=== PATIENT | female | born 1950 | race Caucasian/White ===

== ENCOUNTER 2016-06-26 16:57 | Inpatient (IN) | payer OTHER ==
[2016-06-26 17:00] VITALS: BMI 35.9
--- NOTE | 2016-06-26 17:59 | PDOC ---
History of Present Illness <Dwayne Du - Last Filed: 06/26/16 17:58> - General History Source: Patient Exam Limitations: No Limitations - History of Present Illness Initial Comments: 06/26/16 18:20 The patient is a 66 year old female, with a significant past medical history of NIDDM, hypertension, hyperlipidemia, hypothyroidism, and benign brain tumors(X6) , who presents to the emergency department complaining of chest pain and weakness for 1 day. The patient reports experiencing nonradiating chest pain and associated weakness yesterday, which improved during the evening. She denies any associated shortness of breath, diaphoresis, or palpitations. Today, the patient reports feeling generally weak when she woke up. She states she had a difficult time getting ready and had to put in a lot of effort in order to bring herself by bus to the ED. The patient states her blood glucose levels were at 205 this morning. She reports taking 50 mg of insulin, but not her metformin( because she was running low). The patient report similar chest pain in the April, which lasted 3 days, but resolved on its own. The patient denies ever having a stress test. The patient denies any fever, chills, cough, headache, or dizziness. The patient denies any nausea, vomiting, diarrhea, constipation, or changes in urination patterns. The patient denies any recent travel or sick contacts. Allergies: Phenytoin sodium(rash), Phenytoin sodium extended, and Vancomycin Past Surgical History: None reported. Social History: Former smoker(Quit 15 years ago). Denies alcohol or drug use PCP: Dr. Harvey <Berna Fountain - Last Filed: 06/26/16 18:36> <Argelia Joseph - Last Filed: 06/27/16 23:22> - General Chief Complaint: Weakness Stated Complaint: WEAKNESS Time Seen by Provider: 06/26/16 17:58 Past History - Past Medical History Anemia: No Asthma: No Cancer: No Cardiac Disorders: No CVA: No COPD: No CHF: No Dementia: No Diabetes: Yes (NIDDM) GI Disorders: No Disorders: No HTN: Yes Hypercholesterolemia: Yes Liver Disease: No Seizures: No Thyroid Disease: Yes (hypothyroidism) - Surgical History Abdominal Surgery: No Appendectomy: No Cardiac Surgery: No Cholecystectomy: No Lung Surgery: No Neurologic Surgery: Yes (BENIGN BRAIN TUMORS X 6 @ [facility]) Orthopedic Surgery: No - Immunization History Td Vaccination: Yes Immunization Up to Date: Yes - Psycho/Social/Smoking Cessation Hx Anxiety: No Suicidal Ideation: No Smoking Status: Yes Smoking History: Never smoked Have you smoked in the past 12 months: No Number of Cigarettes Smoked Daily: 0 If you are a former smoker, when did you quit?: 15 years ago Information on smoking cessation initiated: No Hx Alcohol Use: No Drug/Substance Use Hx: No Substance Use Type: None Hx Substance Use Treatment: No <Dwayne Du - Last Filed: 06/26/16 17:58> <Berna Fountain - Last Filed: 06/26/16 18:36> <Argelia Joseph - Last Filed: 06/27/16 23:22> - Past Medical History Allergies/Adverse Reactions: Allergies Allergy/AdvReac Type Severity Reaction Status Date / Time phenytoin sodium Allergy Rash Verified 06/26/16 16:58 [From Dilantin] phenytoin sodium extended Allergy Rash Verified 06/26/16 16:58 [From Dilantin] vancomycin Allergy Verified 06/26/16 16:58 Home Medications: Ambulatory Orders Gabapentin 100 mg PO BID 04/11/15 Omeprazole 20 mg PO DAILY #30 capsule. 09/09/15 Levothyroxine [Synthroid -] 125 mcg PO BID 10/20/15 Potassium Chloride [Klor-Con] 20 meq PO DAILY 10/20/15 Insulin (Novolog) [Novolog -] 10 units SQ BID 12/04/15 Insulin Glargine,Hum.rec.anlog [Lantus (nf)] 50 units SQ BID 12/04/15 Furosemide [Lasix -] 40 mg PO DAILY #30 tablet 12/06/15 Hydralazine HCl [Apresoline -] 25 mg PO BID #30 tablet 12/06/15 Simvastatin [Zocor -] 40 mg PO HS 06/26/16 Review of Systems - Review of Systems Able to Perform ROS?: Yes Comments:: 06/26/16 18:15 GENERAL/CONSTITUTIONAL: Yes: +Weakness. No fever or chills. HEAD, EYES, EARS, NOSE AND THROAT: No change in vision. No ear pain or discharge. No sore throat. CARDIOVASCULAR: Yes: +Chest pain. No shortness of breath. RESPIRATORY: No cough, wheezing, or hemoptysis. GASTROINTESTINAL: No nausea, vomiting, diarrhea or constipation. GENITOURINARY: No dysuria, frequency, or change in urination. MUSCULOSKELETAL: No joint or muscle swelling or pain. No neck or back pain. SKIN: No rash NEUROLOGIC: No headache, vertigo, loss of consciousness, or change in strength/ sensation. ENDOCRINE: No increased thirst. No abnormal weight change. HEMATOLOGIC/LYMPHATIC: No anemia, easy bleeding, or history of blood clots. ALLERGIC/IMMUNOLOGIC: No hives or skin allergy. <Bianca Fountainommarla - Last Filed: 06/26/16 18:36> *Physical Exam - Vital Signs Last Vital Signs Temp Pulse Resp BP Pulse Ox 86 17 159/95 97 06/26/16 16:58 06/26/16 16:58 06/26/16 16:58 06/26/16 16:58 <Dwayne Du - Last Filed: 06/26/16 17:58> - Vital Signs Last Vital Signs Temp Pulse Resp BP Pulse Ox 86 17 159/95 97 06/26/16 16:58 06/26/16 16:58 06/26/16 16:58 06/26/16 16:58 - Physical Exam Comments: 06/26/16 18:14 GENERAL: Awake, alert, and fully oriented, in no acute distress HEAD: No signs of trauma EYES: PERRLA, EOMI, sclera anicteric, conjunctiva clear ENT: Auricles normal inspection, hearing grossly normal, nares patent, oropharynx clear without exudates. Moist mucosa NECK: Normal ROM, supple, no lymphadenopathy, JVD, or masses LUNGS: Breath sounds equal, clear to auscultation bilaterally. No wheezes, and no crackles HEART: Regular rate and rhythm, normal S1 and S2, no murmurs, rubs or gallops ABDOMEN: Soft, nontender, normoactive bowel sounds. No guarding, no rebound. No masses EXTREMITIES: Normal range of motion, no edema. No clubbing or cyanosis. No cords, erythema, or tenderness NEUROLOGICAL: Cranial nerves II through XII grossly intact. Normal speech, normal gait SKIN: Warm, Dry, normal turgor, no rashes or lesions noted. <Bianca Fountainommarla - Last Filed: 06/26/16 18:36> - Vital Signs Last Vital Signs Temp Pulse Resp BP Pulse Ox 86 17 159/95 97 06/26/16 16:58 06/26/16 16:58 06/26/16 16:58 06/26/16 16:58 <Argelia Joseph - Last Filed: 06/27/16 23:22> ED Treatment Course - LABORATORY CBC & Chemistry Diagram: 06/27/16 05:28 06/27/16 05:28 - ADDITIONAL ORDERS Additional order review: Laboratory Results 06/26/16 06/26/16 06/26/16 22:50 21:40 18:45 INR Sodium 141 Potassium 5.7 H Chloride 111 H Carbon Dioxide 22 Anion Gap 8 BUN 53 H Creatinine 1.8 H Creat Clearance w eGFR 27.98 Random Glucose 247 H Calcium 8.7 Magnesium Total Bilirubin 0.3 AST 87 H D ALT 150 H Alkaline Phosphatase 270 H Creatine Kinase 86 Troponin I < 0.02 B-Natriuretic Peptide Total Protein 7.1 Albumin 3.3 L Urine Color Colorless Urine Appearance Clear Urine pH 5.0 Ur Specific [place] 1.005 Urine Protein 2+ H Urine Glucose (UA) 3+ H Urine Ketones Negative Urine Blood 1+ H Urine Nitrite Negative Urine Bilirubin Negative Urine Urobilinogen Negative Ur Leukocyte Esterase Negative Blood Type A POSITIVE Antibody Screen Negative 06/26/16 06/26/16 06/26/16 18:45 18:45 18:45 INR 0.94 Sodium 139 Potassium 6.2 H* D Chloride 110 H Carbon Dioxide 21 D Anion Gap 8 BUN 55 H D Creatinine 1.9 H D Creat Clearance w eGFR 26.29 Random Glucose 288 H D Calcium 8.7 Magnesium 2.4 Total Bilirubin 0.3 AST 131 H D ALT 172 H D Alkaline Phosphatase 310 H D Creatine Kinase 92 Troponin I < 0.02 B-Natriuretic Peptide 572.05 H Total Protein 7.9 D Albumin 3.6 D Urine Color Urine Appearance Urine pH Ur Specific [place] Urine Protein Urine Glucose (UA) Urine Ketones Urine Blood Urine Nitrite Urine Bilirubin Urine Urobilinogen Ur Leukocyte Esterase Blood Type Antibody Screen 06/26/16 18:45 RBC 3.83 MCV 90.2 MCHC 33.6 RDW 13.9 MPV 10.3 Neutrophils % 68.8 D Lymphocytes % 18.9 D Monocytes % 7.2 Eosinophils % 4.4 Basophils % 0.7 - RADIOLOGY Radiology Studies Ordered: Category Date Time Status ABDOMEN US -LIMITED [US] Stat Ultrasound 06/26/16 22:27 Taken - Medications Given in the ED: ED Medications Discontinued Medications Generic Name Dose Route Start Last Admin Trade Name Ankit PRN Reason Stop Dose Admin Dextrose 50 ml 06/26/16 19:51 06/26/16 20:27 D50w (Vial) - IVPUSH 06/26/16 19:52 50 ml NOW ONE Administration Insulin Human Regular 10 units 06/26/16 19:52 06/26/16 20:28 Novolin R Vial *For Ivpush Or Iv Drip Only* SQ 06/26/16 19:53 10 unit ONCE ONE Administration Sodium Polystyrene Sulfonate 30 gm 06/26/16 19:51 06/26/16 20:28 Kayexalate - PO 06/26/16 19:52 30 gm ONCE ONE Administration <Argelia Joseph - Last Filed: 06/27/16 23:22> Medical Decision Making - Medical Decision Making 06/27/16 00:49 Pt was signed out to me; she comes with DM and complains of CP and generalized weakness; head CT is normal. Pt has hyperkalemia and she has elevated liver enzymes. Sono of the abdomen reveals no CBD stones or dilatation. She has only fatty liver on sonogram. Pt will be admitted to her PMD for CP, hyperkalemia and weakness. She will be admitted to telemetry unit. 06/27/16 23:19 Pt began feeling unweel in the middle of the night. SHe had received IVF with sodium bicarb for her elevated K+. Pt had rales bilaterally, so I started her on BiPAP, gave her 2 SL nitro tabs, and we treated her with lasix 80mg and placed a rios catheter. 300+ml Urine came out immediately. Repeat CMP is improving. Repeat BNP slightly elevated. Pt is stable. She is still admitted to PMD. <Argelia Joseph - Last Filed: 06/27/16 23:22> *DC/Admit/Observation/Transfer - Attestations Physician Attestion: 06/26/16 17:59 I, Dr. Dwayne Du, attest that this document has been prepared under my direction and personally reviewed by me in its entirety. I further attest, that it accurately reflects all work, treatment, procedures and medical decision -making performed by me. <Dwayne Du - Last Filed: 06/26/16 17:58> - Attestations Scribe Attestion: 06/26/16 18:15 Documentation prepared by Berna Fountain, acting as medical services assistant for Dwayne Du DO. <Berna Fountain - Last Filed: 06/26/16 18:36> - Discharge Dispostion Admit: Yes <Argelia Joseph - Last Filed: 06/27/16 23:22> Diagnosis at time of Disposition: Renal insufficiency, Weakness, Hyperkalemia - Discharge Dispostion Condition at time of disposition: Guarded - Referrals
[2016-06-26 19:07] LABS: BASOPHIL 0.7 % (0-2.0); EOSINOPHIL 4.4 % (0-4.5); MCH 30.3 pg (25.7-33.7); MCHC 33.6 g/dl (32.0-36.0); MEAN CELL VOLUME 90.2 fl (80-96); MEAN PLT VOLUME 10.3 fl (7.5-11.1); NEUTROPHILS 68.8 % (42.8-82.8); PLATELET COUNT 191 K/MM3 (134-434); RDW 13.9 % (11.6-15.6); WHITE BLOOD COUNT 6.2 K/mm3 (4.0-10.0)
[2016-06-26 19:19] LABS: INR 0.94 (0.82-1.09); PROTHROMBIN TIME (PATIENT) 10.3 SEC (9.98-11.88)
[2016-06-26 19:33] LABS: ALBUMIN 3.6 g/dl (3.4-5.0); ANION GAP 8 (8-16); CALCIUM 8.7 mg/dL (8.5-10.1); CO2 21 mmol/L (21-32); COCKROFT - GAULT 48.6965; CREATININE 1.9 mg/dL (0.55-1.02); GLUCOSE,RANDOM 288 mg/dL (74-106); MAGNESIUM 2.4 mg/dL (1.8-2.4); SGOT/AST 131 U/L (15-37); SGPT/ALT 172 U/L (12-78)
[2016-06-26 19:37] LABS: ALK PHOS 310 U/L (45-117); BILIRUBIN,TOTAL 0.3 mg/dL (0.2-1.0); TOT PROT 7.9 g/dl (6.4-8.2); TROPONIN I < 0.02 ng/ml (0.00-0.05)
[2016-06-26] MEDS ORDERED: DEXTROSE 50%-WATER - 25 GM/50 ML VIAL IVPUSH ONE (19:51)
[2016-06-26] MEDS ORDERED: SODIUM POLYSTYRENE SULFONATE 15 GM/60 ML BOTTLE PO ONE (19:51)
[2016-06-26] MEDS ORDERED: INSULIN REGULAR HUMAN 100 UNITS/ML *VIAL SQ ONE (19:52)
[2016-06-26 20:07] LABS: PLATELET COMMENT2 FEW LARGE PLTS; PLATELET ESTIMATE ADEQUATE (NORMAL)
[2016-06-26] MEDS ORDERED: DEXTROSE 50%-WATER 50 ML DISP.SYRIN ONE (20:14)
[2016-06-26] MEDS ORDERED: SODIUM POLYSTYRENE SULFONATE 15 GM/60 ML BOTTLE ONE (20:15)
[2016-06-26] MEDS ORDERED: INSULIN REGULAR HUMAN 100 UNITS/ML *VIAL ONE (20:15)
[2016-06-26 22:01] LABS: URINE APPEARANCE CLEAR; URINE BILIRUBIN NEGATIVE (NEGATIVE); URINE COLOR COLORLESS; URINE GLUCOSE (UA) 3+ (NEGATIVE); URINE KETONE NEGATIVE (NEGATIVE); URINE LEUK ESTERASE NEGATIVE (NEGATIVE); URINE NITRITE NEGATIVE (NEGATIVE); URINE UROBILINOGEN NEGATIVE E.U./dl (0.2-1.0)
[2016-06-26 22:09] LABS: URINE BLOOD 1+ (NEGATIVE); URINE PROTEIN 2+ (NEGATIVE)
[2016-06-26 23:37] LABS: ALBUMIN 3.3 g/dl (3.4-5.0); ANION GAP 8 (8-16); BILIRUBIN,TOTAL 0.3 mg/dL (0.2-1.0); CALCIUM 8.7 mg/dL (8.5-10.1); CO2 22 mmol/L (21-32); COCKROFT - GAULT 51.3995; CREATININE 1.8 mg/dL (0.55-1.02); GLUCOSE,RANDOM 247 mg/dL (74-106); SGOT/AST 87 U/L (15-37); SGPT/ALT 150 U/L (12-78); TOT PROT 7.1 g/dl (6.4-8.2)
[2016-06-26 23:40] LABS: ALK PHOS 270 U/L (45-117); TROPONIN I < 0.02 ng/ml (0.00-0.05)
[2016-06-26] MEDS ORDERED: SODIUM BICARBONATE 8.4% 50 MEQ/50 ML VIAL IVPB ONE (23:59)
[2016-06-27] MEDS ORDERED: ALBUTEROL SO4 0.083% IH SOL 2.5 MG/3 ML VIAL.NEB. NEB ONE ×2 (00:01→03:34)
[2016-06-27] MEDS ORDERED: SODIUM BICARBONATE 8.4% 50 MEQ/50 ML VIAL ONE (01:10)
[2016-06-27 01:39] LABS: URINE MUCUS RARE; URINE RBC 1 /hpf (0-3); URINE WBC 2 /hpf (3-5)
[2016-06-27] MEDS ORDERED: FUROSEMIDE 40 MG/4 ML INJECTABLE VIAL ONE (04:14)
[2016-06-27] MEDS ORDERED: FUROSEMIDE 40 MG/4 ML INJECTABLE VIAL IVPUSH ONE (04:28)
[2016-06-27] MEDS ORDERED: NITROGLYCERIN SUBLINGUAL 1/150 0.4 MG TAB SL ONE (04:28)
[2016-06-27 05:42] LABS: BASOPHIL 0.7 % (0-2.0); EOSINOPHIL 4.9 % (0-4.5); MCH 31.1 pg (25.7-33.7); MCHC 34.2 g/dl (32.0-36.0); MEAN CELL VOLUME 90.8 fl (80-96); MEAN PLT VOLUME 9.9 fl (7.5-11.1); NEUTROPHILS 51.5 % (42.8-82.8); PLATELET COUNT 152 K/MM3 (134-434); RDW 13.7 % (11.6-15.6); WHITE BLOOD COUNT 4.4 K/mm3 (4.0-10.0)
[2016-06-27 06:19] LABS: ALBUMIN 2.9 g/dl (3.4-5.0); ANION GAP 9 (8-16); BILIRUBIN,TOTAL 0.3 mg/dL (0.2-1.0); CALCIUM 8.2 mg/dL (8.5-10.1); CHOLESTEROL 139 mg/dL (50-200); CO2 21 mmol/L (21-32); COCKROFT - GAULT 57.8255; CREATININE 1.6 mg/dL (0.55-1.02); GLUCOSE,RANDOM 184 mg/dL (74-106); LDL CHOLESTEROL (ONLY SJRH) 61 mg/dL (5-100); SGOT/AST 69 U/L (15-37); SGPT/ALT 131 U/L (12-78); TOT PROT 6.4 g/dl (6.4-8.2)
[2016-06-27 06:20] LABS: ALK PHOS 240 U/L (45-117); TROPONIN I < 0.02 ng/ml (0.00-0.05)
[2016-06-27] MEDS: INSULIN DETEMIR 100 UNITS/ML MDV SQ SCH ×2 (08:00→17:09)
--- NOTE | 2016-06-27 09:58 | HP ---
Admitting History and Physical - Admission History of Present Illness: 66 year old female, with a significant past medical history of NIDDM, hypertension, hyperlipidemia, hypothyroidism, and benign brain tumors(X6), who presents to the emergency department complaining of chest pain and weakness for 1 day. The patient reports experiencing non radiating chest pain and associated weakness yesterday, which improved during the evening. She denies any associated shortness of breath, diaphoresis, or palpitations. Today, the patient reports feeling generally weak when she woke up. She states she had a difficult time getting ready and had to put in a lot of effort in order to bring herself by bus to the ED. The patient report similar chest pain in the April, which lasted 3 days, but resolved on its own. The patient denies ever having a stress test. The patient denies any fever, chills, cough, headache, or dizziness. 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: Peripheral Neuropathy, Other (brain tumor) Cardiovascular: Yes: CHF, Hyperlipdemia Renal/: Yes: Renal Inusuff Endocrine: Yes: Diabetes Mellitus (poor controll) - Smoking History Smoking history: Never smoked Have you smoked in the past 12 months: No Aproximately how many cigarettes per day: 0 If you are a former smoker, when did you quit?: 15 years ago - Alcohol/Substance Use Hx Alcohol Use: No - Social History ADL: Independent History of Recent Travel: No Home Medications - Allergies Allergies/Adverse Reactions: Allergies Allergy/AdvReac Type Severity Reaction Status Date / Time phenytoin sodium Allergy Rash Verified 06/26/16 16:58 [From Dilantin] phenytoin sodium extended Allergy Rash Verified 06/26/16 16:58 [From Dilantin] vancomycin Allergy Verified 06/26/16 16:58 - Home Medications Home Medications: Ambulatory Orders Gabapentin 100 mg PO BID 04/11/15 Omeprazole 20 mg PO DAILY #30 capsule. 09/09/15 Levothyroxine [Synthroid -] 125 mcg PO BID 10/20/15 Potassium Chloride [Klor-Con] 20 meq PO DAILY 10/20/15 Insulin (Novolog) [Novolog -] 10 units SQ BID 12/04/15 Insulin Glargine,Hum.rec.anlog [Lantus (nf)] 50 units SQ BID 12/04/15 Furosemide [Lasix -] 40 mg PO DAILY #30 tablet 12/06/15 Hydralazine HCl [Apresoline -] 25 mg PO BID #30 tablet 12/06/15 Simvastatin [Zocor -] 40 mg PO HS 06/26/16 Review of Systems - Review of Systems Cardiovascular: reports: Chest Pain, Edema Respiratory: reports: SOB, SOB on Exertion Gastrointestinal: reports: Abdominal Pain (epigastic) Musculoskeletal: reports: No Symptoms Neurological: reports: No Symptoms Physical Examination Vital Signs: Vital Signs Temperature 97.9 F 06/27/16 07:06 Pulse Rate 72 06/27/16 09:06 Respiratory Rate 20 06/27/16 07:06 Blood Pressure 116/59 06/27/16 07:06 O2 Sat by Pulse Oximetry (%) 100 06/27/16 09:06 Neck: Yes: Supple Cardiovascular: Yes: Regular Rate and Rhythm Respiratory: Yes: CTA Bilaterally, Diminished Gastrointestinal: Yes: Normal Bowel Sounds, Soft Extremities: Yes: Erythema Edema: Yes Edema: LLE: 2+, RLE: 2+ Labs: CBC, BMP 06/27/16 05:28 06/27/16 05:28 Problem List - Problems (1) Chest pain Assessment/Plan: CE NEGATIVE F/U EKG CARDIO AND PULM DUPLEX OF LE CTA ONCE RENAL FUNCTION IMPROVES AC IF HGB STABLE Code(s): R07.9 - CHEST PAIN, UNSPECIFIED (2) Elevated liver enzymes Assessment/Plan: MONITOR GI Code(s): R74.8 - ABNORMAL LEVELS OF OTHER SERUM ENZYMES (3) Hyperkalemia Assessment/Plan: IMPROVING MONITOR Code(s): E87.5 - HYPERKALEMIA (4) Renal insufficiency Code(s): N28.9 - DISORDER OF KIDNEY AND URETER, UNSPECIFIED (5) Cellulitis Assessment/Plan: IV ABX Code(s): L03.90 - CELLULITIS, UNSPECIFIED Qualifiers: Qualified Code(s): L03.90 - Cellulitis, unspecified (6) Diabetes mellitus, insulin dependent (IDDM), uncontrolled Assessment/Plan: BGM INSULIN ENDO Code(s): E10.65 - TYPE 1 DIABETES MELLITUS WITH HYPERGLYCEMIA Qualifiers: Qualified Code(s): E10.620 - 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; E10.65 - Type 1 diabetes mellitus with hyperglycemia
[2016-06-27] MEDS ORDERED: LEVOTHYROXINE NA 125 MCG TABLET (FP) PO SCH (10:00)
[2016-06-27 10:47] LABS: URINE APPEARANCE CLEAR; URINE BILIRUBIN NEGATIVE (NEGATIVE); URINE COLOR COLORLESS; URINE GLUCOSE (UA) NEGATIVE (NEGATIVE); URINE KETONE NEGATIVE (NEGATIVE); URINE LEUK ESTERASE NEGATIVE (NEGATIVE); URINE NITRITE NEGATIVE (NEGATIVE); URINE UROBILINOGEN NEGATIVE E.U./dl (0.2-1.0)
[2016-06-27 10:53] LABS: URINE BLOOD 1+ (NEGATIVE); URINE PROTEIN 2+ (NEGATIVE)
[2016-06-27 10:54] LABS: URINE BACTERIA FEW /hpf (NONE SEEN); URINE HYALINE CAST 1 /lpf; URINE MUCUS RARE; URINE RBC <1 /hpf (0-3); URINE WBC 1 /hpf (3-5)
[2016-06-27] MEDS: GABAPENTIN 100 MG CAPSULE (FP) PO SCH ×2 (12:08→21:56)
[2016-06-27] MEDS: PANTOPRAZOLE 20 MG TABLET (FP) PO SCH (12:08)
[2016-06-27] MEDS: hydrALAZINE HCL 25 MG TABLET (FP) PO SCH ×2 (12:08→21:56)
[2016-06-27] MEDS ORDERED: PANTOPRAZOLE 40 MG TABLET (FP) ONE (12:11)
[2016-06-27] MEDS: CEFTRIAXONE 100 ML IVPB SCH (12:11)
[2016-06-27] MEDS ORDERED: GABAPENTIN 100 MG CAPSULE (FP) ONE (12:12)
[2016-06-27] MEDS ORDERED: hydrALAZINE HCL 25 MG TABLET (FP) ONE (12:12)
--- NOTE | 2016-06-27 12:12 | CON.CARD ---
Consult Consult Specialty:: Cardiology Referred by:: Dr Harvey Reason for Consultation:: chest pain - History of Present Illness Chief Complaint: chest pain, sob History of Present Illness: She is a 66 year old woman with a history of NIDDM, hypertension, hyperlipidemia , hypothyroidism, and benign brain tumors(X6), who presents to the emergency department complaining of chest pain and weakness for 2 days, edema and orthopnea with sob. Found with unremarkable ECG but noted with fluid overload, worsening renal function and weakness. No palps dizziness or syncope. Exercise tolerance at baseline is poor. Echo 01/22/15 normal EF moderate MR. 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 history of brain tumors (benign) - Alcohol/Substance Use Hx Alcohol Use: No - Smoking History Smoking history: Never smoked Have you smoked in the past 12 months: No Aproximately how many cigarettes per day: 0 If you are a former smoker, when did you quit?: 15 years ago - Social History Usual Living Arrangement: Alone ADL: Independent History of Recent Travel: No Home Medications - Allergies Allergies/Adverse Reactions: Allergies Allergy/AdvReac Type Severity Reaction Status Date / Time phenytoin sodium Allergy Rash Verified 06/26/16 16:58 [From Dilantin] phenytoin sodium extended Allergy Rash Verified 06/26/16 16:58 [From Dilantin] vancomycin Allergy Verified 06/26/16 16:58 - Home Medications Home Medications: Ambulatory Orders Gabapentin 100 mg PO BID 04/11/15 Omeprazole 20 mg PO DAILY #30 capsule. 09/09/15 Levothyroxine [Synthroid -] 125 mcg PO BID 10/20/15 Potassium Chloride [Klor-Con] 20 meq PO DAILY 10/20/15 Insulin (Novolog) [Novolog -] 10 units SQ BID 12/04/15 Insulin Glargine,Hum.rec.anlog [Lantus (nf)] 50 units SQ BID 12/04/15 Furosemide [Lasix -] 40 mg PO DAILY #30 tablet 12/06/15 Hydralazine HCl [Apresoline -] 25 mg PO BID #30 tablet 12/06/15 Simvastatin [Zocor -] 40 mg PO HS 06/26/16 Review of Systems - Review of Systems Constitutional: reports: No Symptoms Eyes: reports: No Symptoms HENT: reports: No Symptoms Neck: reports: No Symptoms Gastrointestinal: reports: No Symptoms Vital Signs: Vital Signs Temperature 97.9 F 06/27/16 07:06 Pulse Rate 72 06/27/16 09:06 Respiratory Rate 20 06/27/16 07:06 Blood Pressure 116/59 06/27/16 07:06 O2 Sat by Pulse Oximetry (%) 98 06/27/16 11:18 Constitutional: Yes: Anxious, Obese Eyes: Yes: WNL HENT: Yes: WNL Neck: Yes: WNL, Supple, Trachea Midline Respiratory: Yes: Rales (bibasilar crackles.) Gastrointestinal: Yes: WNL Renal/: Yes: WNL Heart Sounds: Yes: S1, S2 Murmur: Yes: Systolic Murmur, Grade 2 Musculoskeletal: Yes: Muscle Weakness Edema: Yes Edema: LLE: 2+, RLE: 2+ Integumentary: Yes: Erythema, Venous Stasis Changes - Other Data Labs, Other Data: CBC, BMP 06/27/16 05:28 06/27/16 05:28 INR, PTT INR 0.94 (0.82-1.09) 06/26/16 18:45 Troponin, BNP 06/27/16 06/27/16 05:28 05:28 Troponin I < 0.02 B-Natriuretic Peptide 646.99 H Troponin, BNP 06/27/16 06/27/16 05:28 05:28 Troponin I < 0.02 B-Natriuretic Peptide 646.99 H Normal ECG. Echo: Report Reviewed Imaging - Results Chest X-ray: Report Reviewed (mild chf) Problem List - Problems (1) Chest pain Assessment/Plan: Her chest pain is atypical for angina pectoris, ECG and Wilfrido x 1 negative. However, she has multiple risk factors for CAD. Would repeat echo, get persantine nuclear stress test if CTA cannot be obtained due to renal function. Baby asa if OK with neuro. Code(s): R07.9 - CHEST PAIN, UNSPECIFIED Qualifiers: Chest pain type: precordial pain Qualified Code(s): R07.2 - Precordial pain (2) HTN (hypertension) Assessment/Plan: Controlled on current medications. Code(s): I10 - ESSENTIAL (PRIMARY) HYPERTENSION Qualifiers: Hypertension type: essential hypertension Qualified Code(s): I10 - Essential (primary) hypertension (3) CHF exacerbation Assessment/Plan: gentle diuresis. Echo to assess lv function. renal evaluation. daily weights. I/O. repeat bnp when clinically improved. Code(s): I50.9 - HEART FAILURE, UNSPECIFIED Qualifiers: Congestive heart failure type: diastolic Qualified Code(s): I50.33 - Acute on chronic diastolic (congestive) heart failure
[2016-06-27] MEDS ORDERED: HEMOQUE TEST 1 EACH EACH ONE (12:13)
[2016-06-27] MEDS ORDERED: CEFTRIAXONE 100 ML IVPB ONE (12:17)
[2016-06-27 13:56] LABS: ARTERIAL BLD GAS O2 SATURATION 96.2 % (90-98.9); ARTERIAL BLOOD GAS PO2 82.8 mmHg (80-100)
[2016-06-27 13:58] LABS: ALLENS TEST POSITIVE; ART PUNCT SITE RIGHT RADIAL; ARTERIAL BLOOD GAS HCO3 20.6 meq/L (22-26); PT. ON O2? YES; TYPE OF O2 NASAL
--- NOTE | 2016-06-27 13:58 | CON.PULM ---
Consult Consult Specialty:: PULMONARY Referred by:: Dr. Harvey Reason for Consultation:: shortness of breath - History of Present Illness Chief Complaint: shortness of breath History of Present Illness: 66yo female with h/o HTN, DM, hyperlipidemia, hypothyroidism who presents with worsening shortness of breath and chest pain x 1 day. Denies any cough or wheezing. No fevers, chills or sweats. No nausea, vomiting or abdominal pain. Denies any pulmonary history, no history of asthma or COPD. She is a remote smoker. CXR showing congestive changes and RLL effusion. Given lasix in the ER with some improvement in her symptoms. 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 history of brain tumors (benign) - Alcohol/Substance Use Hx Alcohol Use: No - Smoking History Smoking history: Never smoked Have you smoked in the past 12 months: No Aproximately how many cigarettes per day: 0 If you are a former smoker, when did you quit?: 15 years ago - Social History Usual Living Arrangement: Alone ADL: Independent History of Recent Travel: No Home Medications - Allergies Allergies/Adverse Reactions: Allergies Allergy/AdvReac Type Severity Reaction Status Date / Time phenytoin sodium Allergy Rash Verified 06/26/16 16:58 [From Dilantin] phenytoin sodium extended Allergy Rash Verified 06/26/16 16:58 [From Dilantin] vancomycin Allergy Verified 06/26/16 16:58 - Home Medications Home Medications: Ambulatory Orders Gabapentin 100 mg PO BID 04/11/15 Omeprazole 20 mg PO DAILY #30 capsule. 09/09/15 Levothyroxine [Synthroid -] 125 mcg PO BID 10/20/15 Potassium Chloride [Klor-Con] 20 meq PO DAILY 10/20/15 Insulin (Novolog) [Novolog -] 10 units SQ BID 12/04/15 Insulin Glargine,Hum.rec.anlog [Lantus (nf)] 50 units SQ BID 12/04/15 Furosemide [Lasix -] 40 mg PO DAILY #30 tablet 12/06/15 Hydralazine HCl [Apresoline -] 25 mg PO BID #30 tablet 12/06/15 Simvastatin [Zocor -] 40 mg PO HS 06/26/16 Review of Systems - Review of Systems Constitutional: reports: Weakness. denies: Chills, Fever Eyes: denies: Recent Change in Vision HENT: denies: Nasal Congestion, Throat Pain Neck: denies: Stiffness, Tenderness Cardiovascular: reports: Chest Pain, Edema, Shortness of Breath. denies: Palpitations Respiratory: reports: SOB, SOB on Exertion. denies: Cough, Hemoptysis, Wheezing Gastrointestinal: denies: Abdominal Pain, Nausea, Vomiting Genitourinary: denies: Dysuria, Hematuria Neurological: denies: Dizziness, Headache Physical Exam Vital Sings: Vital Signs Temperature 97.9 F 06/27/16 07:06 Pulse Rate 72 06/27/16 09:06 Respiratory Rate 20 06/27/16 07:06 Blood Pressure 116/59 06/27/16 07:06 O2 Sat by Pulse Oximetry (%) 98 06/27/16 11:18 Constitutional: Yes: Anxious Eyes: Yes: Conjunctiva Clear, EOM Intact HENT: Yes: Atraumatic, Normocephalic Neck: Yes: Supple, Trachea Midline Cardiovascular: Yes: Regular Rate and Rhythm Respiratory: Yes: Regular, Diminished, Rales (bibasilar rales) ...Clubbing: No Gastrointestinal: Yes: Normal Bowel Sounds, Soft. No: Tenderness Extremities: Yes: Erythema Edema: Yes Neurological: Yes: Alert, Oriented Labs: CBC, BMP 06/27/16 05:28 06/27/16 05:28 Imaging - Results Chest X-ray: Report Reviewed, Image Reviewed (pulmonary vascular congestion, right effusion) Problem List - Problems (1) CHF exacerbation Code(s): I50.9 - HEART FAILURE, UNSPECIFIED Qualifiers: Congestive heart failure type: diastolic Qualified Code(s): I50.33 - Acute on chronic diastolic (congestive) heart failure (2) Chest pain Code(s): R07.9 - CHEST PAIN, UNSPECIFIED Qualifiers: Chest pain type: precordial pain Qualified Code(s): R07.2 - Precordial pain (3) Elevated liver enzymes Code(s): R74.8 - ABNORMAL LEVELS OF OTHER SERUM ENZYMES (4) Hyperkalemia Code(s): E87.5 - HYPERKALEMIA (5) Diabetes mellitus, insulin dependent (IDDM), uncontrolled Code(s): E10.65 - TYPE 1 DIABETES MELLITUS WITH HYPERGLYCEMIA Qualifiers: Diabetes mellitus complication status: with skin complications Diabetes mellitus complication detail: with dermatitis Qualified Code(s): E10.620 - 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; E10.65 - Type 1 diabetes mellitus with hyperglycemia (6) HTN (hypertension) Code(s): I10 - ESSENTIAL (PRIMARY) HYPERTENSION Qualifiers: Hypertension type: essential hypertension Qualified Code(s): I10 - Essential (primary) hypertension (7) Hypothyroid Code(s): E03.9 - HYPOTHYROIDISM, UNSPECIFIED Assessment/Plan Acute on Chronic CHF Pleural Effusion from above Chest Pain Hyperkalemia Elevated LFTs - ?congestive hepatopathy CKD HTN DM - agree with IV lasix - monitor urine output, creatinine - daily weights, I/Os - echocardiogram - trend LFTs - O2 to keep SpO2 >90% - BiPAP as needed to assist in work of breathing - monitor lytes - less likely pneumonia, can d/c antibiotics if remains afebrile and normal WBC - DVT prophylaxis Thank you for this consult Jeronimo Dorado MD
[2016-06-27] MEDS: ASPIRIN COATED 81 MG TABLET.EC PO SCH (14:29)
[2016-06-27 14:49] LABS: FERRITIN 77.506 ng/ml (6.9-282.5)
[2016-06-27] MEDS ORDERED: ALPRAZolam 0.25 MG TABLET PO PRN (15:05)
[2016-06-27] MEDS: INSULIN SLIDING SCALE (NOVOLOG) 1 VIAL SQ SCH ×2 (17:10→22:28)
--- NOTE | 2016-06-27 18:11 | EKG ---
Test Reason : Blood Pressure : / mmHG Vent. Rate : 071 BPM Atrial Rate : 071 BPM P-R Int : 000 ms QRS Dur : 104 ms QT Int : 432 ms P-R-T Axes : 048 060 031 degrees QTc Int : 469 ms SINUS RHYTHM WITH 1ST DEGREE A-V BLOCK OTHERWISE NORMAL ECG WHEN COMPARED WITH ECG OF 05-DEC-2015 04:51, PA INTERVAL HAS DECREASED BASELINE ARTIFACT Confirmed by JUSTINA VÁSQUEZ, DAMIR ([id number]) on 06/27/2016 6:10:45 PM Referred By: Confirmed By:DAMIR HORN MD
[2016-06-27] MEDS: ALPRAZolam 0.25 MG TABLET PO PRN (21:56)
[2016-06-28] MEDS: LEVOTHYROXINE NA 125 MCG TABLET (FP) PO SCH (06:26)
[2016-06-28] MEDS: INSULIN SLIDING SCALE (NOVOLOG) 1 VIAL SQ SCH ×2 (06:26→18:17)
[2016-06-28] MEDS: INSULIN DETEMIR 100 UNITS/ML MDV SQ SCH ×2 (06:26→18:18)
--- NOTE | 2016-06-28 09:41 | PN ---
Progress Note, Physician History of Present Illness: SITTING UP EATING DENIES ANY CP THIS AM - Current Medication List Current Medications: Active Medications Alprazolam (Xanax -) 0.5 mg PO Q6H PRN Last Admin: 06/27/16 21:56 Dose: 0.5 mg Aspirin (Ecotrin -) 162 mg PO DAILY [facility] Last Admin: 06/27/16 14:29 Dose: 162 mg Gabapentin (Neurontin -) 100 mg PO BID [facility] Last Admin: 06/27/16 21:56 Dose: 100 mg Hydralazine HCl (Apresoline -) 25 mg PO BID [facility] Last Admin: 06/27/16 21:56 Dose: 25 mg Ceftriaxone Sodium (Rocephin 2gm Ivpb (Pre-Docked)) 100 mls @ 200 mls/hr IVPB DAILY [facility] Last Admin: 06/27/16 12:11 Dose: 200 mls/hr Insulin Aspart (Novolog Vial Sliding Scale -) 1 vial SQ ACHS [facility] PRN Reason: Protocol Last Admin: 06/28/16 06:26 Dose: Not Given Insulin Detemir (Levemir Vial) 50 units SQ BIDAC [facility] Last Admin: 06/28/16 06:26 Dose: 50 units Levothyroxine Sodium (Synthroid -) 125 mcg PO DAILY@0700 [facility] Last Admin: 06/28/16 06:26 Dose: 125 mcg Pantoprazole Sodium (Protonix -) 20 mg PO DAILY [facility] Last Admin: 06/27/16 12:08 Dose: 20 mg - Objective Vital Signs: Vital Signs Temperature 95.5 F L 06/28/16 06:00 Pulse Rate 82 06/28/16 06:00 Respiratory Rate 20 06/28/16 06:00 Blood Pressure 135/63 06/28/16 06:00 O2 Sat by Pulse Oximetry (%) 95 06/27/16 21:00 Cardiovascular: Yes: Regular Rate and Rhythm Respiratory: Yes: Regular, CTA Bilaterally Gastrointestinal: Yes: Normal Bowel Sounds, Soft. No: Tenderness Extremities: Yes: Erythema Edema: Yes Labs: CBC, BMP 06/27/16 05:28 06/27/16 05:28 INR, PTT INR 0.94 (0.82-1.09) 06/26/16 18:45 Problem List - Problems (1) Chest pain Assessment/Plan: RESOLVED CE NEGATIVE F/U EKG CARDIO AND PULM DUPLEX OF LE CTA ONCE RENAL FUNCTION IMPROVES AC IF HGB STABLE Code(s): R07.9 - CHEST PAIN, UNSPECIFIED Qualifiers: Chest pain type: precordial pain Qualified Code(s): R07.2 - Precordial pain (2) Elevated liver enzymes Assessment/Plan: RPT PENDING MONITOR GI Code(s): R74.8 - ABNORMAL LEVELS OF OTHER SERUM ENZYMES (3) Hyperkalemia Assessment/Plan: IMPROVING MONITOR Code(s): E87.5 - HYPERKALEMIA (4) Renal insufficiency Assessment/Plan: MONITOR IVF Code(s): N28.9 - DISORDER OF KIDNEY AND URETER, UNSPECIFIED (5) Cellulitis Assessment/Plan: IV ABX Code(s): L03.90 - CELLULITIS, UNSPECIFIED Qualifiers: Site of cellulitis: unspecified site Qualified Code(s): L03.90 - Cellulitis, unspecified (6) Diabetes mellitus, insulin dependent (IDDM), uncontrolled Assessment/Plan: BGM INSULIN ENDO Code(s): E10.65 - TYPE 1 DIABETES MELLITUS WITH HYPERGLYCEMIA Qualifiers: Diabetes mellitus complication status: with skin complications Diabetes mellitus complication detail: with dermatitis Qualified Code(s): E10.620 - 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; E10.65 - Type 1 diabetes mellitus with hyperglycemia (7) Hypothermia Assessment/Plan: R/O SEPSIS TSH CULTURES IV ABX ID Code(s): T68.XXXA - HYPOTHERMIA, INITIAL ENCOUNTER
[2016-06-28 10:11] LABS: EOSINOPHIL 5.8 % (0-4.5); MCHC 33.1 g/dl (32.0-36.0); MEAN CELL VOLUME 90.5 fl (80-96); MEAN PLT VOLUME 9.9 fl (7.5-11.1); NEUTROPHILS 63.3 % (42.8-82.8); PLATELET COUNT 172 K/MM3 (134-434); RDW 13.6 % (11.6-15.6); WHITE BLOOD COUNT 4.5 K/mm3 (4.0-10.0)
--- NOTE | 2016-06-28 10:16 | PN ---
Progress Note, Physician Chief Complaint: ID Full note dictated - Current Medication List Current Medications: Active Medications Alprazolam (Xanax -) 0.5 mg PO Q6H PRN Last Admin: 06/27/16 21:56 Dose: 0.5 mg Aspirin (Ecotrin -) 162 mg PO DAILY [facility] Last Admin: 06/27/16 14:29 Dose: 162 mg Gabapentin (Neurontin -) 100 mg PO BID [facility] Last Admin: 06/27/16 21:56 Dose: 100 mg Hydralazine HCl (Apresoline -) 25 mg PO BID [facility] Last Admin: 06/27/16 21:56 Dose: 25 mg Ceftriaxone Sodium (Rocephin 2gm Ivpb (Pre-Docked)) 100 mls @ 200 mls/hr IVPB DAILY [facility] Last Admin: 06/27/16 12:11 Dose: 200 mls/hr Insulin Aspart (Novolog Vial Sliding Scale -) 1 vial SQ ACHS [facility] PRN Reason: Protocol Last Admin: 06/28/16 06:26 Dose: Not Given Insulin Detemir (Levemir Vial) 50 units SQ BIDAC [facility] Last Admin: 06/28/16 06:26 Dose: 50 units Levothyroxine Sodium (Synthroid -) 125 mcg PO DAILY@0700 [facility] Last Admin: 06/28/16 06:26 Dose: 125 mcg Pantoprazole Sodium (Protonix -) 20 mg PO DAILY [facility] Last Admin: 06/27/16 12:08 Dose: 20 mg - Objective Vital Signs: Vital Signs Temperature 95.5 F L 06/28/16 06:00 Pulse Rate 82 06/28/16 06:00 Respiratory Rate 20 06/28/16 06:00 Blood Pressure 135/63 06/28/16 06:00 O2 Sat by Pulse Oximetry (%) 95 06/27/16 21:00 Extremities: Yes: Erythema Edema: Yes Labs: INR, PTT INR 0.94 (0.82-1.09) 06/26/16 18:45 Problem List - Problems (1) Cellulitis and abscess of leg Code(s): L02.419 - CUTANEOUS ABSCESS OF LIMB, UNSPECIFIED L03.119 - CELLULITIS OF UNSPECIFIED PART OF LIMB (2) Chest pain Code(s): R07.9 - CHEST PAIN, UNSPECIFIED Qualifiers: Chest pain type: precordial pain Qualified Code(s): R07.2 - Precordial pain Assessment/Plan Microbiology Laboratory Tests 06/27/16 05:28 WBC 4.4 Hgb 10.1 L D Hct 29.5 L Plt Count 152 D Assessment Chronic dermatitis of both LE less likely cellulitis Plan Stop antibiotic Lisseth VÁSQUEZ
[2016-06-28 10:30] LABS: ANION GAP 8 (8-16); BILIRUBIN,TOTAL 0.2 mg/dL (0.2-1.0); CALCIUM 8.5 mg/dL (8.5-10.1); CO2 23 mmol/L (21-32); CREATININE 1.5 mg/dL (0.55-1.02); GLUCOSE,RANDOM 152 mg/dL (74-106); SGOT/AST 44 U/L (15-37); SGPT/ALT 115 U/L (12-78); TOT PROT 6.7 g/dl (6.4-8.2)
[2016-06-28 10:32] LABS: ALK PHOS 237 U/L (45-117); TROPONIN I < 0.02 ng/ml (0.00-0.05)
[2016-06-28] MEDS: CEFTRIAXONE 100 ML IVPB SCH (10:50)
[2016-06-28 10:52] LABS: THYROID STIMULATING HORMONE 1.09 uIU/ml (0.358-3.74)
[2016-06-28] MEDS: GABAPENTIN 100 MG CAPSULE (FP) PO SCH ×2 (11:01→21:44)
[2016-06-28] MEDS: PANTOPRAZOLE 20 MG TABLET (FP) PO SCH (11:01)
[2016-06-28] MEDS: hydrALAZINE HCL 25 MG TABLET (FP) PO SCH ×2 (11:01→21:44)
[2016-06-28] MEDS: ASPIRIN COATED 81 MG TABLET.EC PO SCH (11:03)
--- NOTE | 2016-06-28 11:39 | PN ---
Progress Note, Physician Chief Complaint: no further chest pain or sob. lying flat. tele negative. History of Present Illness: She is a 66 year old woman with a history of NIDDM, hypertension, hyperlipidemia , hypothyroidism, and benign brain tumors(X6), who presents to the emergency department complaining of chest pain and weakness for 2 days, edema and orthopnea with sob. Found with unremarkable ECG but noted with fluid overload, worsening renal function and weakness. No palps dizziness or syncope. Exercise tolerance at baseline is poor. Echo 01/22/15 normal EF moderate MR. - Current Medication List Current Medications: Active Medications Alprazolam (Xanax -) 0.5 mg PO Q6H PRN Last Admin: 06/27/16 21:56 Dose: 0.5 mg Aspirin (Ecotrin -) 162 mg PO DAILY [facility] Last Admin: 06/28/16 11:03 Dose: 162 mg Gabapentin (Neurontin -) 100 mg PO BID [facility] Last Admin: 06/28/16 11:01 Dose: 100 mg Hydralazine HCl (Apresoline -) 25 mg PO BID [facility] Last Admin: 06/28/16 11:01 Dose: 25 mg Insulin Aspart (Novolog Vial Sliding Scale -) 1 vial SQ ACHS [facility] PRN Reason: Protocol Last Admin: 06/28/16 06:26 Dose: Not Given Insulin Detemir (Levemir Vial) 50 units SQ BIDAC [facility] Last Admin: 06/28/16 06:26 Dose: 50 units Levothyroxine Sodium (Synthroid -) 125 mcg PO DAILY@0700 [facility] Last Admin: 06/28/16 06:26 Dose: 125 mcg Pantoprazole Sodium (Protonix -) 20 mg PO DAILY [facility] Last Admin: 06/28/16 11:01 Dose: 20 mg - Objective Vital Signs: Vital Signs Temperature 95.5 F L 06/28/16 06:00 Pulse Rate 82 06/28/16 06:00 Respiratory Rate 20 06/28/16 06:00 Blood Pressure 135/63 06/28/16 06:00 O2 Sat by Pulse Oximetry (%) 95 06/27/16 21:00 Constitutional: Yes: No Distress, Calm Eyes: Yes: WNL HENT: Yes: WNL Neck: Yes: WNL Cardiovascular: Yes: Regular Rate and Rhythm, S1, S2 Respiratory: Yes: WNL Gastrointestinal: Yes: WNL Edema: Yes Edema: LLE: 2+, RLE: 2+ Peripheral Pulses WNL: Yes Integumentary: Yes: Erythema (lower legs) Labs: CBC, BMP 06/28/16 09:50 06/28/16 09:50 INR, PTT INR 0.94 (0.82-1.09) 06/26/16 18:45 Problem List - Problems (1) Chest pain Assessment/Plan: Her chest pain is atypical for angina pectoris, ECG and Wilfrido x 1 negative. However, she has multiple risk factors for CAD. Would repeat echo, get persantine nuclear stress test if CTA cannot be obtained due to renal function. Baby asa if OK with neuro. Code(s): R07.9 - CHEST PAIN, UNSPECIFIED Qualifiers: Chest pain type: precordial pain Qualified Code(s): R07.2 - Precordial pain (2) HTN (hypertension) Assessment/Plan: Controlled on current medications. Code(s): I10 - ESSENTIAL (PRIMARY) HYPERTENSION Qualifiers: Hypertension type: essential hypertension Qualified Code(s): I10 - Essential (primary) hypertension (3) CHF exacerbation Assessment/Plan: gentle diuresis. Echo to assess lv function. renal evaluation. daily weights. I/O. repeat bnp when clinically improved. Code(s): I50.9 - HEART FAILURE, UNSPECIFIED Qualifiers: Congestive heart failure type: diastolic Qualified Code(s): I50.33 - Acute on chronic diastolic (congestive) heart failure
--- NOTE | 2016-06-28 11:56 | CONS ---
DATE OF CONSULTATION: DATE OF DICTATION: 06/28/2016 This is a 66-year-old female with multiple comorbidities brought to the emergency room for evaluation of chest pain and weakness, shortness of breath, and peripheral edema with orthopnea. She has a history of noninsulin-dependent diabetes, hypertension, hyperlipidemia, hypothyroidism. She was seen initially by Cardiology and felt to have atypical chest pain with recommendations for Persantine nuclear stress test. I am asked to see her now for lower extremity cellulitis, for which she is on ceftriaxone. She has no fever nor has she been febrile and has a normal white count. She notes a history of a chronic lower extremity dermatitis, noting that only boric acid cream to the legs makes this better. She denies any pain in the lower extremities. PAST MEDICAL HISTORY: As noted above. CURRENT MEDICATIONS: Ceftriaxone, hydralazine, Neurontin, aspirin, Protonix, Synthroid. ALLERGIES: DILANTIN and VANCOMYCIN. SOCIAL HISTORY: Former smoker, quit 15 years ago. No history of alcohol use. FAMILY HISTORY: Reviewed and noncontributory. REVIEW OF SYSTEMS: Respiratory: Shortness of breath, currently improved. Cardiac: No chest pain, palpitations, syncope. Gastrointestinal: No abdominal pain, nausea, vomiting, diarrhea. Genitourinary: No dysuria, hematuria. PHYSICAL EXAMINATION: General: A heavyset woman, alert, in no acute distress. Vital Signs: Weight 262 pounds, temperature 95.5, pulse 82, blood pressure 135/63, respirations 20. Neck: Supple. Lungs: Diminished breath sounds. Heart: S1, S2, regular rhythm without murmur. Abdomen: Soft, nontender, positive bowel sounds. No guarding or rebound. Extremities: Two to 3+ edema of both lower legs with confluent erythema extending up both legs with symmetrical demarcated border in both lower extremities. The legs were nontender to touch with a nodular skin appearance to them. White count 4.4 with hemoglobin 10.1, platelets 152, normal differential count. BUN 49, creatinine 1.6, glucose 184. Chest x-ray shows bilateral pleural effusions. ASSESSMENT: A 66-year-old female with multiple comorbidities admitted for chest pain and exacerbation of congestive heart failure, a lower extremity erythema consistent with history of chronic dermatitis, not febrile, normal white count, no evidence of cellulitis. At this point, no indication for antibiotics. We will discontinue ceftriaxone. CADEN SCHMITZ M.D. [id number]
--- NOTE | 2016-06-28 13:43 | PN ---
Progress Note (short form) - Note Progress Note: PULMONARY States breathing is improving. No chest pain. No fevers or chills. Last Vital Signs Temp Pulse Resp BP Pulse Ox 95.5 F L 82 20 135/63 95 06/28/16 06:00 06/28/16 06:00 06/28/16 06:00 06/28/16 06:00 06/27/16 21:00 Intake & Output 06/25/16 06/26/16 06/27/16 06/28/16 23:59 23:59 23:59 23:59 Intake Total 380 800 Output Total 700 Balance 380 100 Weight 240 lb 240 lb 262 lb 12.8 oz Gen: less tachypneic Heart: RRR Lung: scattered basilar rhonchi Abd: soft, nontender Ext: + edema, +erythema CBC, BMP 06/28/16 09:50 06/28/16 09:50 Active Medications Alprazolam (Xanax -) 0.5 mg PO Q6H PRN Last Admin: 06/27/16 21:56 Dose: 0.5 mg Aspirin (Ecotrin -) 162 mg PO DAILY [facility] Last Admin: 06/28/16 11:03 Dose: 162 mg Gabapentin (Neurontin -) 100 mg PO BID [facility] Last Admin: 06/28/16 11:01 Dose: 100 mg Hydralazine HCl (Apresoline -) 25 mg PO BID [facility] Last Admin: 06/28/16 11:01 Dose: 25 mg Insulin Aspart (Novolog Vial Sliding Scale -) [address] [facility] PRN Reason: Protocol Last Admin: 06/28/16 06:26 Dose: Not Given Insulin Detemir (Levemir Vial) 50 units SQ BIDAC [facility] Last Admin: 06/28/16 06:26 Dose: 50 units Levothyroxine Sodium (Synthroid -) 125 mcg PO DAILY@0700 [facility] Last Admin: 06/28/16 06:26 Dose: 125 mcg Pantoprazole Sodium (Protonix -) 20 mg PO DAILY [facility] Last Admin: 06/28/16 11:01 Dose: 20 mg A/P Acute on Chronic CHF Pleural Effusion from above Chest Pain Hyperkalemia Elevated LFTs - ?congestive hepatopathy CKD HTN DM - continue lasix - monitor urine output, creatinine - daily weights, I/Os - echocardiogram - trend LFTs - O2 to keep SpO2 >90% - BiPAP as needed to assist in work of breathing - monitor lytes - agree with monitoring off antibiotics - DVT prophylaxis Problem List - Problems (1) CHF exacerbation Code(s): I50.9 - HEART FAILURE, UNSPECIFIED Qualifiers: Qualified Code(s): I50.33 - Acute on chronic diastolic (congestive) heart failure (2) Chest pain Code(s): R07.9 - CHEST PAIN, UNSPECIFIED Qualifiers: Qualified Code(s): R07.2 - Precordial pain (3) Elevated liver enzymes Code(s): R74.8 - ABNORMAL LEVELS OF OTHER SERUM ENZYMES (4) Hyperkalemia Code(s): E87.5 - HYPERKALEMIA (5) Diabetes mellitus, insulin dependent (IDDM), uncontrolled Code(s): E10.65 - TYPE 1 DIABETES MELLITUS WITH HYPERGLYCEMIA Qualifiers: Qualified Code(s): 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
--- NOTE | 2016-06-28 13:44 | CON.GI ---
Consult Consult Specialty:: G Referred by:: Dr Harvey Reason for Consultation:: Increased LFTs - History of Present Illness Chief Complaint: CP History of Present Illness: 66 F with h/o HTN, DM, HLD, Hypothyroid, brain tumors x 6 (benign with craniotomy and frontal lobe resection) admitted with CP and SOB. I am called for evaluation of increased LFT's. She denies ETOH and hasnt started any new meds. ACS ruled out - History Source History Provided By: Patient, Medical Record Limitations to Obtaining History: No Limitations - Past Medical History OPERATIONS INSPECTOR: Yes: Peripheral Neuropathy, Other (brain tumor) Cardio/Vascular: Yes: CHF, HTN, Hyperlipdemia Renal/: Yes: Renal Inusuff Endocrine: Yes: Diabetes Mellitus (poor controll) Additional Medical History: venous stasis with recurrent cellulitis. history of brain tumors (benign) - Alcohol/Substance Use Hx Alcohol Use: No - Smoking History Smoking history: Never smoked Have you smoked in the past 12 months: No Aproximately how many cigarettes per day: 0 If you are a former smoker, when did you quit?: 15 years ago - Social History Usual Living Arrangement: Alone ADL: Independent History of Recent Travel: No Home Medications - Allergies Allergies/Adverse Reactions: Allergies Allergy/AdvReac Type Severity Reaction Status Date / Time phenytoin sodium Allergy Rash Verified 06/26/16 16:58 [From Dilantin] phenytoin sodium extended Allergy Rash Verified 06/26/16 16:58 [From Dilantin] vancomycin Allergy Verified 06/26/16 16:58 - Home Medications Home Medications: Ambulatory Orders Gabapentin 100 mg PO BID 04/11/15 Omeprazole 20 mg PO DAILY #30 capsule. 09/09/15 Levothyroxine [Synthroid -] 125 mcg PO BID 10/20/15 Potassium Chloride [Klor-Con] 20 meq PO DAILY 10/20/15 Insulin (Novolog) [Novolog -] 10 units SQ BID 12/04/15 Insulin Glargine,Hum.rec.anlog [Lantus (nf)] 50 units SQ BID 12/04/15 Furosemide [Lasix -] 40 mg PO DAILY #30 tablet 12/06/15 Hydralazine HCl [Apresoline -] 25 mg PO BID #30 tablet 12/06/15 Simvastatin [Zocor -] 40 mg PO HS 06/26/16 Physical Exam-GI Vital Signs: Vital Signs Temperature 95.5 F L 06/28/16 06:00 Pulse Rate 82 06/28/16 06:00 Respiratory Rate 20 06/28/16 06:00 Blood Pressure 135/63 06/28/16 06:00 O2 Sat by Pulse Oximetry (%) 95 06/27/16 21:00 Constitutional: Yes: Obese Neck: Yes: Supple Cardiovascular: Yes: Regular Rate and Rhythm Respiratory: Yes: CTA Bilaterally Gastrointestinal Inspection: Yes: Distention ((obesity)) ...Auscultate: Yes: Normoactive Bowel Sounds ...Palpate: Yes: Soft. No: Tenderness Labs: CBC, BMP 06/28/16 09:50 06/28/16 09:50 INR, PTT INR 0.94 (0.82-1.09) 06/26/16 18:45 Hepatic Panel Total Bilirubin 0.2 mg/dL (0.2-1.0) D 06/28/16 09:50 AST 44 U/L (15-37) H D 06/28/16 09:50 ALT 115 U/L (12-78) H 06/28/16 09:50 Alkaline Phosphatase 237 U/L (45-117) H 06/28/16 09:50 Albumin 3.0 g/dl (3.4-5.0) L 06/28/16 09:50 Imaging - Results Ultrasound: Report Reviewed (Normal) Assessment/Plan 66 F with above history now admitted with CP. Increased LFT's might be related to fatty liver in this poorly controlled diabetic. Will get fibrosure to assess degree of hepatic fibrosis. LFT pattern suggests PBC. Will do complete chronic disease eval as opt Avoid hepatotoxic meds
--- NOTE | 2016-06-28 14:27 | EKG ---
Test Reason : Blood Pressure : / mmHG Vent. Rate : 086 BPM Atrial Rate : 086 BPM P-R Int : 000 ms QRS Dur : 106 ms QT Int : 412 ms P-R-T Axes : 056 066 034 degrees QTc Int : 493 ms NORMAL SINUS RHYTHM PROLONGED QT ABNORMAL ECG WHEN COMPARED WITH ECG OF 05-DEC-2015 04:51, NO SIGNIFICANT CHANGE WAS FOUND CLINICAL CORRELATION IS RECOMMENDED Confirmed by JUSTINA VÁSQUEZ, DAMIR ([id number]) on 06/28/2016 2:27:35 PM Referred By: Confirmed By:DAMIR HORN MD
--- NOTE | 2016-06-28 14:28 | EKG ---
Test Reason : Blood Pressure : / mmHG Vent. Rate : 088 BPM Atrial Rate : 088 BPM P-R Int : 214 ms QRS Dur : 100 ms QT Int : 412 ms P-R-T Axes : 051 062 021 degrees QTc Int : 498 ms SINUS RHYTHM WITH 1ST DEGREE A-V BLOCK PROLONGED QT ABNORMAL ECG NO PREVIOUS ECGS AVAILABLE BASELINE ARTIFACT Confirmed by JUSTINA VÁSQUEZ, DAMIR ([id number]) on 06/28/2016 2:28:42 PM Referred By: Cornelius PHILIP Confirmed By:DAMIR HORN MD
[2016-06-28] MEDS: ALPRAZolam 0.25 MG TABLET PO PRN (15:50)
[2016-06-28] MEDS: BACITRACIN 15 GM TUBE TOPICAL OINTMENT TP SCH (21:44)
[2016-06-29] MEDS: ALPRAZolam 0.25 MG TABLET PO PRN ×2 (01:52→22:23)
[2016-06-29 06:06] LABS: SERUM IRON 77 ug/dL (27-139); TOTAL IRON BINDING CAPACITY 326 ug/dL (250-450); UIBC 249 ug/dL (118-369)
[2016-06-29] MEDS: INSULIN SLIDING SCALE (NOVOLOG) 1 VIAL SQ SCH ×6 (06:09→22:12)
[2016-06-29] MEDS: INSULIN DETEMIR 100 UNITS/ML MDV SQ SCH ×2 (06:11→18:17)
[2016-06-29] MEDS: LEVOTHYROXINE NA 125 MCG TABLET (FP) PO SCH (06:12)
[2016-06-29 08:00] LABS: BASOPHIL 0.9 % (0-2.0); EOSINOPHIL 6.4 % (0-4.5); MCH 30.2 pg (25.7-33.7); MCHC 33.1 g/dl (32.0-36.0); MEAN CELL VOLUME 91.2 fl (80-96); NEUTROPHILS 57.8 % (42.8-82.8); PLATELET COUNT 153 K/MM3 (134-434); RDW 13.9 % (11.6-15.6); WHITE BLOOD COUNT 4.5 K/mm3 (4.0-10.0)
[2016-06-29 08:55] LABS: ALBUMIN 2.9 g/dl (3.4-5.0); BILIRUBIN,TOTAL 0.2 mg/dL (0.2-1.0); CALCIUM 8.6 mg/dL (8.5-10.1); COCKROFT - GAULT 60.214; CREATININE 1.7 mg/dL (0.55-1.02); TOT PROT 6.3 g/dl (6.4-8.2)
--- NOTE | 2016-06-29 08:55 | PN ---
Progress Note, Physician History of Present Illness: SITTING UP EATING C/O WEAKNESS DENIES ANY CP THIS AM - Current Medication List Current Medications: Active Medications Alprazolam (Xanax -) 0.5 mg PO Q6H PRN Last Admin: 06/29/16 01:52 Dose: 0.5 mg Aspirin (Ecotrin -) 162 mg PO DAILY [facility] Last Admin: 06/28/16 11:03 Dose: 162 mg Bacitracin (Bacitracin -) 1 applic TP BID [facility] Last Admin: 06/28/16 21:44 Dose: 1 applic Gabapentin (Neurontin -) 100 mg PO BID [facility] Last Admin: 06/28/16 21:44 Dose: 100 mg Hydralazine HCl (Apresoline -) 25 mg PO BID [facility] Last Admin: 06/28/16 21:44 Dose: 25 mg Insulin Aspart (Novolog Vial Sliding Scale -) 1 vial SQ ACHS [facility] PRN Reason: Protocol Last Admin: 06/29/16 06:11 Dose: Not Given Insulin [facility] ([facility]) [facility] Last Admin: 06/29/16 06:11 Dose: Not Given Levothyroxine Sodium (Synthroid -) 125 mcg PO DAILY@0700 [facility] Last Admin: 06/29/16 06:12 Dose: 125 mcg Pantoprazole Sodium (Protonix -) 20 mg PO DAILY [facility] Last Admin: 06/28/16 11:01 Dose: 20 mg - Objective Vital Signs: Vital Signs Temperature 97.4 F L 06/29/16 06:00 Pulse Rate 87 06/29/16 06:00 Respiratory Rate 20 06/29/16 06:00 Blood Pressure 137/64 06/29/16 06:00 O2 Sat by Pulse Oximetry (%) 96 06/28/16 21:00 Cardiovascular: Yes: Regular Rate and Rhythm Respiratory: Yes: Rales (AT THE BASES -MORE LT) Gastrointestinal: Yes: Normal Bowel Sounds, Soft Labs: CBC, BMP 06/29/16 06:28 INR, PTT INR 0.94 (0.82-1.09) 06/26/16 18:45 Problem List - Problems (1) Chest pain Assessment/Plan: RESOLVED CE NEGATIVE F/U EKG CARDIO AND PULM DUPLEX OF LE CTA ONCE RENAL FUNCTION IMPROVES AC IF HGB STABLE Code(s): R07.9 - CHEST PAIN, UNSPECIFIED Qualifiers: Chest pain type: precordial pain Qualified Code(s): R07.2 - Precordial pain (2) Elevated liver enzymes Assessment/Plan: RPT PENDING MONITOR GI NOTED Code(s): R74.8 - ABNORMAL LEVELS OF OTHER SERUM ENZYMES (3) Hyperkalemia Assessment/Plan: IMPROVING MONITOR Code(s): E87.5 - HYPERKALEMIA (4) Renal insufficiency Assessment/Plan: MONITOR IVF Code(s): N28.9 - DISORDER OF KIDNEY AND URETER, UNSPECIFIED (5) Cellulitis Assessment/Plan: IV ABX PER ID--OFF NOW Code(s): L03.90 - CELLULITIS, UNSPECIFIED Qualifiers: Site of cellulitis: unspecified site Qualified Code(s): L03.90 - Cellulitis, unspecified (6) Diabetes mellitus, insulin dependent (IDDM), uncontrolled Assessment/Plan: BGM INSULIN ENDO Code(s): E10.65 - TYPE 1 DIABETES MELLITUS WITH HYPERGLYCEMIA Qualifiers: Diabetes mellitus complication status: with skin complications Diabetes mellitus complication detail: with dermatitis Qualified Code(s): E10.620 - 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
[2016-06-29] MEDS ORDERED: SODIUM POLYSTYRENE SULFONATE 15 GM/60 ML BOTTLE PO ONE (10:20)
--- NOTE | 2016-06-29 11:18 | PN ---
Progress Note, Physician Chief Complaint: no further chest pain or sob. lying flat. tele negative. History of Present Illness: She is a 66 year old woman with a history of NIDDM, hypertension, hyperlipidemia , hypothyroidism, and benign brain tumors(X6), who presents to the emergency department complaining of chest pain and weakness for 2 days, edema and orthopnea with sob. Found with unremarkable ECG but noted with fluid overload, worsening renal function and weakness. No palps dizziness or syncope. Exercise tolerance at baseline is poor. Echo 01/22/15 normal EF moderate MR. - Current Medication List Current Medications: Active Medications Alprazolam (Xanax -) 0.5 mg PO Q6H PRN Last Admin: 06/29/16 01:52 Dose: 0.5 mg Aspirin (Ecotrin -) 162 mg PO DAILY [facility] Last Admin: 06/28/16 11:03 Dose: 162 mg Bacitracin (Bacitracin -) 1 applic TP BID [facility] Last Admin: 06/28/16 21:44 Dose: 1 applic Gabapentin (Neurontin -) 100 mg PO BID [facility] Last Admin: 06/28/16 21:44 Dose: 100 mg Hydralazine HCl (Apresoline -) 25 mg PO BID [facility] Last Admin: 06/28/16 21:44 Dose: 25 mg Insulin Aspart (Novolog Vial Sliding Scale -) 1 vial SQ ACHS [facility] PRN Reason: Protocol Last Admin: 06/29/16 06:11 Dose: Not Given Insulin Detemir (Levemir Vial) 50 units SQ BIDAC [facility] Last Admin: 06/29/16 06:11 Dose: Not Given Levothyroxine Sodium (Synthroid -) 125 mcg PO DAILY@0700 [facility] Last Admin: 06/29/16 06:12 Dose: 125 mcg Pantoprazole Sodium (Protonix -) 20 mg PO DAILY [facility] Last Admin: 06/28/16 11:01 Dose: 20 mg - Objective Vital Signs: Vital Signs Temperature 97.4 F L 06/29/16 06:00 Pulse Rate 87 06/29/16 06:00 Respiratory Rate 20 06/29/16 06:00 Blood Pressure 137/64 06/29/16 06:00 O2 Sat by Pulse Oximetry (%) 96 06/28/16 21:00 Constitutional: Yes: Well Nourished, No Distress Eyes: Yes: WNL HENT: Yes: WNL Neck: Yes: WNL Cardiovascular: Yes: Regular Rate and Rhythm Respiratory: Yes: WNL Gastrointestinal: Yes: WNL Extremities: Yes: Erythema Edema: Yes Edema: LLE: 1+, RLE: 1+ Peripheral Pulses WNL: Yes Integumentary: Yes: Erythema, Venous Stasis Changes Labs: CBC, BMP 06/29/16 06:28 06/29/16 06:28 INR, PTT INR 0.94 (0.82-1.09) 06/26/16 18:45 Problem List - Problems (1) Chest pain Assessment/Plan: Her chest pain is atypical for angina pectoris, ECG and Wilfrido x 1 negative. However, she has multiple risk factors for CAD. Would repeat echo, get persantine nuclear stress test if CTA cannot be obtained due to renal function. Baby asa if OK with neuro. Code(s): R07.9 - CHEST PAIN, UNSPECIFIED Qualifiers: Chest pain type: precordial pain Qualified Code(s): R07.2 - Precordial pain (2) HTN (hypertension) Assessment/Plan: Controlled on current medications. Code(s): I10 - ESSENTIAL (PRIMARY) HYPERTENSION Qualifiers: Hypertension type: essential hypertension Qualified Code(s): I10 - Essential (primary) hypertension (3) CHF exacerbation Assessment/Plan: still needs gentle diuresis. CT scan c/w chf. Echo to assess lv function. daily weights. I/O. repeat bnp when clinically improved. Would restart lasix for diuresis 40 mg IV bid. Code(s): I50.9 - HEART FAILURE, UNSPECIFIED Qualifiers: Congestive heart failure type: diastolic Qualified Code(s): I50.33 - Acute on chronic diastolic (congestive) heart failure
[2016-06-29] MEDS: ASPIRIN COATED 81 MG TABLET.EC PO SCH (12:07)
[2016-06-29] MEDS: PANTOPRAZOLE 20 MG TABLET (FP) PO SCH (12:08)
[2016-06-29] MEDS: BACITRACIN 15 GM TUBE TOPICAL OINTMENT TP SCH ×2 (12:08→22:12)
[2016-06-29] MEDS: GABAPENTIN 100 MG CAPSULE (FP) PO SCH ×2 (12:08→22:12)
[2016-06-29] MEDS: hydrALAZINE HCL 25 MG TABLET (FP) PO SCH ×2 (12:08→22:11)
--- NOTE | 2016-06-29 12:42 | PN ---
Progress Note, Physician History of Present Illness: pulmonary alert,feeling better,less dyspneic - Current Medication List Current Medications: Active Medications Alprazolam (Xanax -) 0.5 mg PO Q6H PRN Last Admin: 06/29/16 01:52 Dose: 0.5 mg Aspirin (Ecotrin -) 162 mg PO DAILY [facility] Last Admin: 06/29/16 12:07 Dose: 162 mg Bacitracin (Bacitracin -) 1 applic TP BID [facility] Last Admin: 06/29/16 12:08 Dose: 1 applic Gabapentin (Neurontin -) 100 mg PO BID [facility] Last Admin: 06/29/16 12:08 Dose: 100 mg Hydralazine HCl (Apresoline -) 25 mg PO BID [facility] Last Admin: 06/29/16 12:08 Dose: 25 mg Insulin Aspart (Novolog Vial Sliding Scale -) 1 vial SQ ACHS [facility] PRN Reason: Protocol Last Admin: 06/29/16 12:08 Dose: Not Given Insulin Detemir (Levemir Vial) 50 units SQ BIDAC [facility] Last Admin: 06/29/16 06:11 Dose: Not Given Levothyroxine Sodium (Synthroid -) 125 mcg PO DAILY@0700 [facility] Last Admin: 06/29/16 06:12 Dose: 125 mcg Pantoprazole Sodium (Protonix -) 20 mg PO DAILY [facility] Last Admin: 06/29/16 12:08 Dose: 20 mg - Objective Vital Signs: Vital Signs Temperature 97.4 F L 06/29/16 06:00 Pulse Rate 87 06/29/16 06:00 Respiratory Rate 20 06/29/16 06:00 Blood Pressure 137/64 06/29/16 06:00 O2 Sat by Pulse Oximetry (%) 96 06/28/16 21:00 Constitutional: Yes: Well Nourished, Calm Eyes: Yes: WNL HENT: Yes: WNL Neck: Yes: WNL Cardiovascular: Yes: Regular Rate and Rhythm, S1, S2 Respiratory: Yes: Diminished Gastrointestinal: Yes: Normal Bowel Sounds, Soft Extremities: Yes: WNL, Erythema Edema: Yes Labs: CBC, BMP 06/29/16 06:28 06/29/16 06:28 INR, PTT INR 0.94 (0.82-1.09) 06/26/16 18:45 - ....Imaging Cat Scan: Report Reviewed, Image Reviewed (bilateral effusions,congestion) Assessment/Plan A/P Acute on Chronic CHF Pleural Effusion from above Chest Pain Hyperkalemia Elevated LFTs - ?congestive hepatopathy CKD HTN DM - lasix - monitor urine output, creatinine - daily weights, I/Os - trend LFTs - O2 to keep SpO2 >90% - BiPAP as needed to assist in work of breathing - monitor lytes - DVT prophylaxis - f/u chest x-ray Problem List - Problems (1) CHF exacerbation Code(s): I50.9 - HEART FAILURE, UNSPECIFIED Qualifiers: Qualified Code(s): I50.33 - Acute on chronic diastolic (congestive) heart failure (2) Chest pain Code(s): R07.9 - CHEST PAIN, UNSPECIFIED Qualifiers: Qualified Code(s): R07.2 - Precordial pain (3) Elevated liver enzymes Code(s): R74.8 - ABNORMAL LEVELS OF OTHER SERUM ENZYMES (4) Hyperkalemia Code(s): E87.5 - HYPERKALEMIA (5) Diabetes mellitus, insulin dependent (IDDM), uncontrolled Code(s): E10.65 - TYPE 1 DIABETES MELLITUS WITH HYPERGLYCEMIA Qualifiers: Qualified Code(s): 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
[2016-06-29] MEDS ORDERED: FUROSEMIDE 40 MG/4 ML INJECTABLE VIAL ONE (14:35)
[2016-06-29] MEDS ORDERED: FUROSEMIDE 40 MG/4 ML INJECTABLE VIAL IVPUSH ONE (15:00)
[2016-06-29] MEDS ORDERED: INSULIN (NOVOLOG) ASPART 100 UNITS/ML 10ML VIAL ONE (18:20)
--- NOTE | 2016-06-29 23:49 | CONSULT ---
Consult Consult Specialty:: endocrine Referred by:: january molina Reason for Consultation:: iddm uncontrolled - History of Present Illness Chief Complaint: legs swelling and difficulty controlling blood sugars History of Present Illness: 66 year old female, with a significant past medical history of NIDDM, hypertension, hyperlipidemia, hypothyroidism, and benign brain tumors(X6), who presents to the emergency department complaining of chest pain and weakness for 1 day. 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 history of brain tumors (benign) - Alcohol/Substance Use Hx Alcohol Use: No - Smoking History Smoking history: Never smoked Have you smoked in the past 12 months: No Aproximately how many cigarettes per day: 0 If you are a former smoker, when did you quit?: 15 years ago - Social History Usual Living Arrangement: Alone ADL: Independent History of Recent Travel: No Home Medications - Allergies Allergies/Adverse Reactions: Allergies Allergy/AdvReac Type Severity Reaction Status Date / Time phenytoin sodium Allergy Rash Verified 06/26/16 16:58 [From Dilantin] phenytoin sodium extended Allergy Rash Verified 06/26/16 16:58 [From Dilantin] vancomycin Allergy Verified 06/26/16 16:58 - Home Medications Home Medications: Ambulatory Orders Gabapentin 100 mg PO BID 04/11/15 Omeprazole 20 mg PO DAILY #30 capsule. 09/09/15 Levothyroxine [Synthroid -] 125 mcg PO BID 10/20/15 Potassium Chloride [Klor-Con] 20 meq PO DAILY 10/20/15 Insulin (Novolog) [Novolog -] 10 units SQ BID 12/04/15 Insulin Glargine,Hum.rec.anlog [Lantus (nf)] 50 units SQ BID 12/04/15 Furosemide [Lasix -] 40 mg PO DAILY #30 tablet 12/06/15 Hydralazine HCl [Apresoline -] 25 mg PO BID #30 tablet 12/06/15 Simvastatin [Zocor -] 40 mg PO HS 06/26/16 Review of Systems - Review of Systems Constitutional: reports: Lethargy Eyes: reports: No Symptoms HENT: reports: No Symptoms Neck: reports: No Symptoms Cardiovascular: reports: Shortness of Breath Respiratory: reports: Exercise Intolerance, SOB, SOB on Exertion Gastrointestinal: reports: Nausea Genitourinary: reports: No Symptoms Musculoskeletal: reports: Decreased ROM, Joint Pain, Joint Swelling, Muscle Pain , Muscle Weakness Integumentary: reports: Blister, Change in Color, Lesions, Pruritis, Rash Neurological: reports: Weakness Endocrine: reports: Increased Thirst Physical Exam Vital Signs: Vital Signs Temperature 97.1 F L 06/29/16 15:16 Pulse Rate 84 06/29/16 15:16 Respiratory Rate 20 06/29/16 15:16 Blood Pressure 112/79 06/29/16 15:16 O2 Sat by Pulse Oximetry (%) 95 06/29/16 09:00 Constitutional: Yes: Anxious Eyes: Yes: EOM Intact HENT: Yes: Normocephalic Neck: Yes: WNL Cardiovascular: Yes: Regular Rate and Rhythm Respiratory: Yes: SOB, SOB on Exertion Gastrointestinal: Yes: Normal Bowel Sounds ...Rectal Exam: Yes: Deferred Musculoskeletal: Yes: Joint Stiffness, Joint Swelling, Muscle Pain, Muscle Weakness Extremities: Yes: Erythema Edema: Yes Edema: LLE: 3+, RLE: 3+ Integumentary: Yes: Erythema, Onychomycosis, Venous Stasis Changes Wound/Incision: Yes: Draining Labs: CBC, BMP 06/29/16 06:28 06/29/16 06:28 Problem List - Problems (1) Blood bacterial culture positive Code(s): R78.81 - BACTEREMIA (2) CHF exacerbation Code(s): I50.9 - HEART FAILURE, UNSPECIFIED Qualifiers: Congestive heart failure type: diastolic Qualified Code(s): I50.33 - Acute on chronic diastolic (congestive) heart failure (3) Hyperlipidemia associated with type 2 diabetes mellitus Code(s): E11.69 - TYPE 2 DIABETES MELLITUS WITH OTHER SPECIFIED COMPLICATION E78.5 - HYPERLIPIDEMIA, UNSPECIFIED Assessment/Plan Current Active Problems Blood bacterial culture positive (Acute) CHF exacerbation (Acute) Cellulitis and abscess of leg (Acute) Chest pain (Acute) Elevated liver enzymes (Acute) Hyperkalemia (Acute) Hyperlipidemia associated with type 2 diabetes mellitus (Acute) Hypothermia (Acute) Near syncope (Acute) Rash (Acute) Renal insufficiency (Acute) Syncope (Acute) Urticaria (Acute) Weakness (Acute) iddm insulin ressistant hyperglycemia morbid obesity Abnormal Lab Results 06/29/16 06/29/16 06:28 06:28 RBC 3.11 L Hgb 9.4 L Hct 28.4 L Monocytes % 13.2 H Eosinophils % 6.4 H Potassium 5.5 H Chloride 108 H Anion Gap 7 L BUN 57 H Creatinine 1.7 H Random Glucose 137 H AST 53 H D ALT 114 H Alkaline Phosphatase 249 H Total Protein 6.3 L Albumin 2.9 L Laboratory Results - last 24 hr 06/27/16 06/29/16 06/29/16 05:28 05:32 06:28 WBC 4.5 RBC 3.11 L Hgb 9.4 L Hct 28.4 L MCV 91.2 MCHC 33.1 RDW 13.9 Plt Count 153 MPV 10.0 Neutrophils % 57.8 Lymphocytes % 21.7 Monocytes % 13.2 H Eosinophils % 6.4 H Basophils % 0.9 Sodium Potassium Chloride Carbon Dioxide Anion Gap BUN Creatinine Creat Clearance w eGFR POC Glucometer 149 Random Glucose Calcium Iron 77 TIBC 326 Iron Saturation 24 Total Bilirubin AST ALT Alkaline Phosphatase Total Protein Albumin Stool Occult Blood 06/29/16 06/29/16 06/29/16 06:28 11:50 15:45 WBC RBC Hgb Hct MCV MCHC RDW Plt Count MPV Neutrophils % Lymphocytes % Monocytes % Eosinophils % Basophils % Sodium 139 Potassium 5.5 H Chloride 108 H Carbon Dioxide 24 Anion Gap 7 L BUN 57 H Creatinine 1.7 H Creat Clearance w eGFR 29.89 POC Glucometer 177 Random Glucose 137 H Calcium 8.6 Iron TIBC Iron Saturation Total Bilirubin 0.2 AST 53 H D ALT 114 H Alkaline Phosphatase 249 H Total Protein 6.3 L Albumin 2.9 L Stool Occult Blood Negative 06/29/16 06/29/16 18:07 22:07 WBC RBC Hgb Hct MCV MCHC RDW Plt Count MPV Neutrophils % Lymphocytes % Monocytes % Eosinophils % Basophils % Sodium Potassium Chloride Carbon Dioxide Anion Gap BUN Creatinine Creat Clearance w eGFR POC Glucometer 213 186 Random Glucose Calcium Iron TIBC Iron Saturation Total Bilirubin AST ALT Alkaline Phosphatase Total Protein Albumin Stool Occult Blood plan: levemir 50 units bid novolog scale as ordered wound care Current Medications Generic Name Dose Route Start Last Admin Trade Name Ankit PRN Reason Stop Dose Admin Alprazolam 0.5 mg 06/27/16 18:57 06/29/16 22:23 Xanax - PO 0.5 mg Q6H PRN Administration Aspirin 162 mg 06/27/16 10:00 06/29/16 12:07 Ecotrin - PO 162 mg DAILY [facility] Administration Bacitracin 1 applic 06/28/16 22:00 06/29/16 22:12 Bacitracin - TP 1 applic BID [facility] Administration Gabapentin 100 mg 06/27/16 10:00 06/29/16 22:12 Neurontin - PO 100 mg BID [facility] Administration Hydralazine HCl 25 mg 06/27/16 10:00 06/29/16 22:11 Apresoline - PO 25 mg BID [facility] Administration Insulin Aspart 1 vial 06/29/16 23:52 Novolog Vial Sliding Scale - SQ ACHS [facility] Protocol Insulin Detemir 50 units 06/27/16 07:00 06/29/16 18:17 Levemir Vial SQ 50 units BIDAC [facility] Administration Levothyroxine Sodium 125 mcg 06/28/16 07:00 06/29/16 06:12 Synthroid - PO 125 mcg DAILY@0700 [facility] Administration Pantoprazole Sodium 20 mg 06/27/16 10:00 06/29/16 12:08 Protonix - PO 20 mg DAILY [facility] Administration Laboratory Tests 06/28/16 09:50 TSH 1.09 D continue same dose synthroid 125mcg euthyroid clinicaly
--- NOTE | 2016-06-30 00:03 | CONSULT ---
Consult - text type - Consultation Consultation Note: NEUROLOGY CONSULTATION is greatly appreciated: This 66 yo RH woman lives alone with a home health aide ([facility]). S/P 6 craniotomies between 1968 and 2002 for recurrent benign tumors of the same type. 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 PMH sig for HTN, DM, Hypothyroidism and GERD. On Synthroid (125 ug), hydralazine , insulin, protonix, xanax and gabapentin (100 BID). Now admitted with progressive weakness. CK=95IU; TSH=1.09; Cr/BUN=1.5/56; Alk ptlc=458; AST=44; DAU=321. CT of head (reviewed): S/P B/L SALES PROMOTION DIRECTOR shunts in occipital horns of the lateral ventricles. Bifrontal post-op changes (L>R). Hypothermia noted. SUSANNA: Obese. Multiple craniotomies. No eye brows. Periorbital edema. B/L lymphedema/celulitis. Thick skin. Body temp is cold (approx 94 F) NEURO: Bradyphrenic. Slow to respond. Appears apathetic but is awake, alert, well-oriented and cooperative. Speech sparse but fluent. CN II-XII: Normal Motor: No drift or tremor. Normal strength. Areflexic in legs. Coord: No FTN dystaxia Sensory: Decreased vibration in the feet to calves. Gait: Slow. Shuffling. Slightly wide based. IMP: Mild B/L cerebral dysfunction predominantly involving frontal regions. Recurrent brain tumors. ? Ataxia telangectasia? Lethargy, weakness, fatigue and hypothermia...? Hypothalamic dysfunction. ?Clinical hypothyroidism. Suggest: MRI of brain: Att: midbrain and hypothalamus. Full thyroid battery. Consider endocrinology consultation. R/O system infection. Consider parenteral antibiotics for cellulitis. Thank you very much, Santi Keita MD
[2016-06-30] MEDS: LEVOTHYROXINE NA 125 MCG TABLET (FP) PO SCH (06:22)
[2016-06-30] MEDS: INSULIN SLIDING SCALE (NOVOLOG) 1 VIAL SQ SCH ×4 (06:22→22:08)
[2016-06-30] MEDS: INSULIN DETEMIR 100 UNITS/ML MDV SQ SCH ×2 (06:23→22:08)
[2016-06-30] MEDS: ALPRAZolam 0.25 MG TABLET PO PRN ×2 (07:40→23:35)
[2016-06-30 07:41] LABS: ALBUMIN 2.8 g/dl (3.4-5.0); BILIRUBIN,TOTAL 0.2 mg/dL (0.2-1.0); CALCIUM 8.2 mg/dL (8.5-10.1); COCKROFT - GAULT 65.5435; CREATININE 1.5 mg/dL (0.55-1.02); THYROXINE (T4) 8.2 ug/dl (4.8-13.9); TOT PROT 6.2 g/dl (6.4-8.2)
--- NOTE | 2016-06-30 08:19 | PN ---
Progress Note, Physician History of Present Illness: SITTING UP EATING C/O WEAKNESS DENIES ANY CP THIS AM - Current Medication List Current Medications: Active Medications Alprazolam (Xanax -) 0.5 mg PO Q6H PRN Last Admin: 06/30/16 07:40 Dose: 0.5 mg Aspirin (Ecotrin -) 162 mg PO DAILY [facility] Last Admin: 06/29/16 12:07 Dose: 162 mg Bacitracin (Bacitracin -) 1 applic TP BID [facility] Last Admin: 06/29/16 22:12 Dose: 1 applic Gabapentin (Neurontin -) 100 mg PO BID [facility] Last Admin: 06/29/16 22:12 Dose: 100 mg Hydralazine HCl (Apresoline -) 25 mg PO BID [facility] Last Admin: 06/29/16 22:11 Dose: 25 mg Insulin Aspart (Novolog Vial Sliding Scale -) 1 vial SQ ACHS [facility] PRN Reason: Protocol Last Admin: 06/30/16 06:22 Dose: Not Given Insulin Detemir (Levemir Vial) 50 units SQ BIDAC [facility] Last Admin: 06/30/16 06:23 Dose: Not Given Levothyroxine Sodium (Synthroid -) 125 mcg PO DAILY@0700 [facility] Last Admin: 06/30/16 06:22 Dose: 125 mcg Pantoprazole Sodium (Protonix -) 20 mg PO DAILY [facility] Last Admin: 06/29/16 12:08 Dose: 20 mg - Objective Vital Signs: Vital Signs Temperature 95.3 F L 06/29/16 23:00 Pulse Rate 77 06/30/16 06:00 Respiratory Rate 20 06/30/16 06:00 Blood Pressure 141/71 06/30/16 06:00 O2 Sat by Pulse Oximetry (%) 96 06/29/16 21:00 Cardiovascular: Yes: Regular Rate and Rhythm Respiratory: Yes: Diminished, Rales Gastrointestinal: Yes: Normal Bowel Sounds, Soft Edema: Yes Labs: CBC, BMP 06/30/16 06:00 INR, PTT INR 0.94 (0.82-1.09) 06/26/16 18:45 Problem List - Problems (1) Chest pain Assessment/Plan: RESOLVED CE NEGATIVE F/U EKG CARDIO AND PULM DUPLEX OF LE CTA ONCE RENAL FUNCTION IMPROVES AC IF HGB STABLE Code(s): R07.9 - CHEST PAIN, UNSPECIFIED Qualifiers: Chest pain type: precordial pain Qualified Code(s): R07.2 - Precordial pain (2) Elevated liver enzymes Assessment/Plan: RPT PENDING MONITOR GI NOTED Code(s): R74.8 - ABNORMAL LEVELS OF OTHER SERUM ENZYMES (3) Hyperkalemia Assessment/Plan: IMPROVING MONITOR Code(s): E87.5 - HYPERKALEMIA (4) Renal insufficiency Assessment/Plan: MONITOR IVF Code(s): N28.9 - DISORDER OF KIDNEY AND URETER, UNSPECIFIED (5) Cellulitis Assessment/Plan: IV ABX PER ID--OFF NOW Code(s): L03.90 - CELLULITIS, UNSPECIFIED Qualifiers: Site of cellulitis: unspecified site Qualified Code(s): L03.90 - Cellulitis, unspecified (6) Diabetes mellitus, insulin dependent (IDDM), uncontrolled Assessment/Plan: BGM INSULIN---levemir qd ENDO Code(s): E10.65 - TYPE 1 DIABETES MELLITUS WITH HYPERGLYCEMIA Qualifiers: Diabetes mellitus complication status: with skin complications Diabetes mellitus complication detail: with dermatitis Qualified Code(s): E10.620 - 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
[2016-06-30] MEDS: PANTOPRAZOLE 20 MG TABLET (FP) PO SCH (09:30)
[2016-06-30] MEDS: GABAPENTIN 100 MG CAPSULE (FP) PO SCH ×2 (09:30→22:09)
[2016-06-30] MEDS: hydrALAZINE HCL 25 MG TABLET (FP) PO SCH ×2 (09:31→22:09)
[2016-06-30] MEDS: ASPIRIN COATED 81 MG TABLET.EC PO SCH (09:31)
[2016-06-30 09:32] LABS: C-REACTIVE PROTEIN 1.6 MG/DL (0.00-0.3)
[2016-06-30] MEDS: BACITRACIN 15 GM TUBE TOPICAL OINTMENT TP SCH ×2 (09:33→22:09)
--- NOTE | 2016-06-30 12:17 | PN ---
Progress Note, Physician History of Present Illness: PULMONARY ALERT,NAD,COMFORTABLE,-RESP DISTRESS - Current Medication List Current Medications: Active Medications Alprazolam (Xanax -) 0.5 mg PO Q6H PRN Last Admin: 06/30/16 07:40 Dose: 0.5 mg Aspirin (Ecotrin -) 162 mg PO DAILY [facility] Last Admin: 06/30/16 09:31 Dose: 162 mg Bacitracin (Bacitracin -) 1 applic TP BID [facility] Last Admin: 06/30/16 09:33 Dose: 1 applic Furosemide (Lasix Injection -) 40 mg IVPUSH BID@0600,1400 [facility]PL[facility] Gabapentin (Neurontin -) 100 mg PO BID [facility] Last Admin: 06/30/16 09:30 Dose: 100 mg Heparin Sodium (Porcine) (Heparin -) 5,000 unit SQ BID [facility] Hydralazine HCl (Apresoline -) 25 mg PO BID [facility] Last Admin: 06/30/16 09:31 Dose: 25 mg Insulin Aspart (Novolog Vial Sliding Scale -) 1 vial SQ ACHS [facility] PRN Reason: Protocol Last Admin: 06/30/16 06:22 Dose: Not Given Insulin Detemir (Levemir Vial) 50 units SQ HS [facility]PL[facility] Levothyroxine Sodium (Synthroid -) 125 mcg PO DAILY@0700 [facility] Last Admin: 06/30/16 06:22 Dose: 125 mcg Pantoprazole Sodium (Protonix -) 20 mg PO DAILY [facility] Last Admin: 06/30/16 09:30 Dose: 20 mg - Objective Vital Signs: Vital Signs Temperature 92.2 F L 06/30/16 10:00 Pulse Rate 68 06/30/16 10:00 Respiratory Rate 20 06/30/16 10:00 Blood Pressure 140/66 06/30/16 10:00 O2 Sat by Pulse Oximetry (%) 93 L 06/30/16 09:00 Constitutional: Yes: Well Nourished, Calm Eyes: Yes: WNL HENT: Yes: WNL Neck: Yes: WNL Cardiovascular: Yes: Regular Rate and Rhythm, S1, S2 Respiratory: Yes: Diminished Gastrointestinal: Yes: Normal Bowel Sounds, Soft Extremities: Yes: Erythema Edema: Yes Labs: CBC, BMP 06/30/16 06:00 INR, PTT INR 0.94 (0.82-1.09) 06/26/16 18:45 Assessment/Plan A/P Acute on Chronic CHF Pleural Effusion from above Chest Pain Hyperkalemia Elevated LFTs - ?congestive hepatopathy CKD HTN DM HYPOTHERMIA - lasix - monitor urine output, creatinine - daily weights, I/Os - trend LFTs - O2 to keep SpO2 >90% - BiPAP PRN - monitor lytes - DVT prophylaxis DR PATEL Problem List - Problems (1) CHF exacerbation Code(s): I50.9 - HEART FAILURE, UNSPECIFIED Qualifiers: Qualified Code(s): I50.33 - Acute on chronic diastolic (congestive) heart failure (2) Chest pain Code(s): R07.9 - CHEST PAIN, UNSPECIFIED Qualifiers: Qualified Code(s): R07.2 - Precordial pain (3) Elevated liver enzymes Code(s): R74.8 - ABNORMAL LEVELS OF OTHER SERUM ENZYMES (4) Hyperkalemia Code(s): E87.5 - HYPERKALEMIA (5) Diabetes mellitus, insulin dependent (IDDM), uncontrolled Code(s): E10.65 - TYPE 1 DIABETES MELLITUS WITH HYPERGLYCEMIA Qualifiers: Qualified Code(s): 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
[2016-06-30] MEDS: HEPARIN NA (PORCINE) 5,000 UNITS/ML 1ML VIAL SQ SCH ×2 (12:24→22:09)
--- NOTE | 2016-06-30 12:28 | PN ---
Progress Note, Physician Chief Complaint: no further chest pain or sob. lying flat. tele negative. History of Present Illness: She is a 66 year old woman with a history of NIDDM, hypertension, hyperlipidemia , hypothyroidism, and benign brain tumors(X6), who presents to the emergency department complaining of chest pain and weakness for 2 days, edema and orthopnea with sob. Found with unremarkable ECG but noted with fluid overload, worsening renal function and weakness. No palps dizziness or syncope. Exercise tolerance at baseline is poor. Echo 01/22/15 normal EF moderate MR. - Current Medication List Current Medications: Active Medications Alprazolam (Xanax -) 0.5 mg PO Q6H PRN Last Admin: 06/30/16 07:40 Dose: 0.5 mg Aspirin (Ecotrin -) 162 mg PO DAILY [facility] Last Admin: 06/30/16 09:31 Dose: 162 mg Bacitracin (Bacitracin -) 1 applic TP BID [facility] Last Admin: 06/30/16 09:33 Dose: 1 applic Furosemide (Lasix Injection -) 40 mg IVPUSH BID@0600,1400 [facility] Gabapentin (Neurontin -) 100 mg PO BID [facility] Last Admin: 06/30/16 09:30 Dose: 100 mg Heparin Sodium (Porcine) (Heparin -) 5,000 unit SQ BID [facility] Hydralazine HCl (Apresoline -) 25 mg PO BID [facility] Last Admin: 06/30/16 09:31 Dose: 25 mg Insulin Aspart (Novolog Vial Sliding Scale -) 1 vial SQ ACHS [facility] PRN Reason: Protocol Last Admin: 06/30/16 06:22 Dose: Not Given Insulin Detemir (Levemir Vial) 50 units SQ HS [facility] Levothyroxine Sodium (Synthroid -) 125 mcg PO DAILY@0700 [facility] Last Admin: 06/30/16 06:22 Dose: 125 mcg Pantoprazole Sodium (Protonix -) 20 mg PO DAILY [facility] Last Admin: 06/30/16 09:30 Dose: 20 mg - Objective Vital Signs: Vital Signs Temperature 92.2 F L 06/30/16 10:00 Pulse Rate 68 06/30/16 10:00 Respiratory Rate 20 06/30/16 10:00 Blood Pressure 140/66 06/30/16 10:00 O2 Sat by Pulse Oximetry (%) 93 L 06/30/16 09:00 Constitutional: Yes: Well Nourished Eyes: Yes: WNL HENT: Yes: WNL Neck: Yes: WNL Cardiovascular: Yes: Regular Rate and Rhythm Respiratory: Yes: Diminished, Dullness (bases) Gastrointestinal: Yes: WNL Extremities: Yes: WNL Edema: Yes Edema: LLE: 1+, RLE: 1+ Peripheral Pulses WNL: Yes Integumentary: Yes: Erythema Labs: CBC, BMP 06/30/16 06:00 INR, PTT INR 0.94 (0.82-1.09) 06/26/16 18:45 Problem List - Problems (1) Chest pain Assessment/Plan: Her chest pain is atypical for angina pectoris, ECG and Wilfrido x 1 negative. However, she has multiple risk factors for CAD. Would repeat echo, get persantine nuclear stress test if CTA cannot be obtained due to renal function. Baby asa if OK with neuro. Code(s): R07.9 - CHEST PAIN, UNSPECIFIED Qualifiers: Chest pain type: precordial pain Qualified Code(s): R07.2 - Precordial pain (2) HTN (hypertension) Assessment/Plan: Controlled on current medications. Code(s): I10 - ESSENTIAL (PRIMARY) HYPERTENSION Qualifiers: Hypertension type: essential hypertension Qualified Code(s): I10 - Essential (primary) hypertension (3) CHF exacerbation Assessment/Plan: still needs gentle diuresis. CT scan c/w chf. Echo to assess lv function. daily weights. I/O. repeat bnp when clinically improved. Would restart lasix for diuresis 40 mg IV bid. Code(s): I50.9 - HEART FAILURE, UNSPECIFIED Qualifiers: Congestive heart failure type: diastolic Qualified Code(s): I50.33 - Acute on chronic diastolic (congestive) heart failure
[2016-06-30] MEDS: FUROSEMIDE 40 MG/4 ML INJECTABLE VIAL IVPUSH SCH (14:29)
[2016-06-30 14:58] LABS: BASOPHIL 0.3 % (0-2.0); EOSINOPHIL 7.1 % (0-4.5); MCH 30.5 pg (25.7-33.7); MCHC 33.5 g/dl (32.0-36.0); MEAN CELL VOLUME 90.9 fl (80-96); MEAN PLT VOLUME 10.8 fl (7.5-11.1); NEUTROPHILS 50.6 % (42.8-82.8); PLATELET COUNT 146 K/MM3 (134-434); WHITE BLOOD COUNT 3.5 K/mm3 (4.0-10.0)
--- NOTE | 2016-06-30 17:13 | CONS ---
PHYSICAL MEDICINE REHABILITATION CONSULTATION DATE OF CONSULTATION: 06/30/2016 REQUESTING PHYSICIAN: Zoraida Harvey MD HISTORY OF PRESENT ILLNESS: Patient is a 66-year-old woman with past medical history of benign brain tumor status post bilateral [employer] shunts and multiple craniotomies, who was admitted with progressive weakness and chest pain. Patient presented to the emergency room on June 26, 2016, undergoing CT of the head which demonstrated no definite acute intracranial pathology, multiple chronic findings including bilateral parieto-occipital [employer] shunt tubes, no acute infarction. Patient also had swelling in the lower extremities and underwent vascular studies on June 27, which demonstrated no evidence of deep venous thrombosis. Ultrasound of the abdomen showed no acute cholecystitis, no biliary tract dilatation. Blood work showed normal WBC, 6.2; hemoglobin 11.6; platelet count 191. INR normal on admission, 0.94. Chemistry demonstrated hyperkalemia, initial potassium 6.2; sodium normal, 139; elevated BUN, 55; creatinine 1.9; magnesium level normal at 2.4. Elevated LFTs; AST 131, ALT 172, alkaline phosphatase was 310. She had slight elevation of BNP, 572. Hemoglobin A1c on June 27 was elevated at 9.6. Last chemistry done this morning: Normalization of potassium to 5.0; persistent elevation BUN 58, creatinine 1.5. Her AST, ALT, and alkaline phosphatase all improved but are still elevated. C-reactive protein is slightly elevated at 1.6. Albumin low at 2.8. Last CBC done yesterday. She has a pending blood work today, showed 4.5 WBCs, hemoglobin 9.4, which is lower, and platelet count 153. Sedimentation rate done this morning is elevated at 81. Patient was seen by Neurology. MRI of the brain was ordered. Patient's cardiac workup was negative. Undergoing GI evaluation. Hyperkalemia again has resolved. Renal insufficiency is on IV fluid. Patient herself is very fatigued but has no complaints of any pain or shortness of breath. Other tests included a chest CT which demonstrated cardiomegaly, congestive change, moderate bilateral pleural effusion but no pulmonary embolism or pneumonia. PAST MEDICAL AND SURGICAL HISTORY: As above, benign brain tumor status post multiple craniotomies as well as [employer] shunt, history of hypertension, diabetes, hypothyroidism, gastroesophageal reflux disease. SOCIAL HISTORY: Per the patient, lives in an apartment with 3 flights of stairs to enter. Premorbidly, she states she was completely independent, ambulatory without assistive device, although per neurology note, she has home health aide. Current function: Unavailable. REVIEW OF SYSTEMS: She denies any headache, any lightheadedness, any dizziness, any blurry vision, double vision that is new, any nausea/vomiting, difficulty swallowing, difficulty chewing, any chest pain, shortness of breath, dyspnea on exertion. She does complain of left more than right lower extremity swelling, discoloration which she states is chronic in the lower extremities. No numbness, tingling. No joint arthralgias. No neck or back pain. No bowel, bladder change. No fever or chills. PHYSICAL EXAMINATION: General: An obese woman seen lying in bed. She is lethargic but opens her eyes, answers questions, and seems to respond appropriately. HEENT: She is normocephalic and atraumatic. Extraocular muscles appear intact. No obvious facial weakness. Neck: Supple. Extremities: She has +3 edema in the left lower extremity with blistering and dysvascular changes, erythema. Also, +2 edema in the right lower extremity with less blistering but mild erythema and dysvascular changes. No isolated calf tenderness. No other skin rash noted. Neuromuscular: She is awake, alert. She knew she was in [facility], knew the month was June, but thought it was the beginning of June. Cranial nerves 2-12 appear grossly intact. She follows commands and speaks slowly in a thick accent, but again, reacts appropriately. She has good motor power throughout her upper extremities, mild weakness in the hip girdle at 4/5 with good knee flexion and extension, good dorsiflexion and plantar flexion strength. Normal sensation to light touch. Toes equivocal, neither upgoing nor downgoing. Depressed reflex. OVERALL IMPRESSION: 1. Deficits in mobility, activities of daily living, multifactorial. 2. Deconditioning. 3. Shortness of breath, possible congestive changes noted on computerized tomography of the chest. 4. Elevated liver enzymes, improving. Gastrointestinal workup in progress. 5. Renal insufficiency, possibly chronic versus acute on chronic. 6. Hyperkalemia, resolved. 7. Possible cellulitis, status post IV antibiotics. 8. History of uncontrolled diabetes. 9. Weakness. 10. History of benign brain tumors status post multiple craniotomies as well as bilateral ventriculoperitoneal shunts. 11. History of hypothyroidism. 12. History of gastroesophageal reflux disease. 13. Obesity. 14. Hypertension. 15. Elevated risk for deep venous thrombosis due to immobility. 16. Edema of the left lower more than right lower extremity, probable chronic venous insufficiency. PLAN/SUGGESTION: 1. Physical therapy at the bedside to include bed mobility, transfers, gait training if appropriate, aid training, reconditioning. 2. Out of bed to chair once her mental status allows. 3. Cardiopulmonary precaution. 4. Consider DVT prophylaxis. 5. Edema control, elevation of lower extremities. Consider BAYLEE stockings if she can be fitted. 6. Avoid sacral and heel pressure. Monitor for erythema or breakdown. 7. Bowel regimen. 8. Prognosis appears fair to good. Estimated length of stay depends on medical care and disposition will depend on the hours the aide is available as well as her response to treatment. May require short-term rehab in [place] [facility]. Thank you for this referral. VIVIAN ROSAS M.D. [id number]
[2016-06-30] MEDS ORDERED: INSULIN (NOVOLOG) ASPART 100 UNITS/ML 10ML VIAL ONE (22:00)
[2016-07-01] MEDS ORDERED: INSULIN DETEMIR 100 UNITS/ML MDV SQ ONE (00:16)
--- NOTE | 2016-07-01 00:31 | PN ---
Progress Note, Physician Chief Complaint: lying in bed comfortable History of Present Illness: iddm uncontrolled morbid obesity,htn,hypothyroidism,insulin resistance. - Current Medication List Current Medications: Active Medications Alprazolam (Xanax -) 0.5 mg PO Q6H PRN Last Admin: 06/30/16 23:35 Dose: 0.5 mg Aspirin (Ecotrin -) 162 mg PO DAILY [facility] Last Admin: 06/30/16 09:31 Dose: 162 mg Bacitracin (Bacitracin -) 1 applic TP BID [facility] Last Admin: 06/30/16 22:09 Dose: 1 applic Furosemide (Lasix Injection -) 40 mg IVPUSH BID@0600,1400 [facility] Last Admin: 06/30/16 14:29 Dose: 40 mg Gabapentin (Neurontin -) 100 mg PO BID [facility] Last Admin: 06/30/16 22:09 Dose: 100 mg Heparin Sodium (Porcine) (Heparin -) 5,000 unit SQ BID [facility] Last Admin: 06/30/16 22:09 Dose: 5,000 unit Hydralazine HCl (Apresoline -) 25 mg PO BID [facility] Last Admin: 06/30/16 22:09 Dose: 25 mg Insulin Aspart (Novolog Vial Sliding Scale -) 1 vial SQ ACHS [facility] PRN Reason: Protocol Last Admin: 06/30/16 22:08 Dose: 5 units Insulin Detemir (Levemir Vial) 50 units SQ HS [facility] Last Admin: 06/30/16 22:08 Dose: 50 units Levothyroxine Sodium (Synthroid -) 125 mcg PO DAILY@0700 [facility] Last Admin: 06/30/16 06:22 Dose: 125 mcg Pantoprazole Sodium (Protonix -) 20 mg PO DAILY [facility] Last Admin: 06/30/16 09:30 Dose: 20 mg - Objective Vital Signs: Vital Signs Temperature 93.5 F L 06/30/16 15:19 Pulse Rate 69 06/30/16 15:19 Respiratory Rate 20 06/30/16 15:19 Blood Pressure 146/76 06/30/16 15:19 O2 Sat by Pulse Oximetry (%) 93 L 06/30/16 09:00 Constitutional: Yes: Well Nourished, Calm Eyes: Yes: EOM Intact HENT: Yes: Normocephalic Neck: Yes: Trachea Midline Cardiovascular: Yes: Regular Rate and Rhythm Respiratory: Yes: CTA Bilaterally Gastrointestinal: Yes: Normal Bowel Sounds ...Rectal Exam: Yes: Deferred Genitourinary: Yes: WNL Musculoskeletal: Yes: Back Pain Extremities: Yes: Delayed Capillary Refill, Erythema Edema: LLE: 3+, RLE: 3+ Labs: CBC, BMP 06/30/16 06:00 06/30/16 06:00 INR, PTT INR 0.94 (0.82-1.09) 06/26/16 18:45 Problem List - Problems (1) Blood bacterial culture positive Code(s): R78.81 - BACTEREMIA (2) CHF exacerbation Code(s): I50.9 - HEART FAILURE, UNSPECIFIED Qualifiers: Congestive heart failure type: diastolic Qualified Code(s): I50.33 - Acute on chronic diastolic (congestive) heart failure (3) Hyperlipidemia associated with type 2 diabetes mellitus Code(s): E11.69 - TYPE 2 DIABETES MELLITUS WITH OTHER SPECIFIED COMPLICATION E78.5 - HYPERLIPIDEMIA, UNSPECIFIED Assessment/Plan Current Active Problems Blood bacterial culture positive (Acute) CHF (congestive heart failure) (Acute) CHF exacerbation (Acute) Cellulitis and abscess of leg (Acute) Chest pain (Acute) Elevated liver enzymes (Acute) Hyperkalemia (Acute) Hyperlipidemia associated with type 2 diabetes mellitus (Acute) Hypothermia (Acute) Near syncope (Acute) Rash (Acute) Renal insufficiency (Acute) Syncope (Acute) Urticaria (Acute) Weakness (Acute) Abnormal Lab Results 06/30/16 06/30/16 06/30/16 06:00 06:00 06:00 WBC 3.5 L RBC 3.14 L Hgb 9.6 L Hct 28.6 L Monocytes % 12.7 H Eosinophils % 7.1 H ESR 81 H Chloride 110 H Anion Gap 5 L BUN 58 H Creatinine 1.5 H Calcium 8.2 L AST 55 H ALT 116 H Alkaline Phosphatase 234 H C-Reactive Protein 1.6 H D Total Protein 6.2 L Albumin 2.8 L plan: Current Medications Generic Name Dose Route Start Last Admin Trade Name Freq PRN Reason Stop Dose Admin Alprazolam 0.5 mg 06/27/16 18:57 06/30/16 23:35 Xanax - PO 0.5 mg Q6H PRN Administration Aspirin 162 mg 06/27/16 10:00 06/30/16 09:31 Ecotrin - PO 162 mg DAILY [facility] Administration Bacitracin 1 applic 06/28/16 22:00 06/30/16 22:09 Bacitracin - TP 1 applic BID [facility] Administration Furosemide 40 mg 06/30/16 14:00 06/30/16 14:29 Lasix Injection - IVPUSH 40 mg BID@0600,1400 [facility] Administration Gabapentin 100 mg 06/27/16 10:00 06/30/16 22:09 Neurontin - PO 100 mg BID [facility] Administration Heparin Sodium (Porcine) 5,000 unit 06/30/16 11:00 06/30/16 22:09 Heparin - SQ 5,000 unit BID [facility] Administration Hydralazine HCl 25 mg 06/27/16 10:00 06/30/16 22:09 Apresoline - PO 25 mg BID [facility] Administration Insulin Aspart 1 vial 06/29/16 23:52 06/30/16 22:08 Novolog Vial Sliding Scale - SQ 5 units ACHS [facility] Administration Protocol Insulin Detemir 50 units 06/30/16 22:00 06/30/16 22:08 Levemir Vial SQ 50 units HS [facility] Administration Levothyroxine Sodium 125 mcg 06/28/16 07:00 06/30/16 06:22 Synthroid - PO 125 mcg DAILY@0700 [facility] Administration Pantoprazole Sodium 20 mg 06/27/16 10:00 06/30/16 09:30 Protonix - PO 20 mg DAILY [facility] Administration
[2016-07-01] MEDS: INSULIN SLIDING SCALE (NOVOLOG) 1 VIAL SQ SCH ×4 (06:31→22:03)
[2016-07-01] MEDS: FUROSEMIDE 40 MG/4 ML INJECTABLE VIAL IVPUSH SCH ×2 (06:31→14:15)
[2016-07-01] MEDS: LEVOTHYROXINE NA 125 MCG TABLET (FP) PO SCH (06:31)
[2016-07-01] MEDS: PANTOPRAZOLE 20 MG TABLET (FP) PO SCH (09:28)
[2016-07-01] MEDS: ASPIRIN COATED 81 MG TABLET.EC PO SCH (09:28)
[2016-07-01] MEDS: GABAPENTIN 100 MG CAPSULE (FP) PO SCH ×2 (09:28→22:02)
--- NOTE | 2016-07-01 09:28 | PN ---
Progress Note, Physician - Current Medication List Current Medications: Active Medications Alprazolam (Xanax -) 0.5 mg PO Q6H PRN Last Admin: 06/30/16 23:35 Dose: 0.5 mg Aspirin (Ecotrin -) 162 mg PO DAILY [facility] Last Admin: 06/30/16 09:31 Dose: 162 mg Bacitracin (Bacitracin -) 1 applic TP BID [facility] Last Admin: 06/30/16 22:09 Dose: 1 applic Furosemide (Lasix Injection -) 40 mg IVPUSH BID@0600,1400 [facility] Last Admin: 07/01/16 06:31 Dose: 40 mg Gabapentin (Neurontin -) 100 mg PO BID [facility] Last Admin: 06/30/16 22:09 Dose: 100 mg Heparin Sodium (Porcine) (Heparin -) 5,000 unit SQ BID [facility] Last Admin: 06/30/16 22:09 Dose: 5,000 unit Hydralazine HCl (Apresoline -) 25 mg PO BID [facility] Last Admin: 06/30/16 22:09 Dose: 25 mg Insulin Aspart (Novolog Vial Sliding Scale -) 1 vial SQ ACHS [facility] PRN Reason: Protocol Last Admin: 07/01/16 06:31 Dose: 2 units Insulin Detemir (Levemir Vial) 50 units SQ HS [facility] Last Admin: 06/30/16 22:08 Dose: 50 units Levothyroxine Sodium (Synthroid -) 125 mcg PO DAILY@0700 [facility] Last Admin: 07/01/16 06:31 Dose: 125 mcg Pantoprazole Sodium (Protonix -) 20 mg PO DAILY [facility] Last Admin: 06/30/16 09:30 Dose: 20 mg - Objective Vital Signs: Vital Signs Temperature 92.2 F L 07/01/16 07:12 Pulse Rate 78 07/01/16 07:12 Respiratory Rate 22 07/01/16 07:12 Blood Pressure 154/74 07/01/16 07:12 O2 Sat by Pulse Oximetry (%) 95 06/30/16 21:00 Labs: CBC, BMP 06/30/16 06:00 06/30/16 06:00 INR, PTT INR 0.94 (0.82-1.09) 06/26/16 18:45 Problem List - Problems (1) Chest pain Code(s): R07.9 - CHEST PAIN, UNSPECIFIED Qualifiers: Chest pain type: precordial pain Qualified Code(s): R07.2 - Precordial pain (2) Elevated liver enzymes Code(s): R74.8 - ABNORMAL LEVELS OF OTHER SERUM ENZYMES (3) Hyperkalemia Code(s): E87.5 - HYPERKALEMIA (4) Renal insufficiency Code(s): N28.9 - DISORDER OF KIDNEY AND URETER, UNSPECIFIED (5) Cellulitis Code(s): L03.90 - CELLULITIS, UNSPECIFIED Qualifiers: Site of cellulitis: unspecified site Qualified Code(s): L03.90 - Cellulitis, unspecified (6) Diabetes mellitus, insulin dependent (IDDM), uncontrolled Code(s): E10.65 - TYPE 1 DIABETES MELLITUS WITH HYPERGLYCEMIA Qualifiers: Diabetes mellitus complication status: with skin complications Diabetes mellitus complication detail: with dermatitis Qualified Code(s): E10.620 - 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
[2016-07-01] MEDS: HEPARIN NA (PORCINE) 5,000 UNITS/ML 1ML VIAL SQ SCH ×2 (09:29→22:02)
[2016-07-01] MEDS: hydrALAZINE HCL 25 MG TABLET (FP) PO SCH ×2 (09:36→22:02)
--- NOTE | 2016-07-01 09:46 | PN ---
Progress Note (short form) - Note Progress Note: d/w Dr Harvey persistent hypothermia she is awake and lert sitting up at side of bed eating breakfast Vital Signs Period Temp Pulse Resp BP Sys/[place] Pulse Ox Last 24 Hr 92.0 F-93.5 F 68-80 20-22 139-156/66-76 95 no thrush cor-rrr lungs decreased bs at bases abd firm, nt ext ++edema venous stasis both legs no skin breakdown noted CBC, BMP 06/30/16 06:00 06/30/16 06:00 Laboratory Tests 06/30/16 06/30/16 06:00 06:00 ESR 81 H AST 55 H ALT 116 H Alkaline Phosphatase 234 H C-Reactive Protein 1.6 H D echo moderate pulmonary HTN chest ct- cardiomegaly, effusions, congestion head ct -bilateral frontal encephalomelacia, +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 06/27/16 15:00 Blood - Peripheral Venous Blood Culture - Preliminary NO GROWTH OBTAINED AFTER 72 HOURS, INCUBATION TO CONTINUE FOR 2 DAYS. 06/27/16 10:28 Urine - Urine Clean Catch Urine Culture - Final NO GROWTH OBTAINED a/p persistent hypothermia-cultures are negative check cortisol level, thyroid studies agree with endocrine and neurology w/u-history of multiple surgeries in the past repeat blood cultures chronic venous stasis unchanged per patient abnl LFTS 20 pound weight gain since last admission in December d/w Dr Harvey
[2016-07-01] MEDS: BACITRACIN 15 GM TUBE TOPICAL OINTMENT TP SCH ×2 (09:47→22:05)
[2016-07-01 09:54] LABS: BASOPHIL 1.3 % (0-2.0); EOSINOPHIL 7.8 % (0-4.5); MCH 30.6 pg (25.7-33.7); MCHC 33.5 g/dl (32.0-36.0); MEAN CELL VOLUME 91.3 fl (80-96); MEAN PLT VOLUME 10.6 fl (7.5-11.1); NEUTROPHILS 55.3 % (42.8-82.8); PLATELET COUNT 158 K/MM3 (134-434); RDW 13.9 % (11.6-15.6); WHITE BLOOD COUNT 3.3 K/mm3 (4.0-10.0)
[2016-07-01 10:05] LABS: ALBUMIN 3.1 g/dl (3.4-5.0); BILIRUBIN,TOTAL 0.2 mg/dL (0.2-1.0); CALCIUM 8.5 mg/dL (8.5-10.1); COCKROFT - GAULT 63.988; CREATININE 1.6 mg/dL (0.55-1.02); TOT PROT 6.8 g/dl (6.4-8.2)
--- NOTE | 2016-07-01 10:11 | PN ---
Progress Note, Physician - Current Medication List Current Medications: Active Medications Alprazolam (Xanax -) 0.5 mg PO Q6H PRN Last Admin: 06/30/16 23:35 Dose: 0.5 mg Aspirin (Ecotrin -) 162 mg PO DAILY [facility] Last Admin: 07/01/16 09:28 Dose: 162 mg Bacitracin (Bacitracin -) 1 applic TP BID [facility] Last Admin: 07/01/16 09:47 Dose: 1 applic Furosemide (Lasix Injection -) 40 mg IVPUSH BID@0600,1400 [facility] Last Admin: 07/01/16 06:31 Dose: 40 mg Gabapentin (Neurontin -) 100 mg PO BID [facility] Last Admin: 07/01/16 09:28 Dose: 100 mg Heparin Sodium (Porcine) (Heparin -) 5,000 unit SQ BID [facility] Last Admin: 07/01/16 09:29 Dose: 5,000 unit Hydralazine HCl (Apresoline -) 25 mg PO BID [facility] Last Admin: 07/01/16 09:36 Dose: 25 mg Insulin Aspart (Novolog Vial Sliding Scale -) 1 vial SQ ACHS [facility] PRN Reason: Protocol Last Admin: 07/01/16 06:31 Dose: 2 units Insulin Detemir (Levemir Vial) 50 units SQ HS [facility] Last Admin: 06/30/16 22:08 Dose: 50 units Levothyroxine Sodium (Synthroid -) 125 mcg PO DAILY@0700 [facility] Last Admin: 07/01/16 06:31 Dose: 125 mcg Pantoprazole Sodium (Protonix -) 20 mg PO DAILY [facility] Last Admin: 07/01/16 09:28 Dose: 20 mg - Objective Vital Signs: Vital Signs Temperature 91.8 F L 07/01/16 09:25 Pulse Rate 71 07/01/16 09:25 Respiratory Rate 20 07/01/16 09:25 Blood Pressure 152/75 07/01/16 09:25 O2 Sat by Pulse Oximetry (%) 95 06/30/16 21:00 Cardiovascular: Yes: Regular Rate and Rhythm Respiratory: Yes: Diminished Gastrointestinal: Yes: Normal Bowel Sounds, Soft Extremities: Yes: Erythema Edema: Yes Labs: CBC, BMP 07/01/16 07:00 07/01/16 07:00 INR, PTT INR 0.94 (0.82-1.09) 06/26/16 18:45 Problem List - Problems (1) Chest pain Code(s): R07.9 - CHEST PAIN, UNSPECIFIED Qualifiers: Chest pain type: precordial pain Qualified Code(s): R07.2 - Precordial pain (2) Elevated liver enzymes Assessment/Plan: RPT PENDING MONITOR GI NOTED Code(s): R74.8 - ABNORMAL LEVELS OF OTHER SERUM ENZYMES (3) Hyperkalemia Assessment/Plan: IMPROVING MONITOR Code(s): E87.5 - HYPERKALEMIA (4) Renal insufficiency Assessment/Plan: MONITOR IVF Code(s): N28.9 - DISORDER OF KIDNEY AND URETER, UNSPECIFIED (5) Cellulitis Assessment/Plan: IV ABX PER ID--OFF NOW Code(s): L03.90 - CELLULITIS, UNSPECIFIED Qualifiers: Site of cellulitis: unspecified site Qualified Code(s): L03.90 - Cellulitis, unspecified (6) Diabetes mellitus, insulin dependent (IDDM), uncontrolled Assessment/Plan: BGM INSULIN---levemir qd ENDO Code(s): E10.65 - TYPE 1 DIABETES MELLITUS WITH HYPERGLYCEMIA Qualifiers: Diabetes mellitus complication status: with skin complications Diabetes mellitus complication detail: with dermatitis Qualified Code(s): E10.620 - 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; E10.65 - Type 1 diabetes mellitus with hyperglycemia (7) Hypothermia Assessment/Plan: CULTURES NEGATIVE-- R/O HYPOTHALAMIC ETIOLOGY TSH NL OFF IV ABX OFF PER ID CT OF CHEST NOTED W FAILURE NEURO ON CASE CHECK CORTISOL LEVEL Code(s): T68.XXXA - HYPOTHERMIA, INITIAL ENCOUNTER (8) Weakness Assessment/Plan: ABOVE Code(s): R53.1 - WEAKNESS (9) CHF (congestive heart failure) Assessment/Plan: iv lasix monitor lytes Code(s): I50.9 - HEART FAILURE, UNSPECIFIED
--- NOTE | 2016-07-01 10:58 | PN ---
Progress Note, Physician Chief Complaint: no further chest pain or sob. lying flat. tele negative. History of Present Illness: She is a 66 year old woman with a history of NIDDM, hypertension, hyperlipidemia , hypothyroidism, and benign brain tumors(X6), who presents to the emergency department complaining of chest pain and weakness for 2 days, edema and orthopnea with sob. Found with unremarkable ECG but noted with fluid overload, worsening renal function and weakness. No palps dizziness or syncope. Exercise tolerance at baseline is poor. Echo 01/22/15 normal EF moderate MR. - Current Medication List Current Medications: Active Medications Alprazolam (Xanax -) 0.5 mg PO Q6H PRN Last Admin: 06/30/16 23:35 Dose: 0.5 mg Aspirin (Ecotrin -) 162 mg PO DAILY [facility] Last Admin: 07/01/16 09:28 Dose: 162 mg Bacitracin (Bacitracin -) 1 applic TP BID [facility] Last Admin: 07/01/16 09:47 Dose: 1 applic Furosemide (Lasix Injection -) 40 mg IVPUSH BID@0600,1400 [facility] Last Admin: 07/01/16 06:31 Dose: 40 mg Gabapentin (Neurontin -) 100 mg PO BID [facility] Last Admin: 07/01/16 09:28 Dose: 100 mg Heparin Sodium (Porcine) (Heparin -) 5,000 unit SQ BID [facility] Last Admin: 07/01/16 09:29 Dose: 5,000 unit Hydralazine HCl (Apresoline -) 25 mg PO BID [facility] Last Admin: 07/01/16 09:36 Dose: 25 mg Insulin Aspart (Novolog Vial Sliding Scale -) 1 vial SQ ACHS [facility] PRN Reason: Protocol Last Admin: 07/01/16 06:31 Dose: 2 units Insulin Detemir (Levemir Vial) 50 units SQ HS [facility] Last Admin: 06/30/16 22:08 Dose: 50 units Levothyroxine Sodium (Synthroid -) 125 mcg PO DAILY@0700 [facility] Last Admin: 07/01/16 06:31 Dose: 125 mcg Pantoprazole Sodium (Protonix -) 20 mg PO DAILY [facility] Last Admin: 07/01/16 09:28 Dose: 20 mg - Objective Vital Signs: Vital Signs Temperature 91.8 F L 07/01/16 09:25 Pulse Rate 71 04/19/17 09:25 Respiratory Rate 20 07/01/16 09:25 Blood Pressure 152/75 07/01/16 09:25 O2 Sat by Pulse Oximetry (%) 95 06/30/16 21:00 Constitutional: Yes: Well Nourished Eyes: Yes: WNL HENT: Yes: WNL Neck: Yes: WNL Cardiovascular: Yes: Regular Rate and Rhythm Respiratory: Yes: WNL Gastrointestinal: Yes: WNL Extremities: Yes: WNL Edema: Yes Edema: LLE: 1+, RLE: 1+ Peripheral Pulses WNL: Yes Integumentary: Yes: Erythema Labs: CBC, BMP 07/01/16 07:00 07/01/16 07:00 INR, PTT INR 0.94 (0.82-1.09) 06/26/16 18:45 Problem List - Problems (1) Chest pain Assessment/Plan: Her chest pain is atypical for angina pectoris, ECG and Wilfrido x 1 negative. However, she has multiple risk factors for CAD. Would repeat echo, get persantine nuclear stress test if CTA cannot be obtained due to renal function. Baby asa if OK with neuro. Code(s): R07.9 - CHEST PAIN, UNSPECIFIED Qualifiers: Chest pain type: precordial pain Qualified Code(s): R07.2 - Precordial pain (2) HTN (hypertension) Assessment/Plan: Controlled on current medications. Code(s): I10 - ESSENTIAL (PRIMARY) HYPERTENSION Qualifiers: Hypertension type: essential hypertension Qualified Code(s): I10 - Essential (primary) hypertension (3) CHF exacerbation Assessment/Plan: still needs gentle diuresis. CT scan c/w chf. Echo shows mild RV dysfunction, due to lung disease and pulm htn. daily weights. I/O. repeat bnp is mildly decreased. Would continue lasix for diuresis 40 mg IV bid. Code(s): I50.9 - HEART FAILURE, UNSPECIFIED Qualifiers: Congestive heart failure type: diastolic Qualified Code(s): I50.33 - Acute on chronic diastolic (congestive) heart failure
--- NOTE | 2016-07-01 14:46 | PN ---
Progress Note, Physician History of Present Illness: pulmonary alert,feeling better,-resp distress,siting up in bed,hypothermic - Current Medication List Current Medications: Active Medications Alprazolam (Xanax -) 0.5 mg PO Q6H PRN Last Admin: 06/30/16 23:35 Dose: 0.5 mg Aspirin (Ecotrin -) 162 mg PO DAILY [facility] Last Admin: 07/01/16 09:28 Dose: 162 mg Bacitracin (Bacitracin -) 1 applic TP BID [facility] Last Admin: 07/01/16 09:47 Dose: 1 applic Furosemide (Lasix Injection -) 40 mg IVPUSH BID@0600,1400 [facility] Last Admin: 07/01/16 14:15 Dose: 40 mg Gabapentin (Neurontin -) 100 mg PO BID [facility] Last Admin: 07/01/16 09:28 Dose: 100 mg Heparin Sodium (Porcine) (Heparin -) 5,000 unit SQ BID [facility] Last Admin: 07/01/16 09:29 Dose: 5,000 unit Hydralazine HCl (Apresoline -) 25 mg PO BID [facility] Last Admin: 07/01/16 09:36 Dose: 25 mg Insulin Aspart (Novolog Vial Sliding Scale -) 1 vial SQ ACHS [facility] PRN Reason: Protocol Last Admin: 07/01/16 12:12 Dose: 4 units Insulin Detemir (Levemir Vial) 50 units SQ HS [facility] Last Admin: 06/30/16 22:08 Dose: 50 units Levothyroxine Sodium (Synthroid -) 125 mcg PO DAILY@0700 [facility] Last Admin: 07/01/16 06:31 Dose: 125 mcg Pantoprazole Sodium (Protonix -) 20 mg PO DAILY [facility] Last Admin: 07/01/16 09:28 Dose: 20 mg - Objective Vital Signs: Vital Signs Temperature 91.8 F L 07/01/16 09:25 Pulse Rate 78 07/01/16 12:05 Respiratory Rate 20 07/01/16 09:25 Blood Pressure 152/75 07/01/16 09:25 O2 Sat by Pulse Oximetry (%) 92 L 07/01/16 12:05 Constitutional: Yes: Well Nourished, Calm Eyes: Yes: WNL HENT: Yes: WNL Neck: Yes: WNL Cardiovascular: Yes: Regular Rate and Rhythm, S1, S2 Respiratory: Yes: Diminished Gastrointestinal: Yes: Normal Bowel Sounds, Soft Extremities: Yes: Erythema Edema: Yes Labs: CBC, BMP 07/01/16 07:00 07/01/16 07:00 INR, PTT INR 0.94 (0.82-1.09) 06/26/16 18:45 Assessment/Plan A/P Acute on Chronic CHF Pleural Effusion from above Chest Pain Hyperkalemia Elevated LFTs CKD HTN DM HYPOTHERMIA - lasix - monitor urine output, creatinine - daily weights, I/Os - trend LFTs - O2 to keep SpO2 >90% - BiPAP PRN - monitor lytes - DVT prophylaxis DR PATEL Problem List - Problems (1) CHF exacerbation Code(s): I50.9 - HEART FAILURE, UNSPECIFIED Qualifiers: Qualified Code(s): I50.33 - Acute on chronic diastolic (congestive) heart failure (2) Chest pain Code(s): R07.9 - CHEST PAIN, UNSPECIFIED Qualifiers: Qualified Code(s): R07.2 - Precordial pain (3) Elevated liver enzymes Code(s): R74.8 - ABNORMAL LEVELS OF OTHER SERUM ENZYMES (4) Hyperkalemia Code(s): E87.5 - HYPERKALEMIA (5) Diabetes mellitus, insulin dependent (IDDM), uncontrolled Code(s): E10.65 - TYPE 1 DIABETES MELLITUS WITH HYPERGLYCEMIA Qualifiers: Qualified Code(s): 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
--- NOTE | 2016-07-01 15:10 | PN ---
Progress Note, Physician Chief Complaint: Chest pain History of Present Illness: This is a - Current Medication List Current Medications: Active Medications Alprazolam (Xanax -) 0.5 mg PO Q6H PRN Last Admin: 06/30/16 23:35 Dose: 0.5 mg Aspirin (Ecotrin -) 162 mg PO DAILY [facility] Last Admin: 07/01/16 09:28 Dose: 162 mg Bacitracin (Bacitracin -) 1 applic TP BID [facility] Last Admin: 07/01/16 09:47 Dose: 1 applic Furosemide (Lasix Injection -) 40 mg IVPUSH BID@0600,1400 [facility] Last Admin: 07/01/16 14:15 Dose: 40 mg Gabapentin (Neurontin -) 100 mg PO BID [facility] Last Admin: 07/01/16 09:28 Dose: 100 mg Heparin Sodium (Porcine) (Heparin -) 5,000 unit SQ BID [facility] Last Admin: 07/01/16 09:29 Dose: 5,000 unit Hydralazine HCl (Apresoline -) 25 mg PO BID [facility] Last Admin: 07/01/16 09:36 Dose: 25 mg Insulin Aspart (Novolog Vial Sliding Scale -) 1 vial SQ [facility] PRN Reason: Protocol Last Admin: 07/01/16 12:12 Dose: 4 units Insulin Detemir (Levemir Vial) 50 units SQ HS [facility] Last Admin: 06/30/16 22:08 Dose: 50 units Levothyroxine Sodium (Synthroid -) 125 mcg PO DAILY@0700 [facility] Last Admin: 07/01/16 06:31 Dose: 125 mcg Pantoprazole Sodium (Protonix -) 20 mg PO DAILY [facility] Last Admin: 07/01/16 09:28 Dose: 20 mg - Objective Vital Signs: Vital Signs Temperature 91.8 F L 07/01/16 09:25 Pulse Rate 78 07/01/16 12:05 Respiratory Rate 20 07/01/16 09:25 Blood Pressure 152/75 07/01/16 09:25 O2 Sat by Pulse Oximetry (%) 92 L 07/01/16 12:05 Constitutional: Yes: Well Nourished Cardiovascular: Yes: Murmur (2) Edema: No Labs: CBC, BMP 07/01/16 07:00 07/01/16 07:00 INR, PTT INR 0.94 (0.82-1.09) 06/26/16 18:45 - ....Imaging EKG: Report Reviewed (NSR) Problem List - Problems (1) HTN (hypertension) Assessment/Plan: Well control Code(s): I10 - ESSENTIAL (PRIMARY) HYPERTENSION Qualifiers: Hypertension type: essential hypertension Qualified Code(s): I10 - Essential (primary) hypertension (2) Chest pain Assessment/Plan: Substernal Code(s): R07.9 - CHEST PAIN, UNSPECIFIED Qualifiers: Chest pain type: precordial pain Qualified Code(s): R07.2 - Precordial pain (3) Elevated liver enzymes Assessment/Plan: Following Code(s): R74.8 - ABNORMAL LEVELS OF OTHER SERUM ENZYMES (4) Hyperkalemia Assessment/Plan: [employer] Code(s): E87.5 - HYPERKALEMIA Assessment/Plan Chest pain: rest
[2016-07-01] MEDS ORDERED: INSULIN (NOVOLOG) ASPART 100 UNITS/ML 10ML VIAL ONE (21:54)
[2016-07-01] MEDS: INSULIN DETEMIR 100 UNITS/ML MDV SQ SCH (22:03)
[2016-07-02] MEDS: FUROSEMIDE 40 MG/4 ML INJECTABLE VIAL IVPUSH SCH ×2 (05:32→14:35)
[2016-07-02] MEDS: ALPRAZolam 0.25 MG TABLET PO PRN ×2 (05:32→23:12)
[2016-07-02 06:06] LABS: FREE T3 1.7 pg/mL (2.0-4.4)
[2016-07-02] MEDS: INSULIN SLIDING SCALE (NOVOLOG) 1 VIAL SQ SCH ×4 (06:10→23:15)
[2016-07-02] MEDS: LEVOTHYROXINE NA 125 MCG TABLET (FP) PO SCH (06:10)
--- NOTE | 2016-07-02 08:42 | PN ---
Progress Note, Physician - Current Medication List Current Medications: Active Medications Alprazolam (Xanax -) 0.5 mg PO Q6H PRN Last Admin: 07/02/16 05:32 Dose: 0.5 mg Aspirin (Ecotrin -) 162 mg PO DAILY [facility] Last Admin: 07/01/16 09:28 Dose: 162 mg Bacitracin (Bacitracin -) 1 applic TP BID [facility] Last Admin: 07/01/16 22:05 Dose: 1 applic Furosemide (Lasix Injection -) 40 mg IVPUSH BID@0600,1400 [facility] Last Admin: 07/02/16 05:32 Dose: 40 mg Gabapentin (Neurontin -) 100 mg PO BID [facility] Last Admin: 07/01/16 22:02 Dose: 100 mg Heparin Sodium (Porcine) (Heparin -) 5,000 unit SQ BID [facility] Last Admin: 07/01/16 22:02 Dose: 5,000 unit Hydralazine HCl (Apresoline -) 25 mg PO BID [facility] Last Admin: 07/01/16 22:02 Dose: 25 mg Insulin Aspart (Novolog Vial Sliding Scale -) 1 vial SQ ACHS [facility] PRN Reason: Protocol Last Admin: 07/02/16 06:10 Dose: Not Given Insulin Detemir (Levemir Vial) 50 units SQ HS [facility] Last Admin: 07/01/16 22:03 Dose: 50 units Levothyroxine Sodium (Synthroid -) 125 mcg PO DAILY@0700 [facility] Last Admin: 07/02/16 06:10 Dose: 125 mcg Pantoprazole Sodium (Protonix -) 20 mg PO DAILY [facility] Last Admin: 07/01/16 09:28 Dose: 20 mg - Objective Vital Signs: Vital Signs Temperature 93.3 F L 07/02/16 06:00 Pulse Rate 81 07/02/16 06:00 Respiratory Rate 20 07/02/16 06:00 Blood Pressure 143/81 07/02/16 06:00 O2 Sat by Pulse Oximetry (%) 97 07/01/16 20:27 Cardiovascular: Yes: Regular Rate and Rhythm Respiratory: Yes: Regular, CTA Bilaterally Gastrointestinal: Yes: Normal Bowel Sounds, Soft Edema: No Labs: CBC, BMP 07/01/16 07:00 07/01/16 07:00 INR, PTT INR 0.94 (0.82-1.09) 04/14/17 18:45 Problem List - Problems (1) Chest pain Assessment/Plan: RESOLVED CE NEGATIVE F/U EKG CARDIO AND PULM DUPLEX OF LE CTA ONCE RENAL FUNCTION IMPROVES AC IF HGB STABLE Code(s): R07.9 - CHEST PAIN, UNSPECIFIED Qualifiers: Chest pain type: precordial pain Qualified Code(s): R07.2 - Precordial pain (2) Elevated liver enzymes Assessment/Plan: RPT PENDING MONITOR GI NOTED Code(s): R74.8 - ABNORMAL LEVELS OF OTHER SERUM ENZYMES (3) Hyperkalemia Assessment/Plan: IMPROVING MONITOR Code(s): E87.5 - HYPERKALEMIA (4) Renal insufficiency Assessment/Plan: MONITOR IVF Code(s): N28.9 - DISORDER OF KIDNEY AND URETER, UNSPECIFIED (5) Cellulitis Assessment/Plan: IV ABX PER ID--OFF NOW Code(s): L03.90 - CELLULITIS, UNSPECIFIED Qualifiers: Site of cellulitis: unspecified site Qualified Code(s): L03.90 - Cellulitis, unspecified (6) Diabetes mellitus, insulin dependent (IDDM), uncontrolled Assessment/Plan: BGM INSULIN---levemir qd ENDO Code(s): E10.65 - TYPE 1 DIABETES MELLITUS WITH HYPERGLYCEMIA Qualifiers: Diabetes mellitus complication status: with skin complications Diabetes mellitus complication detail: with dermatitis Qualified Code(s): 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
[2016-07-02 08:58] LABS: BASOPHIL 1.7 % (0-2.0); EOSINOPHIL 6.2 % (0-4.5); MCH 30.3 pg (25.7-33.7); MCHC 33.4 g/dl (32.0-36.0); MEAN CELL VOLUME 90.7 fl (80-96); MEAN PLT VOLUME 9.9 fl (7.5-11.1); PLATELET COUNT 165 K/MM3 (134-434)
[2016-07-02 09:24] LABS: BILIRUBIN,TOTAL 0.3 mg/dL (0.2-1.0); CALCIUM 8.5 mg/dL (8.5-10.1); COCKROFT - GAULT 67.7535; CREATININE 1.5 mg/dL (0.55-1.02); TOT PROT 6.7 g/dl (6.4-8.2)
--- NOTE | 2016-07-02 10:05 | PN ---
Progress Note, Physician Chief Complaint: no further chest pain or sob. tele negative. History of Present Illness: She is a 66 year old woman with a history of NIDDM, hypertension, hyperlipidemia , hypothyroidism, and benign brain tumors(X6), who presents to the emergency department complaining of chest pain and weakness for 2 days, edema and orthopnea with sob. Found with unremarkable ECG but noted with fluid overload, worsening renal function and weakness. No palps dizziness or syncope. Exercise tolerance at baseline is poor. Echo 01/22/15 normal EF moderate MR. - Current Medication List Current Medications: Active Medications Alprazolam (Xanax -) 0.5 mg PO Q6H PRN Last Admin: 07/02/16 05:32 Dose: 0.5 mg Aspirin (Ecotrin -) 162 mg PO DAILY [facility] Last Admin: 07/01/16 09:28 Dose: 162 mg Bacitracin (Bacitracin -) 1 applic TP BID [facility] Last Admin: 07/01/16 22:05 Dose: 1 applic Furosemide (Lasix Injection -) 40 mg IVPUSH BID@0600,1400 [facility] Last Admin: 07/02/16 05:32 Dose: 40 mg Gabapentin (Neurontin -) 100 mg PO BID [facility] Last Admin: 07/01/16 22:02 Dose: 100 mg Heparin Sodium (Porcine) (Heparin -) 5,000 unit SQ BID [facility] Last Admin: 07/01/16 22:02 Dose: 5,000 unit Hydralazine HCl (Apresoline -) 25 mg PO BID [facility] Last Admin: 07/01/16 22:02 Dose: 25 mg Insulin Aspart (Novolog Vial Sliding Scale -) 1 vial SQ ACHS [facility] PRN Reason: Protocol Last Admin: 07/02/16 06:10 Dose: Not Given Insulin Detemir (Levemir Vial) 50 units SQ HS [facility] Last Admin: 07/01/16 22:03 Dose: 50 units Levothyroxine Sodium (Synthroid -) 125 mcg PO DAILY@0700 [facility] Last Admin: 07/02/16 06:10 Dose: 125 mcg Pantoprazole Sodium (Protonix -) 20 mg PO DAILY [facility] Last Admin: 07/01/16 09:28 Dose: 20 mg - Objective Vital Signs: Vital Signs Temperature 93.3 F L 07/02/16 06:00 Pulse Rate 81 07/02/16 06:00 Respiratory Rate 20 07/02/16 06:00 Blood Pressure 143/81 07/02/16 06:00 O2 Sat by Pulse Oximetry (%) 97 07/01/16 20:27 Constitutional: Yes: Well Nourished, No Distress Eyes: Yes: WNL HENT: Yes: WNL Neck: Yes: WNL Cardiovascular: Yes: Regular Rate and Rhythm Respiratory: Yes: CTA Bilaterally Gastrointestinal: Yes: Normal Bowel Sounds Extremities: Yes: Erythema Edema: LLE: 1+, RLE: 1+ Peripheral Pulses WNL: Yes Integumentary: Yes: Erythema, Venous Stasis Changes Labs: CBC, BMP 07/02/16 08:30 07/02/16 08:30 INR, PTT INR 0.94 (0.82-1.09) 06/26/16 18:45 Problem List - Problems (1) Chest pain Assessment/Plan: Her chest pain is atypical for angina pectoris, ECG and Wilfrido x 1 negative. However, she has multiple risk factors for CAD. Would get persantine nuclear stress test if CTA cannot be obtained due to renal function. This can be done as an outpatient given her infectious issues and renal disease. Code(s): R07.9 - CHEST PAIN, UNSPECIFIED Qualifiers: Chest pain type: precordial pain Qualified Code(s): R07.2 - Precordial pain (2) HTN (hypertension) Assessment/Plan: Controlled on current medications. Code(s): I10 - ESSENTIAL (PRIMARY) HYPERTENSION Qualifiers: Hypertension type: essential hypertension Qualified Code(s): I10 - Essential (primary) hypertension (3) CHF exacerbation Assessment/Plan: Elevated LFTs are likely due to congestive hepatopathy. still needs gentle diuresis. CT scan c/w chf. Echo shows mild RV dysfunction, due to lung disease and pulm htn. daily weights. I/O. repeat bnp is mildly decreased. Would continue lasix for diuresis 40 mg IV bid. Code(s): I50.9 - HEART FAILURE, UNSPECIFIED Qualifiers: Congestive heart failure type: diastolic Qualified Code(s): I50.33 - Acute on chronic diastolic (congestive) heart failure
[2016-07-02] MEDS: hydrALAZINE HCL 25 MG TABLET (FP) PO SCH ×2 (10:10→23:06)
[2016-07-02] MEDS: PANTOPRAZOLE 20 MG TABLET (FP) PO SCH (10:11)
[2016-07-02] MEDS: GABAPENTIN 100 MG CAPSULE (FP) PO SCH ×2 (10:11→23:08)
[2016-07-02] MEDS: ASPIRIN COATED 81 MG TABLET.EC PO SCH (10:11)
[2016-07-02] MEDS: HEPARIN NA (PORCINE) 5,000 UNITS/ML 1ML VIAL SQ SCH ×2 (10:12→23:06)
[2016-07-02] MEDS: BACITRACIN 15 GM TUBE TOPICAL OINTMENT TP SCH ×2 (10:12→23:10)
--- NOTE | 2016-07-02 11:15 | PN ---
Progress Note (short form) - Note Progress Note: Overall feels better. No CP or SOB. No acute events overnight. Intake & Output 06/29/16 06/30/16 07/01/16 07/02/16 23:59 23:59 23:59 23:59 Intake Total 800 100 490 120 Output Total 1000 Balance -200 100 490 120 Weight 265 lb 8 oz 255 lb 265 lb 9 oz 263 lb 9.6 oz Last Vital Signs Temp Pulse Resp BP Pulse Ox 91.7 F L 69 18 141/69 97 07/02/16 09:00 07/02/16 09:00 07/02/16 09:00 07/02/16 09:00 07/01/16 20:27 Active Medications Alprazolam (Xanax -) 0.5 mg PO Q6H PRN Last Admin: 07/02/16 05:32 Dose: 0.5 mg Aspirin (Ecotrin -) 162 mg PO DAILY [facility] Last Admin: 07/02/16 10:11 Dose: 162 mg Bacitracin (Bacitracin -) 1 applic TP BID [facility] Last Admin: 07/02/16 10:12 Dose: 1 applic Furosemide (Lasix Injection -) 40 mg IVPUSH BID@0600,1400 [facility] Last Admin: 07/02/16 05:32 Dose: 40 mg Gabapentin (Neurontin -) 100 mg PO BID [facility] Last Admin: 07/02/16 10:11 Dose: 100 mg Heparin Sodium (Porcine) (Heparin -) 5,000 unit SQ BID [facility] Last Admin: 07/02/16 10:12 Dose: 5,000 unit Hydralazine HCl (Apresoline -) 25 mg PO BID [facility] Last Admin: 07/02/16 10:10 Dose: 25 mg Insulin Aspart (Novolog Vial Sliding Scale -) 1 vial SQ ACHS [facility] PRN Reason: Protocol Last Admin: 07/02/16 06:10 Dose: Not Given Insulin Detemir (Levemir Vial) 50 units SQ HS [facility] Last Admin: 07/01/16 22:03 Dose: 50 units Levothyroxine Sodium (Synthroid -) 125 mcg PO DAILY@0700 [facility] Last Admin: 07/02/16 06:10 Dose: 125 mcg Pantoprazole Sodium (Protonix -) 20 mg PO DAILY [facility] Last Admin: 07/02/16 10:11 Dose: 20 mg Constitutional: Yes: NAD Eyes: Yes: WNL HENT: Yes: WNL Neck: Yes: WNL Cardiovascular: Yes: Regular Rate and Rhythm, S1, S2 Respiratory: Yes: Diminished Gastrointestinal: Yes: Normal Bowel Sounds, Soft Extremities: Yes: Erythema Edema: Yes Labs: Laboratory Results - last 24 hr 07/01/16 07/01/16 07/01/16 07:00 12:09 16:33 WBC RBC Hgb Hct MCV MCHC RDW Plt Count MPV Neutrophils % Lymphocytes % Monocytes % Eosinophils % Basophils % Sodium Potassium Chloride Carbon Dioxide Anion Gap BUN Creatinine Creat Clearance w eGFR POC Glucometer 238 220 Random Glucose Calcium Total Bilirubin AST ALT Alkaline Phosphatase Total Protein Albumin Free T3 1.7 L 07/01/16 07/02/16 07/02/16 21:45 05:29 08:30 WBC 4.0 RBC 3.30 L Hgb 10.0 L Hct 29.9 L MCV 90.7 MCHC 33.4 RDW 14.0 Plt Count 165 MPV 9.9 Neutrophils % 62.0 Lymphocytes % 21.2 D Monocytes % 8.9 Eosinophils % 6.2 H Basophils % 1.7 Sodium Potassium Chloride Carbon Dioxide Anion Gap BUN Creatinine Creat Clearance w eGFR POC Glucometer 208 116 Random Glucose Calcium Total Bilirubin AST ALT Alkaline Phosphatase Total Protein Albumin Free T3 07/02/16 08:30 WBC RBC Hgb Hct MCV MCHC RDW Plt Count MPV Neutrophils % Lymphocytes % Monocytes % Eosinophils % Basophils % Sodium 140 Potassium 5.2 H Chloride 109 H Carbon Dioxide 25 Anion Gap 6 L BUN 60 H Creatinine 1.5 H Creat Clearance w eGFR 34.53 POC Glucometer Random Glucose 95 D Calcium 8.5 Total Bilirubin 0.3 D AST 89 H D ALT 153 H Alkaline Phosphatase 288 H Total Protein 6.7 Albumin 3.0 L Free T3 Problem List - Problems (1) CHF exacerbation Code(s): I50.9 - HEART FAILURE, UNSPECIFIED Qualifiers: Qualified Code(s): I50.33 - Acute on chronic diastolic (congestive) heart failure (2) Chest pain Code(s): R07.9 - CHEST PAIN, UNSPECIFIED Qualifiers: Qualified Code(s): R07.2 - Precordial pain (3) Elevated liver enzymes Code(s): R74.8 - ABNORMAL LEVELS OF OTHER SERUM ENZYMES (4) Hyperkalemia Code(s): E87.5 - HYPERKALEMIA (5) Diabetes mellitus, insulin dependent (IDDM), uncontrolled Code(s): E10.65 - TYPE 1 DIABETES MELLITUS WITH HYPERGLYCEMIA Qualifiers: Qualified Code(s): 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
[2016-07-02] MEDS ORDERED: INSULIN (NOVOLOG) ASPART 100 UNITS/ML 10ML VIAL ONE ×2 (12:10→16:57)
--- NOTE | 2016-07-02 15:25 | PN ---
Progress Note (short form) - Note Progress Note: remains alert, eating crackers persistent hypothermia Vital Signs Period Temp Pulse Resp BP Sys/[place] Pulse Ox Last 24 Hr 91 F-93.3 F 64-81 18-20 135-148/64-81 96-97 cor-rrr lungs clear abd soft,nt ext +edema +venous stasis CBC, BMP 07/02/16 08:30 07/02/16 08:30 Laboratory Tests 06/30/16 06/30/16 06:00 06:00 ESR 81 H AST 55 H ALT 116 H Alkaline Phosphatase 234 H C-Reactive Protein 1.6 H D echo moderate pulmonary HTN chest ct- cardiomegaly, effusions, congestion head ct -bilateral frontal encephalomelacia, +wall washer shunts UA negative Microbiology 06/27/16 15:00 Blood - Peripheral Venous Blood Culture - Preliminary NO GROWTH OBTAINED AFTER 72 HOURS, INCUBATION TO CONTINUE FOR 2 DAYS. 06/27/16 15:00 Blood - Peripheral Venous Blood Culture - Preliminary NO GROWTH OBTAINED AFTER 72 HOURS, INCUBATION TO CONTINUE FOR 2 DAYS. 06/27/16 10:28 Urine - Urine Clean Catch Urine Culture - Final NO GROWTH OBTAINED a/p persistent hypothermia-cultures are negative check cortisol level, thyroid studies, consider MRI of head agree with endocrine and neurology w/u-history of multiple surgeries in the past repeat blood cultures sent chronic venous stasis unchanged per patient abnl LFTS 20 pound weight gain since last admission in December
--- NOTE | 2016-07-02 16:41 | PN ---
GI Progress Note Subjective: repeat LFTS still elevated, denies nausea, no vomiting, no abdominal pain, patient still with episodes of hypothermia - Objective Vital Signs: Vital Signs Temperature 91.2 F L 07/02/16 14:29 Pulse Rate 77 07/02/16 14:29 Respiratory Rate 20 07/02/16 14:29 Blood Pressure 136/65 07/02/16 14:29 O2 Sat by Pulse Oximetry (%) 96 07/02/16 10:30 Constitutional: Well Nourished Eyes: Yes: Conjunctiva Clear HENT: Yes: Atraumatic Neck: Yes: Supple Cardiovascular: Yes: Regular Rate and Rhythm Respiratory: Yes: CTA Bilaterally ...Palpate: Yes: Soft. No: Firm/Rigid, Guarding, Hepatomegaly, Mass, Pulsatile Mass, Splenomegaly, Tenderness Labs: CBC, BMP 07/02/16 08:30 07/02/16 08:30 INR, PTT INR 0.94 (0.82-1.09) 06/26/16 18:45 Problem List - Problems (1) Elevated liver enzymes Assessment/Plan: r/o secondary to drug toxicity R> considewre to discontinue gabapentin JEM, anti smooth muscle antibody Code(s): R74.8 - ABNORMAL LEVELS OF OTHER SERUM ENZYMES
--- NOTE | 2016-07-02 18:21 | CONSULT ---
Consult - text type - Consultation Consultation Note: She is a 66 year old woman with a history of NIDDM, hypertension, hyperlipidemia , hypothyroidism, and benign brain tumors, who presents to the emergency department complaining of chest pain and weakness for 2 days, edema and orthopnea with sob. Found with unremarkable ECG but noted with fluid overload, worsening renal function and weakness. No palps dizziness or syncope. 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 history of brain tumors (benign) - Alcohol/Substance Use Hx Alcohol Use: No - Smoking History Smoking history: Never smoked - Social History Usual Living Arrangement: Alone - Allergies Allergies/Adverse Reactions: Allergies Allergy/AdvReac Type Severity Reaction Status Date / Time phenytoin sodium Allergy Rash Verified 06/26/16 16:58 [From Dilantin] phenytoin sodium extended Allergy Rash Verified 06/26/16 16:58 [From Dilantin] vancomycin Allergy Verified 06/26/16 16:58 - Home Medications Home Medications: Ambulatory Orders Gabapentin 100 mg PO BID 04/11/15 Omeprazole 20 mg PO DAILY #30 capsule. 09/09/15 Levothyroxine [Synthroid -] 125 mcg PO BID 10/20/15 Potassium Chloride [Klor-Con] 20 meq PO DAILY 10/20/15 Insulin (Novolog) [Novolog -] 10 units SQ BID 12/04/15 Insulin Glargine,Hum.rec.anlog [Lantus (nf)] 50 units SQ BID 12/04/15 Furosemide [Lasix -] 40 mg PO DAILY #30 tablet 12/06/15 Hydralazine HCl [Apresoline -] 25 mg PO BID #30 tablet 12/06/15 Simvastatin [Zocor -] 40 mg PO HS 06/26/16 Active Medications Generic Name Dose Route Start Last Admin Trade Name Freq PRN Reason Stop Dose Admin Alprazolam 0.5 mg 06/27/16 18:57 07/02/16 05:32 Xanax - PO 0.5 mg Q6H PRN Administration Aspirin 162 mg 06/27/16 10:00 07/02/16 10:11 Ecotrin - PO 162 mg DAILY [facility] Administration Bacitracin 1 applic 06/28/16 22:00 07/02/16 10:12 Bacitracin - TP 1 applic BID [facility] Administration Furosemide 40 mg 06/30/16 14:00 07/02/16 14:35 Lasix Injection - IVPUSH 40 mg BID@0600,1400 [facility] Administration Gabapentin 100 mg 06/27/16 10:00 07/02/16 10:11 Neurontin - PO 100 mg BID [facility] Administration Heparin Sodium (Porcine) 5,000 unit 06/30/16 11:00 07/02/16 10:12 Heparin - SQ 5,000 unit BID [facility] Administration Hydralazine HCl 25 mg 06/27/16 10:00 07/02/16 10:10 Apresoline - PO 25 mg BID [facility] Administration Insulin Aspart 1 vial 06/29/16 23:52 07/02/16 16:59 Novolog Vial Sliding Scale - SQ 5 units ACHS [facility] Administration Protocol Insulin Detemir 50 units 06/30/16 22:00 07/01/16 22:03 Levemir Vial SQ 50 units HS [facility] Administration Levothyroxine Sodium 125 mcg 06/28/16 07:00 07/02/16 06:10 Synthroid - PO 125 mcg DAILY@0700 [facility] Administration Pantoprazole Sodium 20 mg 06/27/16 10:00 07/02/16 10:11 Protonix - PO 20 mg DAILY [facility] Administration Vital Signs: Vital Signs Last Vital Signs Temp Pulse Resp BP Pulse Ox 96.5 F L 94 H 20 134/61 96 07/02/16 17:47 07/02/16 17:47 07/02/16 17:47 07/02/16 17:47 07/02/16 10:30 Cor: RSR, No murmurs, No gallops Lungs: Clear to P&A Abd: Soft, Normal bowel sounds, No organomegaly Ext: statis dermatitis Abnormal Lab Results 07/01/16 07/02/16 07/02/16 07:00 08:30 08:30 RBC 3.30 L Hgb 10.0 L Hct 29.9 L Eosinophils % 6.2 H Potassium 5.2 H Chloride 109 H Anion Gap 6 L BUN 60 H Creatinine 1.5 H AST 89 H D ALT 153 H Alkaline Phosphatase 288 H Albumin 3.0 L Free T3 1.7 L - Problems 66 y/o patient with HTN, DM< CHF, CKD, hypothyroid comes in with fatigue, lethargy, SOB, hypothermia anemia--normocytic iron studies, TSH,--nl fT3 low check B12/protein studies suspect anemia of chronic disease hypothermia--neuro/endocrine/ID w/u ongoing brain tumor -- benign per patient had previous surgeries and RT ---last [id number] Repeating MRI brain per neuro team
[2016-07-02] MEDS: INSULIN DETEMIR 100 UNITS/ML MDV SQ SCH (23:07)
--- NOTE | 2016-07-02 23:34 | PN ---
Progress Note, Physician Chief Complaint: sitting in chair comfortable History of Present Illness: 66 y female pmh iddm,diabetic neuropathy,hypothyroidism,recurrent cellulitis both le.s has hypothermia,history broin neoplasm,has low freet3 - Current Medication List Current Medications: Active Medications Alprazolam (Xanax -) 0.5 mg PO Q6H PRN Last Admin: 07/02/16 23:12 Dose: 0.5 mg Aspirin (Ecotrin -) 162 mg PO DAILY [facility] Last Admin: 07/02/16 10:11 Dose: 162 mg Bacitracin (Bacitracin -) 1 applic TP BID [facility] Last Admin: 07/02/16 23:10 Dose: 1 applic Furosemide (Lasix Injection -) 40 mg IVPUSH BID@0600,1400 [facility] Last Admin: 07/02/16 14:35 Dose: 40 mg Gabapentin (Neurontin -) 100 mg PO BID [facility] Last Admin: 07/02/16 23:08 Dose: 100 mg Heparin Sodium (Porcine) (Heparin -) 5,000 unit SQ BID [facility] Last Admin: 07/02/16 23:06 Dose: 5,000 unit Hydralazine HCl (Apresoline -) 25 mg PO BID [facility] Last Admin: 07/02/16 23:06 Dose: 25 mg Insulin Aspart (Novolog Vial Sliding Scale -) 1 vial SQ ACHS [facility] PRN Reason: Protocol Last Admin: 07/02/16 23:15 Dose: 2 units Insulin Detemir (Levemir Vial) 50 units SQ HS [facility] Last Admin: 07/02/16 23:07 Dose: 50 units Levothyroxine Sodium (Synthroid -) 125 mcg PO DAILY@0700 [facility] Last Admin: 07/02/16 06:10 Dose: 125 mcg Pantoprazole Sodium (Protonix -) 20 mg PO DAILY [facility] Last Admin: 07/02/16 10:11 Dose: 20 mg - Objective Vital Signs: Vital Signs Temperature 96.5 F L 07/02/16 17:47 Pulse Rate 63 07/02/16 23:03 Respiratory Rate 20 07/02/16 23:03 Blood Pressure 137/66 07/02/16 23:03 O2 Sat by Pulse Oximetry (%) 96 07/02/16 10:30 Constitutional: Yes: Well Nourished, Calm Eyes: Yes: WNL HENT: Yes: WNL Neck: Yes: Thyromegaly Respiratory: Yes: WNL Gastrointestinal: Yes: WNL ...Rectal Exam: Yes: Deferred Genitourinary: Yes: WNL Extremities: Yes: Cool, Delayed Capillary Refill Edema: Yes Edema: LLE: 3+, RLE: 3+ Integumentary: Yes: Erythema Neurological: Yes: Alert Labs: CBC, BMP 07/02/16 08:30 07/02/16 08:30 INR, PTT INR 0.94 (0.82-1.09) 06/26/16 18:45 Problem List - Problems (1) Blood bacterial culture positive Code(s): R78.81 - BACTEREMIA (2) CHF exacerbation Code(s): I50.9 - HEART FAILURE, UNSPECIFIED Qualifiers: Congestive heart failure type: diastolic Qualified Code(s): I50.33 - Acute on chronic diastolic (congestive) heart failure (3) Hyperlipidemia associated with type 2 diabetes mellitus Code(s): E11.69 - TYPE 2 DIABETES MELLITUS WITH OTHER SPECIFIED COMPLICATION E78.5 - HYPERLIPIDEMIA, UNSPECIFIED Assessment/Plan Current Active Problems Blood bacterial culture positive (Acute) CHF (congestive heart failure) (Acute) CHF exacerbation (Acute) Cellulitis and abscess of leg (Acute) Chest pain (Acute) Elevated liver enzymes (Acute) Hyperkalemia (Acute) Hyperlipidemia associated with type 2 diabetes mellitus (Acute) Hypothermia (Acute) Leukopenia (Acute) Near syncope (Acute) Rash (Acute) Renal insufficiency (Acute) Syncope (Acute) Urticaria (Acute) Weakness (Acute) Abnormal Lab Results 07/01/16 07/02/16 07/02/16 07:00 08:30 08:30 RBC 3.30 L Hgb 10.0 L Hct 29.9 L Eosinophils % 6.2 H Potassium 5.2 H Chloride 109 H Anion Gap 6 L BUN 60 H Creatinine 1.5 H AST 89 H D ALT 153 H Alkaline Phosphatase 288 H Albumin 3.0 L Free T3 1.7 L hypothyroidism: low free t3 suggest add cytomel 15mcg daily for conversion t4-t3 maybe decreased
[2016-07-03] MEDS: LEVOTHYROXINE NA 125 MCG TABLET (FP) PO SCH (06:12)
[2016-07-03] MEDS: FUROSEMIDE 40 MG/4 ML INJECTABLE VIAL IVPUSH SCH ×2 (06:12→15:12)
[2016-07-03] MEDS: INSULIN SLIDING SCALE (NOVOLOG) 1 VIAL SQ SCH ×4 (06:16→21:19)
--- NOTE | 2016-07-03 07:28 | PN ---
Progress Note, Physician - Current Medication List Current Medications: Active Medications Alprazolam (Xanax -) 0.5 mg PO Q6H PRN Last Admin: 07/02/16 23:12 Dose: 0.5 mg Aspirin (Ecotrin -) 162 mg PO DAILY [facility] Last Admin: 07/02/16 10:11 Dose: 162 mg Bacitracin (Bacitracin -) 1 applic TP BID [facility] Last Admin: 07/02/16 23:10 Dose: 1 applic Furosemide (Lasix Injection -) 40 mg IVPUSH BID@0600,1400 [facility] Last Admin: 07/03/16 06:12 Dose: 40 mg Gabapentin (Neurontin -) 100 mg PO BID [facility] Last Admin: 07/02/16 23:08 Dose: 100 mg Heparin Sodium (Porcine) (Heparin -) 5,000 unit SQ BID [facility] Last Admin: 07/02/16 23:06 Dose: 5,000 unit Hydralazine HCl (Apresoline -) 25 mg PO BID [facility] Last Admin: 07/02/16 23:06 Dose: 25 mg Insulin Aspart (Novolog Vial Sliding Scale -) 1 vial SQ ACHS [facility] PRN Reason: Protocol Last Admin: 07/03/16 06:16 Dose: 2 units Insulin Detemir (Levemir Vial) 50 units SQ HS [facility] Last Admin: 07/02/16 23:07 Dose: 50 units Levothyroxine Sodium (Synthroid -) 125 mcg PO DAILY@0700 [facility] Last Admin: 07/03/16 06:12 Dose: 125 mcg Liothyronine Sodium (Cytomel -) 25 mcg PO DAILY [facility] Pantoprazole Sodium (Protonix -) 20 mg PO DAILY [facility] Last Admin: 07/02/16 10:11 Dose: 20 mg - Objective Vital Signs: Vital Signs Temperature 91.0 F L 07/03/16 02:00 Pulse Rate 68 07/03/16 06:00 Respiratory Rate 20 07/03/16 06:00 Blood Pressure 144/75 07/03/16 06:00 O2 Sat by Pulse Oximetry (%) 97 07/02/16 21:00 Constitutional: Yes: Calm Neck: Yes: WNL Cardiovascular: Yes: WNL Respiratory: Yes: Rhonchi Gastrointestinal: Yes: WNL Edema: Yes Integumentary: Yes: Erythema Labs: CBC, BMP 07/02/16 08:30 07/02/16 08:30 INR, PTT INR 0.94 (0.82-1.09) 06/26/16 18:45 Assessment/Plan (1) Chest pain Assessment/Plan: RESOLVED CE NEGATIVE F/U EKG CARDIO AND PULM DUPLEX OF LE CTA ONCE RENAL FUNCTION IMPROVES AC IF HGB STABLE Code(s): R07.9 - CHEST PAIN, UNSPECIFIED Qualifiers: Chest pain type: precordial pain Qualified Code(s): R07.2 - Precordial pain (2) Elevated liver enzymes Assessment/Plan: RPT PENDING MONITOR GI NOTED Code(s): R74.8 - ABNORMAL LEVELS OF OTHER SERUM ENZYMES (3) Hyperkalemia Assessment/Plan: IMPROVING MONITOR Code(s): E87.5 - HYPERKALEMIA (4) Renal insufficiency Assessment/Plan: MONITOR IVF Code(s): N28.9 - DISORDER OF KIDNEY AND URETER, UNSPECIFIED (5) Cellulitis Assessment/Plan: IV ABX PER ID--OFF NOW Code(s): L03.90 - CELLULITIS, UNSPECIFIED Qualifiers: Site of cellulitis: unspecified site Qualified Code(s): L03.90 - Cellulitis, unspecified (6) Diabetes mellitus, insulin dependent (IDDM), uncontrolled Assessment/Plan: BGM INSULIN---levemir qd ENDO Code(s): E10.65 - TYPE 1 DIABETES MELLITUS WITH HYPERGLYCEMIA Qualifiers: Diabetes mellitus complication status: with skin complications Diabetes mellitus complication detail: with dermatitis Qualified Code(s): 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
[2016-07-03] MEDS: HEPARIN NA (PORCINE) 5,000 UNITS/ML 1ML VIAL SQ SCH ×2 (09:51→21:19)
[2016-07-03] MEDS: ASPIRIN COATED 81 MG TABLET.EC PO SCH (09:52)
[2016-07-03] MEDS: hydrALAZINE HCL 25 MG TABLET (FP) PO SCH ×2 (09:52→21:21)
[2016-07-03] MEDS: GABAPENTIN 100 MG CAPSULE (FP) PO SCH ×2 (09:52→21:20)
[2016-07-03] MEDS: LIOTHYRONINE SODIUM 25 MCG TABLET PO SCH (09:53)
[2016-07-03] MEDS: PANTOPRAZOLE 20 MG TABLET (FP) PO SCH (09:53)
[2016-07-03] MEDS: BACITRACIN 15 GM TUBE TOPICAL OINTMENT TP SCH ×2 (09:54→21:21)
--- NOTE | 2016-07-03 10:05 | PN ---
Progress Note, Physician Chief Complaint: no further chest pain or sob. still with hypothermia. History of Present Illness: She is a 66 year old woman with a history of NIDDM, hypertension, hyperlipidemia , hypothyroidism, and benign brain tumors(X6), who presents to the emergency department complaining of chest pain and weakness for 2 days, edema and orthopnea with sob. Found with unremarkable ECG but noted with fluid overload, worsening renal function and weakness. No palps dizziness or syncope. Exercise tolerance at baseline is poor. Echo 01/22/15 normal EF moderate MR. - Current Medication List Current Medications: Active Medications Alprazolam (Xanax -) 0.5 mg PO Q6H PRN Last Admin: 07/02/16 23:12 Dose: 0.5 mg Aspirin (Ecotrin -) 162 mg PO DAILY [facility] Last Admin: 07/03/16 09:52 Dose: 162 mg Bacitracin (Bacitracin -) 1 applic TP BID [facility] Last Admin: 07/03/16 09:54 Dose: 1 applic Furosemide (Lasix Injection -) 40 mg IVPUSH BID@0600,1400 [facility] Last Admin: 07/03/16 06:12 Dose: 40 mg Gabapentin (Neurontin -) 100 mg PO BID [facility] Last Admin: 07/03/16 09:52 Dose: 100 mg Heparin Sodium (Porcine) (Heparin -) 5,000 unit SQ BID [facility] Last Admin: 07/03/16 09:51 Dose: 5,000 unit Hydralazine HCl (Apresoline -) 25 mg PO BID [facility] Last Admin: 07/03/16 09:52 Dose: 25 mg Insulin Aspart (Novolog Vial Sliding Scale -) 1 vial SQ ACHS [facility] PRN Reason: Protocol Last Admin: 07/03/16 06:16 Dose: 2 units Insulin Detemir (Levemir Vial) 50 units SQ HS [facility] Last Admin: 07/02/16 23:07 Dose: 50 units Levothyroxine Sodium (Synthroid -) 125 mcg PO DAILY@0700 [facility] Last Admin: 07/03/16 06:12 Dose: 125 mcg Liothyronine Sodium (Cytomel -) 25 mcg PO DAILY [facility] Last Admin: 07/03/16 09:53 Dose: 25 mcg Pantoprazole Sodium (Protonix -) 20 mg PO DAILY [facility] Last Admin: 07/03/16 09:53 Dose: 20 mg - Objective Vital Signs: Vital Signs Temperature 91.0 F L 07/03/16 02:00 Pulse Rate 68 07/03/16 06:00 Respiratory Rate 20 07/03/16 06:00 Blood Pressure 144/75 07/03/16 06:00 O2 Sat by Pulse Oximetry (%) 97 07/02/16 21:00 Constitutional: Yes: No Distress Eyes: Yes: WNL HENT: Yes: WNL Neck: Yes: WNL Cardiovascular: Yes: Regular Rate and Rhythm Respiratory: Yes: CTA Bilaterally Gastrointestinal: Yes: Normal Bowel Sounds Musculoskeletal: Yes: WNL Extremities: Yes: Erythema Edema: Yes Edema: LLE: 1+, RLE: 1+ Peripheral Pulses WNL: Yes Labs: CBC, BMP 07/02/16 08:30 INR, PTT INR 0.94 (0.82-1.09) 06/26/16 18:45 Problem List - Problems (1) Chest pain Assessment/Plan: Her chest pain is atypical for angina pectoris, ECG and Wilfrido x 1 negative. However, she has multiple risk factors for CAD. Would get persantine nuclear stress test if CTA cannot be obtained due to renal function. This can be done as an outpatient given her infectious issues and renal disease. Code(s): R07.9 - CHEST PAIN, UNSPECIFIED Qualifiers: Chest pain type: precordial pain Qualified Code(s): R07.2 - Precordial pain (2) HTN (hypertension) Assessment/Plan: Controlled on current medications. Code(s): I10 - ESSENTIAL (PRIMARY) HYPERTENSION Qualifiers: Hypertension type: essential hypertension Qualified Code(s): I10 - Essential (primary) hypertension (3) CHF exacerbation Assessment/Plan: Elevated LFTs are likely due to congestive hepatopathy. still needs gentle diuresis. CT scan c/w chf. Echo shows mild RV dysfunction, due to lung disease and pulm htn. daily weights. I/O. repeat bnp is mildly decreased. Would continue lasix for diuresis 40 mg IV bid. Add spironolactone 25 mg bid. Code(s): I50.9 - HEART FAILURE, UNSPECIFIED Qualifiers: Congestive heart failure type: diastolic Qualified Code(s): I50.33 - Acute on chronic diastolic (congestive) heart failure
[2016-07-03] MEDS ORDERED: INSULIN (NOVOLOG) ASPART 100 UNITS/ML 10ML VIAL ONE ×2 (11:45→16:42)
--- NOTE | 2016-07-03 12:10 | RAPID ---
Physical Examination Vital Signs: Vital Signs Temperature 91.0 F L 07/03/16 02:00 Pulse Rate 68 07/03/16 06:00 Respiratory Rate 20 07/03/16 06:00 Blood Pressure 144/75 07/03/16 06:00 O2 Sat by Pulse Oximetry (%) 97 07/02/16 21:00 Constitutional: Yes: Obese HENT: Yes: Atraumatic Cardiovascular: Yes: Regular Rate and Rhythm, S1, S2 Respiratory: Yes: Regular, CTA Bilaterally Gastrointestinal: Yes: Normal Bowel Sounds, Soft, Abdomen, Obese Edema: LLE: 3+, RLE: 3+ Peripheral Pulses WNL: Yes Peripheral Pulses: Left Radial: 2+, Right Radial: 2+, Left Doralis Pedis: 1+, Right Dorsalis Pedis: 1+ Integumentary: Yes: Erythema (b/l lower ext), Venous Stasis Changes Neurological: Yes: Lethargy Psychiatric: Yes: Alert Labs: CBC, BMP 07/02/16 08:30 Rapid Response - Rapid Response Assessment: Nurse walked in the Room patient was sitting in chair unresponsive to verbal and tactile stimuli. rapid response was called. Vital signs was within normal limit. O2 sat was 96% on room air, No respiratory distress. She was sinus rhythm 60 in the monitor. Pt was looking straight ahead, no movement. Patient started responding after 5 minutes but remained very slow. Impression Seizure CVA Plan CT head ABG CBC CMP Mg Phos Cardiac Profile prolactin F/u neurology Dr Harvey was called was made aware of the situation. He will follow up all labs and imaging and continue care of the patient
[2016-07-03 12:23] LABS: ARTERIAL BLD GAS O2 SATURATION 92.3 % (90-98.9); ARTERIAL BLOOD GAS BASE EXCESS -1.8 meq/l (-2-2); ARTERIAL BLOOD GAS HCO3 25.5 meq/L (22-26); ARTERIAL BLOOD GAS PO2 68.4 mmHg (80-100)
[2016-07-03 12:25] LABS: ALLENS TEST POSITIVE; ART PUNCT SITE RIGHT RADIAL; LPM/O2% 2; PT. ON O2? YES; TYPE OF O2 N/C
[2016-07-03 12:26] LABS: ARTERIAL BLOOD GAS pH 7.26 (7.35-7.45)
[2016-07-03 12:40] LABS: MCH 30.7 pg (25.7-33.7); MCHC 33.8 g/dl (32.0-36.0); MEAN CELL VOLUME 90.9 fl (80-96); MEAN PLT VOLUME 9.6 fl (7.5-11.1); PLATELET COUNT 144 K/MM3 (134-434); WHITE BLOOD COUNT 2.9 K/mm3 (4.0-10.0)
[2016-07-03 13:10] LABS: MAGNESIUM 2.4 mg/dL (1.8-2.4); PHOSPHOROUS 4.6 mg/dL (2.5-4.9)
[2016-07-03 13:11] LABS: TROPONIN I < 0.02 ng/ml (0.00-0.05)
--- NOTE | 2016-07-03 14:24 | PN ---
Progress Note (short form) - Note Progress Note: PAtient seen and examined Feels Ok. No complaints Last Vital Signs Temp Pulse Resp BP Pulse Ox 91.0 F L 62 18 149/71 98 07/03/16 02:00 07/03/16 11:55 07/03/16 11:55 07/03/16 11:55 07/03/16 10:00 Cor: RSR, No murmurs, No gallops Lungs: Clear to P&A Abd: Soft, Normal bowel sounds, No organomegaly Ext:No significant edema Abnormal Lab Results 07/03/16 07/03/16 07/03/16 06:22 12:03 12:25 WBC 2.9 L RBC 3.29 L Hgb 10.1 L Hct 29.9 L ABG pH 7.26 L ABG pCO2 at Pt Temp 58.9 H D ABG pO2 at Pt Temp 68.4 L ABG O2 Content 13.5 L Vitamin B12 1413 H Active Medications Generic Name Dose Route Start Last Admin Trade Name Freq PRN Reason Stop Dose Admin Aspirin 162 mg 06/27/16 10:00 07/03/16 09:52 Ecotrin - PO 162 mg DAILY [facility] Administration Bacitracin 1 applic 06/28/16 22:00 07/03/16 09:54 Bacitracin - TP 1 applic BID [facility] Administration Furosemide 40 mg 06/30/16 14:00 07/03/16 06:12 Lasix Injection - IVPUSH 40 mg BID@0600,1400 [facility] Administration Gabapentin 100 mg 06/27/16 10:00 07/03/16 09:52 Neurontin - PO 100 mg BID [facility] Administration Heparin Sodium (Porcine) 5,000 unit 06/30/16 11:00 07/03/16 09:51 Heparin - SQ 5,000 unit BID [facility] Administration Hydralazine HCl 25 mg 06/27/16 10:00 07/03/16 09:52 Apresoline - PO 25 mg BID [facility] Administration Insulin Aspart 1 vial 06/29/16 23:52 07/03/16 11:52 Novolog Vial Sliding Scale - SQ 2 units ACHS [facility] Administration Protocol Insulin Detemir 50 units 06/30/16 22:00 07/02/16 23:07 Levemir Vial SQ 50 units HS [facility] Administration Levothyroxine Sodium 125 mcg 06/28/16 07:00 07/03/16 06:12 Synthroid - PO 125 mcg DAILY@0700 [facility] Administration Liothyronine Sodium 25 mcg 07/03/16 10:00 07/03/16 09:53 Cytomel - PO 25 mcg DAILY [facility] Administration Pantoprazole Sodium 20 mg 06/27/16 10:00 07/03/16 09:53 Protonix - PO 20 mg DAILY [facility] Administration Spironolactone 25 mg 07/03/16 22:00 Aldactone - PO BID [facility] A/P 66 y/o patient with
--- NOTE | 2016-07-03 14:31 | PN ---
Progress Note, Physician History of Present Illness: pulmonary events noted s/p rapid response pt found unresponsive in chair. pt started on bipap secondary to acute hypercapneic respiratory failure. pt remains hypothermic on warming blanket. - Current Medication List Current Medications: Active Medications Aspirin (Ecotrin -) 162 mg PO DAILY [facility] Last Admin: 07/03/16 09:52 Dose: 162 mg Bacitracin (Bacitracin -) 1 applic TP BID [facility] Last Admin: 07/03/16 09:54 Dose: 1 applic Furosemide (Lasix Injection -) 40 mg IVPUSH BID@0600,1400 [facility] Last Admin: 07/03/16 06:12 Dose: 40 mg Gabapentin (Neurontin -) 100 mg PO BID [facility] Last Admin: 07/03/16 09:52 Dose: 100 mg Heparin Sodium (Porcine) (Heparin -) 5,000 unit SQ BID [facility] Last Admin: 07/03/16 09:51 Dose: 5,000 unit Hydralazine HCl (Apresoline -) 25 mg PO BID [facility] Last Admin: 07/03/16 09:52 Dose: 25 mg Insulin Aspart (Novolog Vial Sliding Scale -) 1 vial SQ [facility] PRN Reason: Protocol Last Admin: 07/03/16 11:52 Dose: 2 units Insulin Detemir (Levemir Vial) 50 units SQ HS [facility] Last Admin: 07/02/16 23:07 Dose: 50 units Levothyroxine Sodium (Synthroid -) 125 mcg PO DAILY@0700 [facility] Last Admin: 07/03/16 06:12 Dose: 125 mcg Liothyronine Sodium (Cytomel -) 25 mcg PO DAILY [facility] Last Admin: 07/03/16 09:53 Dose: 25 mcg Pantoprazole Sodium (Protonix -) 20 mg PO DAILY [facility] Last Admin: 07/03/16 09:53 Dose: 20 mg Spironolactone (Aldactone -) 25 mg PO BID [facility] - Objective Vital Signs: Vital Signs Temperature 91.0 F L 07/03/16 02:00 Pulse Rate 62 07/03/16 11:55 Respiratory Rate 18 07/03/16 11:55 Blood Pressure 149/71 07/03/16 11:55 O2 Sat by Pulse Oximetry (%) 98 07/03/16 10:00 Constitutional: Yes: Well Nourished, Other (drowsy) Eyes: Yes: WNL HENT: Yes: WNL Neck: Yes: WNL Cardiovascular: Yes: Regular Rate and Rhythm, S1, S2 Respiratory: Yes: Diminished Gastrointestinal: Yes: Normal Bowel Sounds, Soft Extremities: Yes: Erythema Edema: Yes Labs: CBC, BMP 07/03/16 12:25 07/02/16 08:30 INR, PTT INR 0.94 (0.82-1.09) 06/26/16 18:45 Assessment/Plan A/P Acute hypercapneic respiratiry failure Acute on Chronic CHF Pleural Effusion from above Chest Pain Hyperkalemia Elevated LFTs CKD HTN DM HYPOTHERMIA - bipap - lasix - monitor urine output, creatinine - daily weights, I/Os - trend LFTs - O2 to keep SpO2 >90% - BiPAP PRN - monitor lytes - DVT prophylaxis -warming blanket - f/u abg - chest x-ray DR PATEL Problem List - Problems (1) CHF exacerbation Code(s): I50.9 - HEART FAILURE, UNSPECIFIED Qualifiers: Qualified Code(s): I50.33 - Acute on chronic diastolic (congestive) heart failure (2) Chest pain Code(s): R07.9 - CHEST PAIN, UNSPECIFIED Qualifiers: Qualified Code(s): R07.2 - Precordial pain (3) Elevated liver enzymes Code(s): R74.8 - ABNORMAL LEVELS OF OTHER SERUM ENZYMES (4) Hyperkalemia Code(s): E87.5 - HYPERKALEMIA (5) Diabetes mellitus, insulin dependent (IDDM), uncontrolled Code(s): E10.65 - TYPE 1 DIABETES MELLITUS WITH HYPERGLYCEMIA Qualifiers: Qualified Code(s): 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
--- NOTE | 2016-07-03 14:33 | PN ---
Progress Note (short form) - Note Progress Note: PAtient seen and examined Feels Ok. No complaints Last Vital Signs Temp Pulse Resp BP Pulse Ox 91.0 F L 62 18 149/71 98 07/03/16 02:00 07/03/16 11:55 07/03/16 11:55 07/03/16 11:55 07/03/16 10:00 Cor: RSR, No murmurs, No gallops Lungs: Clear to P&A Abd: Soft, Normal bowel sounds, No organomegaly Ext:No significant edema Abnormal Lab Results 07/03/16 07/03/16 07/03/16 06:22 12:03 12:25 WBC 2.9 L RBC 3.29 L Hgb 10.1 L Hct 29.9 L ABG pH 7.26 L ABG pCO2 at Pt Temp 58.9 H D ABG pO2 at Pt Temp 68.4 L ABG O2 Content 13.5 L Vitamin B12 1413 H Active Medications Generic Name Dose Route Start Last Admin Trade Name Freq PRN Reason Stop Dose Admin Aspirin 162 mg 06/27/16 10:00 07/03/16 09:52 Ecotrin - PO 162 mg DAILY [facility] Administration Bacitracin 1 applic 06/28/16 22:00 07/03/16 09:54 Bacitracin - TP 1 applic BID [facility] Administration Furosemide 40 mg 06/30/16 14:00 07/03/16 06:12 Lasix Injection - IVPUSH 40 mg BID@0600,1400 [facility] Administration Gabapentin 100 mg 06/27/16 10:00 07/03/16 09:52 Neurontin - PO 100 mg BID [facility] Administration Heparin Sodium (Porcine) 5,000 unit 06/30/16 11:00 07/03/16 09:51 Heparin - SQ 5,000 unit BID [facility] Administration Hydralazine HCl 25 mg 06/27/16 10:00 07/03/16 09:52 Apresoline - PO 25 mg BID [facility] Administration Insulin Aspart 1 vial 06/29/16 23:52 07/03/16 11:52 Novolog Vial Sliding Scale - SQ 2 units ACHS [facility] Administration Protocol Insulin Detemir 50 units 06/30/16 22:00 07/02/16 23:07 Levemir Vial SQ 50 units HS [facility] Administration Levothyroxine Sodium 125 mcg 06/28/16 07:00 07/03/16 06:12 Synthroid - PO 125 mcg DAILY@0700 [facility] Administration Liothyronine Sodium 25 mcg 07/03/16 10:00 07/03/16 09:53 Cytomel - PO 25 mcg DAILY [facility] Administration Pantoprazole Sodium 20 mg 06/27/16 10:00 07/03/16 09:53 Protonix - PO 20 mg DAILY [facility] Administration Spironolactone 25 mg 07/03/16 22:00 Aldactone - PO BID [facility] A/P 66 y/o patient with HTN, DM< CHF, CKD, hypothyroid comes in with fatigue, lethargy, SOB, hypothermia anemia--normocytic iron studies, TSH,--nl fT3 low check B12/protein studies suspect anemia of chronic disease mild leukopenia hypothermia--? central, ?hypothalamic TSH--nl, ft3 low cortisol pending brain tumor -- benign per patient had previous surgeries and RT ---last treted 2002 CT head -- b/l [employer] shunts, b/l frontal and lateral ventricular atrophy awaiting MRI clearence cellulitis? check cultures
--- NOTE | 2016-07-03 15:21 | PN ---
Progress Note (short form) - Note Progress Note: episode of lethargy this am hypercapneic respiratory failure- now on bipap awake and alert on BIPAP Vital Signs Period Temp Pulse Resp BP Sys/Walton Pulse Ox Last 24 Hr 91.0 F-96.5 F 62-94 18-22 127-149/61-75 97-98 cor-rrr lungs decreased bs at bases abd soft,nt ext _edema +venous stasis CBC, BMP 07/03/16 12:25 07/02/16 08:30 echo moderate pulmonary HTN chest ct- cardiomegaly, effusions, congestion head ct -bilateral frontal encephalomelacia, +evp global product leadership shunts UA negative repeat cxray- pending Microbiology 07/02/16 07:10 Blood - Peripheral Venous Blood Culture - Preliminary NO GROWTH OBTAINED AFTER 24 HOURS, INCUBATION TO CONTINUE FOR 4 DAYS. 07/02/16 07:20 Blood - Peripheral Venous Blood Culture - Preliminary NO GROWTH OBTAINED AFTER 24 HOURS, INCUBATION TO CONTINUE FOR 4 DAYS. 06/27/16 15:00 Blood - Peripheral Venous Blood Culture - Final NO GROWTH AFTER 5 DAYS INCUBATION 06/27/16 15:00 Blood - Peripheral Venous Blood Culture - Final NO GROWTH AFTER 5 DAYS INCUBATION 06/27/16 10:28 Urine - Urine Clean Catch Urine Culture - Final NO GROWTH OBTAINED a/p persistent hypothermia-cultures are negative check cortisol level, thyroid studies, consider MRI of head agree with endocrine and neurology w/u-history of multiple surgeries in the past repeat blood cultures sent chronic venous stasis unchanged per patient abnl LFTS 20 pound weight gain since last admission in December suspect source of hypothermia is endocrine will add a trial of antibiotics to see if there is a component of acute cellulitis
[2016-07-03] MEDS: cefTRIAXone 2 GM/100 ML BAG (PRE-DOCKED) IVPB SCH (16:48)
[2016-07-03] MEDS: INSULIN DETEMIR 100 UNITS/ML MDV SQ SCH (21:18)
[2016-07-03] MEDS: SPIRONOLACTONE 25 MG TABLET (FP) PO SCH (21:20)
[2016-07-04] MEDS: FUROSEMIDE 40 MG/4 ML INJECTABLE VIAL IVPUSH SCH ×2 (05:48→14:47)
[2016-07-04] MEDS: LEVOTHYROXINE NA 125 MCG TABLET (FP) PO SCH (05:59)
[2016-07-04] MEDS: INSULIN SLIDING SCALE (NOVOLOG) 1 VIAL SQ SCH ×4 (05:59→22:15)
[2016-07-04 07:35] LABS: BASOPHIL 1.4 % (0-2.0); EOSINOPHIL 6.3 % (0-4.5); MCH 30.5 pg (25.7-33.7); MCHC 33.6 g/dl (32.0-36.0); MEAN CELL VOLUME 90.7 fl (80-96); NEUTROPHILS 54.8 % (42.8-82.8); PLATELET COUNT 152 K/MM3 (134-434); RDW 14.1 % (11.6-15.6); WHITE BLOOD COUNT 3.3 K/mm3 (4.0-10.0)
[2016-07-04 08:10] LABS: ALBUMIN 3.2 g/dl (3.4-5.0); BILIRUBIN,TOTAL 0.1 mg/dL (0.2-1.0); CALCIUM 9.2 mg/dL (8.5-10.1)
[2016-07-04 08:14] LABS: COCKROFT - GAULT 56.236; CREATININE 1.6 mg/dL (0.55-1.02); TOT PROT 6.8 g/dl (6.4-8.2)
[2016-07-04] MEDS ORDERED: PT OWN MED DRAWER 7, Y5N ONE (09:41)
[2016-07-04] MEDS: GABAPENTIN 100 MG CAPSULE (FP) PO SCH ×2 (09:51→22:14)
[2016-07-04] MEDS: SPIRONOLACTONE 25 MG TABLET (FP) PO SCH ×2 (09:51→22:18)
[2016-07-04] MEDS: ASPIRIN COATED 81 MG TABLET.EC PO SCH (09:52)
[2016-07-04] MEDS: HEPARIN NA (PORCINE) 5,000 UNITS/ML 1ML VIAL SQ SCH ×2 (09:52→22:14)
[2016-07-04] MEDS: PANTOPRAZOLE 20 MG TABLET (FP) PO SCH (09:52)
[2016-07-04] MEDS: hydrALAZINE HCL 25 MG TABLET (FP) PO SCH ×2 (09:53→22:18)
[2016-07-04] MEDS: BACITRACIN 15 GM TUBE TOPICAL OINTMENT TP SCH ×2 (09:53→22:18)
[2016-07-04] MEDS: cefTRIAXone 2 GM/100 ML BAG (PRE-DOCKED) IVPB SCH (09:54)
[2016-07-04] MEDS: LIOTHYRONINE SODIUM 25 MCG TABLET PO SCH (09:54)
--- NOTE | 2016-07-04 09:58 | PN ---
Progress Note, Physician - Current Medication List Current Medications: Active Medications Aspirin (Ecotrin -) 162 mg PO DAILY [facility] Last Admin: 07/04/16 09:52 Dose: 162 mg Bacitracin (Bacitracin -) 1 applic TP BID [facility] Last Admin: 07/04/16 09:53 Dose: 1 applic Ceftriaxone Sodium (Rocephin 2gm Ivpb (Pre-Docked)) 2 gm IVPB DAILY [facility] PRN Reason: Protocol Last Admin: 07/04/16 09:54 Dose: 2 gm Furosemide (Lasix Injection -) 40 mg IVPUSH BID@0600,1400 [facility] Last Admin: 07/04/16 05:48 Dose: 40 mg Gabapentin (Neurontin -) 100 mg PO BID [facility] Last Admin: 07/04/16 09:51 Dose: 100 mg Heparin Sodium (Porcine) (Heparin -) 5,000 unit SQ BID [facility] Last Admin: 07/04/16 09:52 Dose: 5,000 unit Hydralazine HCl (Apresoline -) 25 mg PO BID [facility] Last Admin: 07/04/16 09:53 Dose: 25 mg Insulin Aspart (Novolog Vial Sliding Scale -) 1 vial SQ ACHS [facility] PRN Reason: Protocol Last Admin: 07/04/16 05:59 Dose: Not Given Insulin Detemir (Levemir Vial) 50 units SQ HS [facility] Last Admin: 07/03/16 21:18 Dose: 50 units Levothyroxine Sodium (Synthroid -) 125 mcg PO DAILY@0700 [facility] Last Admin: 07/04/16 05:59 Dose: 125 mcg Liothyronine Sodium (Cytomel -) 25 mcg PO DAILY [facility] Last Admin: 07/04/16 09:54 Dose: 25 mcg Pantoprazole Sodium (Protonix -) 20 mg PO DAILY [facility] Last Admin: 07/04/16 09:52 Dose: 20 mg Spironolactone (Aldactone -) 25 mg PO BID [facility] Last Admin: 07/04/16 09:51 Dose: 25 mg - Objective Vital Signs: Vital Signs Temperature 94.2 F L 07/03/16 22:00 Pulse Rate 73 07/04/16 06:00 Respiratory Rate 22 07/04/16 06:00 Blood Pressure 138/70 07/04/16 06:00 O2 Sat by Pulse Oximetry (%) 95 07/03/16 21:00 Constitutional: Yes: Calm Neck: Yes: WNL Cardiovascular: Yes: WNL Respiratory: Yes: WNL Gastrointestinal: Yes: WNL Edema: Yes Integumentary: Yes: Erythema Labs: CBC, BMP 07/04/16 06:45 07/04/16 06:45 INR, PTT INR 0.94 (0.82-1.09) 06/26/16 18:45 Problem List - Problems (1) CHF (congestive heart failure) Code(s): I50.9 - HEART FAILURE, UNSPECIFIED (2) CHF exacerbation Code(s): I50.9 - HEART FAILURE, UNSPECIFIED Qualifiers: Congestive heart failure type: diastolic Qualified Code(s): I50.33 - Acute on chronic diastolic (congestive) heart failure (3) Cellulitis and abscess of leg Code(s): L02.419 - CUTANEOUS ABSCESS OF LIMB, UNSPECIFIED L03.119 - CELLULITIS OF UNSPECIFIED PART OF LIMB (4) Diabetes mellitus, insulin dependent (IDDM), uncontrolled Code(s): E10.65 - TYPE 1 DIABETES MELLITUS WITH HYPERGLYCEMIA Qualifiers: Diabetes mellitus complication status: with skin complications Diabetes mellitus complication detail: with dermatitis Qualified Code(s): E10.620 - 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; E10.65 - Type 1 diabetes mellitus with hyperglycemia (5) Edema Code(s): R60.9 - EDEMA, UNSPECIFIED (6) HTN (hypertension) Code(s): I10 - ESSENTIAL (PRIMARY) HYPERTENSION Qualifiers: Hypertension type: essential hypertension Qualified Code(s): I10 - Essential (primary) hypertension Assessment/Plan (1) Chest pain Assessment/Plan: RESOLVED CE NEGATIVE CARDIO AND PULM Code(s): R07.9 - CHEST PAIN, UNSPECIFIED Qualifiers: Chest pain type: precordial pain Qualified Code(s): R07.2 - Precordial pain (2) Elevated liver enzymes Assessment/Plan: RPT PENDING MONITOR GI NOTED Code(s): R74.8 - ABNORMAL LEVELS OF OTHER SERUM ENZYMES (3) Hyperkalemia Assessment/Plan: IMPROVING MONITOR Code(s): E87.5 - HYPERKALEMIA (4) Renal insufficiency Assessment/Plan: MONITOR IVF Code(s): N28.9 - DISORDER OF KIDNEY AND URETER, UNSPECIFIED (5) Cellulitis Assessment/Plan: IV ABX PER ID--OFF NOW Code(s): L03.90 - CELLULITIS, UNSPECIFIED Qualifiers: Site of cellulitis: unspecified site Qualified Code(s): L03.90 - Cellulitis, unspecified (6) Diabetes mellitus, insulin dependent (IDDM), uncontrolled Assessment/Plan: BGM INSULIN---levemir qd ENDO Code(s): E10.65 - TYPE 1 DIABETES MELLITUS WITH HYPERGLYCEMIA Qualifiers: Diabetes mellitus complication status: with skin complications Diabetes mellitus complication detail: with dermatitis Qualified Code(s): 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
--- NOTE | 2016-07-04 11:16 | PN ---
Progress Note, Physician History of Present Illness: pulmonary drowsy on nasal o2,-resp distress - Current Medication List Current Medications: Active Medications Aspirin (Ecotrin -) 162 mg PO DAILY [facility] Last Admin: 07/04/16 09:52 Dose: 162 mg Bacitracin (Bacitracin -) 1 applic TP BID [facility] Last Admin: 07/04/16 09:53 Dose: 1 applic Ceftriaxone Sodium (Rocephin 2gm Ivpb (Pre-Docked)) 2 gm IVPB DAILY [facility] PRN Reason: Protocol Last Admin: 07/04/16 09:54 Dose: 2 gm Furosemide (Lasix Injection -) 40 mg IVPUSH BID@0600,1400 [facility] Last Admin: 07/04/16 05:48 Dose: 40 mg Gabapentin (Neurontin -) 100 mg PO BID [facility] Last Admin: 07/04/16 09:51 Dose: 100 mg Heparin Sodium (Porcine) (Heparin -) 5,000 unit SQ BID [facility] Last Admin: 07/04/16 09:52 Dose: 5,000 unit Hydralazine HCl (Apresoline -) 25 mg PO BID [facility] Last Admin: 07/04/16 09:53 Dose: 25 mg Insulin Aspart (Novolog Vial Sliding Scale -) 1 vial SQ ACHS [facility] PRN Reason: Protocol Last Admin: 07/04/16 05:59 Dose: Not Given Insulin Detemir (Levemir Vial) 50 units SQ HS [facility] Last Admin: 07/03/16 21:18 Dose: 50 units Levothyroxine Sodium (Synthroid -) 125 mcg PO DAILY@0700 [facility] Last Admin: 07/04/16 05:59 Dose: 125 mcg Liothyronine Sodium (Cytomel -) 25 mcg PO DAILY [facility] Last Admin: 07/04/16 09:54 Dose: 25 mcg Pantoprazole Sodium (Protonix -) 20 mg PO DAILY [facility] Last Admin: 07/04/16 09:52 Dose: 20 mg Spironolactone (Aldactone -) 25 mg PO BID [facility] Last Admin: 07/04/16 09:51 Dose: 25 mg - Objective Vital Signs: Vital Signs Temperature 94.2 F L 07/03/16 22:00 Pulse Rate 73 07/04/16 06:00 Respiratory Rate 22 07/04/16 06:00 Blood Pressure 138/70 07/04/16 06:00 O2 Sat by Pulse Oximetry (%) 95 07/03/16 21:00 Constitutional: Yes: Well Nourished, Other (drowsy) Eyes: Yes: WNL HENT: Yes: WNL Neck: Yes: WNL Cardiovascular: Yes: Regular Rate and Rhythm, S1, S2 Respiratory: Yes: Diminished (poor inspiratory effort) Gastrointestinal: Yes: Normal Bowel Sounds, Soft Extremities: Yes: Erythema Edema: Yes Labs: CBC, BMP 07/04/16 06:45 07/04/16 06:45 INR, PTT INR 0.94 (0.82-1.09) 06/26/16 18:45 - ....Imaging Chest X-ray: Report Reviewed, Image Reviewed (bilateral pulmonary vascular congestion,hasmukh pleural effusions) Assessment/Plan A/P Acute hypercapneic respiratory failure Acute on Chronic CHF Pleural Effusion from above Chest Pain Hyperkalemia Elevated LFTs CKD HTN DM HYPOTHERMIA - bipap - lasix - monitor urine output, creatinine - daily weights, I/Os - trend LFTs - O2 to keep SpO2 >90% - BiPAP PRN - monitor lytes - DVT prophylaxis -warming blanket - f/u abg today - chest x-ray DR PATEL Problem List - Problems (1) CHF exacerbation Code(s): I50.9 - HEART FAILURE, UNSPECIFIED Qualifiers: Qualified Code(s): I50.33 - Acute on chronic diastolic (congestive) heart failure (2) Chest pain Code(s): R07.9 - CHEST PAIN, UNSPECIFIED Qualifiers: Qualified Code(s): R07.2 - Precordial pain (3) Elevated liver enzymes Code(s): R74.8 - ABNORMAL LEVELS OF OTHER SERUM ENZYMES (4) Hyperkalemia Code(s): E87.5 - HYPERKALEMIA (5) Diabetes mellitus, insulin dependent (IDDM), uncontrolled Code(s): E10.65 - TYPE 1 DIABETES MELLITUS WITH HYPERGLYCEMIA Qualifiers: Qualified Code(s): 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
[2016-07-04] MEDS ORDERED: INSULIN (NOVOLOG) ASPART 100 UNITS/ML 10ML VIAL ONE (12:39)
[2016-07-04 14:53] LABS: ALLENS TEST POSITIVE; ARTERIAL BLD GAS O2 SATURATION 95.5 % (90-98.9); ARTERIAL BLOOD GAS BASE EXCESS 1.4 meq/l (-2-2); ARTERIAL BLOOD GAS HCO3 24.9 meq/L (22-26); ARTERIAL BLOOD GAS PO2 78.4 mmHg (80-100); ARTERIAL BLOOD GAS pH 7.29 (7.35-7.45)
[2016-07-04 14:54] LABS: ART PUNCT SITE LEFT RADIAL; LPM/O2% 2LPM; PT. ON O2? YES; TYPE OF O2 N/C
--- NOTE | 2016-07-04 16:28 | PN ---
Progress Note (short form) - Note Progress Note: more alert today no complaints ate all her meals Vital Signs Period Temp Pulse Resp BP Sys/Walton Pulse Ox Last 24 Hr 91.0 F-94.5 F 69-81 20-22 131-148/54-72 93-97 cor-rrr lulngs decreased bs at bases abd soft,nt ext erythema unchanged, edema unchanged CBC, BMP 07/04/16 06:45 07/04/16 06:45 echo moderate pulmonary HTN chest ct- cardiomegaly, effusions, congestion head ct -bilateral frontal encephalomelacia, +evp general counsel shunts UA negative repeat cxray- pending Microbiology 07/02/16 07:10 Blood - Peripheral Venous Blood Culture - Preliminary NO GROWTH OBTAINED AFTER 24 HOURS, INCUBATION TO CONTINUE FOR 4 DAYS. 07/02/16 07:20 Blood - Peripheral Venous Blood Culture - Preliminary NO GROWTH OBTAINED AFTER 24 HOURS, INCUBATION TO CONTINUE FOR 4 DAYS. 06/27/16 15:00 Blood - Peripheral Venous Blood Culture - Final NO GROWTH AFTER 5 DAYS INCUBATION 06/27/16 15:00 Blood - Peripheral Venous Blood Culture - Final NO GROWTH AFTER 5 DAYS INCUBATION 06/27/16 10:28 Urine - Urine Clean Catch Urine Culture - Final NO GROWTH OBTAINED a/p hypercapnea persistent hypothermia-cultures are negative check cortisol level, thyroid studies, consider MRI of head agree with endocrine and neurology w/u-history of multiple surgeries in the past repeat blood cultures sent chronic venous stasis unchanged per patient abnl LFTS 20 pound weight gain since last admission in December suspect source of hypothermia is endocrine will add a trial of antibiotics to see if there is a component of acute cellulitis suggest neurology f/u day #2 ceftriaxone
--- NOTE | 2016-07-04 17:55 | PN ---
Progress Note, Physician Chief Complaint: Resting comfortably No new complaints History of Present Illness: This is a 66 year old woman with a history of NIDDM, hypertension, hyperlipidemia, hypothyroidism, and benign brain tumors(X6), who presents to the emergency department complaining of chest pain and weakness for 2 days, edema and orthopnea with sob. Found with unremarkable ECG but noted with fluid overload, worsening renal function and weakness. No palps dizziness or syncope. Exercise tolerance at baseline is poor. Echo 01/22/15 normal EF moderate MR. - Current Medication List Current Medications: Active Medications Aspirin (Ecotrin -) 162 mg PO DAILY [facility] Last Admin: 07/04/16 09:52 Dose: 162 mg Bacitracin (Bacitracin -) 1 applic TP BID [facility] Last Admin: 07/04/16 09:53 Dose: 1 applic Ceftriaxone Sodium (Rocephin 2gm Ivpb (Pre-Docked)) 2 gm IVPB DAILY [facility] PRN Reason: Protocol Last Admin: 07/04/16 09:54 Dose: 2 gm Furosemide (Lasix Injection -) 40 mg IVPUSH BID@0600,1400 [facility] Last Admin: 07/04/16 14:47 Dose: 40 mg Gabapentin (Neurontin -) 100 mg PO BID [facility] Last Admin: 07/04/16 09:51 Dose: 100 mg Heparin Sodium (Porcine) (Heparin -) 5,000 unit SQ BID [facility] Last Admin: 07/04/16 09:52 Dose: 5,000 unit Hydralazine HCl (Apresoline -) 25 mg PO BID [facility] Last Admin: 07/04/16 09:53 Dose: 25 mg Insulin Aspart (Novolog Vial Sliding Scale -) 1 vial SQ ACHS [facility] PRN Reason: Protocol Last Admin: 07/04/16 16:50 Dose: 5 units Insulin Detemir (Levemir Vial) 50 units SQ HS [facility] Last Admin: 07/03/16 21:18 Dose: 50 units Levothyroxine Sodium (Synthroid -) 125 mcg PO DAILY@0700 [facility] Last Admin: 07/04/16 05:59 Dose: 125 mcg Liothyronine Sodium (Cytomel -) 25 mcg PO DAILY [facility] Last Admin: 07/04/16 09:54 Dose: 25 mcg Pantoprazole Sodium (Protonix -) 20 mg PO DAILY [facility] Last Admin: 07/04/16 09:52 Dose: 20 mg Spironolactone (Aldactone -) 25 mg PO BID [facility] Last Admin: 07/04/16 09:51 Dose: 25 mg - Objective Vital Signs: Vital Signs Temperature 91.0 F L 07/04/16 14:00 Pulse Rate 70 07/04/16 14:00 Respiratory Rate 20 07/04/16 14:00 Blood Pressure 132/54 07/04/16 14:00 O2 Sat by Pulse Oximetry (%) 97 07/04/16 09:00 Constitutional: Yes: Well Nourished Cardiovascular: Yes: Regular Rate and Rhythm, S1, S2 (No murmurs) Respiratory: Yes: CTA Bilaterally Edema: Yes Edema: LLE: 1+, RLE: 1+ Labs: CBC, BMP 07/04/16 06:45 07/04/16 06:45 INR, PTT INR 0.94 (0.82-1.09) 06/26/16 18:45 Problem List - Problems (1) HTN (hypertension) Code(s): I10 - ESSENTIAL (PRIMARY) HYPERTENSION Qualifiers: Hypertension type: essential hypertension Qualified Code(s): I10 - Essential (primary) hypertension (2) Chest pain Code(s): R07.9 - CHEST PAIN, UNSPECIFIED Qualifiers: Chest pain type: precordial pain Qualified Code(s): R07.2 - Precordial pain (3) Elevated liver enzymes Code(s): R74.8 - ABNORMAL LEVELS OF OTHER SERUM ENZYMES (4) Hyperkalemia Code(s): E87.5 - HYPERKALEMIA Assessment/Plan [facility] *LIVE* Problem List - Problems (1) Chest pain Assessment/Plan: Her chest pain is atypical for angina pectoris, ECG and Wilfrido negative. However, she has multiple risk factors for CAD. Would get persantine nuclear stress test if CTA cannot be obtained due to renal function. This can be done as an outpatient given her infectious issues and renal disease. (2) HTN (hypertension) Assessment/Plan: Controlled on current medications. (3) CHF exacerbation Assessment/Plan: Acute on chronic diastolic CHF Continue Ladix 40 mg IVSS BID Daily I's/O's/Wt's/Lytes Would STOP spironolactone given potassium of 5.5
[2016-07-04] MEDS ORDERED: INSULIN DETEMIR 100 UNITS/ML MDV SQ ONE (22:17)
[2016-07-04] MEDS: INSULIN DETEMIR 100 UNITS/ML MDV SQ SCH (22:18)
[2016-07-05] MEDS: FUROSEMIDE 40 MG/4 ML INJECTABLE VIAL IVPUSH SCH ×2 (05:42→13:20)
[2016-07-05] MEDS: INSULIN SLIDING SCALE (NOVOLOG) 1 VIAL SQ SCH ×4 (06:33→21:14)
[2016-07-05] MEDS: LEVOTHYROXINE NA 125 MCG TABLET (FP) PO SCH (06:33)
[2016-07-05 08:05] LABS: BASOPHIL 1.3 % (0-2.0); EOSINOPHIL 4.6 % (0-4.5); MCH 30.5 pg (25.7-33.7); MCHC 33.8 g/dl (32.0-36.0); MEAN CELL VOLUME 90.4 fl (80-96); MEAN PLT VOLUME 9.8 fl (7.5-11.1); NEUTROPHILS 54.5 % (42.8-82.8); PLATELET COUNT 144 K/MM3 (134-434); RDW 14.3 % (11.6-15.6)
[2016-07-05 08:06] LABS: HEMATOCRIT 31.5 % (34.0-46.6)
[2016-07-05 08:23] LABS: ALBUMIN 2.8 g/dl (3.4-5.0); CALCIUM 8.6 mg/dL (8.5-10.1)
[2016-07-05 08:26] LABS: BILIRUBIN,TOTAL 0.1 mg/dL (0.2-1.0); COCKROFT - GAULT 59.5; CREATININE 1.7 mg/dL (0.55-1.02); TOT PROT 6.4 g/dl (6.4-8.2)
--- NOTE | 2016-07-05 08:55 | PN ---
Progress Note (short form) - Note Progress Note: alert eating breakfast NAD Vital Signs Period Temp Pulse Resp BP Sys/Walton Pulse Ox Last 24 Hr 91.0 F-94.5 F 69-82 18-20 119-152/54-78 97-98 cor-rrr lungs decreased bs at bases abd soft,nt ext +edema less erythema but she is in bed and legs are elevatedc CBC, BMP 07/05/16 06:10 07/05/16 06:10 echo moderate pulmonary HTN chest ct- cardiomegaly, effusions, congestion head ct -bilateral frontal encephalomelacia, +vp sales shunts UA negative repeat cxray- bibasilar effusions Microbiology 07/02/16 07:10 Blood - Peripheral Venous Blood Culture - Preliminary NO GROWTH OBTAINED AFTER 72 HOURS, INCUBATION TO CONTINUE FOR 2 DAYS. 07/02/16 07:20 Blood - Peripheral Venous Blood Culture - Preliminary NO GROWTH OBTAINED AFTER 72 HOURS, INCUBATION TO CONTINUE FOR 2 DAYS. a/p hypercapnea chf persistent hypothermia-cultures are negative check cortisol level, thyroid studies, consider MRI of head agree with endocrine and neurology w/u-history of multiple surgeries in the past repeat blood cultures negative chronic venous stasis unchanged per patient abnl LFTS 20 pound weight gain since last admission in December suspect source of hypothermia is endocrine will add a trial of antibiotics to see if there is a component of acute cellulitis suggest neurology f/u day #3 ceftriaxone leukopenia improved
[2016-07-05] MEDS ORDERED: PT OWN MED DRAWER 7, Y5N ONE (09:05)
[2016-07-05] MEDS: GABAPENTIN 100 MG CAPSULE (FP) PO SCH (09:09)
[2016-07-05] MEDS: LIOTHYRONINE SODIUM 25 MCG TABLET PO SCH (09:09)
[2016-07-05] MEDS: ASPIRIN COATED 81 MG TABLET.EC PO SCH (09:09)
[2016-07-05] MEDS: SPIRONOLACTONE 25 MG TABLET (FP) PO SCH (09:09)
[2016-07-05] MEDS: PANTOPRAZOLE 20 MG TABLET (FP) PO SCH (09:09)
[2016-07-05] MEDS: hydrALAZINE HCL 25 MG TABLET (FP) PO SCH ×2 (09:10→21:13)
[2016-07-05] MEDS: cefTRIAXone 2 GM/100 ML BAG (PRE-DOCKED) IVPB SCH (09:11)
[2016-07-05] MEDS: HEPARIN NA (PORCINE) 5,000 UNITS/ML 1ML VIAL SQ SCH ×2 (09:11→21:13)
[2016-07-05] MEDS: BACITRACIN 15 GM TUBE TOPICAL OINTMENT TP SCH ×2 (09:15→21:15)
--- NOTE | 2016-07-05 11:27 | PN ---
Progress Note, Physician History of Present Illness: pulmonary awake,alert,oob-chair,-sob,hypothermic t91 - Current Medication List Current Medications: Active Medications Aspirin (Ecotrin -) 162 mg PO DAILY [facility] Last Admin: 07/05/16 09:09 Dose: 162 mg Bacitracin (Bacitracin -) 1 applic TP BID [facility] Last Admin: 07/05/16 09:15 Dose: 1 applic Ceftriaxone Sodium (Rocephin 2gm Ivpb (Pre-Docked)) 2 gm IVPB DAILY [facility] PRN Reason: Protocol Last Admin: 07/05/16 09:11 Dose: 2 gm Furosemide (Lasix Injection -) 40 mg IVPUSH BID@0600,1400 [facility] Last Admin: 07/05/16 05:42 Dose: 40 mg Gabapentin (Neurontin -) 100 mg PO BID [facility] Last Admin: 07/05/16 09:09 Dose: 100 mg Heparin Sodium (Porcine) (Heparin -) 5,000 unit SQ BID [facility] Last Admin: 07/05/16 09:11 Dose: 5,000 unit Hydralazine HCl (Apresoline -) 25 mg PO BID [facility] Last Admin: 07/05/16 09:10 Dose: 25 mg Insulin Aspart (Novolog Vial Sliding Scale -) 1 vial SQ ACHS [facility] PRN Reason: Protocol Last Admin: 07/05/16 06:33 Dose: Not Given Insulin Detemir (Levemir Vial) 50 units SQ HS [facility] Last Admin: 07/04/16 22:18 Dose: 50 units Levothyroxine Sodium (Synthroid -) 125 mcg PO DAILY@0700 [facility] Last Admin: 07/05/16 06:33 Dose: 125 mcg Liothyronine Sodium (Cytomel -) 25 mcg PO DAILY [facility] Last Admin: 07/05/16 09:09 Dose: 25 mcg Pantoprazole Sodium (Protonix -) 20 mg PO DAILY [facility] Last Admin: 07/05/16 09:09 Dose: 20 mg Spironolactone (Aldactone -) 25 mg PO BID [facility] Last Admin: 07/05/16 09:09 Dose: 25 mg - Objective Vital Signs: Vital Signs Temperature 91.0 F L 07/04/16 14:00 Pulse Rate 84 07/05/16 10:00 Respiratory Rate 20 07/05/16 10:00 Blood Pressure 148/78 07/05/16 10:00 O2 Sat by Pulse Oximetry (%) 96 07/05/16 09:00 Constitutional: Yes: Well Nourished, Calm Eyes: Yes: WNL HENT: Yes: WNL Neck: Yes: WNL Cardiovascular: Yes: Regular Rate and Rhythm, S1, S2 Respiratory: Yes: Diminished Gastrointestinal: Yes: Normal Bowel Sounds, Soft Extremities: Yes: Erythema Edema: Yes Labs: CBC, BMP 07/05/16 06:10 07/05/16 06:10 INR, PTT INR 0.94 (0.82-1.09) 06/26/16 18:45 Laboratory Tests 07/04/16 14:50 ABG pH 7.29 L ABG pCO2 at Pt Temp 52.5 H ABG pO2 at Pt Temp 78.4 L ABG HCO3 24.9 ABG O2 Sat (Measured) 95.5 Oxygen Flow Rate 2lpm Assessment/Plan A/P Acute hypercapneic respiratory failure Acute on Chronic CHF Pleural Effusion Chest Pain Hyperkalemia Elevated LFTs CKD HTN DM HYPOTHERMIA Hyperkalemic - bipap - lasix - monitor urine output, creatinine - daily weights, I/Os - trend LFTs - O2 to keep SpO2 >90% - BiPAP PRN - monitor lytes - DVT prophylaxis -warming blanket - f/u abg today - kayexalate DR PATEL Problem List - Problems (1) CHF exacerbation Code(s): I50.9 - HEART FAILURE, UNSPECIFIED Qualifiers: Qualified Code(s): I50.33 - Acute on chronic diastolic (congestive) heart failure (2) Chest pain Code(s): R07.9 - CHEST PAIN, UNSPECIFIED Qualifiers: Qualified Code(s): R07.2 - Precordial pain (3) Elevated liver enzymes Code(s): R74.8 - ABNORMAL LEVELS OF OTHER SERUM ENZYMES (4) Hyperkalemia Code(s): E87.5 - HYPERKALEMIA (5) Diabetes mellitus, insulin dependent (IDDM), uncontrolled Code(s): E10.65 - TYPE 1 DIABETES MELLITUS WITH HYPERGLYCEMIA Qualifiers: Qualified Code(s): 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
[2016-07-05] MEDS ORDERED: SODIUM POLYSTYRENE SULFONATE 15 GM/60 ML BOTTLE PO ONE ×2 (11:45→15:45)
[2016-07-05] MEDS ORDERED: INSULIN (NOVOLOG) ASPART 100 UNITS/ML 10ML VIAL ONE ×3 (11:50→21:12)
[2016-07-05 12:16] LABS: ARTERIAL BLOOD GAS BASE EXCESS -2.3 meq/l (-2-2); ARTERIAL BLOOD GAS HCO3 23.4 meq/L (22-26); ARTERIAL BLOOD GAS PO2 89.3 mmHg (80-100); ARTERIAL BLOOD GAS pH 7.32 (7.35-7.45)
[2016-07-05 12:17] LABS: ALLENS TEST POSITIVE; ART PUNCT SITE RIGHT RADIAL; LPM/O2% 3LPM; PT. ON O2? YES; TYPE OF O2 N/C
--- NOTE | 2016-07-05 13:50 | PN ---
Progress Note, Physician - Current Medication List Current Medications: Active Medications Aspirin (Ecotrin -) 162 mg PO DAILY [facility] Last Admin: 07/05/16 09:09 Dose: 162 mg Bacitracin (Bacitracin -) 1 applic TP BID [facility] Last Admin: 07/05/16 09:15 Dose: 1 applic Ceftriaxone Sodium (Rocephin 2gm Ivpb (Pre-Docked)) 2 gm IVPB DAILY [facility] PRN Reason: Protocol Last Admin: 07/05/16 09:11 Dose: 2 gm Furosemide (Lasix Injection -) 40 mg IVPUSH BID@0600,1400 [facility] Last Admin: 07/05/16 13:20 Dose: 40 mg Gabapentin (Neurontin -) 100 mg PO BID [facility] Last Admin: 07/05/16 09:09 Dose: 100 mg Heparin Sodium (Porcine) (Heparin -) 5,000 unit SQ BID [facility] Last Admin: 07/05/16 09:11 Dose: 5,000 unit Hydralazine HCl (Apresoline -) 25 mg PO BID [facility] Last Admin: 07/05/16 09:10 Dose: 25 mg Insulin Aspart (Novolog Vial Sliding Scale -) 1 vial SQ ACHS [facility] PRN Reason: Protocol Last Admin: 07/05/16 12:07 Dose: 5 units Insulin Detemir (Levemir Vial) 50 units SQ HS [facility] Last Admin: 07/04/16 22:18 Dose: 50 units Levothyroxine Sodium (Synthroid -) 125 mcg PO DAILY@0700 [facility] Last Admin: 07/05/16 06:33 Dose: 125 mcg Liothyronine Sodium (Cytomel -) 25 mcg PO DAILY [facility] Last Admin: 07/05/16 09:09 Dose: 25 mcg Pantoprazole Sodium (Protonix -) 20 mg PO DAILY [facility] Last Admin: 07/05/16 09:09 Dose: 20 mg Spironolactone (Aldactone -) 25 mg PO BID [facility] Last Admin: 07/05/16 09:09 Dose: 25 mg - Objective Vital Signs: Vital Signs Temperature 91.0 F L 07/04/16 14:00 Pulse Rate 84 07/05/16 10:00 Respiratory Rate 20 07/05/16 10:00 Blood Pressure 148/78 07/05/16 10:00 O2 Sat by Pulse Oximetry (%) 96 07/05/16 09:00 Constitutional: Yes: Calm HENT: Yes: WNL Neck: Yes: WNL Cardiovascular: Yes: WNL Respiratory: Yes: WNL Gastrointestinal: Yes: WNL Edema: Yes Integumentary: Yes: Erythema Labs: CBC, BMP 07/05/16 06:10 07/05/16 06:10 INR, PTT INR 0.94 (0.82-1.09) 06/26/16 18:45 Problem List - Problems (1) CHF (congestive heart failure) Code(s): I50.9 - HEART FAILURE, UNSPECIFIED (2) Cellulitis and abscess of leg Code(s): L02.419 - CUTANEOUS ABSCESS OF LIMB, UNSPECIFIED L03.119 - CELLULITIS OF UNSPECIFIED PART OF LIMB (3) Elevated liver enzymes Code(s): R74.8 - ABNORMAL LEVELS OF OTHER SERUM ENZYMES (4) Hyperkalemia Code(s): E87.5 - HYPERKALEMIA (5) Leukopenia Code(s): D72.819 - DECREASED WHITE BLOOD CELL COUNT, UNSPECIFIED (6) Renal insufficiency Code(s): N28.9 - DISORDER OF KIDNEY AND URETER, UNSPECIFIED (7) Weakness Code(s): R53.1 - WEAKNESS (8) Diabetes mellitus, insulin dependent (IDDM), uncontrolled Code(s): E10.65 - TYPE 1 DIABETES MELLITUS WITH HYPERGLYCEMIA Qualifiers: Diabetes mellitus complication status: with skin complications Diabetes mellitus complication detail: with dermatitis Qualified Code(s): E10.620 - 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; E10.65 - Type 1 diabetes mellitus with hyperglycemia (9) HTN (hypertension) Code(s): I10 - ESSENTIAL (PRIMARY) HYPERTENSION Qualifiers: Hypertension type: essential hypertension Qualified Code(s): I10 - Essential (primary) hypertension Assessment/Plan (1) Chest pain Assessment/Plan: RESOLVED ATYPICAL CE NEGATIVE CARDIO AND PULM Code(s): R07.9 - CHEST PAIN, UNSPECIFIED Qualifiers: Chest pain type: precordial pain Qualified Code(s): R07.2 - Precordial pain (2) Elevated liver enzymes Assessment/Plan: 2/2 Rx? GABAPENTIN STOPPED MONITOR GI NOTED Code(s): R74.8 - ABNORMAL LEVELS OF OTHER SERUM ENZYMES (3) Hyperkalemia Assessment/Plan: NOT IMPROVING MONITOR RENAL CONSULTED SPIRONOLACTONE STOPPPED Code(s): E87.5 - HYPERKALEMIA (4) Renal insufficiency Assessment/Plan: MONITOR RENAL Code(s): N28.9 - DISORDER OF KIDNEY AND URETER, UNSPECIFIED (5) Cellulitis Assessment/Plan: IV ABX PER ID CULTURES NEG SO FAR Code(s): L03.90 - CELLULITIS, UNSPECIFIED Qualifiers: Site of cellulitis: unspecified site Qualified Code(s): L03.90 - Cellulitis, unspecified (6) Diabetes mellitus, insulin dependent (IDDM), uncontrolled Assessment/Plan: BGM INSULIN ENDO ON CASE Code(s): E10.65 - TYPE 1 DIABETES MELLITUS WITH HYPERGLYCEMIA Qualifiers: Diabetes mellitus complication status: with skin complications Diabetes mellitus complication detail: with dermatitis Qualified Code(s): E10.620 - 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; E10.65 - Type 1 diabetes mellitus with hyperglycemia (7) Hypothermia Assessment/Plan: CULTURES NEGATIVE-- R/O HYPOTHALAMIC ETIOLOGY TSH NL NEURO & ENDO ON CASE CHECK CORTISOL LEVEL -> OK PRL INCREASED Code(s): T68.XXXA - HYPOTHERMIA, INITIAL ENCOUNTER (8) Weakness Assessment/Plan: ABOVE PT Code(s): R53.1 - WEAKNESS (9) CHF (congestive heart failure) Assessment/Plan: iv lasix monitor lytes Code(s): I50.9 - HEART FAILURE, UNSPECIFIED (10) Leukopenia Assessment/Plan: HEM CONSULT APPRECIATED RESOLVED Code(s): D72.819 - DECREASED WHITE BLOOD CELL COUNT, UNSPECIFIED [employer] FM
--- NOTE | 2016-07-05 14:57 | PN ---
Progress Note, Physician Chief Complaint: Resting comfortably No new complaints History of Present Illness: This is a 66 year old woman with a history of NIDDM, hypertension, hyperlipidemia, hypothyroidism, and benign brain tumors(X6), who presents to the emergency department complaining of chest pain and weakness for 2 days, edema and orthopnea with sob. Found with unremarkable ECG but noted with fluid overload, worsening renal function and weakness. No palps dizziness or syncope. Exercise tolerance at baseline is poor. Echo 01/22/15 normal EF moderate MR. - Current Medication List Current Medications: Active Medications Aspirin (Ecotrin -) 162 mg PO DAILY [facility] Last Admin: 07/05/16 09:09 Dose: 162 mg Bacitracin (Bacitracin -) 1 applic TP BID [facility] Last Admin: 07/05/16 09:15 Dose: 1 applic Ceftriaxone Sodium (Rocephin 2gm Ivpb (Pre-Docked)) 2 gm IVPB DAILY [facility] PRN Reason: Protocol Last Admin: 07/05/16 09:11 Dose: 2 gm Furosemide (Lasix Injection -) 40 mg IVPUSH BID@0600,1400 [facility] Last Admin: 07/05/16 13:20 Dose: 40 mg Heparin Sodium (Porcine) (Heparin -) 5,000 unit SQ BID [facility] Last Admin: 07/05/16 09:11 Dose: 5,000 unit Hydralazine HCl (Apresoline -) 25 mg PO BID [facility] Last Admin: 07/05/16 09:10 Dose: 25 mg Insulin Aspart (Novolog Vial Sliding Scale -) 1 vial SQ ACHS [facility] PRN Reason: Protocol Last Admin: 07/05/16 12:07 Dose: 5 units Insulin Detemir (Levemir Vial) 50 units SQ HS [facility] Last Admin: 07/04/16 22:18 Dose: 50 units Levothyroxine Sodium (Synthroid -) 125 mcg PO DAILY@0700 [facility] Last Admin: 07/05/16 06:33 Dose: 125 mcg Liothyronine Sodium (Cytomel -) 25 mcg PO DAILY [facility] Last Admin: 07/05/16 09:09 Dose: 25 mcg Pantoprazole Sodium (Protonix -) 20 mg PO DAILY [facility] Last Admin: 07/05/16 09:09 Dose: 20 mg - Objective Vital Signs: Vital Signs Temperature 91.0 F L 07/04/16 14:00 Pulse Rate 76 07/05/16 14:37 Respiratory Rate 20 07/05/16 14:37 Blood Pressure 130/59 07/05/16 14:37 O2 Sat by Pulse Oximetry (%) 96 07/05/16 09:00 Additional Findings/Remarks: Constitutional: Yes: Well Nourished Cardiovascular: Yes: Regular Rate and Rhythm, S1, S2 (No murmurs) Respiratory: Yes: CTA Bilaterally Edema: Yes Edema: LLE: 1+, RLE: 1+ Labs: CBC, BMP 07/05/16 06:10 07/05/16 06:10 INR, PTT INR 0.94 (0.82-1.09) 06/26/16 18:45 Problem List - Problems (1) HTN (hypertension) Code(s): I10 - ESSENTIAL (PRIMARY) HYPERTENSION Qualifiers: Hypertension type: essential hypertension Qualified Code(s): I10 - Essential (primary) hypertension (2) Chest pain Code(s): R07.9 - CHEST PAIN, UNSPECIFIED Qualifiers: Chest pain type: precordial pain Qualified Code(s): R07.2 - Precordial pain (3) Elevated liver enzymes Code(s): R74.8 - ABNORMAL LEVELS OF OTHER SERUM ENZYMES (4) Hyperkalemia Code(s): E87.5 - HYPERKALEMIA Assessment/Plan [facility] *LIVE* Problem List - Problems (1) Chest pain Assessment/Plan: Her chest pain is atypical for angina pectoris, ECG and Wilfrido negative. However, she has multiple risk factors for CAD. Would get persantine nuclear stress test if CTA cannot be obtained due to renal function. This can be done as an outpatient given her infectious issues and renal disease. (2) HTN (hypertension) Assessment/Plan: Controlled on current medications. (3) CHF exacerbation Assessment/Plan: Acute on chronic diastolic CHF Continue Lasix 40 mg IVSS BID Daily I's/O's/Wt's/Lytes Would STOP spironolactone given potassium of 6.0
--- NOTE | 2016-07-05 15:11 | CONSULT ---
Consult Consult Specialty:: Nephrology ( Drs. Meier/ Stephen) Reason for Consultation:: Persistent Hyperkalemia - History of Present Illness Chief Complaint: The patient was admitted with history of chest pain and not feeling well. History of Present Illness: This is a 66 y/o female with multiple co-morbid medical conditions, with DM2 for > 20 years, Hypertension, Hyperlipidemia, Hypothyroidism, benign brain lesions, seizure disorders. The patient also has Peripheral vascular disease, chronic lower extremity edema , and cellulitis. 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 history of brain tumors (benign) - Alcohol/Substance Use Hx Alcohol Use: No - Smoking History Smoking history: Never smoked Have you smoked in the past 12 months: No Aproximately how many cigarettes per day: 0 If you are a former smoker, when did you quit?: 15 years ago - Social History Usual Living Arrangement: Alone ADL: Independent History of Recent Travel: No Home Medications - Allergies Allergies/Adverse Reactions: Allergies Allergy/AdvReac Type Severity Reaction Status Date / Time phenytoin sodium Allergy Rash Verified 06/26/16 16:58 [From Dilantin] phenytoin sodium extended Allergy Rash Verified 06/26/16 16:58 [From Dilantin] vancomycin Allergy Verified 06/26/16 16:58 - Home Medications Home Medications: Ambulatory Orders Gabapentin 100 mg PO BID 04/11/15 Omeprazole 20 mg PO DAILY #30 capsule. 09/09/15 Levothyroxine [Synthroid -] 125 mcg PO BID 10/20/15 Potassium Chloride [Klor-Con] 20 meq PO DAILY 10/20/15 Insulin (Novolog) [Novolog -] 10 units SQ BID 12/04/15 Insulin Glargine,Hum.rec.anlog [Lantus (nf)] 50 units SQ BID 12/04/15 Furosemide [Lasix -] 40 mg PO DAILY #30 tablet 12/06/15 Hydralazine HCl [Apresoline -] 25 mg PO BID #30 tablet 12/06/15 Simvastatin [Zocor -] 40 mg PO HS 06/26/16 Review of Systems - Review of Systems Constitutional: reports: Malaise HENT: reports: No Symptoms Neck: reports: No Symptoms Cardiovascular: reports: No Symptoms Respiratory: reports: No Symptoms Gastrointestinal: reports: Bloating Genitourinary: reports: No Symptoms. denies: Burning, Dysuria, Frequency Musculoskeletal: reports: No Symptoms Integumentary: reports: Change in Color (Lower extremities) Hematology/Lymphatic: reports: No Symptoms Physical Exam Vital Signs: Vital Signs Temperature 91.0 F L 07/04/16 14:00 Pulse Rate 76 07/05/16 14:37 Respiratory Rate 20 07/05/16 14:37 Blood Pressure 130/59 07/05/16 14:37 O2 Sat by Pulse Oximetry (%) 96 07/05/16 09:00 Constitutional: Yes: Well Nourished, Anxious Eyes: Yes: Conjunctiva Clear HENT: Yes: Atraumatic Neck: Yes: Supple Cardiovascular: Yes: Regular Rate and Rhythm, S1, S2 Respiratory: Yes: Regular, Diminished Gastrointestinal: Yes: Normal Bowel Sounds, Soft, Abdomen, Obese Renal/: Yes: WNL Extremities: Yes: Erythema Edema: Yes Edema: LLE: 2+, RLE: 2+ Integumentary: Yes: Venous Stasis Changes (LE) Neurological: Yes: Alert, Oriented Labs: CBC, BMP 07/05/16 06:10 07/05/16 06:10 Problem List - Problems (1) Cellulitis and abscess of leg Code(s): L02.419 - CUTANEOUS ABSCESS OF LIMB, UNSPECIFIED L03.119 - CELLULITIS OF UNSPECIFIED PART OF LIMB (2) Hyperkalemia Code(s): E87.5 - HYPERKALEMIA (3) Hyperlipidemia associated with type 2 diabetes mellitus Code(s): E11.69 - TYPE 2 DIABETES MELLITUS WITH OTHER SPECIFIED COMPLICATION E78.5 - HYPERLIPIDEMIA, UNSPECIFIED (4) Renal insufficiency Code(s): N28.9 - DISORDER OF KIDNEY AND URETER, UNSPECIFIED (5) Weakness Code(s): R53.1 - WEAKNESS (6) Cellulitis Code(s): L03.90 - CELLULITIS, UNSPECIFIED Qualifiers: Site of cellulitis: unspecified site Qualified Code(s): L03.90 - Cellulitis, unspecified (7) Diabetes mellitus, insulin dependent (IDDM), uncontrolled Code(s): E10.65 - TYPE 1 DIABETES MELLITUS WITH HYPERGLYCEMIA Qualifiers: Diabetes mellitus complication status: with skin complications Diabetes mellitus complication detail: with dermatitis Qualified Code(s): E10.620 - 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; E10.65 - Type 1 diabetes mellitus with hyperglycemia (8) Edema Code(s): R60.9 - EDEMA, UNSPECIFIED (9) HTN (hypertension) Code(s): I10 - ESSENTIAL (PRIMARY) HYPERTENSION Qualifiers: Hypertension type: essential hypertension Qualified Code(s): I10 - Essential (primary) hypertension (10) Hypothyroid Code(s): E03.9 - HYPOTHYROIDISM, UNSPECIFIED (11) Venous stasis Code(s): I87.8 - OTHER SPECIFIED DISORDERS OF VEINS Assessment/Plan This is 66 y/o female admitted with feeling weak and some chest pain. Of note is persistent Hyperkalemia and elevated Serum Cr and BUN. The Hyperkalemia is multifactorial, including effects of medications ( KCL, Spironolactone, which are now discontinued, and also possible acute tubular dysfuction resulting in defective K secretion ( The presence of persistent eosinophilia (improving) might indicate an underlying Allegic reaction with ? Interstitial nephritis. The Azotemia seems to be Acute on Chronic. The BHUPINDER possibly Hemodynamic, but also need to r/o other factors such as AIN. 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 PLAN: Kayexelate. Basic w/u as ordered. Renal imaging Dietary K restriction Will follow with you. Thanks again. CLARE MEIER MD
--- NOTE | 2016-07-05 15:37 | PN ---
Progress Note (short form) - Note Progress Note: comfortable no complaint, Current Active Problems Blood bacterial culture positive (Acute) CHF (congestive heart failure) (Acute) CHF exacerbation (Acute) Cellulitis and abscess of leg (Acute) Chest pain (Acute) Elevated liver enzymes (Acute) Hyperkalemia (Acute) Hyperlipidemia associated with type 2 diabetes mellitus (Acute) Hypothermia (Acute) Leukopenia (Acute) Near syncope (Acute) Rash (Acute) Renal insufficiency (Acute) Syncope (Acute) Urticaria (Acute) Weakness (Acute) hypothermia,likely hypothalamic source \ iddm ckd hyperkalemia adrenal axis intact Abnormal Lab Results 07/03/16 07/05/16 07/05/16 06:22 06:10 06:10 RBC 3.09 L Hgb 9.4 L Hct 31.5 L 27.9 L Monocytes % 12.2 H Eosinophils % 4.6 H ABG pH ABG pCO2 at Pt Temp ABG O2 Content ABG Base Excess Potassium 6.0 H Chloride 111 H Anion Gap 6 L BUN 76 H Creatinine 1.7 H Random Glucose 108 H Total Bilirubin 0.1 L AST 74 H ALT 155 H Alkaline Phosphatase 261 H Albumin 2.8 L 07/05/16 12:15 RBC Hgb Hct Monocytes % Eosinophils % ABG pH 7.32 L ABG pCO2 at Pt Temp 47.2 H ABG O2 Content 13.6 L ABG Base Excess -2.3 L Potassium Chloride Anion Gap BUN Creatinine Random Glucose Total Bilirubin AST ALT Alkaline Phosphatase Albumin Laboratory Results - last 24 hr 07/01/16 07/03/16 07/03/16 20:40 06:22 06:22 WBC RBC Hgb Hct 31.5 L MCV MCHC RDW Plt Count MPV Neutrophils % Lymphocytes % Monocytes % Eosinophils % Basophils % Puncture Site ABG pH ABG pCO2 at Pt Temp ABG pO2 at Pt Temp ABG HCO3 ABG O2 Sat (Measured) ABG O2 Content ABG Base Excess Berto Test O2 Delivery Device Oxygen Flow Rate PEEP Sodium Potassium Chloride Carbon Dioxide Anion Gap BUN Creatinine Creat Clearance w eGFR POC Glucometer Random Glucose Calcium Total Bilirubin AST ALT Alkaline Phosphatase Total Protein Albumin Folate 1582 Folate Hemolysate 498.2 ACTH 13.5 JEM Screen Negative 07/04/16 07/04/16 07/05/16 16:46 21:49 05:14 WBC RBC Hgb Hct MCV MCHC RDW Plt Count MPV Neutrophils % Lymphocytes % Monocytes % Eosinophils % Basophils % Puncture Site ABG pH ABG pCO2 at Pt Temp ABG pO2 at Pt Temp ABG HCO3 ABG O2 Sat (Measured) ABG O2 Content ABG Base Excess Berto Test O2 Delivery Device Oxygen Flow Rate PEEP Sodium Potassium Chloride Carbon Dioxide Anion Gap BUN Creatinine Creat Clearance w eGFR POC Glucometer 267 232 126 Random Glucose Calcium Total Bilirubin AST ALT Alkaline Phosphatase Total Protein Albumin Folate Folate Hemolysate ACTH JEM Screen 07/05/16 07/05/16 07/05/16 06:10 06:10 11:05 WBC 4.0 RBC 3.09 L Hgb 9.4 L Hct 27.9 L MCV 90.4 MCHC 33.8 RDW 14.3 Plt Count 144 MPV 9.8 Neutrophils % 54.5 Lymphocytes % 27.4 Monocytes % 12.2 H Eosinophils % 4.6 H Basophils % 1.3 Puncture Site ABG pH ABG pCO2 at Pt Temp ABG pO2 at Pt Temp ABG HCO3 ABG O2 Sat (Measured) ABG O2 Content ABG Base Excess Berto Test O2 Delivery Device Oxygen Flow Rate PEEP Sodium 143 Potassium 6.0 H Chloride 111 H Carbon Dioxide 26 Anion Gap 6 L BUN 76 H Creatinine 1.7 H Creat Clearance w eGFR 29.89 POC Glucometer 251 Random Glucose 108 H Calcium 8.6 Total Bilirubin 0.1 L AST 74 H ALT 155 H Alkaline Phosphatase 261 H Total Protein 6.4 Albumin 2.8 L Folate Folate Hemolysate ACTH JEM Screen 07/05/16 12:15 WBC RBC Hgb Hct MCV MCHC RDW Plt Count MPV Neutrophils % Lymphocytes % Monocytes % Eosinophils % Basophils % Puncture Site Right radial ABG pH 7.32 L ABG pCO2 at Pt Temp 47.2 H ABG pO2 at Pt Temp 89.3 ABG HCO3 23.4 ABG O2 Sat (Measured) 97.0 ABG O2 Content 13.6 L ABG Base Excess -2.3 L Berto Test Positive O2 Delivery Device N/c Oxygen Flow Rate 3lpm PEEP 0.0 Sodium Potassium Chloride Carbon Dioxide Anion Gap BUN Creatinine Creat Clearance w eGFR POC Glucometer Random Glucose Calcium Total Bilirubin AST ALT Alkaline Phosphatase Total Protein Albumin Folate Folate Hemolysate ACTH JEM Screen Laboratory Tests 06/28/16 06/30/16 06/30/16 09:50 12:20 16:23 POC Glucometer 137 245 TSH 1.09 D Free T3 Cortisol AM Sample ACTH 06/30/16 07/01/16 07/01/16 21:48 07:00 20:40 POC Glucometer 257 TSH Free T3 1.7 L Cortisol AM Sample ACTH 13.5 07/02/16 06:30 POC Glucometer TSH Free T3 Cortisol AM Sample 13.1 ACTH plan: cytomel 25mcg daily repeat free t4 and total t3 Problem List - Problems (1) Blood bacterial culture positive Code(s): R78.81 - BACTEREMIA (2) CHF exacerbation Code(s): I50.9 - HEART FAILURE, UNSPECIFIED Qualifiers: Congestive heart failure type: diastolic Qualified Code(s): I50.33 - Acute on chronic diastolic (congestive) heart failure (3) Hyperlipidemia associated with type 2 diabetes mellitus Code(s): E11.69 - TYPE 2 DIABETES MELLITUS WITH OTHER SPECIFIED COMPLICATION E78.5 - HYPERLIPIDEMIA, UNSPECIFIED
[2016-07-05] MEDS ORDERED: INSULIN DETEMIR 100 UNITS/ML MDV SQ ONE (21:11)
[2016-07-05] MEDS: INSULIN DETEMIR 100 UNITS/ML MDV SQ SCH (21:13)
[2016-07-06] MEDS: FUROSEMIDE 40 MG/4 ML INJECTABLE VIAL IVPUSH SCH ×2 (05:51→15:25)
[2016-07-06] MEDS: LEVOTHYROXINE NA 125 MCG TABLET (FP) PO SCH (06:02)
[2016-07-06] MEDS: INSULIN SLIDING SCALE (NOVOLOG) 1 VIAL SQ SCH ×4 (06:14→23:01)
[2016-07-06 07:52] LABS: MCHC 33.9 g/dl (32.0-36.0); MEAN CELL VOLUME 91.3 fl (80-96); PLATELET COUNT 122 K/MM3 (134-434); RDW 14.2 % (11.6-15.6); WHITE BLOOD COUNT 3.9 K/mm3 (4.0-10.0)
[2016-07-06 08:10] LABS: ALBUMIN 2.9 g/dl (3.4-5.0); BILIRUBIN,TOTAL 0.2 mg/dL (0.2-1.0); CALCIUM 9.1 mg/dL (8.5-10.1); CREATININE 1.7 mg/dL (0.55-1.02); TOT PROT 6.3 g/dl (6.4-8.2)
--- NOTE | 2016-07-06 09:41 | PN ---
Progress Note (short form) - Note Progress Note: Renal Follow up for BHUPINDER on CKD and Hyperkalemia Pt seen and examined at the bedside no acute complaints no sob, chest pain, N/V/D Legs remain swollen, no tenderness Vital Signs Temperature 91.0 F L 07/04/16 14:00 Pulse Rate 74 07/06/16 06:00 Respiratory Rate 20 07/06/16 06:00 Blood Pressure 142/76 07/06/16 06:00 O2 Sat by Pulse Oximetry (%) 98 07/05/16 17:44 Intake & Output 07/03/16 07/04/16 07/05/16 07/06/16 23:59 23:59 23:59 23:59 Intake Total 1290 800 600 200 Balance 1290 800 600 200 Weight 233 lb 6.4 oz 262 lb 6 oz 255 lb 12.8 oz Gen: NAD, awake and alert on NC CVS: RRR, No M/R Lungs: Dec BS at lung bases (anterior exam) Abd: Obese NT/ND Ext: 2+ edema, + erythemia, no warmth CBC, BMP 07/06/16 06:15 07/06/16 06:15 Laboratory Tests 06/27/16 07/03/16 07/06/16 10:28 06:22 06:15 Calcium 9.1 AST 67 H ALT 145 H Alkaline Phosphatase 251 H Total Protein 6.3 L Albumin 2.9 L Urine Protein 2+ H Urine Blood 1+ H Urine Total Protein Pending Urine PEP Interpret Pending Current Medications Aspirin (Ecotrin -) 162 mg PO DAILY [facility] Last Admin: 07/05/16 09:09 Dose: 162 mg Bacitracin (Bacitracin -) 1 applic TP BID [facility] Last Admin: 07/05/16 21:15 Dose: 1 applic Ceftriaxone Sodium (Rocephin 2gm Ivpb (Pre-Docked)) 2 gm IVPB DAILY [facility] PRN Reason: Protocol Last Admin: 07/05/16 09:11 Dose: 2 gm Furosemide (Lasix Injection -) 40 mg IVPUSH BID@0600,1400 [facility] Last Admin: 07/06/16 05:51 Dose: 40 mg Heparin Sodium (Porcine) (Heparin -) 5,000 unit SQ BID [facility] Last Admin: 07/05/16 21:13 Dose: 5,000 unit Hydralazine HCl (Apresoline -) 25 mg PO BID [facility] Last Admin: 07/05/16 21:13 Dose: 25 mg Insulin Aspart (Novolog Vial Sliding Scale -) 1 vial SQ ACHS [facility] PRN Reason: Protocol Last Admin: 07/06/16 06:14 Dose: Not Given Insulin Detemir (Levemir Vial) 50 units SQ HS [facility] Last Admin: 07/05/16 21:13 Dose: 50 units Levothyroxine Sodium (Synthroid -) 125 mcg PO DAILY@0700 [facility] Last Admin: 07/06/16 06:02 Dose: 125 mcg Liothyronine Sodium (Cytomel -) 25 mcg PO DAILY [facility] Last Admin: 07/05/16 09:09 Dose: 25 mcg Pantoprazole Sodium (Protonix -) 20 mg PO DAILY [facility] Last Admin: 07/05/16 09:09 Dose: 20 mg a/P 66 year old woman with PMhx of [place]igin Brain Tumors, NIDDM, Hypertension, Hypothyrodism who presented to the ED with complaints of chest pain and SOB with elevated Serum Cr and persistent hyperkalemia. #Acute on Chronic Renal Inuffiency (CKD 3) Renal function appears stable at this time Urine studies to quantify proteinuria pending agree with continue IV lasix Hold GADIEL/ARB and Aldactone at this time because of high potassium Trend BUN/Cr Check Urine Eiosinoprhils because r/o AIN #Hyperkalemia Improved today off Aldactone Low K diet Trend K daily no GADIEL/ARB at this time Thank you Vladimir Mitchell DO
[2016-07-06] MEDS ORDERED: PT OWN MED DRAWER 7, Y5N ONE ×2 (10:28→11:36)
[2016-07-06] MEDS: LIOTHYRONINE SODIUM 25 MCG TABLET PO SCH (10:35)
[2016-07-06] MEDS: ASPIRIN COATED 81 MG TABLET.EC PO SCH (10:35)
[2016-07-06] MEDS: hydrALAZINE HCL 25 MG TABLET (FP) PO SCH ×2 (10:35→23:01)
[2016-07-06] MEDS: BACITRACIN 15 GM TUBE TOPICAL OINTMENT TP SCH ×2 (10:35→23:02)
[2016-07-06] MEDS: HEPARIN NA (PORCINE) 5,000 UNITS/ML 1ML VIAL SQ SCH ×2 (10:36→23:00)
[2016-07-06] MEDS: cefTRIAXone 2 GM/100 ML BAG (PRE-DOCKED) IVPB SCH (10:36)
[2016-07-06] MEDS: PANTOPRAZOLE 20 MG TABLET (FP) PO SCH (10:36)
--- NOTE | 2016-07-06 10:43 | PN ---
Progress Note, Physician Chief Complaint: patient in bed no complaints stil hypothermia - Current Medication List Current Medications: Active Medications Aspirin (Ecotrin -) 162 mg PO DAILY [facility] Last Admin: 07/06/16 10:35 Dose: 162 mg Bacitracin (Bacitracin -) 1 applic TP BID [facility] Last Admin: 07/06/16 10:35 Dose: 1 applic Ceftriaxone Sodium (Rocephin 2gm Ivpb (Pre-Docked)) 2 gm IVPB DAILY [facility] PRN Reason: Protocol Last Admin: 07/06/16 10:36 Dose: 2 gm Furosemide (Lasix Injection -) 40 mg IVPUSH BID@0600,1400 [facility] Last Admin: 07/06/16 05:51 Dose: 40 mg Heparin Sodium (Porcine) (Heparin -) 5,000 unit SQ BID [facility] Last Admin: 07/06/16 10:36 Dose: 5,000 unit Hydralazine HCl (Apresoline -) 25 mg PO BID [facility] Last Admin: 07/06/16 10:35 Dose: 25 mg Insulin Aspart (Novolog Vial Sliding Scale -) 1 vial SQ ACHS [facility] PRN Reason: Protocol Last Admin: 07/06/16 06:14 Dose: Not Given Insulin Detemir (Levemir Vial) 50 units SQ HS [facility] Last Admin: 07/05/16 21:13 Dose: 50 units Levothyroxine Sodium (Synthroid -) 125 mcg PO DAILY@0700 [facility] Last Admin: 07/06/16 06:02 Dose: 125 mcg Liothyronine Sodium (Cytomel -) 25 mcg PO DAILY [facility] Last Admin: 07/06/16 10:35 Dose: 25 mcg Pantoprazole Sodium (Protonix -) 20 mg PO DAILY [facility] Last Admin: 07/06/16 10:36 Dose: 20 mg - Objective Vital Signs: Vital Signs Temperature 94.1 F L 07/06/16 10:00 Pulse Rate 77 07/06/16 10:00 Respiratory Rate 20 07/06/16 10:00 Blood Pressure 128/60 07/06/16 10:00 O2 Sat by Pulse Oximetry (%) 98 07/05/16 17:44 Constitutional: Yes: Calm, Obese Cardiovascular: Yes: Regular Rate and Rhythm, S1, S2 Respiratory: Yes: CTA Bilaterally Gastrointestinal: Yes: Soft, Abdomen, Obese Extremities: Yes: Erythema Edema: Yes Neurological: Yes: Alert, Oriented Labs: CBC, BMP 07/06/16 06:15 07/06/16 06:15 INR, PTT INR 0.94 (0.82-1.09) 06/26/16 18:45 Problem List - Problems (1) Hypothermia Assessment/Plan: seen by laith hypothylamic source cytomel started by laith on tele as she is hypothermic once hypothermia improves then will move to med surg floor iv abx cultures negative wbc 3.9 Code(s): T68.XXXA - HYPOTHERMIA, INITIAL ENCOUNTER (2) CHF (congestive heart failure) Assessment/Plan: iv lasix hydralazine Code(s): I50.9 - HEART FAILURE, UNSPECIFIED (3) Hyperkalemia Assessment/Plan: improving off aldactone Code(s): E87.5 - HYPERKALEMIA (4) Hypothyroid Assessment/Plan: syntroid Code(s): E03.9 - HYPOTHYROIDISM, UNSPECIFIED (5) Elevated liver enzymes Assessment/Plan: liver sono Code(s): R74.8 - ABNORMAL LEVELS OF OTHER SERUM ENZYMES
[2016-07-06 10:56] LABS: PLATELET ESTIMATE DECREASED (NORMAL)
--- NOTE | 2016-07-06 11:22 | PN ---
Progress Note, Physician Chief Complaint: Comfortable today No chest pain or dyspnea. History of Present Illness: This is a 66 year old woman with a history of NIDDM, hypertension, hyperlipidemia, hypothyroidism, and benign brain tumors(X6), who presents to the emergency department complaining of chest pain and weakness for 2 days, edema and orthopnea with sob. Found with unremarkable ECG but noted with fluid overload, worsening renal function and weakness. No palps dizziness or syncope. Exercise tolerance at baseline is poor. Echo 01/22/15 normal EF moderate MR. - Current Medication List Current Medications: Active Medications Aspirin (Ecotrin -) 162 mg PO DAILY [facility] Last Admin: 07/06/16 10:35 Dose: 162 mg Bacitracin (Bacitracin -) 1 applic TP BID [facility] Last Admin: 07/06/16 10:35 Dose: 1 applic Ceftriaxone Sodium (Rocephin 2gm Ivpb (Pre-Docked)) 2 gm IVPB DAILY [facility] PRN Reason: Protocol Last Admin: 07/06/16 10:36 Dose: 2 gm Furosemide (Lasix Injection -) 40 mg IVPUSH BID@0600,1400 [facility] Last Admin: 07/06/16 05:51 Dose: 40 mg Heparin Sodium (Porcine) (Heparin -) 5,000 unit SQ BID [facility] Last Admin: 07/06/16 10:36 Dose: 5,000 unit Hydralazine HCl (Apresoline -) 25 mg PO BID [facility] Last Admin: 07/06/16 10:35 Dose: 25 mg Insulin Aspart (Novolog Vial Sliding Scale -) 1 vial SQ ACHS [facility] PRN Reason: Protocol Last Admin: 07/06/16 06:14 Dose: Not Given Insulin Detemir (Levemir Vial) 50 units SQ HS [facility] Last Admin: 07/05/16 21:13 Dose: 50 units Levothyroxine Sodium (Synthroid -) 125 mcg PO DAILY@0700 [facility] Last Admin: 07/06/16 06:02 Dose: 125 mcg Liothyronine Sodium (Cytomel -) 25 mcg PO DAILY [facility] Last Admin: 07/06/16 10:35 Dose: 25 mcg Pantoprazole Sodium (Protonix -) 20 mg PO DAILY [facility] Last Admin: 07/06/16 10:36 Dose: 20 mg - Objective Vital Signs: Vital Signs Temperature 94.1 F L 07/06/16 10:00 Pulse Rate 77 07/06/16 10:00 Respiratory Rate 20 07/06/16 10:00 Blood Pressure 128/60 07/06/16 10:00 O2 Sat by Pulse Oximetry (%) 98 07/05/16 17:44 Constitutional: Yes: No Distress Cardiovascular: Yes: Regular Rate and Rhythm, S1, S2. No: Murmur Respiratory: Yes: CTA Bilaterally Gastrointestinal: Yes: Normal Bowel Sounds, Soft Extremities: Yes: Erythema (b/l LE erythema) Edema: LLE: 1+, RLE: 1+ Labs: CBC, BMP 07/06/16 06:15 07/06/16 06:15 INR, PTT INR 0.94 (0.82-1.09) 06/26/16 18:45 - ....Imaging Chest X-ray: Report Reviewed, Image Reviewed EKG: Report Reviewed, Image Reviewed Problem List - Problems (1) CHF (congestive heart failure) Code(s): I50.9 - HEART FAILURE, UNSPECIFIED (2) Chest pain Code(s): R07.9 - CHEST PAIN, UNSPECIFIED Qualifiers: Chest pain type: precordial pain Qualified Code(s): R07.2 - Precordial pain (3) HTN (hypertension) Code(s): I10 - ESSENTIAL (PRIMARY) HYPERTENSION Qualifiers: Hypertension type: essential hypertension Qualified Code(s): I10 - Essential (primary) hypertension Assessment/Plan - Problems (1) Chest pain Assessment/Plan: Her chest pain is atypical for angina pectoris, ECG and Wilfrido negative. However, she has multiple risk factors for CAD. Plan for CTA but given renal function if cannot be obtained would get persantine nuclear stress test as an outpatient given her infectious issues and renal disease. (2) HTN (hypertension) Assessment/Plan: Controlled on current medications. (3) CHF exacerbation Assessment/Plan: Acute on chronic diastolic CHF Continue Lasix 40 mg IVSS BID Daily I's/O's/Wt's/Lytes Appreciate renal teams recommendations. Monitor K closely. Holding spironolactone and marisol/arb given hyperkalemia. Trending lfts and w/u as per primary team.
--- NOTE | 2016-07-06 13:00 | PN ---
Progress Note, Physician History of Present Illness: pulmonary alert,feeling better,oob-chair,-resp distress - Current Medication List Current Medications: Active Medications Aspirin (Ecotrin -) 162 mg PO DAILY [facility] Last Admin: 07/06/16 10:35 Dose: 162 mg Bacitracin (Bacitracin -) 1 applic TP BID [facility] Last Admin: 07/06/16 10:35 Dose: 1 applic Ceftriaxone Sodium (Rocephin 2gm Ivpb (Pre-Docked)) 2 gm IVPB DAILY [facility] PRN Reason: Protocol Last Admin: 07/06/16 10:36 Dose: 2 gm Furosemide (Lasix Injection -) 40 mg IVPUSH BID@0600,1400 [facility] Last Admin: 07/06/16 05:51 Dose: 40 mg Heparin Sodium (Porcine) (Heparin -) 5,000 unit SQ BID [facility] Last Admin: 07/06/16 10:36 Dose: 5,000 unit Hydralazine HCl (Apresoline -) 25 mg PO BID [facility] Last Admin: 07/06/16 10:35 Dose: 25 mg Insulin Aspart (Novolog Vial Sliding Scale -) 1 vial SQ ACHS [facility] PRN Reason: Protocol Last Admin: 07/06/16 06:14 Dose: Not Given Insulin Detemir (Levemir Vial) 50 units SQ HS [facility] Last Admin: 07/05/16 21:13 Dose: 50 units Levothyroxine Sodium (Synthroid -) 125 mcg PO DAILY@0700 [facility] Last Admin: 07/06/16 06:02 Dose: 125 mcg Liothyronine Sodium (Cytomel -) 25 mcg PO DAILY [facility] Last Admin: 07/06/16 10:35 Dose: 25 mcg Pantoprazole Sodium (Protonix -) 20 mg PO DAILY [facility] Last Admin: 07/06/16 10:36 Dose: 20 mg - Objective Vital Signs: Vital Signs Temperature 94.1 F L 07/06/16 10:00 Pulse Rate 77 07/06/16 10:00 Respiratory Rate 20 07/06/16 10:00 Blood Pressure 128/60 07/06/16 10:00 O2 Sat by Pulse Oximetry (%) 98 07/05/16 17:44 Constitutional: Yes: Well Nourished, Calm Eyes: Yes: WNL HENT: Yes: WNL Neck: Yes: WNL Cardiovascular: Yes: Regular Rate and Rhythm, S1, S2 Respiratory: Yes: Diminished Gastrointestinal: Yes: Normal Bowel Sounds, Soft Extremities: Yes: Erythema Edema: Yes Labs: CBC, BMP 07/06/16 06:15 07/06/16 06:15 INR, PTT INR 0.94 (0.82-1.09) 06/26/16 18:45 Assessment/Plan A/P Acute hypercapneic respiratory failure Acute on Chronic CHF Pleural Effusion Chest Pain Hyperkalemia Elevated LFTs CKD HTN DM HYPOTHERMIA Hyperkalemia - bipap prn - lasix - monitor urine output, creatinine - daily weights, I/Os - trend LFTs - O2 to keep SpO2 >90% - BiPAP PRN - monitor lytes - DVT prophylaxis DR PATEL Problem List - Problems (1) CHF exacerbation Code(s): I50.9 - HEART FAILURE, UNSPECIFIED Qualifiers: Qualified Code(s): I50.33 - Acute on chronic diastolic (congestive) heart failure (2) Chest pain Code(s): R07.9 - CHEST PAIN, UNSPECIFIED Qualifiers: Qualified Code(s): R07.2 - Precordial pain (3) Elevated liver enzymes Code(s): R74.8 - ABNORMAL LEVELS OF OTHER SERUM ENZYMES (4) Hyperkalemia Code(s): E87.5 - HYPERKALEMIA (5) Diabetes mellitus, insulin dependent (IDDM), uncontrolled Code(s): E10.65 - TYPE 1 DIABETES MELLITUS WITH HYPERGLYCEMIA Qualifiers: Qualified Code(s): 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
[2016-07-06] MEDS ORDERED: INSULIN (NOVOLOG) ASPART 100 UNITS/ML 10ML VIAL ONE ×2 (13:14→17:42)
--- NOTE | 2016-07-06 14:10 | PN ---
Progress Note (short form) - Note Progress Note: alert eating lunch NAD Vital Signs Period Temp Pulse Resp BP Sys/[place] Pulse Ox Last 24 Hr 94.1 F 70-77 20-20 123-142/59-76 98 cor-rrr lungs decreased bs at bases abd soft,nt ext +edema, +erythema unchanged echo moderate pulmonary HTN chest ct- cardiomegaly, effusions, congestion head ct -bilateral frontal encephalomelacia, +svp of digital shunts UA negative repeat cxray- bibasilar effusions Microbiology 07/03/16 16:30 Urine - Urine Clean Catch Urine Culture - Final 07/02/16 07:10 Blood - Peripheral Venous Blood Culture - Preliminary NO GROWTH OBTAINED AFTER 96 HOURS, INCUBATION TO CONTINUE FOR 1 DAYS. 07/02/16 07:20 Blood - Peripheral Venous Blood Culture - Preliminary NO GROWTH OBTAINED AFTER 96 HOURS, INCUBATION TO CONTINUE FOR 1 DAYS. 06/27/16 15:00 Blood - Peripheral Venous Blood Culture - Final NO GROWTH AFTER 5 DAYS INCUBATION 06/27/16 15:00 Blood - Peripheral Venous Blood Culture - Final NO GROWTH AFTER 5 DAYS INCUBATION 06/27/16 10:28 Urine - Urine Clean Catch Urine Culture - Final NO GROWTH OBTAINED a/p hypercapnea chf persistent hypothermia-cultures are negative check cortisol level, thyroid studies, consider MRI of head agree with endocrine and neurology w/u-history of multiple surgeries in the past repeat blood cultures negative chronic venous stasis unchanged per patient abnl LFTS 20 pound weight gain since last admission in December suspect source of hypothermia is endocrine suggest neurology f/u day #4 ceftriaxone- will d/c no change in chronic lower extrmity erythema suspect venous stasis and edema (gets better when she is in bed) d/c ceftrixone please call back if needed
[2016-07-06 20:45] LABS: URINE APPEARANCE CLEAR; URINE BILIRUBIN NEGATIVE (NEGATIVE); URINE COLOR STRAW; URINE GLUCOSE (UA) 1+ (NEGATIVE); URINE KETONE NEGATIVE (NEGATIVE); URINE LEUK ESTERASE NEGATIVE (NEGATIVE); URINE NITRITE NEGATIVE (NEGATIVE); URINE UROBILINOGEN NEGATIVE E.U./dl (0.2-1.0)
[2016-07-06 20:47] LABS: URINE BLOOD 2+ (NEGATIVE); URINE PROTEIN 2+ (NEGATIVE)
[2016-07-06 20:49] LABS: URINE HYALINE CAST 1 /lpf; URINE MUCUS RARE; URINE RBC 1 /hpf (0-3); URINE WBC 2 /hpf (3-5)
[2016-07-06] MEDS: INSULIN DETEMIR 100 UNITS/ML MDV SQ SCH (23:01)
[2016-07-07 00:07] LABS: ALBUMIN 3.4 g/dL (2.9-4.4); ALPHA-1-GLOBULIN 0.3 g/dL (0.0-0.4); BETA GLOBULIN 1.5 g/dL (0.7-1.3); GAMMA GLOBULIN 1.1 g/dL (0.4-1.8); GLOBULIN, TOTAL 3.5 g/dL (2.2-3.9); HBeAG Negative (Negative); HEP B SURFACE AB Non Reactive (.); HEP BE AB Negative (Negative); M-SPIKE Not Observed g/dL (Not Observed); TOTAL PROTEIN 6.9 g/dL (6.0-8.5)
[2016-07-07] MEDS: LEVOTHYROXINE NA 125 MCG TABLET (FP) PO SCH (06:26)
[2016-07-07] MEDS: INSULIN SLIDING SCALE (NOVOLOG) 1 VIAL SQ SCH ×4 (06:27→21:16)
[2016-07-07] MEDS: FUROSEMIDE 40 MG/4 ML INJECTABLE VIAL IVPUSH SCH (06:27)
[2016-07-07 07:39] LABS: BASOPHIL 1.1 % (0-2.0); EOSINOPHIL 5.6 % (0-4.5); MCHC 32.9 g/dl (32.0-36.0); MEAN CELL VOLUME 91.3 fl (80-96); NEUTROPHILS 57.1 % (42.8-82.8); PLATELET COUNT 130 K/MM3 (134-434); RDW 13.9 % (11.6-15.6); WHITE BLOOD COUNT 4.6 K/mm3 (4.0-10.0)
[2016-07-07 08:07] LABS: ALBUMIN 3.2 g/dl (3.4-5.0); CALCIUM 9.2 mg/dL (8.5-10.1); MAGNESIUM 2.6 mg/dL (1.8-2.4); PHOSPHOROUS 4.7 mg/dL (2.5-4.9)
[2016-07-07 08:10] LABS: BILIRUBIN,TOTAL 0.2 mg/dL (0.2-1.0); COCKROFT - GAULT 55.743; CREATININE 1.8 mg/dL (0.55-1.02); TOT PROT 6.8 g/dl (6.4-8.2)
[2016-07-07] MEDS: PANTOPRAZOLE 20 MG TABLET (FP) PO SCH (10:07)
[2016-07-07] MEDS: ASPIRIN COATED 81 MG TABLET.EC PO SCH (10:07)
[2016-07-07] MEDS: HEPARIN NA (PORCINE) 5,000 UNITS/ML 1ML VIAL SQ SCH (10:07)
[2016-07-07] MEDS: hydrALAZINE HCL 25 MG TABLET (FP) PO SCH ×2 (10:07→21:25)
[2016-07-07] MEDS: LIOTHYRONINE SODIUM 25 MCG TABLET PO SCH (10:08)
[2016-07-07] MEDS: BACITRACIN 15 GM TUBE TOPICAL OINTMENT TP SCH ×2 (10:09→21:25)
--- NOTE | 2016-07-07 11:07 | PN ---
Progress Note, Physician Chief Complaint: patient does not want to go to rehab or NH wants to go home will have Dr cano and dr do see patient again today regarding hyothermia to clear for discharge - Current Medication List Current Medications: Active Medications Aspirin (Ecotrin -) 162 mg PO DAILY [facility] Last Admin: 07/07/16 10:07 Dose: 162 mg Bacitracin (Bacitracin -) 1 applic TP BID [facility] Last Admin: 07/07/16 10:09 Dose: 1 applic Furosemide (Lasix Injection -) 40 mg IVPUSH BID@0600,1400 [facility] Last Admin: 07/07/16 06:27 Dose: 40 mg Hydralazine HCl (Apresoline -) 25 mg PO BID [facility] Last Admin: 07/07/16 10:07 Dose: 25 mg Insulin Aspart (Novolog Vial Sliding Scale -) 1 vial SQ ACHS [facility] PRN Reason: Protocol Last Admin: 07/07/16 06:27 Dose: Not Given Insulin Detemir (Levemir Vial) 50 units SQ HS [facility] Last Admin: 07/06/16 23:01 Dose: 50 units Levothyroxine Sodium (Synthroid -) 125 mcg PO DAILY@0700 [facility] Last Admin: 07/07/16 06:26 Dose: 125 mcg Liothyronine Sodium (Cytomel -) 25 mcg PO DAILY [facility] Last Admin: 07/07/16 10:08 Dose: 25 mcg Pantoprazole Sodium (Protonix -) 20 mg PO DAILY [facility] Last Admin: 07/07/16 10:07 Dose: 20 mg - Objective Vital Signs: Vital Signs Temperature 93.9 F L 07/07/16 02:00 Pulse Rate 80 07/07/16 06:00 Respiratory Rate 20 07/07/16 06:00 Blood Pressure 148/76 07/07/16 06:00 O2 Sat by Pulse Oximetry (%) 98 07/06/16 21:30 Constitutional: Yes: Calm Neck: Yes: Trachea Midline Cardiovascular: Yes: Regular Rate and Rhythm, S1, S2 Respiratory: Yes: CTA Bilaterally Gastrointestinal: Yes: Normal Bowel Sounds, Soft Extremities: Yes: Erythema, Other (chronic venous stasis changes) Edema: Yes Neurological: Yes: Alert, Oriented Labs: CBC, BMP 07/07/16 06:30 07/07/16 06:30 INR, PTT INR 0.94 (0.82-1.09) 06/26/16 18:45 Problem List - Problems (1) Hypothermia Assessment/Plan: abx stopped will have dr do and dr cano follow up today regarding hypothermia most [facility] [place] with neuro and endo then ye dc home on cytomel MRI of brain done negative no lesion noted no mass in sella turcia Code(s): T68.XXXA - HYPOTHERMIA, INITIAL ENCOUNTER (2) CHF (congestive heart failure) Assessment/Plan: iv lasix will change to po lasix 40mg po bid hydralazine Code(s): I50.9 - HEART FAILURE, UNSPECIFIED (3) Hyperkalemia Assessment/Plan: improved today off aldactone Code(s): E87.5 - HYPERKALEMIA (4) Hypothyroid Assessment/Plan: syntroid Code(s): E03.9 - HYPOTHYROIDISM, UNSPECIFIED (5) Elevated liver enzymes Assessment/Plan: abdominal MRI done report pending Code(s): R74.8 - ABNORMAL LEVELS OF OTHER SERUM ENZYMES (6) Cellulitis Assessment/Plan: iv abx stopped Code(s): L03.90 - CELLULITIS, UNSPECIFIED Qualifiers: Site of cellulitis: unspecified site Qualified Code(s): L03.90 - Cellulitis, unspecified Assessment/Plan endo and neuro follow up- once cleared by them then dc home lasix 40mg bid cytomel sytnhroid
--- NOTE | 2016-07-07 11:09 | DS ---
Physical Examination Vital Signs: Vital Signs Temperature 93.9 F L 07/07/16 02:00 Pulse Rate 80 07/07/16 06:00 Respiratory Rate 20 07/07/16 06:00 Blood Pressure 148/76 07/07/16 06:00 O2 Sat by Pulse Oximetry (%) 98 07/06/16 21:30 Constitutional: Yes: Calm Neck: Yes: Trachea Midline Cardiovascular: Yes: Regular Rate and Rhythm, S1, S2 Respiratory: Yes: CTA Bilaterally Gastrointestinal: Yes: Normal Bowel Sounds, Soft Extremities: Yes: Erythema, Other (chronic venous stasis changes) Edema: Yes Neurological: Yes: Alert, Oriented Labs: CBC, BMP 07/07/16 06:30 07/07/16 06:30 Discharge Summary Reason For Visit: WEAKNESS, HYPERKALEMIA ,RENAL INSUFFICIENCY Current Active Problems Blood bacterial culture positive (Acute) CHF (congestive heart failure) (Acute) CHF exacerbation (Acute) Cellulitis and abscess of leg (Acute) Chest pain (Acute) Elevated liver enzymes (Acute) Hyperkalemia (Acute) Hyperlipidemia associated with type 2 diabetes mellitus (Acute) Hypothermia (Acute) Leukopenia (Acute) Near syncope (Acute) Rash (Acute) Renal insufficiency (Acute) Syncope (Acute) Urticaria (Acute) Weakness (Acute) Hospital Course: 66 year old female, with a significant past medical history of NIDDM, hypertension, hyperlipidemia, hypothyroidism, and benign brain tumors(X6), who presents to the emergency department complaining of chest pain and weakness for 1 day. The patient reports experiencing non radiating chest pain and associated weakness yesterday, which improved during the evening. She denies any associated shortness of breath, diaphoresis, or palpitations. Today, the patient reports feeling generally weak when she woke up. She states she had a difficult time getting ready and had to put in a lot of effort in order to bring herself by bus to the ED. The patient report similar chest pain in the April, which lasted 3 days, but resolved on its own. The patient denies ever having a stress test. The patient denies any fever, chills, cough, headache, or dizziness. T Pt also c/o sob currently on bipap during the hospital admission had hyperkalemia stop aldactone iv lasix for leg sweeling started on inv bax for leg cellulitis then found to be hypothermic most likely central origin- cytomel started not septic is awake and alert hypothyroid on synthroid Condition: Guarded - Instructions Referrals: Zoraida Harvey MD [Staff Physician] - 1 Week Disposition: VNS/HOME HEALTH CARE - Home Medications Comprehensive Discharge Medication List: Ambulatory Orders Gabapentin 100 mg PO BID 04/11/15 Omeprazole 20 mg PO DAILY #30 capsule. 09/09/15 Levothyroxine [Synthroid -] 125 mcg PO BID 10/20/15 Potassium Chloride [Klor-Con] 20 meq PO DAILY 10/20/15 Insulin (Novolog) [Novolog -] 10 units SQ BID 12/04/15 Insulin Glargine,Hum.rec.anlog [Lantus (nf)] 50 units SQ BID 12/04/15 Furosemide [Lasix -] 40 mg PO DAILY #30 tablet 12/06/15 Hydralazine HCl [Apresoline -] 25 mg PO BID #30 tablet 12/06/15 Simvastatin [Zocor -] 40 mg PO HS 06/26/16
--- NOTE | 2016-07-07 11:39 | PN ---
Progress Note, Physician Chief Complaint: No chest pain or sob today History of Present Illness: This is a 66 year old woman with a history of NIDDM, hypertension, hyperlipidemia, hypothyroidism, and benign brain tumors(X6), who presents to the emergency department complaining of chest pain and weakness for 2 days, edema and orthopnea with sob. Found with unremarkable ECG but noted with fluid overload, worsening renal function and weakness. No palps dizziness or syncope. Exercise tolerance at baseline is poor. Echo with normal LVEF, mild MR, and mod elevated pulmonary pressures - Current Medication List Current Medications: Active Medications Aspirin (Ecotrin -) 162 mg PO DAILY [facility] Last Admin: 07/07/16 10:07 Dose: 162 mg Bacitracin (Bacitracin -) 1 applic TP BID [facility] Last Admin: 07/07/16 10:09 Dose: 1 applic Furosemide (Lasix -) 40 mg PO BID@0600,1400 [facility] Hydralazine HCl (Apresoline -) 25 mg PO BID [facility] Last Admin: 07/07/16 10:07 Dose: 25 mg Insulin Aspart (Novolog Vial Sliding Scale -) 1 vial SQ [facility] PRN Reason: Protocol Last Admin: 07/07/16 06:27 Dose: Not Given Insulin Detemir (Levemir Vial) 50 units SQ HS [facility] Last Admin: 07/06/16 23:01 Dose: 50 units Levothyroxine Sodium (Synthroid -) 125 mcg PO DAILY@0700 [facility] Last Admin: 07/07/16 06:26 Dose: 125 mcg Liothyronine Sodium (Cytomel -) 25 mcg PO DAILY [facility] Last Admin: 07/07/16 10:08 Dose: 25 mcg Pantoprazole Sodium (Protonix -) 20 mg PO DAILY [facility] Last Admin: 07/07/16 10:07 Dose: 20 mg - Objective Vital Signs: Vital Signs Temperature 93.9 F L 07/07/16 02:00 Pulse Rate 80 07/07/16 06:00 Respiratory Rate 20 07/07/16 06:00 Blood Pressure 148/76 07/07/16 06:00 O2 Sat by Pulse Oximetry (%) 98 07/06/16 21:30 Constitutional: Yes: No Distress Neck: Yes: Supple Cardiovascular: Yes: Regular Rate and Rhythm. No: JVD, Murmur Respiratory: Yes: CTA Bilaterally Extremities: Yes: Erythema (b/l LE with pustules) Edema: LLE: 1+, RLE: 1+ Labs: CBC, BMP 07/07/16 06:30 07/07/16 06:30 INR, PTT INR 0.94 (0.82-1.09) 06/26/16 18:45 Problem List - Problems (1) CHF (congestive heart failure) Code(s): I50.9 - HEART FAILURE, UNSPECIFIED (2) Chest pain Code(s): R07.9 - CHEST PAIN, UNSPECIFIED Qualifiers: Qualified Code(s): R07.2 - Precordial pain (3) HTN (hypertension) Code(s): I10 - ESSENTIAL (PRIMARY) HYPERTENSION Qualifiers: Qualified Code(s): I10 - Essential (primary) hypertension Assessment/Plan Assessment/Plan - Problems (1) Chest pain Assessment/Plan: Her chest pain was atypical for angina pectoris, ECG and Wilfrido negative. However , she has multiple risk factors for CAD. Given atypical nature of symptoms and renal issues would plan for outpatient ischemia work up. (2) HTN (hypertension) Assessment/Plan: Controlled on current medications. (3) CHF exacerbation Assessment/Plan: Acute on chronic diastolic CHF with likely degree of venous insufficiency Continue Lasix 40 mg IVSS BID Daily I's/O's/Wt's/Lytes Check bnp Monitor K closely. Holding spironolactone and marisol/arb given hyperkalemia. Trending lfts and w/u as per primary team Pending results of MRI abdomen
--- NOTE | 2016-07-07 11:42 | PN ---
Progress Note (short form) - Note Progress Note: hypothermia persistant low t3 and persistant hypothermia,diabetic neuropathy, with hypothyroidism Current Active Problems Blood bacterial culture positive (Acute) CHF (congestive heart failure) (Acute) CHF exacerbation (Acute) Cellulitis and abscess of leg (Acute) Chest pain (Acute) Elevated liver enzymes (Acute) Hyperkalemia (Acute) Hyperlipidemia associated with type 2 diabetes mellitus (Acute) Hypothermia (Acute) Leukopenia (Acute) Near syncope (Acute) Rash (Acute) Renal insufficiency (Acute) Syncope (Acute) Urticaria (Acute) Weakness (Acute) Abnormal Lab Results 07/03/16 07/06/16 07/06/16 06:22 20:33 20:33 RBC Hgb Hct Plt Count Monocytes % Eosinophils % Potassium Chloride BUN Creatinine Random Glucose Magnesium AST ALT Alkaline Phosphatase Albumin Beta Globulins 1.5 H Urine Protein 2+ H Urine Glucose (UA) 1+ H Urine Blood 2+ H U Random Total Protein 85 H IgA 466 H 07/07/16 07/07/16 06:30 06:30 RBC 3.31 L Hgb 10.0 L Hct 30.2 L Plt Count 130 L Monocytes % 13.7 H Eosinophils % 5.6 H D Potassium 5.5 H Chloride 111 H BUN 75 H Creatinine 1.8 H Random Glucose 121 H Magnesium 2.6 H AST 78 H ALT 162 H Alkaline Phosphatase 269 H Albumin 3.2 L Beta Globulins Urine Protein Urine Glucose (UA) Urine Blood U Random Total Protein IgA Laboratory Results - last 24 hr 07/03/16 07/03/16 07/06/16 06:22 06:22 13:08 WBC RBC Hgb Hct MCV MCHC RDW Plt Count MPV Neutrophils % Lymphocytes % Monocytes % Eosinophils % Basophils % Sodium Potassium Chloride Carbon Dioxide Anion Gap BUN Creatinine Creat Clearance w eGFR POC Glucometer 246 Random Glucose Calcium Phosphorus Magnesium Total Bilirubin AST ALT Alkaline Phosphatase Serum Total Protein 6.9 Total Protein Albumin 3.4 Globulin Cancelled Albumin/Globulin Ratio Cancelled Jgywb-1-Dkjsxybkj 0.3 Syyhw-1-Zyhdsdfvg 0.6 Beta Globulins 1.5 H Gamma Globulins 1.1 Free T4 Urine Color Urine Appearance Urine pH Ur Specific [place] Urine Protein Urine Glucose (UA) Urine Ketones Urine Blood Urine Nitrite Urine Bilirubin Urine Urobilinogen Ur Leukocyte Esterase Urine RBC Urine WBC Ur Epithelial Cells Hyaline Casts Urine Mucus U Random Total Protein Ur Random Urea Nitrogn Urine Creatinine IgG 1139 IgA 466 H IgM 64 [place] M-Deny Not observed [place] Comments Serum [place] Interpret Hep Bs Antigen Negative Hep Bs Ab Concentration Non reactive Hep B Core Total Ab Negative Hep B Core IgM Ab Negative Hepatitis Be Antibody Negative Hepatitis Be Antigen Negative 07/06/16 07/06/16 07/06/16 18:09 20:00 20:33 WBC RBC Hgb Hct MCV MCHC RDW Plt Count MPV Neutrophils % Lymphocytes % Monocytes % Eosinophils % Basophils % Sodium Potassium Chloride Carbon Dioxide Anion Gap BUN Creatinine Creat Clearance w eGFR POC Glucometer 225 Random Glucose Calcium Phosphorus Magnesium Total Bilirubin AST ALT Alkaline Phosphatase Serum Total Protein Total Protein Albumin Globulin Albumin/Globulin Ratio Nljil-4-Rmnngpcdk Ybfwu-7-Akulbjabr Beta Globulins Gamma Globulins Free T4 Urine Color Straw Urine Appearance Clear Urine pH 5.0 Ur Specific [place] 1.008 Urine Protein 2+ H Urine Glucose (UA) 1+ H Urine Ketones Negative Urine Blood 2+ H Urine Nitrite Negative Urine Bilirubin Negative Urine Urobilinogen Negative Ur Leukocyte Esterase Negative Urine RBC 1 Urine WBC 2 Ur Epithelial Cells Rare Hyaline Casts 1 Urine Mucus Rare U Random Total Protein Ur Random Urea Nitrogn 320 Urine Creatinine IgG IgA IgM [place] M-Deny [place] Comments Serum [place] Interpret Hep Bs Antigen Hep Bs Ab Concentration Hep B Core Total Ab Hep B Core IgM Ab Hepatitis Be Antibody Hepatitis Be Antigen 07/06/16 07/06/16 07/06/16 20:33 20:33 21:02 WBC RBC Hgb Hct MCV MCHC RDW Plt Count MPV Neutrophils % Lymphocytes % Monocytes % Eosinophils % Basophils % Sodium Potassium Chloride Carbon Dioxide Anion Gap BUN Creatinine Creat Clearance w eGFR POC Glucometer 243 Random Glucose Calcium Phosphorus Magnesium Total Bilirubin AST ALT Alkaline Phosphatase Serum Total Protein Total Protein Albumin Globulin Albumin/Globulin Ratio Wiysu-9-Jdlbjqaag Gmkwd-5-Eqkjzxtpo Beta Globulins Gamma Globulins Free T4 Urine Color Urine Appearance Urine pH Ur Specific [place] Urine Protein Urine Glucose (UA) Urine Ketones Urine Blood Urine Nitrite Urine Bilirubin Urine Urobilinogen Ur Leukocyte Esterase Urine RBC Urine WBC Ur Epithelial Cells Hyaline Casts Urine Mucus U Random Total Protein 85 H Ur Random Urea Nitrogn Urine Creatinine 17.0 IgG IgA IgM [place] M-Deny [place] Comments Serum [place] Interpret Hep Bs Antigen Hep Bs Ab Concentration Hep B Core Total Ab Hep B Core IgM Ab Hepatitis Be Antibody Hepatitis Be Antigen 07/07/16 07/07/16 07/07/16 06:23 06:30 06:30 WBC 4.6 RBC 3.31 L Hgb 10.0 L Hct 30.2 L MCV 91.3 MCHC 32.9 RDW 13.9 Plt Count 130 L MPV 10.0 Neutrophils % 57.1 Lymphocytes % 22.5 D Monocytes % 13.7 H Eosinophils % 5.6 H D Basophils % 1.1 Sodium 143 Potassium 5.5 H Chloride 111 H Carbon Dioxide 24 Anion Gap 8 BUN 75 H Creatinine 1.8 H Creat Clearance w eGFR 27.98 POC Glucometer 128 Random Glucose 121 H Calcium 9.2 Phosphorus 4.7 Magnesium 2.6 H Total Bilirubin 0.2 AST 78 H ALT 162 H Alkaline Phosphatase 269 H Serum Total Protein Total Protein 6.8 Albumin 3.2 L Globulin Albumin/Globulin Ratio Bdbae-9-Agervcjgk Eoqcp-1-Gekbzfoda Beta Globulins Gamma Globulins Free T4 Urine Color Urine Appearance Urine pH Ur Specific [place] Urine Protein Urine Glucose (UA) Urine Ketones Urine Blood Urine Nitrite Urine Bilirubin Urine Urobilinogen Ur Leukocyte Esterase Urine RBC Urine WBC Ur Epithelial Cells Hyaline Casts Urine Mucus U Random Total Protein Ur Random Urea Nitrogn Urine Creatinine IgG IgA IgM [place] M-Deny [place] Comments Serum [place] Interpret Hep Bs Antigen Hep Bs Ab Concentration Hep B Core Total Ab Hep B Core IgM Ab Hepatitis Be Antibody Hepatitis Be Antigen 07/07/16 06:30 WBC RBC Hgb Hct MCV MCHC RDW Plt Count MPV Neutrophils % Lymphocytes % Monocytes % Eosinophils % Basophils % Sodium Potassium Chloride Carbon Dioxide Anion Gap BUN Creatinine Creat Clearance w eGFR POC Glucometer Random Glucose Calcium Phosphorus Magnesium Total Bilirubin AST ALT Alkaline Phosphatase Serum Total Protein Total Protein Albumin Globulin Albumin/Globulin Ratio Qdrjp-0-Zwkqsryrs Wqvkp-6-Hfarkhqlu Beta Globulins Gamma Globulins Free T4 0.91 D Urine Color Urine Appearance Urine pH Ur Specific [place] Urine Protein Urine Glucose (UA) Urine Ketones Urine Blood Urine Nitrite Urine Bilirubin Urine Urobilinogen Ur Leukocyte Esterase Urine RBC Urine WBC Ur Epithelial Cells Hyaline Casts Urine Mucus U Random Total Protein Ur Random Urea Nitrogn Urine Creatinine IgG IgA IgM [place] M-Deny [place] Comments Serum [place] Interpret Hep Bs Antigen Hep Bs Ab Concentration Hep B Core Total Ab Hep B Core IgM Ab Hepatitis Be Antibody Hepatitis Be Antigen plan: start gabapentum 100mg bid titrate for diabetic neuropaty continue synthroid/cytomel combination \recheck tsh and free t4 [id number] Problem List - Problems (1) Blood bacterial culture positive Code(s): R78.81 - BACTEREMIA (2) CHF exacerbation Code(s): I50.9 - HEART FAILURE, UNSPECIFIED Qualifiers: Congestive heart failure type: diastolic Qualified Code(s): I50.33 - Acute on chronic diastolic (congestive) heart failure (3) Hyperlipidemia associated with type 2 diabetes mellitus Code(s): E11.69 - TYPE 2 DIABETES MELLITUS WITH OTHER SPECIFIED COMPLICATION E78.5 - HYPERLIPIDEMIA, UNSPECIFIED
--- NOTE | 2016-07-07 11:48 | PN ---
Progress Note (short form) - Note Progress Note: Renal Follow up for BHUPINDER on CKD and Hyperkalemia Pt seen and examined at the bedside no complaints denies any sob, chest pain or abd pain good urine output Vital Signs Temperature 93.9 F L 07/07/16 02:00 Pulse Rate 80 07/07/16 06:00 Respiratory Rate 20 07/07/16 06:00 Blood Pressure 148/76 07/07/16 06:00 O2 Sat by Pulse Oximetry (%) 98 07/06/16 21:30 Intake & Output 07/04/16 07/05/16 07/06/16 07/07/16 23:59 23:59 23:59 23:59 Intake Total 130 371 2824 300 Balance 030 017 5592 300 Weight 233 lb 6.4 oz 262 lb 6 oz 255 lb 12.8 oz 260 lb 4 oz Gen: NAD, awake and alert on NC CVS: RRR, No M/R Lungs: Dec BS at lung bases (anterior exam) Abd: Obese NT/ND Ext: 2+ edema, + erythemia, no warmth CBC, BMP 07/07/16 06:30 07/07/16 06:30 Laboratory Tests 07/06/16 07/06/16 07/06/16 20:00 20:33 20:33 Calcium Phosphorus Magnesium Albumin Urine Protein 2+ H Urine Glucose (UA) 1+ H Urine Blood 2+ H U Random Total Protein Ur Random Urea Nitrogn 320 Urine Creatinine 17.0 07/06/16 07/07/16 20:33 06:30 Calcium 9.2 Phosphorus 4.7 Magnesium 2.6 H Albumin 3.2 L Urine Protein Urine Glucose (UA) Urine Blood U Random Total Protein 85 H Ur Random Urea Nitrogn Urine Creatinine Current Medications Aspirin (Ecotrin -) 162 mg PO DAILY [facility] Last Admin: 07/07/16 10:07 Dose: 162 mg Bacitracin (Bacitracin -) 1 applic TP BID [facility] Last Admin: 07/07/16 10:09 Dose: 1 applic Furosemide (Lasix -) 40 mg PO BID@0600,1400 [facility] Hydralazine HCl (Apresoline -) 25 mg PO BID [facility] Last Admin: 07/07/16 10:07 Dose: 25 mg Insulin Aspart (Novolog Vial Sliding Scale -) 1 vial SQ ACHS [facility] PRN Reason: Protocol Last Admin: 07/07/16 06:27 Dose: Not Given Insulin Detemir (Levemir Vial) 50 units SQ HS [facility] Last Admin: 07/06/16 23:01 Dose: 50 units Levothyroxine Sodium (Synthroid -) 125 mcg PO DAILY@0700 [facility] Last Admin: 07/07/16 06:26 Dose: 125 mcg Liothyronine Sodium (Cytomel -) 25 mcg PO DAILY [facility] Last Admin: 07/07/16 10:08 Dose: 25 mcg Pantoprazole Sodium (Protonix -) 20 mg PO DAILY [facility] Last Admin: 07/07/16 10:07 Dose: 20 mg a/P 66 year old woman with PMhx of [place] Brain Tumors, NIDDM, Hypertension, Hypothyrodism who presented to the ED with complaints of chest pain and SOB with elevated Serum Cr and persistent hyperkalemia. #Acute on Chronic Renal Inuffiency (CKD 3) Renal function essentially stable no ARB/GADIEL, Aldactone today because of hyperkalemia Trend BUN/Cr Dose all meds for Cr Cl les then 50 #Hyperkalemia improve today continue to hold aldactone low k diet #Edema/CHF Continue Lasix 40mg IV BID as per Cardiology Thank you Vladimir Mitchell DO
[2016-07-07] MEDS ORDERED: FUROSEMIDE 40 MG TABLET (FP) PO SCH (14:00)
--- NOTE | 2016-07-07 14:14 | PN ---
Progress Note (short form) - Note Progress Note: cardiology wants iv lasix 40mg bid hypothermia with diabetic neurpthy start neurontin uptitrate as needed on cytomel recheck labs appreicate endo FU neuro t o see patient patient not ready for discharge,still on iv lasix when ready she will go home Problem List - Problems (1) Hypothermia Code(s): T68.XXXA - HYPOTHERMIA, INITIAL ENCOUNTER (2) CHF (congestive heart failure) Code(s): I50.9 - HEART FAILURE, UNSPECIFIED (3) Hyperkalemia Code(s): E87.5 - HYPERKALEMIA (4) Hypothyroid Code(s): E03.9 - HYPOTHYROIDISM, UNSPECIFIED (5) Elevated liver enzymes Code(s): R74.8 - ABNORMAL LEVELS OF OTHER SERUM ENZYMES (6) Cellulitis Code(s): L03.90 - CELLULITIS, UNSPECIFIED Qualifiers: Site of cellulitis: unspecified site Qualified Code(s): L03.90 - Cellulitis, unspecified
--- NOTE | 2016-07-07 14:40 | PN ---
Progress Note, Physician History of Present Illness: pulmonary alert,nad,-sob,sitting up in bed - Current Medication List Current Medications: Active Medications Aspirin (Ecotrin -) 162 mg PO DAILY [facility] Last Admin: 07/07/16 10:07 Dose: 162 mg Bacitracin (Bacitracin -) 1 applic TP BID [facility] Last Admin: 07/07/16 10:09 Dose: 1 applic Furosemide (Lasix Injection -) 40 mg IVPB BID@0600,1400 [facility] Hydralazine HCl (Apresoline -) 25 mg PO BID [facility] Last Admin: 07/07/16 10:07 Dose: 25 mg Insulin Aspart (Novolog Vial Sliding Scale -) 1 vial SQ ACHS [facility] PRN Reason: Protocol Last Admin: 07/07/16 11:47 Dose: Not Given Insulin Detemir (Levemir Vial) 50 units SQ HS [facility] Last Admin: 07/06/16 23:01 Dose: 50 units Levothyroxine Sodium (Synthroid -) 125 mcg PO DAILY@0700 [facility] Last Admin: 07/07/16 06:26 Dose: 125 mcg Liothyronine Sodium (Cytomel -) 25 mcg PO DAILY [facility] Last Admin: 07/07/16 10:08 Dose: 25 mcg Pantoprazole Sodium (Protonix -) 20 mg PO DAILY [facility] Last Admin: 07/07/16 10:07 Dose: 20 mg - Objective Vital Signs: Vital Signs Temperature 97.8 F 07/07/16 10:00 Pulse Rate 79 07/07/16 10:00 Respiratory Rate 20 07/07/16 10:00 Blood Pressure 132/62 07/07/16 10:00 O2 Sat by Pulse Oximetry (%) 98 07/07/16 10:00 Constitutional: Yes: Well Nourished, Calm Eyes: Yes: WNL HENT: Yes: WNL Neck: Yes: WNL Cardiovascular: Yes: Regular Rate and Rhythm, S1, S2 Respiratory: Yes: Diminished Gastrointestinal: Yes: WNL Extremities: Yes: WNL Edema: Yes Labs: CBC, BMP 07/07/16 06:30 07/07/16 06:30 INR, PTT INR 0.94 (0.82-1.09) 06/26/16 18:45 Assessment/Plan A/P Acute hypercapneic respiratory failure improved Acute on Chronic CHF Pleural Effusion Chest Pain Hyperkalemia Elevated LFTs CKD HTN DM HYPOTHERMIA Hyperkalemia - bipap prn - lasix - monitor urine output, creatinine - daily weights, I/Os - trend LFTs - O2 to keep SpO2 >90% - BiPAP PRN - monitor lytes - DVT prophylaxis DR PATEL Problem List - Problems (1) CHF exacerbation Code(s): I50.9 - HEART FAILURE, UNSPECIFIED Qualifiers: Qualified Code(s): I50.33 - Acute on chronic diastolic (congestive) heart failure (2) Chest pain Code(s): R07.9 - CHEST PAIN, UNSPECIFIED Qualifiers: Qualified Code(s): R07.2 - Precordial pain (3) Elevated liver enzymes Code(s): R74.8 - ABNORMAL LEVELS OF OTHER SERUM ENZYMES (4) Hyperkalemia Code(s): E87.5 - HYPERKALEMIA (5) Diabetes mellitus, insulin dependent (IDDM), uncontrolled Code(s): E10.65 - TYPE 1 DIABETES MELLITUS WITH HYPERGLYCEMIA Qualifiers: Qualified Code(s): 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
[2016-07-07] MEDS ORDERED: PT OWN MED DRAWER 7, Y5N ONE ×2 (17:45→21:21)
[2016-07-07] MEDS: INSULIN DETEMIR 100 UNITS/ML MDV SQ SCH (21:17)
[2016-07-08] MEDS: INSULIN SLIDING SCALE (NOVOLOG) 1 VIAL SQ SCH ×4 (05:59→21:09)
[2016-07-08] MEDS: FUROSEMIDE 40 MG/4 ML INJECTABLE VIAL IVPB SCH ×2 (06:35→15:09)
[2016-07-08] MEDS: LEVOTHYROXINE NA 125 MCG TABLET (FP) PO SCH (06:35)
[2016-07-08 08:16] LABS: ANION GAP 9 (8-16); CALCIUM 9.5 mg/dL (8.5-10.1); CO2 25 mmol/L (21-32); COCKROFT - GAULT 58.9645; CREATININE 1.7 mg/dL (0.55-1.02); GLUCOSE,RANDOM 61 mg/dL (74-106); MAGNESIUM 2.8 mg/dL (1.8-2.4); PHOSPHOROUS 4.6 mg/dL (2.5-4.9)
--- NOTE | 2016-07-08 09:13 | PN ---
Progress Note, Physician History of Present Illness: SITTING UP EATING FEELS BETTER DENIES ANY CP THIS AM - Current Medication List Current Medications: Active Medications Aspirin (Ecotrin -) 162 mg PO DAILY [facility] Last Admin: 07/07/16 10:07 Dose: 162 mg Bacitracin (Bacitracin -) 1 applic TP BID [facility] Last Admin: 07/07/16 21:25 Dose: 1 applic Furosemide (Lasix Injection -) 40 mg IVPB BID@0600,1400 [facility] Last Admin: 07/08/16 06:35 Dose: 40 mg Hydralazine HCl (Apresoline -) 25 mg PO BID [facility] Last Admin: 07/07/16 21:25 Dose: 25 mg Insulin Aspart (Novolog Vial Sliding Scale -) 1 vial SQ [facility] PRN Reason: Protocol Last Admin: 07/08/16 05:59 Dose: Not Given Insulin Detemir (Levemir Vial) 50 units SQ HS [facility] Last Admin: 07/07/16 21:17 Dose: 50 units Levothyroxine Sodium (Synthroid -) 125 mcg PO DAILY@0700 [facility] Last Admin: 07/08/16 06:35 Dose: 125 mcg Liothyronine Sodium (Cytomel -) 25 mcg PO DAILY [facility] Last Admin: 07/07/16 10:08 Dose: 25 mcg Pantoprazole Sodium (Protonix -) 20 mg PO DAILY [facility] Last Admin: 07/07/16 10:07 Dose: 20 mg Sodium Polystyrene Sulfonate (Kayexalate -) 30 gm PO ONCE ONE Stop: 07/08/16 09:10 - Objective Vital Signs: Vital Signs Temperature 95.4 F L 07/07/16 18:00 Pulse Rate 87 07/08/16 06:00 Respiratory Rate 20 07/08/16 06:00 Blood Pressure 136/61 07/08/16 06:00 O2 Sat by Pulse Oximetry (%) 98 07/07/16 20:24 Cardiovascular: Yes: S1, S2 Respiratory: Yes: Rales (AT THE BASES) Gastrointestinal: Yes: Normal Bowel Sounds, Soft. No: Tenderness Extremities: Yes: Erythema Edema: Yes Neurological: Yes: Alert, Oriented Labs: CBC, BMP 07/07/16 06:30 07/08/16 05:35 INR, PTT INR 0.94 (0.82-1.09) 06/26/16 18:45 Problem List - Problems (1) Chest pain Code(s): R07.9 - CHEST PAIN, UNSPECIFIED Qualifiers: Chest pain type: precordial pain Qualified Code(s): R07.2 - Precordial pain (2) Elevated liver enzymes Assessment/Plan: IMPROVING--MAYBE CONGESTIVE CHANGES RPT PENDING MONITOR GI NOTED Code(s): R74.8 - ABNORMAL LEVELS OF OTHER SERUM ENZYMES (3) Hyperkalemia Assessment/Plan: HIGH--KAYEXALATE MONITOR Code(s): E87.5 - HYPERKALEMIA (4) Renal insufficiency Assessment/Plan: MONITOR ON DIURETICS Code(s): N28.9 - DISORDER OF KIDNEY AND URETER, UNSPECIFIED (5) Cellulitis Code(s): L03.90 - CELLULITIS, UNSPECIFIED Qualifiers: Site of cellulitis: unspecified site Qualified Code(s): L03.90 - Cellulitis, unspecified (6) Diabetes mellitus, insulin dependent (IDDM), uncontrolled Assessment/Plan: BGM INSULIN---levemir qd ENDO Code(s): E10.65 - TYPE 1 DIABETES MELLITUS WITH HYPERGLYCEMIA Qualifiers: Diabetes mellitus complication status: with skin complications Diabetes mellitus complication detail: with dermatitis Qualified Code(s): E10.620 - 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; E10.65 - Type 1 diabetes mellitus with hyperglycemia (7) Hypothermia Assessment/Plan: CULTURES NEGATIVE-- R/O HYPOTHALAMIC ETIOLOGY TSH NL OFF IV ABX OFF PER ID CT OF CHEST NOTED W FAILURE NEURO ON CASE CHECK CORTISOL LEVEL Code(s): T68.XXXA - HYPOTHERMIA, INITIAL ENCOUNTER (8) Weakness Code(s): R53.1 - WEAKNESS (9) CHF (congestive heart failure) Assessment/Plan: IV LASIX PER CARDIO MONITOR LYTES AND RENAL FUNCTION Code(s): I50.9 - HEART FAILURE, UNSPECIFIED (10) Leukopenia Code(s): D72.819 - DECREASED WHITE BLOOD CELL COUNT, UNSPECIFIED
[2016-07-08] MEDS: ASPIRIN COATED 81 MG TABLET.EC PO SCH (09:31)
[2016-07-08] MEDS: PANTOPRAZOLE 20 MG TABLET (FP) PO SCH (09:31)
[2016-07-08] MEDS: LIOTHYRONINE SODIUM 25 MCG TABLET PO SCH (09:32)
[2016-07-08] MEDS: hydrALAZINE HCL 25 MG TABLET (FP) PO SCH ×2 (09:32→21:05)
[2016-07-08] MEDS: BACITRACIN 15 GM TUBE TOPICAL OINTMENT TP SCH ×2 (09:33→21:05)
[2016-07-08] MEDS ORDERED: SODIUM POLYSTYRENE SULFONATE 15 GM/60 ML BOTTLE PO ONE ×2 (10:00→21:00)
[2016-07-08 10:56] LABS: C-REACTIVE PROTEIN 2.2 MG/DL (0.00-0.3)
[2016-07-08 11:12] LABS: ALBUMIN 3.1 g/dl (3.4-5.0); ALK PHOS 281 U/L (45-117); BILIRUBIN,TOTAL 0.2 mg/dL (0.2-1.0); SGOT/AST 81 U/L (15-37); SGPT/ALT 161 U/L (12-78); TOT PROT 6.6 g/dl (6.4-8.2)
[2016-07-08 11:21] LABS: BILIRUBIN,DIRECT < 0.1 mg/dL (0.0-0.2)
[2016-07-08] MEDS ORDERED: INSULIN (NOVOLOG) ASPART 100 UNITS/ML 10ML VIAL ONE ×2 (11:33→21:07)
--- NOTE | 2016-07-08 13:05 | PN ---
Progress Note (short form) - Note Progress Note: Renal Follow up for BHUPINDER on CKD and Hyperkalemia Pt seen and examined at the bedside no acute complaints no sob or chest pain pt reports eating tomatoes, potatoes and drinking orange juice yesterday Vital Signs Temperature 95.4 F L 07/07/16 18:00 Pulse Rate 80 07/08/16 10:00 Respiratory Rate 20 07/08/16 10:00 Blood Pressure 128/57 07/08/16 10:00 O2 Sat by Pulse Oximetry (%) 96 07/08/16 10:00 Intake & Output 07/05/16 07/06/16 07/07/16 07/08/16 23:59 23:59 23:59 23:59 Intake Total 600 1160 670 300 Balance 600 1160 670 300 Weight 262 lb 6 oz 255 lb 12.8 oz 260 lb 4 oz 260 lb Gen: NAD, awake and alert on NC CVS: RRR, No M/R Lungs: CTA Abd: Obese NT/ND Ext: 2+ edema, + erythemia, no warmth CBC, BMP 07/07/16 06:30 07/08/16 05:35 Current Medications Aspirin (Ecotrin -) 162 mg PO DAILY [facility] Last Admin: 07/08/16 09:31 Dose: 162 mg Bacitracin (Bacitracin -) 1 applic TP BID [facility] Last Admin: 07/08/16 09:33 Dose: 1 applic Furosemide (Lasix Injection -) 40 mg IVPB BID@0600,1400 [facility] Last Admin: 07/08/16 06:35 Dose: 40 mg Hydralazine HCl (Apresoline -) 25 mg PO BID [facility] Last Admin: 07/08/16 09:32 Dose: 25 mg Insulin Aspart (Novolog Vial Sliding Scale -) 1 vial SQ [facility] PRN Reason: Protocol Last Admin: 07/08/16 11:33 Dose: 2 units Insulin Detemir (Levemir Vial) 50 units SQ HS [facility] Last Admin: 07/07/16 21:17 Dose: 50 units Levothyroxine Sodium (Synthroid -) 125 mcg PO DAILY@0700 [facility] Last Admin: 07/08/16 06:35 Dose: 125 mcg Liothyronine Sodium (Cytomel -) 25 mcg PO DAILY [facility] Last Admin: 07/08/16 09:32 Dose: 25 mcg Pantoprazole Sodium (Protonix -) 20 mg PO DAILY [facility] Last Admin: 07/08/16 09:31 Dose: 20 mg a/P 66 year old woman with PMhx of [place] Brain Tumors, NIDDM, Hypertension, Hypothyrodism who presented to the ED with complaints of chest pain and SOB with elevated Serum Cr and persistent hyperkalemia. #Acute on Chronic Renal Insufficiency (CKD 3) Renal function remains stable at this time #Hyperkalemia in setting of CKD K high this am, likely result of high oral potassium ingestion Low K diet s/p Kayelxalte this am repeat K this evening #Edema/CHF Continue Lasix 40mg IV BID as per Cardiology Thank you Vladimir Mitchell DO
--- NOTE | 2016-07-08 13:49 | PN ---
Progress Note, Physician History of Present Illness: pulmonary alert,nad,-sob,ambulating. - Current Medication List Current Medications: Active Medications Aspirin (Ecotrin -) 162 mg PO DAILY [facility] Last Admin: 07/08/16 09:31 Dose: 162 mg Bacitracin (Bacitracin -) 1 applic TP BID [facility] Last Admin: 07/08/16 09:33 Dose: 1 applic Furosemide (Lasix Injection -) 40 mg IVPB BID@0600,1400 [facility] Last Admin: 07/08/16 06:35 Dose: 40 mg Hydralazine HCl (Apresoline -) 25 mg PO BID [facility] Last Admin: 07/08/16 09:32 Dose: 25 mg Insulin Aspart (Novolog Vial Sliding Scale -) 1 vial SQ [facility] PRN Reason: Protocol Last Admin: 07/08/16 11:33 Dose: 2 units Insulin Detemir (Levemir Vial) 50 units SQ HS [facility] Last Admin: 07/07/16 21:17 Dose: 50 units Levothyroxine Sodium (Synthroid -) 125 mcg PO DAILY@0700 [facility] Last Admin: 07/08/16 06:35 Dose: 125 mcg Liothyronine Sodium (Cytomel -) 25 mcg PO DAILY [facility] Last Admin: 07/08/16 09:32 Dose: 25 mcg Pantoprazole Sodium (Protonix -) 20 mg PO DAILY [facility] Last Admin: 07/08/16 09:31 Dose: 20 mg - Objective Vital Signs: Vital Signs Temperature 95.4 F L 07/07/16 18:00 Pulse Rate 80 07/08/16 10:00 Respiratory Rate 20 07/08/16 10:00 Blood Pressure 128/57 07/08/16 10:00 O2 Sat by Pulse Oximetry (%) 96 07/08/16 10:00 Constitutional: Yes: Well Nourished, Calm Eyes: Yes: WNL HENT: Yes: WNL Neck: Yes: WNL Cardiovascular: Yes: Regular Rate and Rhythm, S1, S2 Respiratory: Yes: Diminished Gastrointestinal: Yes: Normal Bowel Sounds, Soft Extremities: Yes: WNL Edema: Yes Labs: CBC, BMP 07/07/16 06:30 07/08/16 05:35 INR, PTT INR 0.94 (0.82-1.09) 06/26/16 18:45 Assessment/Plan A/P Acute hypercapneic respiratory failure improved Acute on Chronic CHF Pleural Effusion Chest Pain Hyperkalemia Elevated LFTs CKD HTN DM HYPOTHERMIA Hyperkalemia - bipap prn - lasix - monitor urine output, creatinine - daily weights, I/Os - O2 to keep SpO2 >90% - BiPAP PRN - monitor lytes - DVT prophylaxis DR PATEL Problem List - Problems (1) CHF exacerbation Code(s): I50.9 - HEART FAILURE, UNSPECIFIED Qualifiers: Qualified Code(s): I50.33 - Acute on chronic diastolic (congestive) heart failure (2) Chest pain Code(s): R07.9 - CHEST PAIN, UNSPECIFIED Qualifiers: Qualified Code(s): R07.2 - Precordial pain (3) Elevated liver enzymes Code(s): R74.8 - ABNORMAL LEVELS OF OTHER SERUM ENZYMES (4) Hyperkalemia Code(s): E87.5 - HYPERKALEMIA (5) Diabetes mellitus, insulin dependent (IDDM), uncontrolled Code(s): E10.65 - TYPE 1 DIABETES MELLITUS WITH HYPERGLYCEMIA Qualifiers: Qualified Code(s): 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
--- NOTE | 2016-07-08 14:35 | PN ---
Progress Note, Physician Chief Complaint: No complaints today Volume overloaded History of Present Illness: This is a 66 year old woman with a history of NIDDM, hypertension, hyperlipidemia, hypothyroidism, and benign brain tumors(X6), who presents to the emergency department complaining of chest pain and weakness for 2 days, edema and orthopnea with sob. Found with unremarkable ECG but noted with fluid overload, worsening renal function and weakness. No palps dizziness or syncope. Exercise tolerance at baseline is poor. Echo with normal LVEF, mild MR, and mod elevated pulmonary pressures - Current Medication List Current Medications: Active Medications Aspirin (Ecotrin -) 162 mg PO DAILY [facility] Last Admin: 07/08/16 09:31 Dose: 162 mg Bacitracin (Bacitracin -) 1 applic TP BID [facility] Last Admin: 07/08/16 09:33 Dose: 1 applic Furosemide (Lasix Injection -) 40 mg IVPB BID@0600,1400 [facility] Last Admin: 07/08/16 06:35 Dose: 40 mg Hydralazine HCl (Apresoline -) 25 mg PO BID [facility] Last Admin: 07/08/16 09:32 Dose: 25 mg Insulin Aspart (Novolog Vial Sliding Scale -) 1 vial SQ ACHS [facility] PRN Reason: Protocol Last Admin: 07/08/16 11:33 Dose: 2 units Insulin Detemir (Levemir Vial) 50 units SQ HS [facility] Last Admin: 07/07/16 21:17 Dose: 50 units Levothyroxine Sodium (Synthroid -) 125 mcg PO DAILY@0700 [facility] Last Admin: 07/08/16 06:35 Dose: 125 mcg Liothyronine Sodium (Cytomel -) 25 mcg PO DAILY [facility] Last Admin: 07/08/16 09:32 Dose: 25 mcg Pantoprazole Sodium (Protonix -) 20 mg PO DAILY [facility] Last Admin: 07/08/16 09:31 Dose: 20 mg - Objective Vital Signs: Vital Signs Temperature 95.1 F L 07/08/16 14:22 Pulse Rate 84 07/08/16 14:22 Respiratory Rate 16 07/08/16 14:22 Blood Pressure 149/63 07/08/16 14:22 O2 Sat by Pulse Oximetry (%) 96 07/08/16 10:00 Constitutional: Yes: No Distress Neck: Yes: Supple Cardiovascular: Yes: Regular Rate and Rhythm, S1, S2. No: Murmur Respiratory: Yes: Diminished (b/l bases) Gastrointestinal: Yes: Soft Extremities: Yes: Erythema Edema: LLE: 2+, RLE: 2+ Labs: CBC, BMP 07/07/16 06:30 07/08/16 05:35 INR, PTT INR 0.94 (0.82-1.09) 06/26/16 18:45 Problem List - Problems (1) CHF (congestive heart failure) Code(s): I50.9 - HEART FAILURE, UNSPECIFIED (2) Chest pain Code(s): R07.9 - CHEST PAIN, UNSPECIFIED Qualifiers: Chest pain type: precordial pain Qualified Code(s): R07.2 - Precordial pain (3) HTN (hypertension) Code(s): I10 - ESSENTIAL (PRIMARY) HYPERTENSION Qualifiers: Hypertension type: essential hypertension Qualified Code(s): I10 - Essential (primary) hypertension Assessment/Plan (1) Chest pain Assessment/Plan: Her chest pain was atypical for angina pectoris, ECG and Wilfrido negative. However , she has multiple risk factors for CAD. Given atypical nature of symptoms and renal issues would plan for outpatient ischemia work up. (2) HTN (hypertension) Assessment/Plan: Controlled on current medications. (3) CHF exacerbation Assessment/Plan: Acute on chronic diastolic CHF with likely degree of venous insufficiency Significant lower ext edema and b/l pleural effusions on recent imaging Continue Lasix 40 mg IVSS BID Daily I's/O's/Wt's/Lytes Monitor K closely as remains hyperkalemic. Holding spironolactone and marisol/ arb. Consider kayexelate. Repeat chem this afternoon/evening. No events on tele. ESR found to be 88. Unclear etiology
--- NOTE | 2016-07-08 19:05 | PN ---
Progress Note (short form) - Note Progress Note: NEUROLOGY FOLLOW-UP; Events reviewed, Patient reexamined. Since my consultation Pt had periods of lethargy, hypothermia associated with ++ Blood cultures and sepsis. Now feels much better. Walking with a walker which is her baseline. Body temperature improving. Still with mild renal insufficiency, and mild elevation of transaminases/alk. phos. MRI of brain (reviewed): Mild atrophy. Multiple areas of cortical and subcortical encephalomalacia. No evidence for recurrent tumor. PT is more awake and rapidly responsive. Less apathetic. Still with 2-3+ pretibial edema but not cellulitic in appearance. Multiple craniotomies. Mild OMS. Fluent speech. Normal strength. Areflexic in legs. Sl reduced vibration in feet. Shuffling, wide-based gait, but stable with walker. IMP: Mild B/L cerebral dysfunction after resection of multiple tumors. Hypothermia probably due to sepsis (from cellulitis?) improving. Suggest: Stable for discharge. No specific neuro Rx indicated. Reestablish prior home health care situation. Neurology f/u in one year for surveillance MRI. Thank you very much, Santi Keita MD
[2016-07-08] MEDS ORDERED: SODIUM POLYSTYRENE SULFONATE 15 GM/60 ML BOTTLE ONE (20:43)
[2016-07-08] MEDS: INSULIN DETEMIR 100 UNITS/ML MDV SQ SCH ×2 (21:09→21:35)
[2016-07-09] MEDS: LEVOTHYROXINE NA 125 MCG TABLET (FP) PO SCH (06:00)
[2016-07-09] MEDS: INSULIN SLIDING SCALE (NOVOLOG) 1 VIAL SQ SCH ×4 (06:00→21:27)
[2016-07-09] MEDS: FUROSEMIDE 40 MG/4 ML INJECTABLE VIAL IVPB SCH ×2 (06:00→14:43)
[2016-07-09 07:03] LABS: BASOPHIL 0.9 % (0-2.0); EOSINOPHIL 6.8 % (0-4.5); MCH 29.6 pg (25.7-33.7); MCHC 32.5 g/dl (32.0-36.0); MEAN CELL VOLUME 91.2 fl (80-96); MEAN PLT VOLUME 9.8 fl (7.5-11.1); NEUTROPHILS 53.1 % (42.8-82.8); PLATELET COUNT 141 K/MM3 (134-434); RDW 14.6 % (11.6-15.6); WHITE BLOOD COUNT 4.1 K/mm3 (4.0-10.0)
[2016-07-09 07:58] LABS: ALBUMIN 3.2 g/dl (3.4-5.0); BILIRUBIN,TOTAL 0.3 mg/dL (0.2-1.0); CALCIUM 9.7 mg/dL (8.5-10.1); COCKROFT - GAULT 55.335; CREATININE 1.8 mg/dL (0.55-1.02); TOT PROT 7.2 g/dl (6.4-8.2)
[2016-07-09] MEDS ORDERED: SODIUM POLYSTYRENE SULFONATE 15 GM/60 ML BOTTLE PO ONE (10:22)
--- NOTE | 2016-07-09 10:25 | PN ---
Progress Note, Physician Chief Complaint: sitting up eating food no complaints hyperkalemia ordered kayxelate on iv lasix ambulates with walker - Current Medication List Current Medications: Active Medications Aspirin (Ecotrin -) 162 mg PO DAILY [facility] Last Admin: 07/08/16 09:31 Dose: 162 mg Bacitracin (Bacitracin -) 1 applic TP BID [facility] Last Admin: 07/08/16 21:05 Dose: 1 applic Furosemide (Lasix Injection -) 40 mg IVPB BID@0600,1400 [facility] Last Admin: 07/09/16 06:00 Dose: 40 mg Hydralazine HCl (Apresoline -) 25 mg PO BID [facility] Last Admin: 07/08/16 21:05 Dose: 25 mg Insulin Aspart (Novolog Vial Sliding Scale -) 1 vial SQ [facility] PRN Reason: Protocol Last Admin: 07/09/16 06:00 Dose: Not Given Insulin Detemir (Levemir Vial) 50 units SQ HS [facility] Last Admin: 07/08/16 21:35 Dose: 35 units Levothyroxine Sodium (Synthroid -) 125 mcg PO DAILY@0700 [facility] Last Admin: 07/09/16 06:00 Dose: 125 mcg Liothyronine Sodium (Cytomel -) 25 mcg PO DAILY [facility] Last Admin: 07/08/16 09:32 Dose: 25 mcg Pantoprazole Sodium (Protonix -) 20 mg PO DAILY [facility] Last Admin: 07/08/16 09:31 Dose: 20 mg - Objective Vital Signs: Vital Signs Temperature 95.1 F L 07/08/16 14:22 Pulse Rate 97 H 07/09/16 06:00 Respiratory Rate 20 07/09/16 06:00 Blood Pressure 133/65 07/09/16 06:00 O2 Sat by Pulse Oximetry (%) 96 07/08/16 21:00 Constitutional: Yes: Calm Neck: Yes: Trachea Midline Cardiovascular: Yes: Regular Rate and Rhythm, S1, S2 Respiratory: Yes: CTA Bilaterally Gastrointestinal: Yes: Normal Bowel Sounds, Soft, Abdomen, Obese Extremities: Yes: Erythema Edema: Yes Neurological: Yes: Alert, Oriented Labs: CBC, BMP 07/09/16 06:00 07/09/16 06:00 INR, PTT INR 0.94 (0.82-1.09) 06/26/16 18:45 Problem List - Problems (1) Hypothermia Assessment/Plan: most likely central origin appreicate neuro follow up Code(s): T68.XXXA - HYPOTHERMIA, INITIAL ENCOUNTER (2) CHF (congestive heart failure) Assessment/Plan: iv lasix cardio to decide if ok to change to po lasix Code(s): I50.9 - HEART FAILURE, UNSPECIFIED (3) Hyperkalemia Assessment/Plan: kayxelate ordered off aldactone Code(s): E87.5 - HYPERKALEMIA (4) Hypothyroid Assessment/Plan: syntroid Code(s): E03.9 - HYPOTHYROIDISM, UNSPECIFIED (5) Elevated liver enzymes Assessment/Plan: abdominal MRI done report pending Code(s): R74.8 - ABNORMAL LEVELS OF OTHER SERUM ENZYMES (6) Cellulitis Assessment/Plan: iv abx stopped Code(s): L03.90 - CELLULITIS, UNSPECIFIED Qualifiers: Site of cellulitis: unspecified site Qualified Code(s): L03.90 - Cellulitis, unspecified Assessment/Plan will have patient go to [facility] for rehab
[2016-07-09] MEDS: ASPIRIN COATED 81 MG TABLET.EC PO SCH (11:07)
[2016-07-09] MEDS: BACITRACIN 15 GM TUBE TOPICAL OINTMENT TP SCH ×2 (11:07→21:29)
[2016-07-09] MEDS: PANTOPRAZOLE 20 MG TABLET (FP) PO SCH (11:08)
[2016-07-09] MEDS: hydrALAZINE HCL 25 MG TABLET (FP) PO SCH ×2 (11:08→21:25)
[2016-07-09] MEDS: LIOTHYRONINE SODIUM 25 MCG TABLET PO SCH (11:08)
--- NOTE | 2016-07-09 11:44 | PN ---
Progress Note (short form) - Note Progress Note: Renal Follow up for BHUPINDER on CKD and Hyperkalemia Pt seen and examined at the bedside no complaints no N/V/D K remains elevated at 5.4 off Aldactone Vital Signs Temperature 95.1 F L 07/08/16 14:22 Pulse Rate 79 07/09/16 10:00 Respiratory Rate 19 07/09/16 10:00 Blood Pressure 144/67 07/09/16 10:00 O2 Sat by Pulse Oximetry (%) 91 L 07/09/16 09:25 Intake & Output 07/06/16 07/07/16 07/08/16 07/09/16 23:59 23:59 23:59 23:59 Intake Total 1160 670 740 370 Balance 1160 670 740 370 Weight 255 lb 12.8 oz 260 lb 4 oz 260 lb 258 lb 6 oz Gen: NAD, awake and alert on NC CVS: RRR, No M/R Lungs: CTA Abd: Obese NT/ND Ext: 2+ edema, + erythemia, no warmth CBC, BMP 07/09/16 06:00 07/09/16 06:00 Current Medications Aspirin (Ecotrin -) 162 mg PO DAILY [facility] Last Admin: 07/09/16 11:07 Dose: 162 mg Bacitracin (Bacitracin -) 1 applic TP BID [facility] Last Admin: 07/09/16 11:07 Dose: 1 applic Furosemide (Lasix Injection -) 40 mg IVPB BID@0600,1400 [facility] Last Admin: 07/09/16 06:00 Dose: 40 mg Hydralazine HCl (Apresoline -) 25 mg PO BID [facility] Last Admin: 07/09/16 11:08 Dose: 25 mg Insulin Aspart (Novolog Vial Sliding Scale -) 1 vial SQ ACHS [facility] PRN Reason: Protocol Last Admin: 07/09/16 11:37 Dose: 2 units Insulin Detemir (Levemir Vial) 50 units SQ HS [facility] Last Admin: 07/08/16 21:35 Dose: 35 units Levothyroxine Sodium (Synthroid -) 125 mcg PO DAILY@0700 [facility] Last Admin: 07/09/16 06:00 Dose: 125 mcg Liothyronine Sodium (Cytomel -) 25 mcg PO DAILY [facility] Last Admin: 07/09/16 11:08 Dose: 25 mcg Pantoprazole Sodium (Protonix -) 20 mg PO DAILY [facility] Last Admin: 07/09/16 11:08 Dose: 20 mg a/P 66 year old woman with PMhx of Benigin Brain Tumors, NIDDM, Hypertension, Hypothyrodism who presented to the ED with complaints of chest pain and SOB with elevated Serum Cr and persistent hyperkalemia. #Persistent Hyperkalemia Etiology unclear at this time as pt is off Aldactone and not on GADIEL/ARB pt does have CKD but is not anuirc and is on loop diuretics so K should not be elevated solely because of CKD will have to check for hyporeninism, Hypoaldosterinism, and adrenal insufficiency s/p kayexalate this am Check TTKG continue Low K diet #BHUPINDER/CKD Renal function relatively stable continue diuretics as per Cardiology no GADIEL/ARB at this time #Hypothermia/Hypothyrodism on Synthroid, Cytomel Thank you Vladimir Mitchell DO
--- NOTE | 2016-07-09 11:50 | PN ---
Progress Note, Physician Chief Complaint: No dyspnea. Telem NSR No complaints. History of Present Illness: 66 year old woman with a history of NIDDM, CKD, hypertension, chronic venous stasis, hyperlipidemia, hypothyroidism, and benign brain tumors(X6), who presents to the emergency department complaining of chest pain and weakness for 2 days, edema and orthopnea with sob an noted to be volume overloaded. Echo with normal LVEF, mild MR, and mod elevated pulmonary pressures - Current Medication List Current Medications: Active Medications Aspirin (Ecotrin -) 162 mg PO DAILY [facility] Last Admin: 07/09/16 11:07 Dose: 162 mg Bacitracin (Bacitracin -) 1 applic TP BID [facility] Last Admin: 07/09/16 11:07 Dose: 1 applic Furosemide (Lasix Injection -) 40 mg IVPB BID@0600,1400 [facility] Last Admin: 07/09/16 06:00 Dose: 40 mg Hydralazine HCl (Apresoline -) 25 mg PO BID [facility] Last Admin: 07/09/16 11:08 Dose: 25 mg Insulin Aspart (Novolog Vial Sliding Scale -) 1 vial SQ ACHS [facility] PRN Reason: Protocol Last Admin: 07/09/16 11:37 Dose: 2 units Insulin Detemir (Levemir Vial) 50 units SQ HS [facility] Last Admin: 07/08/16 21:35 Dose: 35 units Levothyroxine Sodium (Synthroid -) 125 mcg PO DAILY@0700 [facility] Last Admin: 07/09/16 06:00 Dose: 125 mcg Liothyronine Sodium (Cytomel -) 25 mcg PO DAILY [facility] Last Admin: 07/09/16 11:08 Dose: 25 mcg Pantoprazole Sodium (Protonix -) 20 mg PO DAILY [facility] Last Admin: 07/09/16 11:08 Dose: 20 mg - Objective Vital Signs: Vital Signs Temperature 95.1 F L 07/08/16 14:22 Pulse Rate 79 07/09/16 10:00 Respiratory Rate 19 07/09/16 10:00 Blood Pressure 144/67 07/09/16 10:00 O2 Sat by Pulse Oximetry (%) 91 L 07/09/16 09:25 Constitutional: Yes: Obese Neck: Yes: Supple Cardiovascular: Yes: Regular Rate and Rhythm (No JVD or Murmur) Edema: Yes Edema: LLE: 2+, RLE: 2+ Labs: CBC, BMP 07/09/16 06:00 07/09/16 06:00 INR, PTT INR 0.94 (0.82-1.09) 06/26/16 18:45 - ....Imaging Chest X-ray: Report Reviewed EKG: Image Reviewed Problem List - Problems (1) CHF exacerbation Assessment/Plan: Acute on chronic diastolic CHF with chronic venous stasis. Lower extremity compression stockings. AAgree to convert to oral diuretics Lasix 40mg PO BID Code(s): I50.9 - HEART FAILURE, UNSPECIFIED Qualifiers: Congestive heart failure type: diastolic Qualified Code(s): I50.33 - Acute on chronic diastolic (congestive) heart failure (2) Chest pain Assessment/Plan: Resolved. Code(s): R07.9 - CHEST PAIN, UNSPECIFIED Qualifiers: Chest pain type: precordial pain Qualified Code(s): R07.2 - Precordial pain
--- NOTE | 2016-07-09 14:09 | PN ---
Progress Note (short form) - Note Progress Note: PULMONARY States breathing is improving. No chest pain. No fevers or chills. Last Vital Signs Temp Pulse Resp BP Pulse Ox 95.1 F L 79 19 144/67 91 L 07/08/16 14:22 07/09/16 10:00 07/09/16 10:00 07/09/16 10:00 07/09/16 13:45 Gen: NAD at rest Heart: RRR Lung: distant breath sounds Abd: soft, nontender Ext: + edema, +erythema CBC, BMP 07/09/16 06:00 07/09/16 06:00 Active Medications Aspirin (Ecotrin -) 162 mg PO DAILY [facility] Last Admin: 07/09/16 11:07 Dose: 162 mg Bacitracin (Bacitracin -) 1 applic TP BID [facility] Last Admin: 07/09/16 11:07 Dose: 1 applic Furosemide (Lasix Injection -) 40 mg IVPB BID@0600,1400 [facility] Last Admin: 07/09/16 06:00 Dose: 40 mg Hydralazine HCl (Apresoline -) 25 mg PO BID [facility] Last Admin: 07/09/16 11:08 Dose: 25 mg Insulin Aspart (Novolog Vial Sliding Scale -) 1 vial SQ [facility] PRN Reason: Protocol Last Admin: 07/09/16 11:37 Dose: 2 units Insulin Detemir (Levemir Vial) 50 units SQ HS [facility] Last Admin: 07/08/16 21:35 Dose: 35 units Levothyroxine Sodium (Synthroid -) 125 mcg PO DAILY@0700 [facility] Last Admin: 07/09/16 06:00 Dose: 125 mcg Liothyronine Sodium (Cytomel -) 25 mcg PO DAILY [facility] Last Admin: 07/09/16 11:08 Dose: 25 mcg Pantoprazole Sodium (Protonix -) 20 mg PO DAILY [facility] Last Admin: 07/09/16 11:08 Dose: 20 mg A/P Acute on Chronic LV Diastolic Heart Failure Pulmonary HTN Pleural Effusion from above Chest Pain Hyperkalemia Elevated LFTs - ?congestive hepatopathy CKD HTN DM - continue lasix - monitor urine output, creatinine - daily weights, I/Os - O2 to keep SpO2 >90% - DVT prophylaxis Problem List - Problems (1) CHF exacerbation Code(s): I50.9 - HEART FAILURE, UNSPECIFIED Qualifiers: Congestive heart failure type: diastolic Qualified Code(s): I50.33 - Acute on chronic diastolic (congestive) heart failure (2) Chest pain Code(s): R07.9 - CHEST PAIN, UNSPECIFIED Qualifiers: Chest pain type: precordial pain Qualified Code(s): R07.2 - Precordial pain (3) Elevated liver enzymes Code(s): R74.8 - ABNORMAL LEVELS OF OTHER SERUM ENZYMES (4) Hyperkalemia Code(s): E87.5 - HYPERKALEMIA (5) Diabetes mellitus, insulin dependent (IDDM), uncontrolled Code(s): E10.65 - TYPE 1 DIABETES MELLITUS WITH HYPERGLYCEMIA Qualifiers: Diabetes mellitus complication status: with skin complications Diabetes mellitus complication detail: with dermatitis Qualified Code(s): E10.620 - 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; E10.65 - Type 1 diabetes mellitus with hyperglycemia (6) HTN (hypertension) Code(s): I10 - ESSENTIAL (PRIMARY) HYPERTENSION Qualifiers: Hypertension type: essential hypertension Qualified Code(s): I10 - Essential (primary) hypertension (7) Hypothyroid Code(s): E03.9 - HYPOTHYROIDISM, UNSPECIFIED
[2016-07-09] MEDS ORDERED: INSULIN (NOVOLOG) ASPART 100 UNITS/ML 10ML VIAL ONE (21:23)
[2016-07-09] MEDS: INSULIN DETEMIR 100 UNITS/ML MDV SQ SCH (21:27)
[2016-07-10] MEDS: FUROSEMIDE 40 MG/4 ML INJECTABLE VIAL IVPB SCH ×2 (06:02→14:38)
[2016-07-10] MEDS: LEVOTHYROXINE NA 125 MCG TABLET (FP) PO SCH (06:03)
[2016-07-10] MEDS: INSULIN SLIDING SCALE (NOVOLOG) 1 VIAL SQ SCH ×4 (06:03→21:21)
[2016-07-10] MEDS ORDERED: PT OWN MED DRAWER 7, Y5N ONE (06:34)
[2016-07-10 06:36] LABS: BASOPHIL 0.8 % (0-2.0); EOSINOPHIL 7.4 % (0-4.5); MCH 30.4 pg (25.7-33.7); MCHC 33.5 g/dl (32.0-36.0); MEAN CELL VOLUME 90.6 fl (80-96); MEAN PLT VOLUME 10.2 fl (7.5-11.1); NEUTROPHILS 53.9 % (42.8-82.8); PLATELET COUNT 134 K/MM3 (134-434); RDW 14.4 % (11.6-15.6); WHITE BLOOD COUNT 4.4 K/mm3 (4.0-10.0)
[2016-07-10 06:54] LABS: ALBUMIN 3.1 g/dl (3.4-5.0); BILIRUBIN,TOTAL 0.3 mg/dL (0.2-1.0); CALCIUM 9.4 mg/dL (8.5-10.1); COCKROFT - GAULT 55.335; CREATININE 1.8 mg/dL (0.55-1.02); MAGNESIUM 2.4 mg/dL (1.8-2.4); PHOSPHOROUS 5.3 mg/dL (2.5-4.9); TOT PROT 6.6 g/dl (6.4-8.2)
[2016-07-10] MEDS: BACITRACIN 15 GM TUBE TOPICAL OINTMENT TP SCH ×2 (10:14→21:22)
[2016-07-10] MEDS: hydrALAZINE HCL 25 MG TABLET (FP) PO SCH ×2 (10:14→21:21)
[2016-07-10] MEDS: ASPIRIN COATED 81 MG TABLET.EC PO SCH (10:15)
[2016-07-10] MEDS: PANTOPRAZOLE 20 MG TABLET (FP) PO SCH (10:15)
[2016-07-10] MEDS: LIOTHYRONINE SODIUM 25 MCG TABLET PO SCH (10:15)
[2016-07-10] MEDS ORDERED: INSULIN (NOVOLOG) ASPART 100 UNITS/ML 10ML VIAL ONE ×2 (12:13→21:16)
--- NOTE | 2016-07-10 13:30 | PN ---
Progress Note, Physician Chief Complaint: sitting in chair no distress ok to go to snf - Current Medication List Current Medications: Active Medications Aspirin (Ecotrin -) 162 mg PO DAILY [facility] Last Admin: 07/10/16 10:15 Dose: 162 mg Bacitracin (Bacitracin -) 1 applic TP BID [facility] Last Admin: 07/10/16 10:14 Dose: 1 applic Furosemide (Lasix Injection -) 40 mg IVPB BID@0600,1400 [facility] Last Admin: 07/10/16 06:02 Dose: 40 mg Hydralazine HCl (Apresoline -) 25 mg PO BID [facility] Last Admin: 07/10/16 10:14 Dose: 25 mg Insulin Aspart (Novolog Vial Sliding Scale -) 1 vial SQ ACHS [facility] PRN Reason: Protocol Last Admin: 07/10/16 12:24 Dose: 2 units Insulin Detemir (Levemir Vial) 50 units SQ HS [facility] Last Admin: 07/09/16 21:27 Dose: 50 units Levothyroxine Sodium (Synthroid -) 125 mcg PO DAILY@0700 [facility] Last Admin: 07/10/16 06:03 Dose: 125 mcg Liothyronine Sodium (Cytomel -) 25 mcg PO DAILY [facility] Last Admin: 07/10/16 10:15 Dose: 25 mcg Pantoprazole Sodium (Protonix -) 20 mg PO DAILY [facility] Last Admin: 07/10/16 10:15 Dose: 20 mg - Objective Vital Signs: Vital Signs Temperature 93.5 F L 07/10/16 06:00 Pulse Rate 83 07/10/16 10:00 Respiratory Rate 18 07/10/16 10:00 Blood Pressure 138/72 07/10/16 10:00 O2 Sat by Pulse Oximetry (%) 94 L 07/10/16 09:00 Constitutional: Yes: Calm Neck: Yes: Trachea Midline Cardiovascular: Yes: Regular Rate and Rhythm, S1, S2 Respiratory: Yes: CTA Bilaterally Gastrointestinal: Yes: Normal Bowel Sounds, Soft Extremities: Yes: Erythema Edema: Yes Neurological: Yes: Alert, Oriented Labs: CBC, BMP 07/10/16 05:35 07/10/16 05:35 INR, PTT INR 0.94 (0.82-1.09) 06/26/16 18:45 Problem List - Problems (1) Hypothermia Assessment/Plan: most likely central origin appreicate neuro follow up Code(s): T68.XXXA - HYPOTHERMIA, INITIAL ENCOUNTER (2) CHF (congestive heart failure) Assessment/Plan: iv lasix cardio to decide if ok to change to po lasix Code(s): I50.9 - HEART FAILURE, UNSPECIFIED (3) Hyperkalemia Assessment/Plan: improved Code(s): E87.5 - HYPERKALEMIA (4) Hypothyroid Assessment/Plan: syntroid Code(s): E03.9 - HYPOTHYROIDISM, UNSPECIFIED (5) Elevated liver enzymes Assessment/Plan: abdominal MRI done report noted Code(s): R74.8 - ABNORMAL LEVELS OF OTHER SERUM ENZYMES (6) Cellulitis Assessment/Plan: iv abx stopped Code(s): L03.90 - CELLULITIS, UNSPECIFIED Qualifiers: Site of cellulitis: unspecified site Qualified Code(s): L03.90 - Cellulitis, unspecified Assessment/Plan dc to snf
--- NOTE | 2016-07-10 15:25 | PN ---
Progress Note, Physician Chief Complaint: No dyspnea. Telem NSR No complaints. History of Present Illness: 66 year old woman with a history of NIDDM, CKD, hypertension, chronic venous stasis, hyperlipidemia, hypothyroidism, and benign brain tumors(X6), who presents to the emergency department complaining of chest pain and weakness for 2 days, edema and orthopnea with sob an noted to be volume overloaded. Echo with normal LVEF, mild MR, and mod elevated pulmonary pressures - Current Medication List Current Medications: Active Medications Aspirin (Ecotrin -) 162 mg PO DAILY [facility] Last Admin: 07/10/16 10:15 Dose: 162 mg Bacitracin (Bacitracin -) 1 applic TP BID [facility] Last Admin: 07/10/16 10:14 Dose: 1 applic Furosemide (Lasix Injection -) 40 mg IVPB BID@0600,1400 [facility] Last Admin: 07/10/16 14:38 Dose: 40 mg Hydralazine HCl (Apresoline -) 25 mg PO BID [facility] Last Admin: 07/10/16 10:14 Dose: 25 mg Insulin Aspart (Novolog Vial Sliding Scale -) 1 vial SQ ACHS [facility] PRN Reason: Protocol Last Admin: 07/10/16 12:24 Dose: 2 units Insulin Detemir (Levemir Vial) 50 units SQ HS [facility] Last Admin: 07/09/16 21:27 Dose: 50 units Levothyroxine Sodium (Synthroid -) 125 mcg PO DAILY@0700 [facility] Last Admin: 07/10/16 06:03 Dose: 125 mcg Liothyronine Sodium (Cytomel -) 25 mcg PO DAILY [facility] Last Admin: 07/10/16 10:15 Dose: 25 mcg Pantoprazole Sodium (Protonix -) 20 mg PO DAILY [facility] Last Admin: 07/10/16 10:15 Dose: 20 mg - Objective Vital Signs: Vital Signs Temperature 93.9 F L 07/10/16 14:00 Pulse Rate 82 07/10/16 14:00 Respiratory Rate 20 07/10/16 14:00 Blood Pressure 135/82 07/10/16 14:00 O2 Sat by Pulse Oximetry (%) 94 L 07/10/16 09:00 Telem NSR Constitutional: Yes: Well Nourished, No Distress, Obese Eyes: Yes: WNL Cardiovascular: Yes: Regular Rate and Rhythm Respiratory: Yes: WNL Gastrointestinal: Yes: WNL Edema: LLE: 1+, RLE: 1+ Labs: CBC, BMP 07/10/16 05:35 07/10/16 05:35 INR, PTT INR 0.94 (0.82-1.09) 06/26/16 18:45 Problem List - Problems (1) CHF exacerbation Assessment/Plan: Acute on chronic diastolic CHF with chronic venous stasis. Lower extremity compression stockings. Change Lasix 40mg PO BID Code(s): I50.9 - HEART FAILURE, UNSPECIFIED Qualifiers: Congestive heart failure type: diastolic Qualified Code(s): I50.33 - Acute on chronic diastolic (congestive) heart failure (2) Chest pain Assessment/Plan: Resolved. DC telemetry. Will see as needed. Code(s): R07.9 - CHEST PAIN, UNSPECIFIED Qualifiers: Chest pain type: precordial pain Qualified Code(s): R07.2 - Precordial pain
--- NOTE | 2016-07-10 16:33 | PN ---
Progress Note (short form) - Note Progress Note: Renal Follow up for BHUPINDER on CKD and Hyperkalemia Pt seen and examined at the bedside no complaints Vital Signs Temperature 93.9 F L 07/10/16 14:00 Pulse Rate 82 07/10/16 14:00 Respiratory Rate 20 07/10/16 14:00 Blood Pressure 135/82 07/10/16 14:00 O2 Sat by Pulse Oximetry (%) 94 L 07/10/16 09:00 Intake & Output 07/07/16 07/08/16 07/09/16 07/10/16 23:59 23:59 23:59 23:59 Intake Total 670 740 820 200 Balance 670 740 820 200 Weight 260 lb 4 oz 260 lb 258 lb 6 oz 255 lb Gen: NAD, awake and alert on NC CVS: RRR, No M/R Lungs: CTA Abd: Obese NT/ND Ext: 2+ edema, + erythemia, no warmth CBC, BMP 07/10/16 05:35 07/10/16 05:35 Laboratory Tests 07/10/16 05:35 Calcium 9.4 Phosphorus 5.3 H Magnesium 2.4 Albumin 3.1 L Current Medications Aspirin (Ecotrin -) 162 mg PO DAILY [facility] Last Admin: 07/10/16 10:15 Dose: 162 mg Bacitracin (Bacitracin -) 1 applic TP BID [facility] Last Admin: 07/10/16 10:14 Dose: 1 applic Furosemide (Lasix Injection -) 40 mg IVPB BID@0600,1400 [facility] Last Admin: 07/10/16 14:38 Dose: 40 mg Hydralazine HCl (Apresoline -) 25 mg PO BID [facility] Last Admin: 07/10/16 10:14 Dose: 25 mg Insulin Aspart (Novolog Vial Sliding Scale -) 1 vial SQ ACHS [facility] PRN Reason: Protocol Last Admin: 07/10/16 12:24 Dose: 2 units Insulin Detemir (Levemir Vial) 50 units SQ HS [facility] Last Admin: 07/09/16 21:27 Dose: 50 units Levothyroxine Sodium (Synthroid -) 125 mcg PO DAILY@0700 [facility] Last Admin: 07/10/16 06:03 Dose: 125 mcg Liothyronine Sodium (Cytomel -) 25 mcg PO DAILY [facility] Last Admin: 07/10/16 10:15 Dose: 25 mcg Pantoprazole Sodium (Protonix -) 20 mg PO DAILY [facility] Last Admin: 07/10/16 10:15 Dose: 20 mg a/P 66 year old woman with PMhx of Benigin Brain Tumors, NIDDM, Hypertension, Hypothyrodism who presented to the ED with complaints of chest pain and SOB with elevated Serum Cr and persistent hyperkalemia. #Persistent Hyperkalemia K is improve today Cortisol level is WNL Renin and aldosterone levels pending continue low k diet #BHUPINDER/CKD Renal function relatively stable continue diuretics as per Cardiology no GADIEL/ARB at this time #Hypothermia/Hypothyrodism on Synthroid, Cytomel Thank you Vladimir Mitchell DO
[2016-07-10] MEDS ORDERED: INSULIN DETEMIR 100 UNITS/ML MDV SQ ONE (21:16)
[2016-07-10] MEDS: INSULIN DETEMIR 100 UNITS/ML MDV SQ SCH (21:22)
[2016-07-11] MEDS: LEVOTHYROXINE NA 125 MCG TABLET (FP) PO SCH (06:18)
[2016-07-11] MEDS: FUROSEMIDE 40 MG/4 ML INJECTABLE VIAL IVPB SCH ×2 (06:18→13:42)
[2016-07-11] MEDS: INSULIN SLIDING SCALE (NOVOLOG) 1 VIAL SQ SCH ×4 (06:19→21:06)
[2016-07-11 07:30] LABS: BASOPHIL 0.6 % (0-2.0); MCH 30.1 pg (25.7-33.7); MCHC 33.1 g/dl (32.0-36.0); MEAN CELL VOLUME 90.7 fl (80-96); MEAN PLT VOLUME 10.3 fl (7.5-11.1); NEUTROPHILS 55.5 % (42.8-82.8); PLATELET COUNT 120 K/MM3 (134-434); RDW 14.2 % (11.6-15.6); WHITE BLOOD COUNT 4.8 K/mm3 (4.0-10.0)
[2016-07-11 07:58] LABS: CALCIUM 9.1 mg/dL (8.5-10.1); COCKROFT - GAULT 54.026; CREATININE 1.8 mg/dL (0.55-1.02); MAGNESIUM 2.3 mg/dL (1.8-2.4); PHOSPHOROUS 5.4 mg/dL (2.5-4.9)
[2016-07-11] MEDS: ASPIRIN COATED 81 MG TABLET.EC PO SCH (09:36)
[2016-07-11] MEDS: BACITRACIN 15 GM TUBE TOPICAL OINTMENT TP SCH ×2 (09:37→21:03)
[2016-07-11] MEDS: PANTOPRAZOLE 20 MG TABLET (FP) PO SCH (09:37)
[2016-07-11] MEDS: LIOTHYRONINE SODIUM 25 MCG TABLET PO SCH (09:37)
[2016-07-11] MEDS: hydrALAZINE HCL 25 MG TABLET (FP) PO SCH ×2 (09:37→21:03)
--- NOTE | 2016-07-11 12:12 | PN ---
Progress Note (short form) - Note Progress Note: Renal Follow up for BHUPINDER on CKD and Hyperkalemia Pt seen and examined at the bedside no complaints Vital Signs Temperature 96.8 F L 07/11/16 10:00 Pulse Rate 84 07/11/16 10:00 Respiratory Rate 20 07/11/16 10:00 Blood Pressure 132/58 07/11/16 10:00 O2 Sat by Pulse Oximetry (%) 95 07/11/16 10:00 Intake & Output 07/08/16 07/09/16 07/10/16 07/11/16 23:59 23:59 23:59 23:59 Intake Total 740 820 800 370 Balance 740 820 800 370 Weight 260 lb 258 lb 6 oz 255 lb 252 lb 4 oz Gen: NAD, awake and alert on NC CVS: RRR, No M/R Lungs: CTA Abd: Obese NT/ND Ext: 2+ edema, + erythemia, no warmth CBC, BMP 07/11/16 06:00 07/11/16 06:00 Current Medications Aspirin (Ecotrin -) 162 mg PO DAILY [facility] Last Admin: 07/11/16 09:36 Dose: 162 mg Bacitracin (Bacitracin -) 1 applic TP BID [facility] Last Admin: 07/11/16 09:37 Dose: 1 applic Furosemide (Lasix Injection -) 40 mg IVPB BID@0600,1400 [facility] Last Admin: 07/11/16 06:18 Dose: 40 mg Hydralazine HCl (Apresoline -) 25 mg PO BID [facility] Last Admin: 07/11/16 09:37 Dose: 25 mg Insulin Aspart (Novolog Vial Sliding Scale -) 1 vial SQ [facility] PRN Reason: Protocol Last Admin: 07/11/16 06:19 Dose: Not Given Insulin Detemir (Levemir Vial) 50 units SQ HS [facility] Last Admin: 07/10/16 21:22 Dose: 50 units Levothyroxine Sodium (Synthroid -) 125 mcg PO DAILY@0700 [facility] Last Admin: 07/11/16 06:18 Dose: 125 mcg Liothyronine Sodium (Cytomel -) 25 mcg PO DAILY [facility] Last Admin: 07/11/16 09:37 Dose: 25 mcg Pantoprazole Sodium (Protonix -) 20 mg PO DAILY [facility] Last Admin: 07/11/16 09:37 Dose: 20 mg Sodium Polystyrene Sulfonate (Kayexalate -) 15 gm PO ONCE ONE Stop: 07/11/16 12:02 a/P 66 year old woman with PMhx of Benigin Brain Tumors, NIDDM, Hypertension, Hypothyrodism who presented to the ED with complaints of chest pain and SOB with elevated Serum Cr and persistent hyperkalemia. #Persistent Hyperkalemia K remains elevated today Renin and cortisol level is pending pt will require either kayexalate or veltassa as outpatient to ensure that K is kept undercontrol Will order kayexalate 15g today Trend K daily Continue Low K diet Pt will need nutrition education about low k diet prior to discharge #BHUPINDER/CKD Renal function relatively stable continue diuretics as per Cardiology no GADIEL/ARB at this time #Hypothermia/Hypothyrodism on Synthroid, Cytomel Thank you Vladimir Mitchell DO
--- NOTE | 2016-07-11 12:58 | PN ---
Progress Note (short form) - Note Progress Note: Resting in NAD. No acute events overnight. No CP or SOB. Intake & Output 07/08/16 07/09/16 07/10/16 07/11/16 23:59 23:59 23:59 23:59 Intake Total 740 820 800 370 Balance 740 820 800 370 Weight 260 lb 258 lb 6 oz 255 lb 252 lb 4 oz Last Vital Signs Temp Pulse Resp BP Pulse Ox 96.8 F L 84 20 132/58 95 07/11/16 10:00 07/11/16 10:00 07/11/16 10:00 07/11/16 10:00 07/11/16 10:00 Active Medications Aspirin (Ecotrin -) 162 mg PO DAILY [facility] Last Admin: 07/11/16 09:36 Dose: 162 mg Bacitracin (Bacitracin -) 1 applic TP BID [facility] Last Admin: 07/11/16 09:37 Dose: 1 applic Furosemide (Lasix Injection -) 40 mg IVPB BID@0600,1400 [facility] Last Admin: 07/11/16 06:18 Dose: 40 mg Hydralazine HCl (Apresoline -) 25 mg PO BID [facility] Last Admin: 07/11/16 09:37 Dose: 25 mg Insulin Aspart (Novolog Vial Sliding Scale -) 1 vial SQ [facility] PRN Reason: Protocol Last Admin: 07/11/16 12:20 Dose: 2 units Insulin Detemir (Levemir Vial) 50 units SQ HS [facility] Last Admin: 07/10/16 21:22 Dose: 50 units Levothyroxine Sodium (Synthroid -) 125 mcg PO DAILY@0700 [facility] Last Admin: 07/11/16 06:18 Dose: 125 mcg Liothyronine Sodium (Cytomel -) 25 mcg PO DAILY [facility] Last Admin: 07/11/16 09:37 Dose: 25 mcg Pantoprazole Sodium (Protonix -) 20 mg PO DAILY [facility] Last Admin: 07/11/16 09:37 Dose: 20 mg Sodium Polystyrene Sulfonate (Kayexalate -) 15 gm PO ONCE ONE Stop: 07/11/16 13:01 Gen: NAD at rest Heart: RRR Lung: distant breath sounds Abd: soft, nontender Ext: + edema, +erythema Laboratory Results - last 24 hr 07/10/16 07/10/16 07/11/16 17:00 20:14 05:20 WBC RBC Hgb Hct MCV MCHC RDW Plt Count MPV Neutrophils % Lymphocytes % Monocytes % Eosinophils % Basophils % Sodium Potassium Chloride Carbon Dioxide Anion Gap BUN Creatinine POC Glucometer 179 204 106 Random Glucose Calcium Phosphorus Magnesium 07/11/16 07/11/16 07/11/16 06:00 06:00 12:11 WBC 4.8 RBC 3.14 L Hgb 9.4 L Hct 28.5 L MCV 90.7 MCHC 33.1 RDW 14.2 Plt Count 120 L MPV 10.3 Neutrophils % 55.5 Lymphocytes % 26.0 Monocytes % 11.9 H Eosinophils % 6.0 H Basophils % 0.6 Sodium 144 Potassium 5.3 H Chloride 109 H Carbon Dioxide 26 Anion Gap 9 BUN 87 H Creatinine 1.8 H POC Glucometer 191 Random Glucose 95 D Calcium 9.1 Phosphorus 5.4 H Magnesium 2.3 Problem List - Problems (1) CHF exacerbation Code(s): I50.9 - HEART FAILURE, UNSPECIFIED Qualifiers: Congestive heart failure type: diastolic Qualified Code(s): I50.33 - Acute on chronic diastolic (congestive) heart failure (2) Chest pain Code(s): R07.9 - CHEST PAIN, UNSPECIFIED Qualifiers: Chest pain type: precordial pain Qualified Code(s): R07.2 - Precordial pain (3) Elevated liver enzymes Code(s): R74.8 - ABNORMAL LEVELS OF OTHER SERUM ENZYMES (4) Hyperkalemia Code(s): E87.5 - HYPERKALEMIA (5) Diabetes mellitus, insulin dependent (IDDM), uncontrolled Code(s): E10.65 - TYPE 1 DIABETES MELLITUS WITH HYPERGLYCEMIA Qualifiers: Diabetes mellitus complication status: with skin complications Diabetes mellitus complication detail: with dermatitis Qualified Code(s): 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
[2016-07-11] MEDS ORDERED: SODIUM POLYSTYRENE SULFONATE 15 GM/60 ML BOTTLE PO ONE (13:00)
--- NOTE | 2016-07-11 17:49 | PN ---
Progress Note, Physician Chief Complaint: AWAKE ON TELEMETRY NO ACUTE EVENTS THIS IS MY FIRST ENCOUNTER WITH THIS PATIENT EVENTS AND RECORDS REVIEWED - Current Medication List Current Medications: Active Medications Aspirin (Ecotrin -) 162 mg PO DAILY [facility] Last Admin: 07/11/16 09:36 Dose: 162 mg Bacitracin (Bacitracin -) 1 applic TP BID [facility] Last Admin: 07/11/16 09:37 Dose: 1 applic Furosemide (Lasix Injection -) 40 mg IVPB BID@0600,1400 [facility] Last Admin: 07/11/16 13:42 Dose: 40 mg Hydralazine HCl (Apresoline -) 25 mg PO BID [facility] Last Admin: 07/11/16 09:37 Dose: 25 mg Insulin Aspart (Novolog Vial Sliding Scale -) 1 vial SQ [facility] PRN Reason: Protocol Last Admin: 07/11/16 17:11 Dose: 4 units Insulin Detemir (Levemir Vial) 50 units SQ HS [facility] Last Admin: 07/10/16 21:22 Dose: 50 units Levothyroxine Sodium (Synthroid -) 125 mcg PO DAILY@0700 [facility] Last Admin: 07/11/16 06:18 Dose: 125 mcg Liothyronine Sodium (Cytomel -) 25 mcg PO DAILY [facility] Last Admin: 07/11/16 09:37 Dose: 25 mcg Pantoprazole Sodium (Protonix -) 20 mg PO DAILY [facility] Last Admin: 07/11/16 09:37 Dose: 20 mg - Objective Vital Signs: Vital Signs Temperature 95.5 F L 07/11/16 14:40 Pulse Rate 84 07/11/16 14:40 Respiratory Rate 16 07/11/16 14:40 Blood Pressure 138/75 07/11/16 14:40 O2 Sat by Pulse Oximetry (%) 95 07/11/16 10:00 Constitutional: Yes: Mild Distress Eyes: Yes: WNL, Other Neck: Yes: WNL Cardiovascular: Yes: Pulse Irregular Respiratory: Yes: WNL Gastrointestinal: Yes: WNL Genitourinary: Yes: WNL Musculoskeletal: Yes: Muscle Weakness Extremities: Yes: WNL Edema: Yes Edema: LLE: Trace, RLE: Trace Peripheral Pulses WNL: Yes Integumentary: Yes: WNL Wound/Incision: Yes: Clean/Dry Neurological: Yes: Other ...Motor Strength: LLE, RLE Psychiatric: Yes: Other Labs: CBC, BMP 07/11/16 06:00 07/11/16 06:00 INR, PTT INR 0.94 (0.82-1.09) 06/26/16 18:45 Problem List - Problems (1) Blood bacterial culture positive Code(s): R78.81 - BACTEREMIA (2) CHF (congestive heart failure) Code(s): I50.9 - HEART FAILURE, UNSPECIFIED (3) CHF exacerbation Code(s): I50.9 - HEART FAILURE, UNSPECIFIED Qualifiers: Congestive heart failure type: diastolic Qualified Code(s): I50.33 - Acute on chronic diastolic (congestive) heart failure (4) Weakness Code(s): R53.1 - WEAKNESS (5) Cellulitis Assessment/Plan: CHRONIC Code(s): L03.90 - CELLULITIS, UNSPECIFIED Qualifiers: Site of cellulitis: unspecified site Qualified Code(s): L03.90 - Cellulitis, unspecified (6) Diabetes Code(s): E11.9 - TYPE 2 DIABETES MELLITUS WITHOUT COMPLICATIONS Qualifiers: Diabetes mellitus type: type 1 Diabetes mellitus complication status: with kidney complications Diabetes mellitus complication detail: with chronic kidney disease Chronic kidney disease stage: unspecified stage Qualified Code(s): E10.22 - Type 1 diabetes mellitus with diabetic chronic kidney disease; N18.1 - Chronic kidney disease, stage 1 Assessment/Plan TELEMETRY ALARMS REVIEWED NO ACUTE CHANGES CARDIOLOGY EVAL/RENAL EVAL APPRECIATED MONITOR LABS SNF
[2016-07-11] MEDS ORDERED: INSULIN (NOVOLOG) ASPART 100 UNITS/ML 10ML VIAL ONE (20:43)
[2016-07-11] MEDS: INSULIN DETEMIR 100 UNITS/ML MDV SQ SCH (21:06)
[2016-07-12] MEDS: INSULIN SLIDING SCALE (NOVOLOG) 1 VIAL SQ SCH ×4 (06:14→21:20)
[2016-07-12] MEDS: LEVOTHYROXINE NA 125 MCG TABLET (FP) PO SCH (06:20)
[2016-07-12] MEDS: FUROSEMIDE 40 MG/4 ML INJECTABLE VIAL IVPB SCH ×2 (06:20→14:57)
[2016-07-12 08:31] LABS: EOSINOPHIL 6.8 % (0-4.5); MCH 30.6 pg (25.7-33.7); MCHC 33.5 g/dl (32.0-36.0); MEAN CELL VOLUME 91.3 fl (80-96); MEAN PLT VOLUME 10.2 fl (7.5-11.1); NEUTROPHILS 52.8 % (42.8-82.8); PLATELET COUNT 126 K/MM3 (134-434); RDW 14.4 % (11.6-15.6)
[2016-07-12 09:11] LABS: ALBUMIN 3.3 g/dl (3.4-5.0); BILIRUBIN,TOTAL 0.4 mg/dL (0.2-1.0); CALCIUM 9.6 mg/dL (8.5-10.1); COCKROFT - GAULT 51.187; CREATININE 1.9 mg/dL (0.55-1.02); MAGNESIUM 2.4 mg/dL (1.8-2.4); TOT PROT 7.2 g/dl (6.4-8.2)
[2016-07-12] MEDS ORDERED: PT OWN MED DRAWER 7, Y5N ONE (09:33)
[2016-07-12] MEDS: hydrALAZINE HCL 25 MG TABLET (FP) PO SCH ×2 (10:04→21:18)
[2016-07-12] MEDS: PANTOPRAZOLE 20 MG TABLET (FP) PO SCH (10:04)
[2016-07-12] MEDS: LIOTHYRONINE SODIUM 25 MCG TABLET PO SCH (10:04)
[2016-07-12] MEDS: ASPIRIN COATED 81 MG TABLET.EC PO SCH (10:04)
[2016-07-12] MEDS: BACITRACIN 15 GM TUBE TOPICAL OINTMENT TP SCH ×2 (10:05→21:23)
[2016-07-12] MEDS ORDERED: INSULIN (NOVOLOG) ASPART 100 UNITS/ML 10ML VIAL ONE (12:39)
--- NOTE | 2016-07-12 13:15 | PN ---
Progress Note (short form) - Note Progress Note: No acute events overnight. No CP or SOB. Intake & Output 07/09/16 07/10/16 07/11/16 07/12/16 23:59 23:59 23:59 23:59 Intake Total 537 150 9125 500 Balance 021 036 8919 500 Weight 258 lb 6 oz 255 lb 252 lb 4 oz 252 lb 4 oz Last Vital Signs Temp Pulse Resp BP Pulse Ox 96.2 F L 76 18 128/62 95 07/12/16 10:00 07/12/16 10:00 07/12/16 10:00 07/12/16 10:00 07/11/16 21:00 Active Medications Aspirin (Ecotrin -) 162 mg PO DAILY [facility] Last Admin: 07/12/16 10:04 Dose: 162 mg Bacitracin (Bacitracin -) 1 applic TP BID [facility] Last Admin: 07/12/16 10:05 Dose: 1 applic Furosemide (Lasix Injection -) 40 mg IVPB BID@0600,1400 [facility] Last Admin: 07/12/16 06:20 Dose: 40 mg Hydralazine HCl (Apresoline -) 25 mg PO BID [facility] Last Admin: 07/12/16 10:04 Dose: 25 mg Insulin Aspart (Novolog Vial Sliding Scale -) 1 vial SQ [facility] PRN Reason: Protocol Last Admin: 07/12/16 12:27 Dose: 2 units Insulin Detemir (Levemir Vial) 50 units SQ HS [facility] Last Admin: 07/11/16 21:06 Dose: 50 units Levothyroxine Sodium (Synthroid -) 125 mcg PO DAILY@0700 [facility] Last Admin: 07/12/16 06:20 Dose: 125 mcg Liothyronine Sodium (Cytomel -) 25 mcg PO DAILY [facility] Last Admin: 07/12/16 10:04 Dose: 25 mcg Pantoprazole Sodium (Protonix -) 20 mg PO DAILY [facility] Last Admin: 07/12/16 10:04 Dose: 20 mg Gen: NAD at rest Heart: RRR Lung: Clear Abd: soft, nontender Ext: + edema Laboratory Results - last 24 hr 07/11/16 07/11/16 07/12/16 17:08 20:58 05:43 WBC RBC Hgb Hct MCV MCHC RDW Plt Count MPV Neutrophils % Lymphocytes % Monocytes % Eosinophils % Basophils % Sodium Potassium Chloride Carbon Dioxide Anion Gap BUN Creatinine Creat Clearance w eGFR POC Glucometer 218 256 132 Random Glucose Calcium Magnesium Total Bilirubin AST ALT Alkaline Phosphatase Total Protein Albumin 07/12/16 07/12/16 07/12/16 07:05 07:05 11:52 WBC 5.0 RBC 3.29 L Hgb 10.1 L Hct 30.0 L MCV 91.3 MCHC 33.5 RDW 14.4 Plt Count 126 L MPV 10.2 Neutrophils % 52.8 Lymphocytes % 26.9 Monocytes % 12.5 H Eosinophils % 6.8 H Basophils % 1.0 Sodium 143 Potassium 5.1 Chloride 107 Carbon Dioxide 27 Anion Gap 9 BUN 92 H Creatinine 1.9 H Creat Clearance w eGFR 26.29 POC Glucometer 159 Random Glucose 100 Calcium 9.6 Magnesium 2.4 Total Bilirubin 0.4 D AST 35 D ALT 107 H D Alkaline Phosphatase 287 H Total Protein 7.2 Albumin 3.3 L Problem List - Problems (1) CHF exacerbation Code(s): I50.9 - HEART FAILURE, UNSPECIFIED Qualifiers: Congestive heart failure type: diastolic Qualified Code(s): I50.33 - Acute on chronic diastolic (congestive) heart failure (2) Chest pain Code(s): R07.9 - CHEST PAIN, UNSPECIFIED Qualifiers: Chest pain type: precordial pain Qualified Code(s): R07.2 - Precordial pain (3) Elevated liver enzymes Code(s): R74.8 - ABNORMAL LEVELS OF OTHER SERUM ENZYMES (4) Hyperkalemia Code(s): E87.5 - HYPERKALEMIA (5) Diabetes mellitus, insulin dependent (IDDM), uncontrolled Code(s): E10.65 - TYPE 1 DIABETES MELLITUS WITH HYPERGLYCEMIA Qualifiers: Diabetes mellitus complication status: with skin complications Diabetes mellitus complication detail: with dermatitis Qualified Code(s): 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
--- NOTE | 2016-07-12 19:50 | PN ---
Progress Note, Physician History of Present Illness: no complaints - Current Medication List Current Medications: Active Medications Aspirin (Ecotrin -) 162 mg PO DAILY [facility] Last Admin: 07/12/16 10:04 Dose: 162 mg Bacitracin (Bacitracin -) 1 applic TP BID [facility] Last Admin: 07/12/16 10:05 Dose: 1 applic Furosemide (Lasix Injection -) 40 mg IVPB BID@0600,1400 [facility] Last Admin: 07/12/16 14:57 Dose: 40 mg Hydralazine HCl (Apresoline -) 25 mg PO BID [facility] Last Admin: 07/12/16 10:04 Dose: 25 mg Insulin Aspart (Novolog Vial Sliding Scale -) 1 vial SQ [facility] PRN Reason: Protocol Last Admin: 07/12/16 17:06 Dose: 2 units Insulin Detemir (Levemir Vial) 50 units SQ HS [facility] Last Admin: 07/11/16 21:06 Dose: 50 units Levothyroxine Sodium (Synthroid -) 125 mcg PO DAILY@0700 [facility] Last Admin: 07/12/16 06:20 Dose: 125 mcg Liothyronine Sodium (Cytomel -) 25 mcg PO DAILY [facility] Last Admin: 07/12/16 10:04 Dose: 25 mcg Pantoprazole Sodium (Protonix -) 20 mg PO DAILY [facility] Last Admin: 07/12/16 10:04 Dose: 20 mg - Objective Vital Signs: Vital Signs Temperature 94.9 F L 07/12/16 14:16 Pulse Rate 80 07/12/16 14:16 Respiratory Rate 16 07/12/16 14:16 Blood Pressure 167/84 07/12/16 14:16 O2 Sat by Pulse Oximetry (%) 95 07/11/16 21:00 Constitutional: Yes: No Distress HENT: Yes: Atraumatic Neck: Yes: Supple Cardiovascular: Yes: Regular Rate and Rhythm Respiratory: Yes: CTA Bilaterally Gastrointestinal: Yes: Normal Bowel Sounds Musculoskeletal: Yes: WNL Neurological: Yes: Alert, Oriented Labs: CBC, BMP 07/12/16 07:05 07/12/16 07:05 INR, PTT INR 0.94 (0.82-1.09) 06/26/16 18:45 Problem List - Problems (1) CHF (congestive heart failure) Code(s): I50.9 - HEART FAILURE, UNSPECIFIED (2) Hyperlipidemia associated with type 2 diabetes mellitus Code(s): E11.69 - TYPE 2 DIABETES MELLITUS WITH OTHER SPECIFIED COMPLICATION E78.5 - HYPERLIPIDEMIA, UNSPECIFIED (3) Diabetes Code(s): E11.9 - TYPE 2 DIABETES MELLITUS WITHOUT COMPLICATIONS Qualifiers: Diabetes mellitus type: type 1 Diabetes mellitus complication status: with kidney complications Diabetes mellitus complication detail: with chronic kidney disease Chronic kidney disease stage: unspecified stage Qualified Code(s): E10.22 - Type 1 diabetes mellitus with diabetic chronic kidney disease; N18.1 - Chronic kidney disease, stage 1 (4) HTN (hypertension) Code(s): I10 - ESSENTIAL (PRIMARY) HYPERTENSION Qualifiers: Hypertension type: essential hypertension Qualified Code(s): I10 - Essential (primary) hypertension (5) Hypothyroid Code(s): E03.9 - HYPOTHYROIDISM, UNSPECIFIED Assessment/Plan A/P Acute on Chronic LV Diastolic Heart Failure Pulmonary HTN Pleural Effusion Chest Pain Hyperkalemia Elevated LFTs - ?congestive hepatopathy CKD HTN DM - Lasix IV - monitor urine output, creatinine - daily weights, I/Os - O2 to keep SpO2 >90% - DVT prophylaxis - continue home meds - insulin/bgms covering dr chappell
[2016-07-12] MEDS: INSULIN DETEMIR 100 UNITS/ML MDV SQ SCH (21:20)
[2016-07-13] MEDS: FUROSEMIDE 40 MG/4 ML INJECTABLE VIAL IVPB SCH (05:42)
[2016-07-13] MEDS: LEVOTHYROXINE NA 125 MCG TABLET (FP) PO SCH (06:00)
[2016-07-13] MEDS: INSULIN SLIDING SCALE (NOVOLOG) 1 VIAL SQ SCH (06:00)
[2016-07-13 07:31] LABS: CALCIUM 9.4 mg/dL (8.5-10.1); CREATININE 1.8 mg/dL (0.55-1.02); MAGNESIUM 2.3 mg/dL (1.8-2.4)
[2016-07-13 07:44] LABS: COCKROFT - GAULT 32.5805
[2016-07-13] MEDS ORDERED: PT OWN MED DRAWER 7, Y5N ONE (10:26)
--- NOTE | 2016-07-13 10:30 | PN ---
Progress Note, Physician - Current Medication List Current Medications: Active Medications Aspirin (Ecotrin -) 162 mg PO DAILY [facility] Last Admin: 07/12/16 10:04 Dose: 162 mg Bacitracin (Bacitracin -) 1 applic TP BID [facility] Last Admin: 07/12/16 21:23 Dose: 1 applic Furosemide (Lasix Injection -) 40 mg IVPB BID@0600,1400 [facility] Last Admin: 07/13/16 05:42 Dose: 40 mg Hydralazine HCl (Apresoline -) 25 mg PO BID [facility] Last Admin: 07/12/16 21:18 Dose: 25 mg Insulin Aspart (Novolog Vial Sliding Scale -) 1 vial SQ [facility] PRN Reason: Protocol Last Admin: 07/13/16 06:00 Dose: Not Given Insulin Detemir (Levemir Vial) 50 units SQ HS [facility] Last Admin: 07/12/16 21:20 Dose: 50 units Levothyroxine Sodium (Synthroid -) 125 mcg PO DAILY@0700 [facility] Last Admin: 07/13/16 06:00 Dose: 125 mcg Liothyronine Sodium (Cytomel -) 25 mcg PO DAILY [facility] Last Admin: 07/12/16 10:04 Dose: 25 mcg Pantoprazole Sodium (Protonix -) 20 mg PO DAILY [facility] Last Admin: 07/12/16 10:04 Dose: 20 mg - Objective Vital Signs: Vital Signs Temperature 97.4 F L 07/13/16 07:36 Pulse Rate 80 07/13/16 07:36 Respiratory Rate 16 07/13/16 07:36 Blood Pressure 133/61 07/13/16 07:36 O2 Sat by Pulse Oximetry (%) 95 07/11/16 21:00 Constitutional: Yes: Calm Neck: Yes: Trachea Midline Cardiovascular: Yes: Regular Rate and Rhythm, S1, S2 Respiratory: Yes: CTA Bilaterally Gastrointestinal: Yes: Soft Extremities: Yes: Erythema (chronic), Other Edema: Yes Neurological: Yes: Alert, Oriented Labs: CBC, BMP 07/12/16 07:05 07/13/16 05:41 INR, PTT INR 0.94 (0.82-1.09) 06/26/16 18:45 Problem List - Problems (1) Hypothermia Assessment/Plan: most likely central origin appreicate neuro and endo FU on cytomel Code(s): T68.XXXA - HYPOTHERMIA, INITIAL ENCOUNTER (2) CHF (congestive heart failure) Assessment/Plan: iv lasix to po lasix 40mg po bid Code(s): I50.9 - HEART FAILURE, UNSPECIFIED (3) Hyperkalemia Assessment/Plan: kayxelate 25g daily weekly BMP home blood draw set up from office Code(s): E87.5 - HYPERKALEMIA (4) Hypothyroid Assessment/Plan: syntroid Code(s): E03.9 - HYPOTHYROIDISM, UNSPECIFIED (5) Elevated liver enzymes Assessment/Plan: abdominal MRI done report noted stop neurontin Code(s): R74.8 - ABNORMAL LEVELS OF OTHER SERUM ENZYMES (6) Cellulitis Assessment/Plan: iv abx stopped Code(s): L03.90 - CELLULITIS, UNSPECIFIED Qualifiers: Site of cellulitis: unspecified site Qualified Code(s): L03.90 - Cellulitis, unspecified Assessment/Plan dc home with VNS and home blood draws weekly
[2016-07-13] MEDS: PANTOPRAZOLE 20 MG TABLET (FP) PO SCH (10:43)
[2016-07-13] MEDS: ASPIRIN COATED 81 MG TABLET.EC PO SCH (10:44)
[2016-07-13] MEDS: LIOTHYRONINE SODIUM 25 MCG TABLET PO SCH (10:44)
[2016-07-13] MEDS: hydrALAZINE HCL 25 MG TABLET (FP) PO SCH (10:44)
[2016-07-13] MEDS: BACITRACIN 15 GM TUBE TOPICAL OINTMENT TP SCH (10:44)
[2016-07-13] MEDS ORDERED: SODIUM POLYSTYRENE SULFONATE 15 GM/60 ML BOTTLE PO ONE (10:45)
--- NOTE | 2016-07-13 11:11 | PN ---
Progress Note (short form) - Note Progress Note: Renal Follow up for BHUPINDER on CKD and Hyperkalemia Pt seen and examined at the bedside no complaints for discharge home today denies any sob, chest pain, fever, chills Vital Signs Temperature 97.4 F L 07/13/16 07:36 Pulse Rate 80 07/13/16 07:36 Respiratory Rate 16 07/13/16 07:36 Blood Pressure 133/61 07/13/16 07:36 O2 Sat by Pulse Oximetry (%) 95 07/11/16 21:00 Intake & Output 07/10/16 07/11/16 07/12/16 07/13/16 23:59 23:59 23:59 23:59 Intake Total 800 1330 1610 100 Balance 800 1330 1610 100 Weight 255 lb 252 lb 4 oz 252 lb 4 oz 152 lb 2 oz Gen: NAD CVS: RRR, No M/R Lungs: CTA Abd: Obese NT/ND Ext: 1+ edema in LE b/L CBC, BMP 07/12/16 07:05 07/13/16 05:41 Laboratory Tests 07/13/16 05:41 Calcium 9.4 Magnesium 2.3 Current Medications Aspirin (Ecotrin -) 162 mg PO DAILY [facility] Last Admin: 07/13/16 10:44 Dose: 162 mg Bacitracin (Bacitracin -) 1 applic TP BID [facility] Last Admin: 07/13/16 10:44 Dose: 1 applic Hydralazine HCl (Apresoline -) 25 mg PO BID [facility] Last Admin: 07/13/16 10:44 Dose: 25 mg Insulin Aspart (Novolog Vial Sliding Scale -) 1 vial SQ [facility] PRN Reason: Protocol Last Admin: 07/13/16 06:00 Dose: Not Given Insulin Detemir (Levemir Vial) 50 units SQ HS [facility] Last Admin: 07/12/16 21:20 Dose: 50 units Levothyroxine Sodium (Synthroid -) 125 mcg PO DAILY@0700 [facility] Last Admin: 07/13/16 06:00 Dose: 125 mcg Liothyronine Sodium (Cytomel -) 25 mcg PO DAILY [facility] Last Admin: 07/13/16 10:44 Dose: 25 mcg Pantoprazole Sodium (Protonix -) 20 mg PO DAILY [facility] Last Admin: 07/13/16 10:43 Dose: 20 mg a/P 66 year old woman with PMhx of Benigin Brain Tumors, NIDDM, Hypertension, Hypothyrodism who presented to the ED with complaints of chest pain and SOB with elevated Serum Cr and persistent hyperkalemia. #CKD with Hyperkalmemia Renal function remains stable at this time K is improved today but would continue Kayexalate 15g Q48h continue low potassium diet at home repeat labs in 1 week to follow up in the office for CKD management Thank you Vladimir Mitchell DO
[2016-07-13 14:00] VITALS: BP 135/64
[2016-07-13 14:47] VITALS: PULSE 78; TEMP 97
[2016-07-17 00:10] LABS: RENIN ACTIVITY(PRA) 0.778 ng/mL/hr (0.167-5.380)
== END 2016-07-13 15:40 | disposition home health service (06) | DRG 291 ==
LOC: JER 16:57 → JERBED 06-27 00:02 → J4S 06-27 12:48
PROVIDERS: ADMIT Family Medicine; ATTEND Family Medicine
PROC: 5A09557 Assistance with Respiratory Ventilation, Greater than 96 Consecutive Hours, Continuous Positive Airway Pressure (ICD-10-PCS; principal; 2016-07-08)
DX: I13.0 Hypertensive heart and chronic kidney disease with heart failure and stage 1 through stage 4 chronic kidney disease, or unspecified chronic kidney disease (principal); I50.33 Acute on chronic diastolic (congestive) heart failure; J96.02 Acute respiratory failure with hypercapnia; N17.9 Acute kidney failure, unspecified; L03.115 Cellulitis of right lower limb; L03.116 Cellulitis of left lower limb; E87.5 Hyperkalemia; N18.9 Chronic kidney disease, unspecified; E03.9 Hypothyroidism, unspecified; E78.5 Hyperlipidemia, unspecified; I27.2 Other secondary pulmonary hypertension; R07.9 Chest pain, unspecified; I87.2 Venous insufficiency (chronic) (peripheral); E87.70 Fluid overload, unspecified; E11.65 Type 2 diabetes mellitus with hyperglycemia; Z79.4 Long term (current) use of insulin; R53.1 Weakness; D72.819 Decreased white blood cell count, unspecified; E11.40 Type 2 diabetes mellitus with diabetic neuropathy, unspecified; D64.9 Anemia, unspecified
CPT/HCPCS: 36415; 36600; 70450-TC; 70551-TC; 71010-TC; 71020-TC; 71250-TC; 74181-TC; 76705-TC; 80048; 80053; 80061; 80076; 81003; 81015; 82024; 82088; 82272; 82436; 82533; 82550; 82570; 82607; 82728; 82747; 82784; 82803; 83036; 83540; 83550; 83605; 83721; 83735; 83880; 83930; 83935; 84100; 84132; 84133; 84146; 84155; 84156; 84165; 84244; 84300; 84425; 84436; 84439; 84443; 84480; 84481; 84482; 84484; 84540; 85014; 85025; 85027; 85610; 85651; 86038; 86140; 86334; 86704; 86705; 86706; 86707; 86850; 86900; 86901; 87040; 87086; 87340; 87350; 93005; 93010; 93306-TC; 93970-TC; 94660; 97116-GP; 97161-GP; 99285-25; J1644

== ENCOUNTER 2016-07-23 12:06 | Observation (INO) | payer OTHER ==
[2016-07-23 12:36] VITALS: BMI 30.7
--- NOTE | 2016-07-23 13:42 | PDOC ---
History of Present Illness <Chelsie Ramos - Last Filed: 07/23/16 15:14> - History of Present Illness Initial Comments: 07/23/16 13:37 78-year-old female with a past medical history of hypertension, AODM, hyperlipidemia, hypothyroidism, chronic lower extremity edema/venous stasis ulcers, multiple prior episodes of recurrent cellulitis She also has a history of chronic renal insufficiency, a benign brain tumor, and of CHF with a right sided effusion She is a remote smoker Patient is complaining of a few days of feeling dizzy and lightheaded, which she describes more as a lightheadedness than vertigo, and her symptoms have been off and on She denies any associated shortness of breath, chest pain, palpitations, or fevers or chills There is no cough or sputum She states that her glucose was 173 this morning She states that her legs are as swollen as they usually are, maybe more so recently She denies any nausea vomiting or diarrhea She denies any abdominal pain She denies any other complaints at this time, and the remainder the review of systems is negative She was reportedly sent in for abnormal blood work <Kirsten Farias - Last Filed: 07/25/16 23:00> - General Chief Complaint: Weakness Stated Complaint: ANEMIA Time Seen by Provider: 07/23/16 13:19 Past History <Chelsie Ramos - Last Filed: 07/23/16 15:14> - Past Medical History Anemia: No Asthma: No Cancer: No Cardiac Disorders: No CVA: No COPD: No CHF: No Dementia: No Diabetes: Yes (NIDDM) GI Disorders: No Disorders: No HTN: Yes Hypercholesterolemia: Yes Liver Disease: No Seizures: No Thyroid Disease: Yes (hypothyroidism) - Surgical History Abdominal Surgery: No Appendectomy: No Cardiac Surgery: No Cholecystectomy: No Lung Surgery: No Neurologic Surgery: Yes (BENIGN BRAIN TUMORS X 6 @ [facility]) Orthopedic Surgery: No - Immunization History Td Vaccination: Yes Immunization Up to Date: Yes - Psycho/Social/Smoking Cessation Hx Anxiety: No Suicidal Ideation: No Smoking Status: Yes Smoking History: Former smoker Have you smoked in the past 12 months: No Number of Cigarettes Smoked Daily: 0 If you are a former smoker, when did you quit?: 15 years ago Information on smoking cessation initiated: No Hx Alcohol Use: No Drug/Substance Use Hx: No Substance Use Type: None Hx Substance Use Treatment: No <Kirsten Farias - Last Filed: 07/25/16 23:00> - Past Medical History Allergies/Adverse Reactions: Allergies Allergy/AdvReac Type Severity Reaction Status Date / Time phenytoin sodium Allergy Rash Verified 07/23/16 12:16 [From Dilantin] phenytoin sodium extended Allergy Rash Verified 07/23/16 12:16 [From Dilantin] vancomycin Allergy Verified 07/23/16 12:16 Home Medications: Ambulatory Orders Omeprazole 20 mg PO DAILY #30 capsule. 09/09/15 Levothyroxine [Synthroid -] 125 mcg PO BID 10/20/15 Hydralazine HCl [Apresoline -] 25 mg PO BID #30 tablet 12/06/15 Furosemide [Lasix -] 40 mg PO DAILY #30 tablet 07/13/16 Fluocinonide 0.05% Oin [Lidex 0.05% Ointment -] 1 applic TP DAILY 07/23/16 Gabapentin 100 mg PO DAILY 07/23/16 Glimepiride [Amaryl] 1 mg PO DAILY 07/23/16 Insulin Glargine,Hum.rec.anlog [Lantus (nf)] 0 units SQ HS 07/23/16 Insulin Lispro [Humalog] 0 unit SQ TID 07/23/16 Losartan Potassium [Cozaar -] 50 mg PO DAILY 07/23/16 Mupirocin Ointment [Bactroban] 1 applic TP BID 07/23/16 Potassium Chloride [Klor-Con M20] 20 meq PO DAILY 07/23/16 Simvastatin [Zocor -] 20 mg PO HS MDD 1 07/23/16 *Physical Exam - Vital Signs Last Vital Signs Temp Pulse Resp BP Pulse Ox 93.7 F L 76 20 139/70 100 07/23/16 14:50 07/23/16 12:23 07/23/16 12:23 07/23/16 12:23 07/23/16 12:35 <Chelsie Ramos - Last Filed: 07/23/16 15:14> - Vital Signs Last Vital Signs Temp Pulse Resp BP Pulse Ox 93.4 F L 76 20 139/70 100 07/23/16 12:23 07/23/16 12:23 07/23/16 12:23 07/23/16 12:23 07/23/16 12:35 - Physical Exam Comments: 07/23/16 13:40 Physical exam Last Vital Signs Temp Pulse Resp BP Pulse Ox 93.4 F L 76 20 139/70 100 07/23/16 12:23 07/23/16 12:23 07/23/16 12:23 07/23/16 12:23 07/23/16 12:35 GENERAL: The patient is awake, alert, and fully oriented, and in no apparent distress. HEAD: Normal with no signs of trauma. EYES: sclera anicteric, conjunctiva are normal. ENT: Moist mucous membranes. NECK: Normal range of motion, supple LUNGS: Breath sounds equal, clear to auscultation bilaterally. No wheezes, and no crackles. HEART: Regular rate and rhythm, normal S1 and S2 without murmur, rub or gallop. ABDOMEN: Soft, nontender, normoactive bowel sounds. No guarding, no rebound. No masses appreciated. EXTREMITIES: There is 3+ pitting pedal edema bilaterally, with chronic venous stasis changes, and multiple areas of skin breakdown There is some chronic erythema, but no warmth NEUROLOGICAL: Patient is alert and answering questions Pupils are equal, and extraocular movements are intact Cranial nerves are normal Motor strength is 5 out of 5 and equal in the upper and lower extremities bilaterally Grossly nonfocal neurologic exam PSYCH: Normal mood, normal affect. SKIN: Warm, Dry, <Kirsten Farias - Last Filed: 07/25/16 23:00> ED Treatment Course - LABORATORY CBC & Chemistry Diagram: 07/23/16 13:47 07/23/16 13:47 - ADDITIONAL ORDERS Additional order review: Laboratory Results 07/23/16 07/23/16 07/23/16 13:47 13:47 13:47 INR Sodium 142 Potassium 5.2 H Chloride 110 H Carbon Dioxide 21 Anion Gap 11 BUN 55 H D Creatinine 1.5 H Creat Clearance w eGFR 34.53 Random Glucose 83 Lactic Acid 0.590 Calcium 8.7 Magnesium 2.6 H Total Bilirubin 0.3 D AST 42 H ALT 95 H Alkaline Phosphatase 349 H D Creatine Kinase 57 Troponin I < 0.02 B-Natriuretic Peptide 822.85 H Total Protein 6.6 Albumin 3.0 L Urine Color Colorless Urine Appearance Clear Urine pH 5.0 Urine Protein 2+ H Urine Glucose (UA) Negative Urine Ketones Negative Urine Blood 1+ H Urine Nitrite Negative Urine Bilirubin Negative Urine Urobilinogen Negative Ur Leukocyte Esterase Negative 07/23/16 13:47 INR 1.06 Sodium Potassium Chloride Carbon Dioxide Anion Gap BUN Creatinine Creat Clearance w eGFR Random Glucose Lactic Acid Calcium Magnesium Total Bilirubin AST ALT Alkaline Phosphatase Creatine Kinase Troponin I B-Natriuretic Peptide Total Protein Albumin Urine Color Urine Appearance Urine pH Urine Protein Urine Glucose (UA) Urine Ketones Urine Blood Urine Nitrite Urine Bilirubin Urine Urobilinogen Ur Leukocyte Esterase 07/23/16 13:47 RBC 2.80 L MCV 90.3 MCHC 33.9 RDW 15.6 MPV 10.6 <Chelsie Ramos - Last Filed: 07/23/16 15:14> - LABORATORY CBC & Chemistry Diagram: 07/25/16 13:30 07/24/16 08:00 - RADIOLOGY Radiology Studies Ordered: Category Date Time Status CHEST X-RAY PORTABLE* [RAD] Stat Radiology 07/23/16 13:36 Ordered <Kirsten Farias - Last Filed: 07/25/16 23:00> Medical Decision Making - Medical Decision Making 07/23/16 15:14 A call was placed to Dr. Harvey at his service. Awaiting a call back. <Chelsie Ramos - Last Filed: 07/23/16 15:14> - Medical Decision Making 07/23/16 15:11 Vital Signs - 24 hr 07/23/16 07/23/16 07/23/16 12:23 12:35 14:50 Temperature 93.4 F L 93.7 F L Pulse Rate 76 Respiratory 20 Rate Blood Pressure 139/70 O2 Sat by Pulse 99 100 Oximetry (%) Patient remains hypothermic-bear hugger placed Labwork Laboratory Results - last 24 hr 07/23/16 07/23/16 07/23/16 13:47 13:47 13:47 WBC 4.8 RBC 2.80 L Hgb 8.6 L D Hct 25.3 L D MCV 90.3 MCHC 33.9 RDW 15.6 Plt Count 158 D MPV 10.6 INR 1.06 Sodium 142 Potassium 5.2 H Chloride 110 H Carbon Dioxide 21 Anion Gap 11 BUN 55 H D Creatinine 1.5 H Creat Clearance w eGFR 34.53 Random Glucose 83 Lactic Acid Calcium 8.7 Magnesium 2.6 H Total Bilirubin 0.3 D AST 42 H ALT 95 H Alkaline Phosphatase 349 H D Creatine Kinase 57 Troponin I < 0.02 B-Natriuretic Peptide 822.85 H Total Protein 6.6 Albumin 3.0 L Urine Color Urine Appearance Urine pH Urine Protein Urine Glucose (UA) Urine Ketones Urine Blood Urine Nitrite Urine Bilirubin Urine Urobilinogen Ur Leukocyte Esterase 07/23/16 07/23/16 13:47 13:47 WBC RBC Hgb Hct MCV MCHC RDW Plt Count MPV INR Sodium Potassium Chloride Carbon Dioxide Anion Gap BUN Creatinine Creat Clearance w eGFR Random Glucose Lactic Acid 0.590 Calcium Magnesium Total Bilirubin AST ALT Alkaline Phosphatase Creatine Kinase Troponin I B-Natriuretic Peptide Total Protein Albumin Urine Color Colorless Urine Appearance Clear Urine pH 5.0 Urine Protein 2+ H Urine Glucose (UA) Negative Urine Ketones Negative Urine Blood 1+ H Urine Nitrite Negative Urine Bilirubin Negative Urine Urobilinogen Negative Ur Leukocyte Esterase Negative TSH still pending Lactic 0.5 Chest x-ray- Haziness in the lung bases, correlate for bilateral pleural effusions (Patient does have a history of pleural effusion 07/23/16 16:00 TSH [id number] out hypothyroidism as the cause of her hypothermia Case and all results discussed with Dr. Harvey-will admit Impression-anemia and hypo-thermia 07/23/16 16:11 Will also check random cortisol <Kirsten Farias - Last Filed: 07/25/16 23:00> *DC/Admit/Observation/Transfer <Chelsie Ramos - Last Filed: 07/23/16 15:14> <Kirsten Farias - Last Filed: 07/25/16 23:00> Diagnosis at time of Disposition: Anemia, Hypothermia, Weakness, Edema - Referrals
[2016-07-23 14:11] LABS: MCH 30.6 pg (25.7-33.7); MCHC 33.9 g/dl (32.0-36.0); MEAN CELL VOLUME 90.3 fl (80-96); MEAN PLT VOLUME 10.6 fl (7.5-11.1); PLATELET COUNT 158 K/MM3 (134-434); RDW 15.6 % (11.6-15.6); WHITE BLOOD COUNT 4.8 K/mm3 (4.0-10.0)
[2016-07-23 14:13] LABS: URINE APPEARANCE CLEAR; URINE BILIRUBIN NEGATIVE (NEGATIVE); URINE COLOR COLORLESS; URINE GLUCOSE (UA) NEGATIVE (NEGATIVE); URINE KETONE NEGATIVE (NEGATIVE); URINE LEUK ESTERASE NEGATIVE (NEGATIVE); URINE NITRITE NEGATIVE (NEGATIVE); URINE UROBILINOGEN NEGATIVE E.U./dl (0.2-1.0)
[2016-07-23 14:20] LABS: ANION GAP 11 (8-16); BILIRUBIN,TOTAL 0.3 mg/dL (0.2-1.0); CALCIUM 8.7 mg/dL (8.5-10.1); CO2 21 mmol/L (21-32); CREATININE 1.5 mg/dL (0.55-1.02); GLUCOSE,RANDOM 83 mg/dL (74-106); MAGNESIUM 2.6 mg/dL (1.8-2.4); SGOT/AST 42 U/L (15-37); SGPT/ALT 95 U/L (12-78); TOT PROT 6.6 g/dl (6.4-8.2)
[2016-07-23 14:26] LABS: ALK PHOS 349 U/L (45-117); TROPONIN I < 0.02 ng/ml (0.00-0.05)
[2016-07-23 14:31] LABS: INR 1.06 (0.82-1.09); PROTHROMBIN TIME (PATIENT) 11.7 SEC (9.98-11.88)
[2016-07-23 14:56] LABS: URINE BLOOD 1+ (NEGATIVE); URINE PROTEIN 2+ (NEGATIVE)
[2016-07-23 15:17] LABS: THYROID STIMULATING HORMONE 0.05 uIU/ml (0.358-3.74)
[2016-07-23 15:47] LABS: URINE BACTERIA RARE /hpf (NONE SEEN); URINE HYALINE CAST 3 /lpf; URINE MUCUS RARE; URINE WBC 1 /hpf (3-5)
--- NOTE | 2016-07-23 16:44 | EKG ---
Test Reason : Blood Pressure : / mmHG Vent. Rate : 074 BPM Atrial Rate : 074 BPM P-R Int : 228 ms QRS Dur : 106 ms QT Int : 432 ms P-R-T Axes : 073 061 036 degrees QTc Int : 479 ms SINUS RHYTHM WITH 1ST DEGREE A-V BLOCK OTHERWISE NORMAL ECG WHEN COMPARED WITH ECG OF 28-JUN-2016 13:40, NONSPECIFIC T WAVE ABNORMALITY NO LONGER EVIDENT IN LATERAL LEADS Confirmed by AGUSTO VÁSQUEZ, LISA ([id number]) on 07/23/2016 4:43:54 PM Referred By: Confirmed By:LISA LIZ MD
[2016-07-23] MEDS: INSULIN SLIDING SCALE (NOVOLOG) 1 VIAL SQ SCH ×2 (17:06→23:38)
[2016-07-23] MEDS ORDERED: SODIUM POLYSTYRENE SULFONATE 15 GM/60 ML BOTTLE PO ONE (21:25)
[2016-07-23] MEDS ORDERED: hydrALAZINE HCL 25 MG TABLET (FP) ONE (21:35)
[2016-07-23] MEDS ORDERED: SODIUM POLYSTYRENE SULFONATE 15 GM/60 ML BOTTLE ONE (21:35)
[2016-07-23] MEDS ORDERED: HEPARIN NA (PORCINE) 5,000 UNITS/ML 1ML VIAL ONE (21:35)
[2016-07-23] MEDS ORDERED: LEVOTHYROXINE NA 125 MCG TABLET (FP) PO SCH (22:00)
[2016-07-23] MEDS: hydrALAZINE HCL 25 MG TABLET (FP) PO SCH (22:14)
[2016-07-23] MEDS: MUPIROCIN 2% TOPICAL OINTMENT 22 GM TUBE TP SCH (22:15)
[2016-07-23] MEDS: HEPARIN NA (PORCINE) 5,000 UNITS/ML 1ML VIAL SQ SCH (22:15)
[2016-07-23] MEDS: ATORVASTATIN CA 10 MG TABLET (FP) PO SCH (22:15)
[2016-07-23] MEDS: INSULIN DETEMIR 100 UNITS/ML MDV SQ SCH (23:38)
[2016-07-24] MEDS: INSULIN SLIDING SCALE (NOVOLOG) 1 VIAL SQ SCH ×4 (07:00→22:11)
[2016-07-24] MEDS: GLIMEPIRIDE 1 MG TABLET (FP) PO SCH (07:00)
[2016-07-24 08:32] LABS: BASOPHIL 1.1 % (0-2.0); EOSINOPHIL 5.4 % (0-4.5); MCH 30.6 pg (25.7-33.7); MCHC 33.9 g/dl (32.0-36.0); MEAN CELL VOLUME 90.3 fl (80-96); MEAN PLT VOLUME 10.8 fl (7.5-11.1); NEUTROPHILS 54.7 % (42.8-82.8); RDW 15.4 % (11.6-15.6); WHITE BLOOD COUNT 5.6 K/mm3 (4.0-10.0)
[2016-07-24 09:08] LABS: ALBUMIN 2.8 g/dl (3.4-5.0); ANION GAP 11 (8-16); CALCIUM 8.7 mg/dL (8.5-10.1); CO2 23 mmol/L (21-32); CREATININE 1.6 mg/dL (0.55-1.02); GLUCOSE,RANDOM 75 mg/dL (74-106); SGOT/AST 37 U/L (15-37); SGPT/ALT 80 U/L (12-78)
[2016-07-24 09:12] LABS: ALK PHOS 353 U/L (45-117); BILIRUBIN,TOTAL 0.4 mg/dL (0.2-1.0); TOT PROT 6.1 g/dl (6.4-8.2); TROPONIN I < 0.02 ng/ml (0.00-0.05)
[2016-07-24 09:17] LABS: PLATELET COUNT 158 K/MM3 (134-434); PLATELET ESTIMATE DECREASED (NORMAL)
[2016-07-24] MEDS: hydrALAZINE HCL 25 MG TABLET (FP) PO SCH ×2 (09:49→22:09)
[2016-07-24] MEDS: HEPARIN NA (PORCINE) 5,000 UNITS/ML 1ML VIAL SQ SCH ×2 (09:49→22:10)
[2016-07-24] MEDS: FUROSEMIDE 40 MG TABLET (FP) PO SCH (09:50)
[2016-07-24] MEDS: LOSARTAN POTASSIUM 50 MG TABLET (FP) PO SCH (09:50)
[2016-07-24] MEDS: PANTOPRAZOLE 20 MG TABLET (FP) PO SCH (09:50)
[2016-07-24] MEDS: POTASSIUM CHLORIDE TABS 20 MEQ TABLET.ER (FP) PO SCH ×2 (09:50→10:00)
[2016-07-24] MEDS: MUPIROCIN 2% TOPICAL OINTMENT 22 GM TUBE TP SCH ×2 (09:51→22:11)
[2016-07-24] MEDS: FLUOCINONIDE 0.05% TOP OINT (60 GM TUBE) TP SCH (09:51)
[2016-07-24] MEDS ORDERED: GABAPENTIN 100 MG CAPSULE (FP) PO SCH (10:00)
[2016-07-24] MEDS ORDERED: DIPYRIDAMOLE 50 MG/10 ML VIAL IVPB ONE (10:27)
--- NOTE | 2016-07-24 10:59 | EKG ---
Test Reason : Blood Pressure : / mmHG Vent. Rate : 084 BPM Atrial Rate : 084 BPM P-R Int : 196 ms QRS Dur : 102 ms QT Int : 392 ms P-R-T Axes : 050 066 025 degrees QTc Int : 463 ms NORMAL SINUS RHYTHM NONSPECIFIC ST ABNORMALITY Confirmed by JJ GARCIA MD ([id number]) on 07/24/2016 10:59:26 AM Referred By: MIHIR PHILIP Confirmed By:JJ GARCIA MD
--- NOTE | 2016-07-24 13:19 | HP ---
Admitting History and Physical - Primary Care Physician PCP: Zoraida Harvey - Admission Chief Complaint: fatigue and sob sent by pMD History of Present Illness: 78-year-old female with a past medical history of hypertension, AODM, hyperlipidemia, hypothyroidism, chronic lower extremity edema/venous stasis ulcers, multiple prior episodes of recurrent cellulitis She also has a history of chronic renal insufficiency, a benign brain tumor, and of CHF with a right sided effusion She is a remote smoker Patient is complaining of a few days of feeling dizzy and lightheaded, which she describes more as a lightheadedness than vertigo, and her symptoms have been off and on She denies any associated shortness of breath, chest pain, palpitations, or fevers or chills There is no cough or sputum She states that her glucose was 173 this morning She states that her legs are as swollen as they usually are, maybe more so recently She denies any nausea vomiting or diarrhea She denies any abdominal pain She denies any other complaints at this time, and the remainder the review of systems is negative She was reportedly sent in for abnormal blood work in hospital: patient in ER had stress test done show possible ischemia will have cardio see patient patient no cp, no nausea,no sob right now eating food on bed History Source: Patient, Medical Record - 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: Peripheral Neuropathy, Other (brain tumor) Cardiovascular: Yes: CHF, HTN, Hyperlipdemia Renal/: Yes: Renal Inusuff Infectious Disease: Yes: Other (LE redness) Endocrine: Yes: Diabetes Mellitus (poor controll) - Smoking History Smoking history: Former smoker Have you smoked in the past 12 months: No Aproximately how many cigarettes per day: 0 If you are a former smoker, when did you quit?: 15 years ago - Alcohol/Substance Use Hx Alcohol Use: No - Social History ADL: Independent History of Recent Travel: No Home Medications - Allergies Allergies/Adverse Reactions: Allergies Allergy/AdvReac Type Severity Reaction Status Date / Time phenytoin sodium Allergy Rash Verified 07/23/16 12:16 [From Dilantin] phenytoin sodium extended Allergy Rash Verified 07/23/16 12:16 [From Dilantin] vancomycin Allergy Verified 07/23/16 12:16 - Home Medications Home Medications: Ambulatory Orders Omeprazole 20 mg PO DAILY #30 capsule. 09/09/15 Levothyroxine [Synthroid -] 125 mcg PO BID 10/20/15 Hydralazine HCl [Apresoline -] 25 mg PO BID #30 tablet 12/06/15 Furosemide [Lasix -] 40 mg PO DAILY #30 tablet 07/13/16 Fluocinonide 0.05% Oin [Lidex 0.05% Ointment -] 1 applic TP DAILY 07/23/16 Gabapentin 100 mg PO DAILY 07/23/16 Glimepiride [Amaryl] 1 mg PO DAILY 07/23/16 Insulin Glargine,Hum.rec.anlog [Lantus (nf)] 0 units SQ HS 07/23/16 Insulin Lispro [Humalog] 0 unit SQ TID 07/23/16 Losartan Potassium [Cozaar -] 50 mg PO DAILY 07/23/16 Mupirocin Ointment [Bactroban] 1 applic TP BID 07/23/16 Potassium Chloride [Klor-Con M20] 20 meq PO DAILY 07/23/16 Simvastatin [Zocor -] 20 mg PO HS MDD 1 07/23/16 Review of Systems - Review of Systems Cardiovascular: reports: No Symptoms Respiratory: reports: No Symptoms Gastrointestinal: reports: No Symptoms Physical Examination Vital Signs: Vital Signs Temperature 97.4 F L 07/24/16 08:57 Pulse Rate 86 07/24/16 08:57 Respiratory Rate 16 07/24/16 08:57 Blood Pressure 124/64 07/24/16 08:57 O2 Sat by Pulse Oximetry (%) 95 07/24/16 08:57 Constitutional: Yes: Calm Cardiovascular: Yes: Regular Rate and Rhythm, S1, S2 Respiratory: Yes: CTA Bilaterally Gastrointestinal: Yes: Normal Bowel Sounds, Soft Extremities: Yes: Erythema, Other (chronic swelling) Edema: Yes Labs: CBC, BMP 07/24/16 08:00 07/24/16 08:00 Imaging - Results Other: Report Reviewed (stress test noted) Problem List - Problems (1) Fatigue Assessment/Plan: will need tele observation cardiology consult regarding possible abnomral stress test itrend CE if 3 sets negative and cardio says its ok then dc home Code(s): R53.83 - OTHER FATIGUE (2) Hypothermia Assessment/Plan: non cardiac Code(s): T68.XXXA - HYPOTHERMIA, INITIAL ENCOUNTER (3) Elevated liver enzymes Assessment/Plan: GI outpatient work up for primary billary cirrhosis Code(s): R74.8 - ABNORMAL LEVELS OF OTHER SERUM ENZYMES (4) Hypothyroid Assessment/Plan: synthroid Code(s): E03.9 - HYPOTHYROIDISM, UNSPECIFIED
[2016-07-24] MEDS ORDERED: DIPYRIDAMOLE STRESS TEST 50 MG in DEXTROSE 5%-WATER - 40 ML IVPB ONE (13:30)
--- NOTE | 2016-07-24 16:46 | CON.CARD ---
Consult Consult Specialty:: Cardiology Reason for Consultation:: Nuclear stress test findings - History of Present Illness Chief Complaint: No complaints of chest pain History of Present Illness: This is a 66 year old female with a PMH of HTN, DM, CKD, abnormal LFT's, and a benign brain tumor. She has a history of right sided CHF and chronic lower extremity edema with venous stasis ulcers. She has had multiple episodes of recurrent cellulitis. She presents now with dizziness and lightheadedness. She has noted leg swelling over the last several days. Presently she denies chest pain, palpitations, and SOB. Persantine Nuclear Stress Test was performed (07/24/16) and showed essentially normal perfusion of myocardium. There was increased GI uptake (probably because she recently ate) and therefore the inferior wall of the heart is difficult to interpret. The LV function was normal and the EF was 58%. 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 history of brain tumors (benign) - Alcohol/Substance Use Hx Alcohol Use: No - Smoking History Smoking history: Former smoker Have you smoked in the past 12 months: No Aproximately how many cigarettes per day: 0 If you are a former smoker, when did you quit?: 15 years ago - Social History Usual Living Arrangement: Alone ADL: Independent History of Recent Travel: No Home Medications - Allergies Allergies/Adverse Reactions: Allergies Allergy/AdvReac Type Severity Reaction Status Date / Time phenytoin sodium Allergy Rash Verified 07/23/16 12:16 [From Dilantin] phenytoin sodium extended Allergy Rash Verified 07/23/16 12:16 [From Dilantin] vancomycin Allergy Verified 07/23/16 12:16 - Home Medications Home Medications: Ambulatory Orders Omeprazole 20 mg PO DAILY #30 capsule. 09/09/15 Levothyroxine [Synthroid -] 125 mcg PO BID 10/20/15 Hydralazine HCl [Apresoline -] 25 mg PO BID #30 tablet 12/06/15 Furosemide [Lasix -] 40 mg PO DAILY #30 tablet 07/13/16 Fluocinonide 0.05% Oin [Lidex 0.05% Ointment -] 1 applic TP DAILY 07/23/16 Gabapentin 100 mg PO DAILY 07/23/16 Glimepiride [Amaryl] 1 mg PO DAILY 07/23/16 Insulin Glargine,Hum.rec.anlog [Lantus (nf)] 0 units SQ HS 07/23/16 Insulin Lispro [Humalog] 0 unit SQ TID 07/23/16 Losartan Potassium [Cozaar -] 50 mg PO DAILY 07/23/16 Mupirocin Ointment [Bactroban] 1 applic TP BID 07/23/16 Potassium Chloride [Klor-Con M20] 20 meq PO DAILY 07/23/16 Simvastatin [Zocor -] 20 mg PO HS MDD 1 07/23/16 Review of Systems Unable to obtain ROS, reason: As per HPI Vital Signs: Vital Signs Temperature 98.1 F 07/24/16 13:56 Pulse Rate 74 07/24/16 16:36 Respiratory Rate 16 07/24/16 16:36 Blood Pressure 111/57 07/24/16 16:36 O2 Sat by Pulse Oximetry (%) 95 07/24/16 16:36 Constitutional: Yes: Calm Respiratory: Yes: CTA Bilaterally Cardiovascular: Yes: Regular Rate and Rhythm Heart Sounds: Yes: S1, S2 (No MRHG) Extremities: Yes: Other (Chronic venous stasis changes bilaterally with brawny edema) - Other Data Labs, Other Data: INR, PTT INR 1.06 (0.82-1.09) 07/23/16 13:47 Assessment/Plan Nuclear Stress Test Results: The pharmacologic nuclear stress test showed essentially normal perfusion of myocardium. There is a comment that a small area of ischemia of the inferior wall could not be ruled out. This is because there is increased GI uptake and this obscures the inferior wall. There is normal LV function with an EF of 58%. This makes true ischemia of the inferior wall less likeky. No need for further cardiac intervention at this time. Call prn
[2016-07-24 17:51] LABS: TROPONIN I < 0.02 ng/ml (0.00-0.05)
[2016-07-24] MEDS ORDERED: INSULIN (NOVOLOG) ASPART 100 UNITS/ML 10ML VIAL ONE (22:04)
[2016-07-24] MEDS: ATORVASTATIN CA 10 MG TABLET (FP) PO SCH (22:10)
[2016-07-24] MEDS: INSULIN DETEMIR 100 UNITS/ML MDV SQ SCH (22:10)
--- NOTE | 2016-07-24 22:55 | CONSULT ---
Consult Consult Specialty:: endocrine Referred by:: dr.saba roberson Reason for Consultation:: iddm - History of Present Illness Chief Complaint: weakness tired History of Present Illness: 66-year-old female with a past medical history of hypertension, iddm, hyperlipidemia, hypothyroidism, chronic lower extremity edema/venous stasis ulcers, multiple prior episodes of recurrent cellulitis has felt weak headache, short of breath,leggs swelling and reddness,denies cp,cough,nausea or vomiting - History Source History Provided By: Patient - Past Medical History MANAGER BENEFIT: Yes: Peripheral Neuropathy, Other (brain tumor) Cardio/Vascular: Yes: CHF, HTN, Hyperlipdemia Renal/: Yes: Renal Inusuff ...: No Infectious Disease: Yes: Other (LE redness) Endocrine: Yes: Diabetes Mellitus (poor controll) Additional Medical History: venous stasis with recurrent cellulitis. history of brain tumors (benign) - Alcohol/Substance Use Hx Alcohol Use: No - Smoking History Smoking history: Former smoker Have you smoked in the past 12 months: No Aproximately how many cigarettes per day: 0 If you are a former smoker, when did you quit?: 15 years ago - Social History Usual Living Arrangement: Alone ADL: Independent History of Recent Travel: No Home Medications - Allergies Allergies/Adverse Reactions: Allergies Allergy/AdvReac Type Severity Reaction Status Date / Time phenytoin sodium Allergy Rash Verified 07/23/16 12:16 [From Dilantin] phenytoin sodium extended Allergy Rash Verified 07/23/16 12:16 [From Dilantin] vancomycin Allergy Verified 07/23/16 12:16 - Home Medications Home Medications: Ambulatory Orders Omeprazole 20 mg PO DAILY #30 capsule. 09/09/15 Levothyroxine [Synthroid -] 125 mcg PO BID 10/20/15 Hydralazine HCl [Apresoline -] 25 mg PO BID #30 tablet 12/06/15 Furosemide [Lasix -] 40 mg PO DAILY #30 tablet 07/13/16 Fluocinonide 0.05% Oin [Lidex 0.05% Ointment -] 1 applic TP DAILY 07/23/16 Gabapentin 100 mg PO DAILY 07/23/16 Glimepiride [Amaryl] 1 mg PO DAILY 07/23/16 Insulin Glargine,Hum.rec.anlog [Lantus (nf)] 0 units SQ HS 07/23/16 Insulin Lispro [Humalog] 0 unit SQ TID 07/23/16 Losartan Potassium [Cozaar -] 50 mg PO DAILY 07/23/16 Mupirocin Ointment [Bactroban] 1 applic TP BID 07/23/16 Potassium Chloride [Klor-Con M20] 20 meq PO DAILY 07/23/16 Simvastatin [Zocor -] 20 mg PO HS MDD 1 07/23/16 Review of Systems - Review of Systems Constitutional: reports: Lethargy Eyes: reports: Blurred Vision HENT: reports: No Symptoms Neck: reports: No Symptoms Respiratory: reports: Exercise Intolerance, SOB, SOB on Exertion Gastrointestinal: reports: Bloating, Constipation Genitourinary: reports: No Symptoms Breasts: reports: No Symptoms Reported Musculoskeletal: reports: Decreased ROM, Extremity Pain, Joint Pain, Joint Swelling, Muscle Pain, Muscle Cramps, Muscle Weakness Integumentary: reports: Blister, Pruritis, Rash Neurological: reports: Dizziness, Unsteady Gait, Weakness Endocrine: reports: Unexplained Weight Gain Psychiatric: reports: Anxiety Physical Exam Vital Signs: Vital Signs Temperature 98.1 F 07/24/16 13:56 Pulse Rate 76 07/24/16 20:25 Respiratory Rate 16 07/24/16 20:25 Blood Pressure 132/64 07/24/16 20:25 O2 Sat by Pulse Oximetry (%) 96 07/24/16 20:25 Constitutional: Yes: Anxious Eyes: Yes: EOM Intact HENT: Yes: Normocephalic Neck: Yes: Thyromegaly Cardiovascular: Yes: Regular Rate and Rhythm Respiratory: Yes: CTA Bilaterally Gastrointestinal: Yes: Abdomen, Obese ...Rectal Exam: Yes: Deferred Renal/: Yes: WNL Musculoskeletal: Yes: Joint Stiffness, Muscle Weakness Extremities: Yes: Cool Edema: Yes Edema: LLE: 2+, RLE: 2+ Integumentary: Yes: Rash, Venous Stasis Changes Neurological: Yes: Alert, Oriented Assessment/Plan Current Active Problems Anemia (Acute) Elevated liver enzymes (Acute) Fatigue (Acute) Hyperlipidemia associated with type 2 diabetes mellitus (Acute) Hypothermia (Acute) Near syncope (Acute) Rash (Acute) Syncope (Acute) Urticaria (Acute) hypothyroidism Abnormal Lab Results 07/23/16 07/24/16 07/24/16 13:47 08:00 08:00 RBC 2.96 L Hgb 9.0 L Hct 26.7 L Eosinophils % 5.4 H Chloride 110 H BUN 55 H Creatinine 1.6 H ALT 80 H Alkaline Phosphatase 353 H Total Protein 6.1 L Albumin 2.8 L Crossmatch See Detail Laboratory Results - last 24 hr 07/23/16 07/23/16 07/24/16 13:47 22:45 06:51 WBC RBC Hgb Hct MCV MCHC RDW Plt Count MPV Neutrophils % Lymphocytes % Monocytes % Eosinophils % Basophils % Platelet Estimate Platelet Comment RBC Morphology Sodium Potassium Chloride Carbon Dioxide Anion Gap BUN Creatinine Creat Clearance w eGFR POC Glucometer [phone] 93.95995 Random Glucose Calcium Total Bilirubin AST ALT Alkaline Phosphatase Creatine Kinase Troponin I Total Protein Albumin Blood Type A POSITIVE Antibody Screen Negative Crossmatch See Detail 07/24/16 07/24/16 07/24/16 08:00 08:00 16:00 WBC 5.6 RBC 2.96 L Hgb 9.0 L Hct 26.7 L MCV 90.3 MCHC 33.9 RDW 15.4 Plt Count 158 MPV 10.8 Neutrophils % 54.7 Lymphocytes % 29.1 Monocytes % 9.7 Eosinophils % 5.4 H Basophils % 1.1 Platelet Estimate Decreased Platelet Comment No clumping noted RBC Morphology Sodium 144 Potassium 5.1 Chloride 110 H Carbon Dioxide 23 Anion Gap 11 BUN 55 H Creatinine 1.6 H Creat Clearance w eGFR 32.05 POC Glucometer Random Glucose 75 Calcium 8.7 Total Bilirubin 0.4 D AST 37 ALT 80 H Alkaline Phosphatase 353 H Creatine Kinase 39 40 Troponin I < 0.02 < 0.02 Total Protein 6.1 L Albumin 2.8 L Blood Type Antibody Screen Crossmatch 07/24/16 07/24/16 16:42 22:08 WBC RBC Hgb Hct MCV MCHC RDW Plt Count MPV Neutrophils % Lymphocytes % Monocytes % Eosinophils % Basophils % Platelet Estimate Platelet Comment RBC Morphology Sodium Potassium Chloride Carbon Dioxide Anion Gap BUN Creatinine Creat Clearance w eGFR POC Glucometer [phone] Random Glucose Calcium Total Bilirubin AST ALT Alkaline Phosphatase Creatine Kinase Troponin I Total Protein Albumin Blood Type Antibody Screen Crossmatch plan: \continue bgm qid novololg as appetite poor once improved appetite restart levemir 25 units am continue synthroid 125mcg
[2016-07-25] MEDS: LEVOTHYROXINE NA 125 MCG TABLET (FP) PO SCH (06:50)
[2016-07-25] MEDS: GLIMEPIRIDE 1 MG TABLET (FP) PO SCH (06:50)
[2016-07-25] MEDS: INSULIN SLIDING SCALE (NOVOLOG) 1 VIAL SQ SCH ×4 (06:50→21:26)
[2016-07-25] MEDS ORDERED: INSULIN (NOVOLOG) ASPART 100 UNITS/ML 10ML VIAL ONE ×2 (06:55→21:20)
[2016-07-25] MEDS ORDERED: PT OWN MED DRAWER 7, Y5N ONE ×4 (06:55→21:20)
[2016-07-25] MEDS: HEPARIN NA (PORCINE) 5,000 UNITS/ML 1ML VIAL SQ SCH ×2 (09:30→21:26)
[2016-07-25] MEDS: PANTOPRAZOLE 20 MG TABLET (FP) PO SCH (09:31)
[2016-07-25] MEDS: LOSARTAN POTASSIUM 50 MG TABLET (FP) PO SCH (09:31)
[2016-07-25] MEDS: FUROSEMIDE 40 MG TABLET (FP) PO SCH (09:31)
[2016-07-25] MEDS: hydrALAZINE HCL 25 MG TABLET (FP) PO SCH ×2 (09:31→21:27)
[2016-07-25] MEDS: POTASSIUM CHLORIDE TABS 20 MEQ TABLET.ER (FP) PO SCH (09:31)
[2016-07-25] MEDS: MUPIROCIN 2% TOPICAL OINTMENT 22 GM TUBE TP SCH ×3 (09:32→22:35)
[2016-07-25] MEDS: FLUOCINONIDE 0.05% TOP OINT (60 GM TUBE) TP SCH (09:32)
--- NOTE | 2016-07-25 14:00 | PN ---
Progress Note, Physician Chief Complaint: THIS IS MY FIRST ENCOUNTER FOR THIS PATIENT EVENTS AND CHART REVIEWED EATING LUNCH COMFORTABLE DENIES CHEST PAIN - Current Medication List Current Medications: Active Medications Atorvastatin Calcium (Lipitor -) 10 mg PO HS [facility] Last Admin: 07/24/16 22:10 Dose: 10 mg Fluocinonide (Lidex 0.05% Ointment -) 1 applic TP DAILY [facility] Last Admin: 07/25/16 09:32 Dose: 1 applic Furosemide (Lasix -) 40 mg PO DAILY [facility] Last Admin: 07/25/16 09:31 Dose: 40 mg Glimepiride (Amaryl -) 1 mg PO DAILY@0700 [facility] Last Admin: 07/25/16 06:50 Dose: 1 mg Heparin Sodium (Porcine) (Heparin -) 5,000 unit SQ BID [facility] Last Admin: 07/25/16 09:30 Dose: 5,000 unit Hydralazine HCl (Apresoline -) 25 mg PO BID [facility] Last Admin: 07/25/16 09:31 Dose: 25 mg Insulin Aspart (Novolog Vial Sliding Scale -) 1 vial SQ [facility] PRN Reason: Protocol Last Admin: 07/25/16 11:23 Dose: Not Given Insulin Detemir (Levemir Vial) 25 units SQ [facility] Last Admin: 07/24/16 22:10 Dose: 25 units Levothyroxine Sodium (Synthroid -) 125 mcg PO DAILY@0700 [facility] Last Admin: 07/25/16 06:50 Dose: 125 mcg Losartan Potassium (Cozaar -) 50 mg PO DAILY [facility] Last Admin: 07/25/16 09:31 Dose: 50 mg Mupirocin (Bactroban 2% Ointment -) 1 applic TP BID [facility] Last Admin: 07/25/16 09:32 Dose: 1 applic Pantoprazole Sodium (Protonix -) 20 mg PO DAILY [facility] Last Admin: 07/25/16 09:31 Dose: 20 mg Potassium Chloride (K-Dur -) 20 meq PO DAILY [facility] Last Admin: 07/25/16 09:31 Dose: 20 meq - Objective Vital Signs: Vital Signs Temperature 95.1 F L 07/25/16 10:00 Pulse Rate 60 07/25/16 10:00 Respiratory Rate 18 07/25/16 10:00 Blood Pressure 141/61 07/25/16 10:00 O2 Sat by Pulse Oximetry (%) 96 07/24/16 20:25 Constitutional: Yes: No Distress Eyes: Yes: WNL HENT: Yes: WNL Neck: Yes: WNL Cardiovascular: Yes: WNL Respiratory: Yes: WNL Gastrointestinal: Yes: WNL Genitourinary: Yes: WNL Musculoskeletal: Yes: WNL Extremities: Yes: WNL Edema: Yes Edema: LLE: 1+, RLE: 1+ Peripheral Pulses WNL: Yes Integumentary: Yes: WNL Wound/Incision: Yes: Clean/Dry Neurological: Yes: WNL ...Motor Strength: WNL Psychiatric: Yes: WNL Labs: INR, PTT INR 1.06 (0.82-1.09) 07/23/16 13:47 Problem List - Problems (1) Anemia Code(s): D64.9 - ANEMIA, UNSPECIFIED (2) Elevated liver enzymes Code(s): R74.8 - ABNORMAL LEVELS OF OTHER SERUM ENZYMES (3) Fatigue Code(s): R53.83 - OTHER FATIGUE (4) Hyperlipidemia associated with type 2 diabetes mellitus Code(s): E11.69 - TYPE 2 DIABETES MELLITUS WITH OTHER SPECIFIED COMPLICATION E78.5 - HYPERLIPIDEMIA, UNSPECIFIED (5) CHF exacerbation Code(s): I50.9 - HEART FAILURE, UNSPECIFIED Qualifiers: Congestive heart failure type: diastolic Qualified Code(s): I50.33 - Acute on chronic diastolic (congestive) heart failure (6) Chest pain Code(s): R07.9 - CHEST PAIN, UNSPECIFIED Qualifiers: Chest pain type: precordial pain Qualified Code(s): R07.2 - Precordial pain (7) Edema Code(s): R60.9 - EDEMA, UNSPECIFIED (8) Renal insufficiency Code(s): N28.9 - DISORDER OF KIDNEY AND URETER, UNSPECIFIED Assessment/Plan CARDIOLOGY EVAL APPRECIATED MONITOR ON TELEMETRY FOR NOW CARDIAC ENZYMES ORDERED WORKUP IN PROGRESS ADA/SSI/BGM RENAL INSUFF, MONITOR BUN/CREAT TODAY AT 1.6 MEDICATIONS REVIEWED OOB TO CHAIR AND BATHROOM PRIVILEGES ONLY
[2016-07-25 14:07] LABS: MCH 30.4 pg (25.7-33.7); MCHC 33.4 g/dl (32.0-36.0); MEAN CELL VOLUME 90.9 fl (80-96); MEAN PLT VOLUME 9.8 fl (7.5-11.1); PLATELET COUNT 196 K/MM3 (134-434); RDW 15.7 % (11.6-15.6); WHITE BLOOD COUNT 4.7 K/mm3 (4.0-10.0)
[2016-07-25] MEDS: INSULIN DETEMIR 100 UNITS/ML MDV SQ SCH (21:26)
[2016-07-25] MEDS: ATORVASTATIN CA 10 MG TABLET (FP) PO SCH (21:27)
[2016-07-26] MEDS ORDERED: PT OWN MED DRAWER 7, Y5N ONE ×2 (05:38→06:32)
[2016-07-26] MEDS: LEVOTHYROXINE NA 125 MCG TABLET (FP) PO SCH (06:06)
[2016-07-26] MEDS: INSULIN SLIDING SCALE (NOVOLOG) 1 VIAL SQ SCH ×2 (06:06→11:49)
[2016-07-26] MEDS: GLIMEPIRIDE 1 MG TABLET (FP) PO SCH (06:06)
[2016-07-26 07:19] LABS: MCH 30.8 pg (25.7-33.7); MCHC 34.3 g/dl (32.0-36.0); MEAN CELL VOLUME 89.8 fl (80-96); MEAN PLT VOLUME 9.6 fl (7.5-11.1); PLATELET COUNT 168 K/MM3 (134-434); RDW 15.8 % (11.6-15.6); WHITE BLOOD COUNT 4.2 K/mm3 (4.0-10.0)
[2016-07-26] MEDS: MUPIROCIN 2% TOPICAL OINTMENT 22 GM TUBE TP SCH ×2 (07:24→10:08)
[2016-07-26 07:50] LABS: ALBUMIN 2.9 g/dl (3.4-5.0); CALCIUM 8.9 mg/dL (8.5-10.1)
[2016-07-26 07:54] LABS: BILIRUBIN,TOTAL 0.4 mg/dL (0.2-1.0); COCKROFT - GAULT 65.5435; CREATININE 1.5 mg/dL (0.55-1.02); TOT PROT 6.2 g/dl (6.4-8.2)
[2016-07-26] MEDS: hydrALAZINE HCL 25 MG TABLET (FP) PO SCH (10:00)
[2016-07-26] MEDS: PANTOPRAZOLE 20 MG TABLET (FP) PO SCH (10:00)
[2016-07-26] MEDS: LOSARTAN POTASSIUM 50 MG TABLET (FP) PO SCH (10:00)
[2016-07-26] MEDS: FUROSEMIDE 40 MG TABLET (FP) PO SCH (10:00)
[2016-07-26] MEDS: POTASSIUM CHLORIDE TABS 20 MEQ TABLET.ER (FP) PO SCH (10:00)
[2016-07-26] MEDS: FLUOCINONIDE 0.05% TOP OINT (60 GM TUBE) TP SCH (10:01)
[2016-07-26] MEDS: HEPARIN NA (PORCINE) 5,000 UNITS/ML 1ML VIAL SQ SCH (10:01)
[2016-07-26 10:19] VITALS: TEMP 94.7
[2016-07-26 13:57] VITALS: BP 165/71; PULSE 83
== END 2016-07-26 15:35 | disposition home or self-care (01) ==
LOC: JER 12:06 → UNDOADMOB 16:12 → JERBED 16:12 → INTOOBSV 16:12 → JERBED 07-24 13:23 → J4S 07-24 18:40
PROVIDERS: ADMIT Family Medicine; ATTEND Family Medicine
PROC: 3E033GC Introduction of Other Therapeutic Substance into Peripheral Vein, Percutaneous Approach (ICD-10-PCS; principal; 2016-07-24)
PROC: 3E013VG Introduction of Insulin into Subcutaneous Tissue, Percutaneous Approach (ICD-10-PCS; 2016-07-24)
PROC: 3E013GC Introduction of Other Therapeutic Substance into Subcutaneous Tissue, Percutaneous Approach (ICD-10-PCS; 2016-07-24)
DX: D64.9 Anemia, unspecified (principal); T68.XXXA Hypothermia, initial encounter; R53.1 Weakness; R60.0 Localized edema; R53.83 Other fatigue; R74.8 Abnormal levels of other serum enzymes; L50.9 Urticaria, unspecified; E11.69 Type 2 diabetes mellitus with other specified complication; I50.9 Heart failure, unspecified; I10 Essential (primary) hypertension; E78.5 Hyperlipidemia, unspecified; E03.9 Hypothyroidism, unspecified; Z87.891 Personal history of nicotine dependence; Z87.2 Personal history of diseases of the skin and subcutaneous tissue; I50.33 Acute on chronic diastolic (congestive) heart failure; X31.XXXA Exposure to excessive natural cold, initial encounter; R07.2 Precordial pain; N28.9 Disorder of kidney and ureter, unspecified
CPT/HCPCS: 36415; 36430; 71010-TC; 78452-TC; 80053; 81003; 81015; 82533; 82550; 83605; 83735; 83880; 84443; 84481; 84484; 85025; 85027; 85610; 86850; 86900; 86901; 86922; 87040; 93005; 93010; 93017; 99285-25; A9502; G0378; J1245; J1644; P9038; P9058